=== PATIENT | female | born 1965 | race American Indian/Alaskan Native ===

== ENCOUNTER 2016-11-04 17:04 | Emergency (ER) | payer MEDICAID, OTHER ==
--- NOTE | 2016-11-04 18:21 | EDM.PDOC ---
{null, <Manas Bruner M - Last Filed: 11/04/16 18:28> ED HPI GENERAL MEDICAL PROBLEM - General Chief Complaint: Chest Pain Stated Complaint: CHEST PAIN/WEAKNESS [id number] Time Seen by Provider: 11/04/16 19:25 - Related Data Allergies Allergy/AdvReac Type Severity Reaction Status Date / Time No Known Allergies Allergy Verified 07/05/16 23:47 Home Meds: Home Meds Levothyroxine 125 mcg PO ACBREAKFAST 06/07/15 [History] Sertraline [Zoloft] 50 mg PO DAILY 06/07/15 [History] Fludrocortisone [Florinef] 0.1 mg PO WITHBREAKFAST 09/15/15 [History] Gabapentin [Neurontin] 300 mg PO TID 09/15/15 [History] rOPINIRole [Requip] 1 mg PO DAILY 09/15/15 [History] Hydrocodone/Acetaminophen [Hydrocodon-Acetaminophn 10-325] 1 tab PO ASDIRECTED PRN 11/04/16 [History] Hydrocortisone [Cortef] 2 tab PO DAILY 11/04/16 [History] Past Medical History HEENT History: Reports: Cataract, Impaired Vision Cardiovascular History: Reports: Arrhythmia Respiratory History: Reports: COPD Other Gastrointestinal History: Here because of vomiting. 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, Diabetes, Type II, Hypothyroidism Hematologic History: Reports: Anemia - Past Surgical History GI Surgical History: Reports: Appendectomy, Cholecystectomy, Colonoscopy Social & Family History - Family History Family Medical History: Unobtainable - Tobacco Use Smoking Status *Q: Former Smoker Years of Tobacco use: 1 Packs/Tins Daily: 0.2 Used Tobacco, but Quit: No Second Hand Smoke Exposure: Yes - Caffeine Use Caffeine Use: Reports: Soda, Tea - Alcohol Use Days Per Week of Alcohol Use: 0 - Recreational Drug Use Recreational Drug Use: Yes Drug Use in Last 12 Months: Yes Recreational Drug Type: Reports: Marijuana/Hashish, Methamphetamine Recreational Drug Use Frequency: Weekly - Living Situation & Occupation Living situation: Reports: Single, with Family Occupation: Disabled Course - Vital Signs Last Recorded V/S: Last Vital Signs Temp 36.6 C 11/04/16 17:28 Pulse 68 11/04/16 17:28 Resp 16 11/04/16 17:28 BP 110/79 11/04/16 17:28 Pulse Ox 100 11/04/16 17:28 - Orders/Labs/Meds Orders: Active Orders 24 hr Category Date Time Status EKG Documentation Completion [RC] URGENT Care 11/04/16 17:45 Active Labs: Laboratory Tests 11/04/16 11/04/16 11/04/16 Range/Units 18:10 18:10 18:10 WBC 7.4 (5.0-10.0) 10^3/uL RBC 4.54 (4.2-5.4) 10^6/uL Hgb 13.7 (12.0-16.0) g/dL Hct 39.7 (37.0-47.0) % MCV 87.4 (80-100) fL MCH 30.2 (27.0-34.0) pg MCHC 34.5 (33.0-35.0) g/dL Plt Count 160 (150-450) 10^3/uL Neut % (Auto) 25.7 L (42.2-75.2) % Lymph % (Auto) 62.0 H (20.5-50.1) % [place] % (Auto) 5.4 (2-8) % Eos % (Auto) 6.1 H (1.0-3.0) % Baso % (Auto) 0.8 (0.0-1.0) % D-Dimer, Quantitative < 100 (0-400) ng/mL Sodium 129 L (135-145) mmol/L Potassium 4.4 (3.6-5.0) mmol/L Chloride 101 (101-111) mmol/L Carbon Dioxide 20.0 L (21.0-31.0) mmol/L Anion Gap 12.4 BUN 19 H (7-18) mg/dL Creatinine 0.9 (0.6-1.3) mg/dL Est Cr Clr Drug Dosing 56.43 mL/min Estimated GFR (MDRD) > 60 BUN/Creatinine Ratio 21.11 Glucose 78 (74-105) mg/dL Calcium 9.6 (8.4-10.2) mg/dl Total Bilirubin 0.7 (0.2-1.0) mg/dL AST 108 H (10-42) IU/L ALT 120 H (10-60) IU/L Alkaline Phosphatase 57 (42-121) IU/L Troponin I < 0.02 (0.00-0.02) ng/ml Total Protein 8.1 (6.7-8.2) g/dl Albumin 4.1 (3.2-5.5) g/dl Globulin 4.0 Albumin/Globulin Ratio 1.03 Urine Color (YELLOW) Urine Appearance (CLEAR) Urine pH (5.0-9.0) Ur Specific [place] (1.005-1.030) Urine Protein (NEGATIVE) Urine Glucose (UA) (NEGATIVE) Urine Ketones (NEGATIVE) Urine Occult Blood (NEGATIVE) Urine Nitrite (NEGATIVE) Urine Bilirubin (NEGATIVE) Urine Urobilinogen (0.2-1.0) mg/dL Ur Leukocyte Esterase (NEGATIVE) Urine RBC /HPF Urine WBC (0-5/HPF) /HPF Ur Epithelial Cells /HPF Urine Bacteria (0-FEW/HPF) /HPF Urine Opiates Screen (NEGATIVE) Ur Oxycodone Screen (NEGATIVE) Urine Methadone Screen (NEGATIVE) Ur Barbiturates Screen (NEGATIVE) U Tricyclic Antidepress (NEGATIVE) Ur Phencyclidine Scrn (NEGATIVE) Ur Amphetamine Screen (NEGATIVE) U Methamphetamines Scrn (NEGATIVE) Urine MDMA Screen (NEGATIVE) U Benzodiazepines Scrn (NEGATIVE) Urine Cocaine Screen (NEGATIVE) U Marijuana (THC) Screen (NEGATIVE) 11/04/16 11/04/16 Range/Units 18:31 18:31 WBC (5.0-10.0) 10^3/uL RBC (4.2-5.4) 10^6/uL Hgb (12.0-16.0) g/dL Hct (37.0-47.0) % MCV (80-100) fL MCH (27.0-34.0) pg MCHC (33.0-35.0) g/dL Plt Count (150-450) 10^3/uL Neut % (Auto) (42.2-75.2) % Lymph % (Auto) (20.5-50.1) % [place] % (Auto) (2-8) % Eos % (Auto) (1.0-3.0) % Baso % (Auto) (0.0-1.0) % D-Dimer, Quantitative (0-400) ng/mL Sodium (135-145) mmol/L Potassium (3.6-5.0) mmol/L Chloride (101-111) mmol/L Carbon Dioxide (21.0-31.0) mmol/L Anion Gap BUN (7-18) mg/dL Creatinine (0.6-1.3) mg/dL Est Cr Clr Drug Dosing mL/min Estimated GFR (MDRD) BUN/Creatinine Ratio Glucose (74-105) mg/dL Calcium (8.4-10.2) mg/dl Total Bilirubin (0.2-1.0) mg/dL AST (10-42) IU/L ALT (10-60) IU/L Alkaline Phosphatase (42-121) IU/L Troponin I (0.00-0.02) ng/ml Total Protein (6.7-8.2) g/dl Albumin (3.2-5.5) g/dl Globulin Albumin/Globulin Ratio Urine Color Yellow (YELLOW) Urine Appearance Clear (CLEAR) Urine pH 5.0 (5.0-9.0) Ur Specific [place] 1.010 (1.005-1.030) Urine Protein Negative (NEGATIVE) Urine Glucose (UA) Negative (NEGATIVE) Urine Ketones Negative (NEGATIVE) Urine Occult Blood Negative (NEGATIVE) Urine Nitrite Negative (NEGATIVE) Urine Bilirubin Negative (NEGATIVE) Urine Urobilinogen 0.2 (0.2-1.0) mg/dL Ur Leukocyte Esterase Negative (NEGATIVE) Urine RBC 0-5 /HPF Urine WBC 0-5 (0-5/HPF) /HPF Ur Epithelial Cells Rare /HPF Urine Bacteria Few (0-FEW/HPF) /HPF Urine Opiates Screen Negative (NEGATIVE) Ur Oxycodone Screen Negative (NEGATIVE) Urine Methadone Screen Negative (NEGATIVE) Ur Barbiturates Screen Negative (NEGATIVE) U Tricyclic Antidepress Negative (NEGATIVE) Ur Phencyclidine Scrn Negative (NEGATIVE) Ur Amphetamine Screen Negative (NEGATIVE) U Methamphetamines Scrn Positive H (NEGATIVE) Urine MDMA Screen Negative (NEGATIVE) U Benzodiazepines Scrn Positive H (NEGATIVE) Urine Cocaine Screen Negative (NEGATIVE) U Marijuana (THC) Screen Negative (NEGATIVE) Departure - Departure Disposition: Home, Self-Care 01 Clinical Impression: Manolo's disease Instructions: Nonspecific Chest Pain, [id number] Forms: ED Department Discharge Additional Instructions: 1) try to establish with INTERNAL MEDICINE DOCTOR. rx given: fludrocortisone 0.1mg daily x 30 levothyrox 125microG daily x 30 sertraline 50mg daily x 20 diclofenac gel apply tid tizanidine 4mg bid x 30 vicodin 5/325mg bid prn x 12 <Jake Grewal - Last Filed: 11/04/16 19:35> ED HPI GENERAL MEDICAL PROBLEM - General Source of Information: Reports: Patient, Family History Limitations: Reports: No Limitations - History of Present Illness INITIAL COMMENTS - FREE TEXT/NARRATIVE: states out of all her Rx saw clinic who sent her here. explained to Pt re unable refill pain Rx. otherwise has no c/o and understands her manolo dz situation. ED ROS GENERAL - Review of Systems Review Of Systems: ROS reveals no pertinent complaints other than HPI. ED EXAM, GENERAL - Physical Exam Exam: See Below Exam Limited By: No Limitations General Appearance: Alert, WD/WN, No Apparent Distress Eye Exam: Bilateral Eye: PERRL (pupils ess ER @ 4mm) Ears: Hearing Grossly Normal Throat/Mouth: Normal Voice, No Airway Compromise Head: Atraumatic Neck: Non-Tender, Full Range of Motion Respiratory/Chest: No Respiratory Distress Cardiovascular: Regular Rate, Rhythm GI/Abdominal: Soft, Non-Tender Neurological: Alert, Oriented, Normal Cognition, Normal Gait, No Motor/Sensory Deficits Psychiatric: Normal Affect, Normal Mood Skin Exam: Warm, Dry Lymphatic: No Adenopathy Departure - Departure Time of Disposition: 19:28 Condition: good }
[2016-11-04 18:36] LABS: CHLORIDE,CL 101 mmol/L (101-111); SODIUM,NA 129 mmol/L (135-145)
[2016-11-04] MEDS ORDERED: Acetaminophen/HYDROcodone 325-10 MG Tab PO ONE (19:36)
[2016-11-04 19:51] VITALS: BP 107/80
--- NOTE | 2016-11-06 12:37 | EKG ---
{null, 11/04/2016 - NELLI VAZQUEZ ALICJA - A 12-lead EKG shows normal sinus rhythm with heart rate of 66. No significant ST elevation or ST depression noted on this 12-lead EKG. T-wave inversions noted on lead V2 and V3, nonspecific finding. [facility] /[id number] }
== END 2016-11-04 19:45 | disposition home or self-care (01) ==
LOC: DL.ED 17:04
DX: E27.1 Primary adrenocortical insufficiency (principal); J44.9 Chronic obstructive pulmonary disease, unspecified; F41.9 Anxiety disorder, unspecified; E11.9 Type 2 diabetes mellitus without complications; F17.210 Nicotine dependence, cigarettes, uncomplicated; E03.9 Hypothyroidism, unspecified; Z90.49 Acquired absence of other specified parts of digestive tract; Z79.899 Other long term (current) drug therapy
CPT/HCPCS: 36415; 80053; 80305; 81001; 84484; 85025; 85379; 93005; 99285; A9270

== ENCOUNTER 2017-01-24 19:13 | Emergency (ER) | payer MEDICAID, OTHER ==
[2017-01-24] MEDS ORDERED: methylPREDNISolone Sodium Succinate 125 MG/2 ML SDV IVPUSH ONE (19:57)
[2017-01-24 20:34] LABS: CHLORIDE,CL 103 mmol/L (101-111); SODIUM,NA 136 mmol/L (135-145)
[2017-01-24] MEDS ORDERED: Sodium Chloride 0.9% 1,000 ML IV ONE (20:38)
--- NOTE | 2017-01-24 21:26 | EDM.PDOC ---
ED HPI GENERAL MEDICAL PROBLEM - General Chief Complaint: General Stated Complaint: OUT OF MEDS, [id number] Time Seen by Provider: 01/24/17 20:00 Source of Information: Reports: Patient History Limitations: Reports: No Limitations - History of Present Illness INITIAL COMMENTS - FREE TEXT/NARRATIVE: ran out of meds yesterday, started feeling weak last karoline, NVD today. Unable to get meds until Abdominal Pain Score (Numeric/FACES): 7 - Related Data Allergies Allergy/AdvReac Type Severity Reaction Status Date / Time No Known Allergies Allergy Verified 01/24/17 19:50 Home Meds: Home Meds Levothyroxine 125 mcg PO ACBREAKFAST 06/07/15 [History] Fludrocortisone [Florinef] 0.1 mg PO WITHBREAKFAST 09/15/15 [History] Gabapentin [Neurontin] 300 mg PO TID 09/15/15 [History] rOPINIRole [Requip] 1 mg PO DAILY 09/15/15 [History] Hydrocodone/Acetaminophen [Hydrocodon-Acetaminophn 10-325] 10 tab PO BID PRN [History] Hydrocortisone [Cortef] 1 tab PO BID 11/04/16 [History] Past Medical History HEENT History: Reports: Cataract, Impaired Vision Cardiovascular History: Reports: Arrhythmia Respiratory History: Reports: COPD Gastrointestinal History: Reports: Gastritis Other Gastrointestinal History: Here because of vomiting. 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2 Used Tobacco, but Quit: No Second Hand Smoke Exposure: Yes - Caffeine Use Caffeine Use: Reports: Coffee - Alcohol Use Days Per Week of Alcohol Use: 0 - Recreational Drug Use Recreational Drug Use: Yes Drug Use in Last 12 Months: Yes Recreational Drug Type: Reports: Methamphetamine, Other (see below) Other Recreational Drug Type: Has not used in the last 2 months Recreational Drug Use Frequency: Not Used In Over 1 Year - Living Situation & Occupation Living situation: Reports: Single, with Family Occupation: Disabled ED ROS GENERAL - Review of Systems Review Of Systems: See Below Constitutional: Reports: Weakness HEENT: Reports: No Symptoms Respiratory: Reports: No Symptoms Cardiovascular: Reports: No Symptoms Endocrine: Reports: No Symptoms GI/Abdominal: Reports: No Symptoms Musculoskeletal: Reports: No Symptoms Skin: Reports: Change in Color Neurological: Reports: Weakness ED EXAM, GENERAL - Physical Exam Exam: See Below Exam Limited By: No Limitations General Appearance: Alert, Mild Distress Eye Exam: Bilateral Eye: EOMI, PERRL Ears: Normal External Exam, Normal TMs Nose: Normal Inspection Throat/Mouth: Normal Inspection Head: Atraumatic, Normocephalic Neck: Normal Inspection Respiratory/Chest: No Respiratory Distress, Lungs Clear, Normal Breath Sounds Cardiovascular: Normal Peripheral Pulses, Regular Rate, Rhythm GI/Abdominal: Normal Bowel Sounds, Soft Back Exam: Normal Inspection Neurological: Alert, Oriented, Normal Cognition, No Motor/Sensory Deficits Psychiatric: Normal Affect Skin Exam: Warm, Dry, Intact, Normal Color Course - Vital Signs Last Recorded V/S: Last Vital Signs Temp 98.1 F 01/24/17 21:51 Pulse 78 01/24/17 21:51 Resp 14 01/24/17 21:51 BP 80/54 L 01/24/17 21:51 Pulse Ox 100 01/24/17 21:51 - Orders/Labs/Meds Labs: Laboratory Tests 01/24/17 01/24/17 Range/Units 20:10 20:10 WBC 6.6 (5.0-10.0) 10^3/uL RBC 4.19 L (4.2-5.4) 10^6/uL Hgb 12.8 (12.0-16.0) g/dL Hct 37.0 (37.0-47.0) % MCV 88.3 (80-100) fL MCH 30.5 (27.0-34.0) pg MCHC 34.6 (33.0-35.0) g/dL Plt Count 165 (150-450) 10^3/uL Neut % (Auto) 39.3 L (42.2-75.2) % Lymph % (Auto) 46.8 (20.5-50.1) % [place] % (Auto) 6.7 (2-8) % Eos % (Auto) 6.6 H (1.0-3.0) % Baso % (Auto) 0.6 (0.0-1.0) % Add Manual Diff Yes Neutrophils % (Manual) 40 % Lymphocytes % (Manual) 44 % Monocytes % (Manual) 8 % Eosinophils % (Manual) 8 % Sodium 136 (135-145) mmol/L Potassium 4.7 (3.6-5.0) mmol/L Chloride 103 (101-111) mmol/L Carbon Dioxide 23.0 (21.0-31.0) mmol/L Anion Gap 14.7 BUN 18 (7-18) mg/dL Creatinine 0.7 (0.6-1.3) mg/dL Est Cr Clr Drug Dosing 72.55 mL/min Estimated GFR (MDRD) > 60 BUN/Creatinine Ratio 25.71 Glucose 101 (74-105) mg/dL Calcium 9.2 (8.4-10.2) mg/dl Total Bilirubin 0.7 (0.2-1.0) mg/dL AST 32 (10-42) IU/L ALT 19 (10-60) IU/L Alkaline Phosphatase 53 (42-121) IU/L Total Protein 8.0 (6.7-8.2) g/dl Albumin 3.9 (3.2-5.5) g/dl Globulin 4.1 Albumin/Globulin Ratio 0.95 Meds: Medications Discontinued Medications Generic Name Dose Route Start Last Admin Trade Name Freq PRN Reason Stop Dose Admin Sodium Chloride 1,000 mls @ 999 mls/hr 01/24/17 20:38 01/24/17 20:49 Normal Saline IV 01/24/17 21:38 999 mls/hr .BOLUS ONE Administration Methylprednisolone Sodium Succinate 125 mg 01/24/17 19:57 01/24/17 20:14 Solu-Medrol IVPUSH 01/24/17 19:58 125 mg ONETIME ONE Administration - Re-Assessments/Exams Free Text/Narrative Re-Assessment/Exam: 01/25/17 03:20 verbalizes improvement following IVF infusion Departure - Departure Time of Disposition: 22:00 Disposition: Home, Self-Care 01 Condition: Fair Clinical Impression: Addisons disease, Weak - Discharge Information Instructions: Loranger Disease Forms: ED Department Discharge Additional Instructions: follow up with primary care, flurinef 0.1mg daily #2 cortef 1mg twice daily #4
[2017-01-24 21:52] VITALS: BP 80/54
== END 2017-01-24 22:00 | disposition home or self-care (01) ==
LOC: DL.ED 19:13
DX: E27.1 Primary adrenocortical insufficiency (principal); H54.7 Unspecified visual loss; J44.9 Chronic obstructive pulmonary disease, unspecified; F17.210 Nicotine dependence, cigarettes, uncomplicated; E11.9 Type 2 diabetes mellitus without complications; E03.9 Hypothyroidism, unspecified; Z86.2 Personal history of diseases of the blood and blood-forming organs and certain disorders involving the immune mechanism; Z79.899 Other long term (current) drug therapy; Z90.49 Acquired absence of other specified parts of digestive tract
CPT/HCPCS: 36415; 80053; 85025; 99284; J2930; J7030; 96361; 96374

== ENCOUNTER 2017-02-10 15:27 | Emergency (ER) | payer MEDICAID, OTHER | END 2017-02-10 16:15 | LOC: DL.ED 15:27 | DX: Z53.21 Procedure and treatment not carried out due to patient leaving prior to being seen by health care provider (principal) ==

== ENCOUNTER 2017-02-25 14:05 | Inpatient (IN) | payer MEDICAID, SELFPAY ==
[2017-02-25] MEDS ORDERED: 50% Dextrose in Water 50 ML Syringe IVPUSH ONE (14:08)
[2017-02-25] MEDS ORDERED: Dexamethasone 4 MG/ML SDV IVPUSH ONE (14:08)
[2017-02-25] MEDS ORDERED: Dextrose 5%-0.45% NaCl 1,000 ML IV SCH (14:15)
[2017-02-25] MEDS ORDERED: Hydrocortisone Sodium Succinate 100 MG/2 ML SDV IVPUSH ONE (14:30)
[2017-02-25] MEDS ORDERED: Sodium Chloride 0.9% 10 ML Syringe FLUSH PRN (14:30)
--- NOTE | 2017-02-25 14:41 | EDM.PDOC ---
ED HPI GENERAL MEDICAL PROBLEM - General Chief Complaint: General Stated Complaint: AMBULANCE Time Seen by Provider: 02/25/17 14:15 Source of Information: Reports: Patient, EMS, RN, RN Notes Reviewed History Limitations: Reports: No Limitations - History of Present Illness INITIAL COMMENTS - FREE TEXT/NARRATIVE: Patient presents to the ER by [facility]. She states she has been sick and laying in bed for 3 days at home. She states she has [place]'s disease and has not taken her medications for the past few days. History of present illness is vague. EMS states glucose reading in the ambulance was "low". Only 1/2 of 1 amp of D50 was given as the IV blew. Onset: Unknown/Unsure Location: Reports: Abdomen Quality: Reports: Ache Severity: Mild Improves with: Reports: None Worsens with: Reports: None - Related Data Allergies Allergy/AdvReac Type Severity Reaction Status Date / Time No Known Allergies Allergy Verified 01/24/17 19:50 Home Meds: Home Meds Levothyroxine 125 mcg PO ACBREAKFAST 06/07/15 [History] Fludrocortisone [Florinef] 0.1 mg PO WITHBREAKFAST 09/15/15 [History] Gabapentin [Neurontin] 300 mg PO TID 09/15/15 [History] rOPINIRole [Requip] 1 mg PO DAILY 09/15/15 [History] Hydrocodone/Acetaminophen [Hydrocodon-Acetaminophn 10-325] 10 tab PO BID PRN [History] Hydrocortisone [Cortef] 1 tab PO BID 11/04/16 [History] Cyclobenzaprine [Flexeril] 1 tab PO ASDIRECTED PRN 02/25/17 [History] Ibuprofen [Ibuprofen] 1 tab PO ASDIRECTED PRN 02/25/17 [History] Sertraline [Zoloft] 1 tab PO DAILY 02/25/17 [History] hydrOXYzine HCl [Atarax] 1 tab PO TID PRN 02/25/17 [History] Past Medical History HEENT History: Reports: Cataract, Impaired Vision Cardiovascular History: Reports: Arrhythmia Respiratory History: Reports: COPD Gastrointestinal History: Reports: Gastritis Other Gastrointestinal History: Here because of vomiting. 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, Diabetes, Type II, Hypothyroidism Hematologic History: Reports: Anemia - Past Surgical History GI Surgical History: Reports: Appendectomy, Cholecystectomy, Colonoscopy Social & Family History - Family History Family Medical History: Noncontributory - Tobacco Use Smoking Status *Q: Current Every Day Smoker Years of Tobacco use: 1 Packs/Tins Daily: 0.2 Used Tobacco, but Quit: No Second Hand Smoke Exposure: Yes - Caffeine Use Caffeine Use: Reports: Coffee - Alcohol Use Days Per Week of Alcohol Use: 0 - Recreational Drug Use Recreational Drug Use: Yes Drug Use in Last 12 Months: Yes Recreational Drug Type: Reports: Methamphetamine, Other (see below) Other Recreational Drug Type: Has not used in the last 2 months Recreational Drug Use Frequency: Not Used In Over 1 Year - Living Situation & Occupation Living situation: Reports: Single, with Family Occupation: Disabled ED ROS GENERAL - Review of Systems Review Of Systems: See Below Constitutional: Reports: Weakness, Fatigue ED EXAM, GENERAL - Physical Exam Exam: See Below Exam Limited By: No Limitations General Appearance: Alert, WD/WN, No Apparent Distress Eye Exam: Bilateral Eye: Normal Inspection, PERRL Ears: Normal External Exam Nose: Normal Inspection Throat/Mouth: Other (dry skin around lips) Head: Atraumatic, Normocephalic Neck: Normal Inspection, Supple, Non-Tender Respiratory/Chest: No Respiratory Distress, Lungs Clear, Normal Breath Sounds Cardiovascular: Normal Peripheral Pulses, Regular Rate, Rhythm, No Edema, No Gallop, No JVD, No Murmur, No Rub Peripheral Pulses: 2+: Radial (L), Radial (R) GI/Abdominal: Normal Bowel Sounds, Soft, Tender (Female) Exam: Deferred Rectal (Female) Exam: Deferred Back Exam: Normal Inspection, Full Range of Motion Extremities: Normal Inspection, Normal Range of Motion Neurological: Alert, Oriented Psychiatric: Normal Mood, Flat Affect Skin Exam: Warm, Dry, Intact Lymphatic: No Adenopathy EKG INTERPRETATION Rhythm: NSR [place]: Normal P-Wave: Present QRS: Normal ST-T: Depressed QT: Normal Comparison: No Change Course - Vital Signs Last Recorded V/S: Last Vital Signs Temp 98.9 F 02/25/17 14:05 Pulse 96 02/25/17 14:05 Resp 20 02/25/17 14:05 BP 66/41 L 02/25/17 14:05 Pulse Ox 99 02/25/17 14:05 - Orders/Labs/Meds Orders: Active Orders 24 hr Category Date Time Status Blood Glucose Check, Bedside [] ONETIME Care 02/25/17 14:09 Active EKG 12 Lead [EKG Documentation Completion] [] STAT Care 02/25/17 14:09 Active Peripheral IV Care [RC] . DIRECTED Care 02/25/17 14:08 Active Peripheral IV Care [RC] . DIRECTED Care 02/25/17 14:30 Active CULTURE BLOOD [BC] Stat Lab 02/25/17 14:24 Results CULTURE BLOOD [BC] Stat Lab 02/25/17 14:29 Results DRUG SCREEN URINE BIORAD [URCHEM] Stat Lab 02/25/17 14:11 Uncollected UA W/MICROSCOPIC [URIN] Stat Lab 02/25/17 14:10 Uncollected Dextrose 5%-0.45% NaCl [Dextrose 5%-1/2 NS] 1,000 ml Med 02/25/17 14:15 Active IV ASDIRECTED Sodium Chloride 0.9% [Saline Flush] Med 02/25/17 14:08 Active 10 ml FLUSH ASDIRECTED PRN Sodium Chloride 0.9% [Saline Flush] Med 02/25/17 14:30 Active 10 ml FLUSH ASDIRECTED PRN Blood Culture x2 Reflex Set [OM.PC] Stat Oth 02/25/17 14:10 Ordered Peripheral IV Insertion Adult [OM.PC] Stat Oth 02/25/17 14:08 Ordered Peripheral IV Insertion Adult [OM.PC] Stat Oth 02/25/17 14:30 Ordered Medication Orders Dextrose/Sodium Chloride (Dextrose 5%-1/2 Ns) 1,000 mls @ 200 mls/hr IV ASDIRECTED TERRI Last Admin: 02/25/17 14:24 Dose: 200 mls/hr Sodium Chloride (Saline Flush) 10 ml FLUSH ASDIRECTED PRN PRN Reason: Keep Vein Open Last Admin: 02/25/17 15:12 Dose: 10 ml Sodium Chloride (Saline Flush) 10 ml FLUSH ASDIRECTED PRN PRN Reason: Keep Vein Open Last Admin: 02/25/17 14:40 Dose: 10 ml Labs: Laboratory Tests 02/25/17 02/25/17 02/25/17 Range/Units 14:24 14:24 14:24 WBC 9.3 (5.0-10.0) 10^3/uL RBC 4.39 (4.2-5.4) 10^6/uL Hgb 13.4 (12.0-16.0) g/dL Hct 38.3 (37.0-47.0) % MCV 87.2 (80-100) fL MCH 30.5 (27.0-34.0) pg MCHC 35.0 (33.0-35.0) g/dL Plt Count 162 (150-450) 10^3/uL Neut % (Auto) 49.1 (42.2-75.2) % Lymph % (Auto) 34.7 (20.5-50.1) % [place] % (Auto) 10.8 H (2-8) % Eos % (Auto) 5.0 H (1.0-3.0) % Baso % (Auto) 0.4 (0.0-1.0) % Sodium 132 L (135-145) mmol/L Potassium 3.9 (3.6-5.0) mmol/L Chloride 100 L (101-111) mmol/L Carbon Dioxide 19.0 L (21.0-31.0) mmol/L Anion Gap 16.9 BUN 33 H (7-18) mg/dL Creatinine 0.9 (0.6-1.3) mg/dL Est Cr Clr Drug Dosing TNP Estimated GFR (MDRD) > 60 BUN/Creatinine Ratio 36.66 Glucose 72 L (74-105) mg/dL POC Glucose (70-105) mg/dl Lactic Acid 1.2 (0.5-2.2) mmol/L Calcium 9.2 (8.4-10.2) mg/dl Magnesium (1.8-2.5) mg/dL Total Bilirubin 1.4 H (0.2-1.0) mg/dL AST 38 (10-42) IU/L ALT 24 (10-60) IU/L Alkaline Phosphatase 55 (42-121) IU/L Creatine Kinase 45 (26-174) IU/L Troponin I (0.00-0.02) ng/ml Total Protein 8.1 (6.7-8.2) g/dl Albumin 4.1 (3.2-5.5) g/dl Globulin 4.0 Albumin/Globulin Ratio 1.03 Amylase 70 (28-100) U/L Lipase 43 (22-51) U/L Ethyl Alcohol < 5 mg/dL 02/25/17 02/25/17 02/25/17 Range/Units 14:24 14:28 16:02 WBC (5.0-10.0) 10^3/uL RBC (4.2-5.4) 10^6/uL Hgb (12.0-16.0) g/dL Hct (37.0-47.0) % MCV (80-100) fL MCH (27.0-34.0) pg MCHC (33.0-35.0) g/dL Plt Count (150-450) 10^3/uL Neut % (Auto) (42.2-75.2) % Lymph % (Auto) (20.5-50.1) % [place] % (Auto) (2-8) % Eos % (Auto) (1.0-3.0) % Baso % (Auto) (0.0-1.0) % Sodium (135-145) mmol/L Potassium (3.6-5.0) mmol/L Chloride (101-111) mmol/L Carbon Dioxide (21.0-31.0) mmol/L Anion Gap BUN (7-18) mg/dL Creatinine (0.6-1.3) mg/dL Est Cr Clr Drug Dosing Estimated GFR (MDRD) BUN/Creatinine Ratio Glucose (74-105) mg/dL POC Glucose 72 144 H (70-105) mg/dl Lactic Acid (0.5-2.2) mmol/L Calcium (8.4-10.2) mg/dl Magnesium 1.2 L (1.8-2.5) mg/dL Total Bilirubin (0.2-1.0) mg/dL AST (10-42) IU/L ALT (10-60) IU/L Alkaline Phosphatase (42-121) IU/L Creatine Kinase (26-174) IU/L Troponin I < 0.02 (0.00-0.02) ng/ml Total Protein (6.7-8.2) g/dl Albumin (3.2-5.5) g/dl Globulin Albumin/Globulin Ratio Amylase (28-100) U/L Lipase (22-51) U/L Ethyl Alcohol mg/dL Meds: Medications Generic Name Dose Route Start Last Admin Trade Name Freq PRN Reason Stop Dose Admin Dextrose/Sodium Chloride 1,000 mls @ 200 mls/hr 02/25/17 14:15 02/25/17 14:24 Dextrose 5%-1/2 Ns IV 200 mls/hr ASDIRECTED TERRI Administration Sodium Chloride 10 ml 02/25/17 14:08 02/25/17 15:12 Saline Flush FLUSH 10 ml ASDIRECTED PRN Administration Keep Vein Open Sodium Chloride 10 ml 02/25/17 14:30 02/25/17 14:40 Saline Flush FLUSH 10 ml ASDIRECTED PRN Administration Keep Vein Open Discontinued Medications Generic Name Dose Route Start Last Admin Trade Name Danielq PRN Reason Stop Dose Admin Dexamethasone 4 mg 02/25/17 14:08 02/25/17 14:31 Dexamethasone IVPUSH 02/25/17 14:09 4 mg ONETIME ONE Administration Dextrose/Water 50 ml 02/25/17 14:08 02/25/17 14:30 Dextrose 50% In Water IVPUSH 02/25/17 14:09 50 ml ONETIME ONE Administration Hydrocortisone Sodium Succinate 60 mg 02/25/17 14:30 02/25/17 14:48 Solu-Cortef IVPUSH 02/25/17 14:31 60 mg ONETIME ONE Administration Departure - Departure Time of Disposition: 16:31 Disposition: Refer to Observation Condition: Fair Clinical Impression: Hypoglycemia, Hypomagnesemia - Discharge Information Referrals: PCP,None [Primary Care Provider] - Forms: ED Department Discharge
[2017-02-25 14:57] LABS: CHLORIDE,CL 100 mmol/L (101-111); SODIUM,NA 132 mmol/L (135-145)
--- NOTE | 2017-02-25 15:08 | CR ---
Clinical history: 51-year-old female loss of consciousness (aspiration?). Interpretation: Upright AP portable chest unremarkable. No acute new cardiopulmonary abnormality since 06 July 2016 exam. Normal cardiac silhouette without cephalization of flow, signs of alveolar edema or dependent effusio n. No lung mass, hilar lymphadenopathy or focal lobar pneumonia. No atelectasis/collapse. No pneumothorax. Lisa thorax unremarkable.
[2017-02-25] MEDS: Sodium Chloride 0.9% 10 ML Syringe FLUSH PRN ×2 (15:12→20:54)
[2017-02-25] MEDS ORDERED: Morphine 2 MG/ML Syringe IVPUSH PRN (17:58)
[2017-02-25] MEDS ORDERED: Ondansetron 4 MG/2 ML SDV IVPUSH PRN (17:58)
[2017-02-25] MEDS ORDERED: Acetaminophen/HYDROcodone 325-10 MG Tab PO PRN (18:03)
[2017-02-25] MEDS ORDERED: Cyclobenzaprine 10 MG Tab PO PRN ×2 (18:03→20:48)
[2017-02-25] MEDS ORDERED: hydrOXYzine HCl 25 MG Tab PO PRN (18:03)
[2017-02-25] MEDS ORDERED: Insulin Aspart 100 Units/ML 3 ML Pen SUBCUT PRN (18:05)
[2017-02-25] MEDS ORDERED: 50% Dextrose in Water 50 ML Syringe IVPUSH PRN (18:05)
[2017-02-25] MEDS: Sodium Chloride 0.9% 1,000 ML IV SCH (19:04)
[2017-02-25] MEDS: cefTRIAXone 1 GM in Sodium Chloride 0.9% 50 ML IV SCH (20:13)
[2017-02-25] MEDS: Acetaminophen/HYDROcodone 325-10 MG Tab PO PRN (21:00)
[2017-02-25] MEDS: Gabapentin 300 MG Cap PO SCH (21:00)
[2017-02-25] MEDS: Hydrocortisone Sodium Succinate 100 MG/2 ML SDV IV SCH (22:14)
--- NOTE | 2017-02-25 22:20 | HP ---
CHIEF COMPLAINT: Had a fall at home and was unconscious. HISTORY OF PRESENTING ILLNESS: Mrs. Chuy Roger is a 51-year-old female with a medical history significant for Montgomery disease, on chronic steroid therapy; Kelly thyroiditis, hypothyroidism, type 2 diabetes mellitus, who initially presented to the ER as she was noted to be on the floor, observed by her sister and she was brought to the emergency room. While in the emergency room, she was noted to be hypotensive and needing admission to the hospital for possible adrenal crisis. The patient is awake and alert and is able to follow commands spontaneously. As per the patient, she has been sick for the last 3 to 4 days, where she has been feeling weak and tired. She did not fill her hydrocortisone and has not been taking her hydrocortisone in the last 3 to 4 days. She was also complaining of fevers and chills while at home. Denies any chest pains. No shortness of breath. No cough with sputum in the last few days. Complains of abdominal discomfort which is mild in nature. She was also confused prior to coming to the hospital, but now not much confused. She denied any nausea or vomiting in the last 2 days. She denies any diarrhea in the last few days. The patient denied any history of chest pains on exertion, but has dyspnea on exertion. No history of orthopnea or paroxysmal nocturnal dyspnea. The patient denied any history of hematemesis, hematochezia, or melanotic stools. Normal bowel and bladder habits otherwise. Sometimes she is constipated. REVIEW OF SYSTEMS: A complete review of system including skin, ear, nose, and throat; cardiovascular system, endocrinology, rheumatology, allergy, immunology, hematology, and constitutional were all evaluated. PAST MEDICAL HISTORY: Significant for: 1. Type 2 diabetes mellitus. 2. Manolo disease, noncompliance with medical treatment and plan. 3. Hypothyroidism. 4. Gastroesophageal reflux disease. 5. Chronic alcohol use. 6. Chronic tobacco use. 7. History of substance abuse. 8. History of anxiety and depression. 9. Chronic obstructive pulmonary disease. 10.Degenerative disc disease of the lumbar spine. 11.Methamphetamine use. 12.Marijuana use. PAST SURGICAL HISTORY: Significant for: 1. section. 2. Cholecystectomy. 3. Appendicectomy. 4. Fallopian tube ligation. FAMILY HISTORY: Significant for heart disease, COPD, and asthma in her mother. Hypertension, diabetes, COPD, and heart disease in her father. History of cancer in her sister and cancer in her maternal grandmother and also in her maternal uncles and aunts. ALLERGIES: The patient was noted to have allergies to codeine, aspirin with caffeine, hydrocodone and acetaminophen, naproxen, and penicillin. SOCIAL HISTORY: The patient has a history of tobacco use and alcohol use and substance abuse with marijuana and methamphetamine. PHYSICAL EXAMINATION: Vital Signs: Temperature of 101.3, pulse of 104, blood pressure of 80/62, respiratory rate of 18, saturating at 99% on room air. General Appearance: The patient is alert and oriented to time, place, and person. Follows commands spontaneously. Cardiovascular System: S1, S2 heard with normal intensity. No gallops. Respiratory: Clear to auscultation bilaterally. No wheeze. No crepitations. Abdomen: Soft. Bowel sounds positive. Nontender. No rigidity. Extremities: No edema in bilateral lower extremities. Neurologic: No gross focal neurological deficits. HOME MEDICATIONS: Reviewed. 1. Atarax 25 mg daily. 2. Flexeril 10 mg three times a day as needed. 3. Florinef 0.1 mg daily. 4. Hydrocortisone 10 mg. 5. Levothyroxine 125 mcg daily. 6. Oxycodone with acetaminophen 0.5 to 1 tablet every 6 hours as needed for pain. 7. Requip 1 mg daily. 8. Phenergan 25 mg as needed. LABORATORY DATA: Reviewed. 1. WBC 9.3, hemoglobin 13.4, hematocrit 38.3, platelet count 162. 2. Sodium 132, potassium 3.9, chloride 100, bicarb 19, BUN 33, creatinine 0.9, glucose 72, lactic acid 1.2, magnesium 1.2, total bilirubin 1.4. Troponin less than 0.02. 3. Ethyl alcohol less than 5. ASSESSMENT: 1. Acute Montgomery crisis. 2. Hyponatremia. 3. Fever with unknown source of infection. 4. Hypertension. 5. Type 2 diabetes mellitus. 6. Substance abuse. 7. Chronic tobacco use. PLAN: 1. Montgomery crisis. The patient presents with unconscious state and responded well to the IV fluids. She has not been taking her hydrocortisone for the last 2 to 3 days. We will start her on IV hydrocortisone 100 mg q.8 hourly. We will keep her hydrated with IV fluids. We will restart her oral hydrocortisone and Florinef when she is more stable and closely follow. The patient was explained about the importance of being compliant with medications. 2. Type 2 diabetes mellitus. This could be uncontrolled secondary to using hydrocortisone, but initially she was noted to be hypoglycemic with blood glucose of 72. We will have her on normal saline and closely follow with her blood sugars. 3. Tobacco use. The patient is educated on tobacco cessation, strongly encouraged her to quit smoking. We will prescribe nicotine transdermal patch while in the hospital. 4. Fever. The patient is noted to have a low-grade temperature of 101.3, exact etiology not clear. The patient has a chest x-ray in the ER which was within normal limits. We will obtain urinalysis. Obtain blood cultures and urine culture and empirically start her on IV antibiotic with ceftriaxone. Closely follow. 5. DVT prophylaxis. We will have her on Lovenox for DVT prophylaxis. 6. Code status. The patient wants to be full code. 7. Discussed with ER physician regarding the plan of care. Reviewed the labs and medications. Reviewed the old charts. [facility] /[id number]
[2017-02-26] MEDS: Sodium Chloride 0.9% 1,000 ML IV SCH ×3 (03:44→21:09)
[2017-02-26] MEDS: Levothyroxine 125 MCG Tab PO SCH (05:37)
[2017-02-26] MEDS: Hydrocortisone Sodium Succinate 100 MG/2 ML SDV IV SCH ×3 (05:38→21:11)
[2017-02-26 05:53] LABS: CHLORIDE,CL 106 mmol/L (101-111); SODIUM,NA 135 mmol/L (135-145)
[2017-02-26] MEDS: Sertraline 50 MG Tab PO SCH (10:40)
[2017-02-26] MEDS: Gabapentin 300 MG Cap PO SCH ×3 (10:40→21:11)
[2017-02-26] MEDS: rOPINIRole 2 MG Tab PO SCH (10:40)
[2017-02-26] MEDS: Enoxaparin 40 MG/0.4 ML Syringe SUBCUT SCH (10:41)
[2017-02-26] MEDS: Acetaminophen/HYDROcodone 325-10 MG Tab PO PRN ×2 (10:52→23:06)
[2017-02-26] MEDS: Fludrocortisone 0.1 MG Tab PO SCH (12:55)
--- NOTE | 2017-02-26 13:56 | PN ---
DATE: 02/26/2017 SUBJECTIVE: Mrs. Acacia Vera is a 51-year-old female with medical history significant for Harvey's disease, chronic steroid therapy, Kelly thyroiditis, hypothyroidism, type 2 diabetes mellitus, history of noncompliance with medications, and substance abuse, admitted to the hospital with complaints of increasing weakness, tiredness, and noted to have adrenal crisis. For the last 24 hours, the patient was started on IV hydrocortisone and IV fluids after which her symptoms seems to be improving. She denies any chest pain. No shortness of breath. Complaints of increasing weakness and tiredness, 4 to 5/10 in intensity, aggravated on ambulation, relieved with rest, not associated with any nausea or vomiting. Complains having mild abdominal discomfort. REVIEW OF SYSTEMS: Cardiovascular, respiratory, gastrointestinal, neurology, constitutional were all evaluated. PHYSICAL EXAMINATION: Vital Signs: Temperature of 98, pulse of 86, blood pressure of 87/52, respiratory rate of 20, saturating at 92% on room air. General Appearance: The patient is well oriented to time, place, and person. Follows commands spontaneously. Cardiovascular System: S1 and S2 heard with normal intensity. No gallops. Respiratory: Clear to auscultation bilaterally. No wheeze. No crepitations. Abdomen: Soft. Bowel sounds positive. Nontender. No rigidity. Extremities: No edema in bilateral lower extremities. NEUROLOGY: No gross focal neurological deficits. MEDICATIONS: Reviewed. Continue with: 1. [place] 1 tablet twice a day as needed for pain. 2. Ceftriaxone 1 g daily. 3. Flexeril 10 mg 3 times a day as needed for spasms. 4. Lovenox 40 mg daily subcutaneously. 5. Neurontin 300 mg 3 times a day. 6. Hydrocortisone 50 mg IV q.8 hourly. 7. NovoLog supplemental scale. 8. Levothyroxine 125 mcg daily. 9. Morphine 2 mg IV q.2 hours as needed for pain. 10.Zofran 4 mg IV q.6 hours as needed for nausea and vomiting. 11.Zoloft 50 mg daily. LABORATORY DATA: WBC 4.3, hemoglobin 11, hematocrit 31.5, and platelet count 126. Sodium 135, potassium 4, chloride 106, bicarb 20, BUN 26, creatinine 0.7, glucose 164. Magnesium 1.7, phosphorus 5.2, calcium 8.1. Urine toxicology screened positive for oxycodone, positive for amphetamine. Methamphetamine, and marijuana, ethyl alcohol less than 5. ASSESSMENT: 1. Acute Harvey's crisis. 2. Hyponatremia. 3. Hypertension. 4. Type 2 diabetes mellitus. 5. Substance abuse. PLAN: 1. Manolo's crisis. The patient was started on IV hydrocortisone at 100 mg IV q.8 hourly. We will decrease it to 50 mg IV q.8 hourly. We will start her on Florinef as her blood pressure seems to be on the lower side. Continue with levothyroxine. 2. Hyponatremia, this seems to be much improved. Continue the IV fluids. We will decrease IV fluids at this time and we will recheck a basic metabolic panel in a.m. 3. Type 2 diabetes mellitus. The patient was hypoglycemic at the time of admission. Continue with supplemental scale insulin as needed. Closely monitor fingersticks with each meals. 4. Substance abuse. The patient was educated about the ill effects of substance abuse on her health, and strongly encouraged her to quit smoking and abusing medications which she understands and verbalized the same. 5. Fever, exact etiology not clear. No source of infection identified. We empirically started on IV antibiotics. We will continue the same. 6. Deep vein thrombosis prophylaxis. Continue with the Lovenox for DVT prophylaxis. 7. We will have Physical Therapy and Occupational Therapy evaluate and treat the patient. [facility] /[id number]
[2017-02-26] MEDS: cefTRIAXone 1 GM in Sodium Chloride 0.9% 50 ML IV SCH (17:17)
[2017-02-27] MEDS: Sodium Chloride 0.9% 1,000 ML IV SCH (05:12)
[2017-02-27] MEDS: Levothyroxine 125 MCG Tab PO SCH (05:39)
[2017-02-27] MEDS: Hydrocortisone Sodium Succinate 100 MG/2 ML SDV IV SCH (05:39)
[2017-02-27 06:42] LABS: CHLORIDE,CL 110 mmol/L (101-111); SODIUM,NA 138 mmol/L (135-145)
[2017-02-27] MEDS: Enoxaparin 40 MG/0.4 ML Syringe SUBCUT SCH (08:50)
[2017-02-27] MEDS: Fludrocortisone 0.1 MG Tab PO SCH (08:50)
[2017-02-27] MEDS: Gabapentin 300 MG Cap PO SCH ×4 (08:52→21:06)
[2017-02-27] MEDS: rOPINIRole 2 MG Tab PO SCH (08:52)
[2017-02-27] MEDS: Sertraline 50 MG Tab PO SCH (08:52)
[2017-02-27] MEDS: Hydrocortisone 20 MG Tab PO SCH ×2 (12:48→17:41)
[2017-02-27] MEDS: Acetaminophen/HYDROcodone 325-10 MG Tab PO PRN (12:54)
--- NOTE | 2017-02-27 13:01 | PN ---
DATE: 02/27/2017 SUBJECTIVE: Mrs. Acacia Vera is a 51-year-old female with medical history significant for Castro disease, chronic steroid therapy, Kelly thyroiditis, hypothyroidism, type 2 diabetes mellitus, noncompliance with medical treatment, and history of substance abuse, admitted to the hospital with complaints of increasing weakness, tiredness, and noted to have Manolo's crisis. For the last 24 hours, the patient is maintained on IV fluids. She is responding well to the treatment. She denies any chest pain. No shortness of breath. She had one episode of nausea and vomiting yesterday. She had mild episodes of hallucinations yesterday, which seems to be resolved at this time. She denies any abdominal pain. No diarrhea. REVIEW OF SYSTEMS: Cardiovascular, respiratory, gastrointestinal, neurology, constitutional were all evaluated. PHYSICAL EXAMINATION: Vital Signs: Temperature of 97.9, pulse of 56, blood pressure of 83/44, saturating at 96% on room air, respiratory rate of 20. General Appearance: The patient is well oriented to time, place, and person. Follows commands spontaneously. Cardiovascular System: S1, S2 heard with normal intensity. No gallops. Respiratory: Clear to auscultation bilaterally. No wheeze. No crepitations. Abdomen: Soft. Bowel sounds positive. Nontender. No rigidity. Extremities: No edema in bilateral lower extremities. Neurology: No gross focal neurological deficit. MEDICATIONS: Reviewed. 1. Continue with [place] 10/325 mg twice a day as needed for pain. 2. Ceftriaxone 1 g daily. 3. Flexeril 10 mg three times a day as needed. 4. Lovenox 40 mg daily. 5. Florinef 0.1 mg daily at breakfast. 6. Neurontin 300 mg three times a day. 7. Hydrocortisone 50 mg IV q.8 hourly. 8. Atarax 25 mg three times a day as needed for itching. 9. NovoLog supplemental scale. 10.Levothyroxine 125 mcg daily. 11.Morphine 2 mg IV q.2 hours as needed for pain. 12.Requip 1 mg daily. 13.Zoloft 50 mg daily. LABORATORY DATA: 1. WBC 6.6, hemoglobin 9.3, hematocrit 27.3, platelet count 99. 2. Sodium 138, potassium 4, chloride 110, bicarb 19, BUN 21, creatinine 0.6, glucose 141, calcium 7.4. ASSESSMENT: 1. Acute Castro crisis. 2. Thrombocytopenia. 3. Acute hyponatremia. 4. Hypertension. 5. Type 2 diabetes mellitus. 6. Substance abuse. PLAN: 1. Castro crisis, seems to be improving. We were able to decrease the hydrocortisone to 50 mg IV q.8 hourly. We will switch her to oral hydrocortisone. Continue with oral Florinef at this time. We will closely monitor. Her blood pressure seems to be on the lower side, but she is tolerating the blood pressure well, unsure if this is a normal range. 2. Hyponatremia, this seems to be much improved. We will discontinue the IV fluids today. 3. Type 2 diabetes mellitus, improved. She was noted to be acutely hypoglycemic at the time of admission. Continue supplemental scale insulin. Try to avoid any hypoglycemic episodes. Have her on hypoglycemic protocol. 4. Substance abuse. The patient's urine toxicology screen is positive for methamphetamine, marijuana, and opiates. The patient is explained about ill effects of abusing drugs on health and encouraged to quit smoking and also abusing drugs, which she understands and verbalized the same. 5. Fever, exact etiology not clear. She was empirically started on IV antibody, but no source of infection identified at this time. We will possibly discontinue the IV antibiotic once the courses done. 6. Deep venous thrombosis prophylaxis. The patient is noted to have thrombocytopenia. We will hold off the Lovenox for now. Recheck a CBC in a.m. The patient will be encouraged to ambulate around. 7. We will have Physical Therapy and Occupational Therapy to evaluate and treat the patient. 8. Possible discharge in a.m. if she remains hemodynamically stable. 9. Hallucination. The patient was noted to have mild episodes of hallucination, this could be from withdrawal as she was using methamphetamine and marijuana prior to getting admitted to the hospital. She remains hemodynamically stable at this time. [facility] /[id number]
[2017-02-27] MEDS: Sodium Chloride 0.9% 10 ML Syringe FLUSH PRN (17:43)
[2017-02-27] MEDS: cefTRIAXone 1 GM in Sodium Chloride 0.9% 50 ML IV SCH (17:44)
[2017-02-28] MEDS: Levothyroxine 125 MCG Tab PO SCH (05:45)
[2017-02-28 06:36] LABS: CHLORIDE,CL 108 mmol/L (101-111); SODIUM,NA 140 mmol/L (135-145)
[2017-02-28] MEDS: Fludrocortisone 0.1 MG Tab PO SCH (07:30)
[2017-02-28] MEDS: Hydrocortisone 20 MG Tab PO SCH (07:30)
[2017-02-28] MEDS: rOPINIRole 2 MG Tab PO SCH (08:22)
[2017-02-28] MEDS: Gabapentin 300 MG Cap PO SCH (08:22)
[2017-02-28] MEDS: Enoxaparin 40 MG/0.4 ML Syringe SUBCUT SCH (08:22)
[2017-02-28] MEDS: Sertraline 50 MG Tab PO SCH (08:22)
[2017-02-28] MEDS ORDERED: Potassium Chloride 10 MEQ Tab.ER PO SCH (10:45)
[2017-02-28 10:53] VITALS: BP 97/62
--- NOTE | 2017-03-01 05:20 | DISCH ---
ADMITTING DIAGNOSES: 1. Acute [place] crisis. 2. Uncontrolled diabetes mellitus. 3. Substance abuse. DISCHARGE DIAGNOSES: 1. Acute [place] crisis, resolved. 2. Acute hyponatremia, resolved. 3. Acute hypokalemia. 4. Substance abuse. 5. Chronic tobacco use. HISTORY OF PRESENT ILLNESS: Mrs. Chuy Roger is a 51-year-old female with medical history significant for [place] disease, on chronic steroid therapy and fludrocortisone; Kelly thyroiditis, leading to hypothyroidism; type 2 diabetes mellitus, admitted to the hospital with increasing lethargy and weakness, and was noted to be in [place] crisis with hypotension and uncontrolled diabetes with hypoglycemic episode. The patient was admitted to the hospital. She was also noted to be in acute hyponatremia requiring IV fluids. She was given booster dose of hydrocortisone 100 mg IV q.8 hourly initially and then tapered down to 50 mg. We were able to taper down to oral hydrocortisone at 20 mg twice a day. She responded well to the treatment. She was noted to have mild fever at the time of admission, so we did urinalysis and chest x-ray, which did not show any evidence of infection. She was empirically treated with IV ceftriaxone which was discontinued at the time of discharge. She was able to tolerate oral feeds well. She was able to ambulate well without any difficulty. Her hypoglycemic episodes got resolved. She is discharged home in stable condition. She is explained about the importance of being compliant with hydrocortisone. The patient claims that she had not taken hydrocortisone for few days prior to getting admitted to the hospital. She was explained about the importance of being compliant with medications. She was also explained about ill effects of substance use on her health and strongly encouraged her to stop doing any substance abuse. Her urine toxicology screen was positive for methamphetamine, opiates, and also marijuana at the time of admission. She is discharged home in stable condition. She is advised to follow with her primary care physician in the next 1 week of time. DISCHARGE MEDICATIONS: Include: 1. Flexeril one tablet 3 times a day as needed for back pain. 2. Florinef 0.1 mg oral with breakfast. 3. Neurontin 300 mg three times a day. 4. Hydrocodone acetaminophen 1 tablet twice a day as needed for pain. 5. Hydrocortisone 20 mg twice a day. 6. Ibuprofen 1 tablet as needed for pain. 7. Levothyroxine 125 mcg at breakfast. 8. Potassium chloride 20 mEq twice a day for the next 5 days. 9. Zoloft 1 tablet once daily. 10.Hydroxyzine 1 tablet three times a day as needed for itching. 11.Requip 1 mg tablet daily. PHYSICAL EXAMINATION: On the day of discharge: Vital Signs: Temperature of 98.9, pulse of 81, blood pressure of 97/62, respiratory rate of 20, and saturating at 100% on room air. General Appearance: The patient is well oriented to time, place, and person. Follows commands spontaneously. Cardiovascular System: S1 and S2 heard with normal intensity. No gallops. Respiratory System: Clear to auscultation bilaterally. No wheeze. No crepitations. Abdomen: Soft. Bowel sounds positive. Nontender. No rigidity. Extremities: No edema, bilateral lower extremities. Neurology: No gross focal neurological deficits. CONDITION ON ADMISSION: Poor. CONDITION ON DISCHARGE: Stable. ACTIVITY: As tolerated. DIET: Cardiac healthy diet. FOLLOWUP: Follow up with primary care physician in the next 1 to 2 weeks of time. TIME SPENT: Spent over 35 minutes of time in evaluating and treating this patient and formulating the discharge plan. [facility] /[id number]
--- NOTE | 2017-03-01 13:11 | EKG ---
02/25/2017 - NELLI VAZQUEZ - A 12-lead EKG shows normal sinus rhythm. Nonspecific ST-T wave changes, mostly in leads V2, V3, and V4. No significant ST elevation or ST depression noted on this 12-lead EKG. [facility] /[id number]
== END 2017-02-28 12:45 | disposition home or self-care (01) | DRG 644 ==
LOC: DL.ED 14:05 → DL.MS 16:50 → UNDOADMIN 16:50 → DL.MS 17:58
PROVIDERS: ADMIT Internal Medicine; ATTEND Internal Medicine
DX: E27.2 Addisonian crisis (principal); E83.42 Hypomagnesemia; E27.1 Primary adrenocortical insufficiency; E87.1 Hypo-osmolality and hyponatremia; G89.29 Other chronic pain; M54.9 Dorsalgia, unspecified; E87.6 Hypokalemia; R50.9 Fever, unspecified; I10 Essential (primary) hypertension; E11.649 Type 2 diabetes mellitus with hypoglycemia without coma; F17.210 Nicotine dependence, cigarettes, uncomplicated; Z79.899 Other long term (current) drug therapy; F15.90 Other stimulant use, unspecified, uncomplicated; F12.90 Cannabis use, unspecified, uncomplicated; M51.36 Other intervertebral disc degeneration, lumbar region; J44.9 Chronic obstructive pulmonary disease, unspecified; Z91.19 Patient's noncompliance with other medical treatment and regimen; E06.3 Autoimmune thyroiditis; E03.9 Hypothyroidism, unspecified; K21.9 Gastro-esophageal reflux disease without esophagitis; Z72.89 Other problems related to lifestyle; F32.9 Major depressive disorder, single episode, unspecified; F41.9 Anxiety disorder, unspecified; D64.9 Anemia, unspecified; Z79.52 Long term (current) use of systemic steroids; Z88.5 Allergy status to narcotic agent; Z88.6 Allergy status to analgesic agent; Z88.0 Allergy status to penicillin; Z88.8 Allergy status to other drugs, medicaments and biological substances
CPT/HCPCS: 36415; 71010; 80053; 82150; 82550; 82962 ×2; 83605; 83690; 83735; 84484; 85025; 87040 ×2; 93005; 96365; 96366; 96375; 99285; G0480; J1100; J1720; J7042; J7050 ×2; 80048; 80305; 81001; 84100; 85027; 87086; A9270-GY; J0696; J1650; J1815-GY; J2405; J3475; J7030; J7060

== ENCOUNTER 2017-03-01 14:28 | Inpatient (IN) | payer MEDICAID, OTHER, SELFPAY ==
--- NOTE | 2017-03-01 14:26 | EDM.PDOC ---
ED HPI GENERAL MEDICAL PROBLEM - General Chief Complaint: Respiratory Problem Stated Complaint: IN BY AMBULANCE/SOB Time Seen by Provider: 03/01/17 14:26 Source of Information: Reports: Patient, EMS, Old Records, RN, RN Notes Reviewed History Limitations: Reports: No Limitations - History of Present Illness INITIAL COMMENTS - FREE TEXT/NARRATIVE: Arrives by ambulance from home with report that pt was discharged home yesterday and within an hour or two of being home began to c/o shortness of breath and then became very sleepy and confused. Today pt's sister checked on her and found her too weak to get up. Pt arrives arousable to verbal stimuli, but slightly confused. Pt is unable to provide any history. Onset: Gradual Onset Date: 02/28/17 Duration: Constant, Getting Worse Location: Reports: Chest, Generalized Severity: Moderate Improves with: Reports: None Worsens with: Reports: None Context: Reports: Other (Discharged from hospital 02/28/17.) Left Lower Abdomen Pain Score (Numeric/FACES): 8 - Related Data Allergies Allergy/AdvReac Type Severity Reaction Status Date / Time No Known Allergies Allergy Verified 01/24/17 19:50 Home Meds: Home Meds Levothyroxine 125 mcg PO ACBREAKFAST 06/07/15 [History] Fludrocortisone [Florinef] 0.1 mg PO WITHBREAKFAST 09/15/15 [History] Gabapentin [Neurontin] 300 mg PO TID 09/15/15 [History] rOPINIRole [Requip] 1 mg PO DAILY 09/15/15 [History] Hydrocodone/Acetaminophen [Hydrocodon-Acetaminophn 10-325] 1 tab PO BID PRN [History] Cyclobenzaprine [Flexeril] 1 tab PO TID PRN 02/25/17 [History] Ibuprofen 1 tab PO ASDIRECTED PRN 02/25/17 [History] Sertraline [Zoloft] 1 tab PO DAILY 02/25/17 [History] hydrOXYzine HCl [Atarax] 1 tab PO TID PRN 02/25/17 [History] Hydrocortisone [Cortef] 20 mg PO BIDMEALS #60 tablet 02/28/17 [Rx] Potassium Chloride [Klor-Con 10] 20 meq PO BIDMEALS #10 tab.er 09/11/17 [Rx] Past Medical History HEENT History: Reports: Cataract, Impaired Vision Cardiovascular History: Reports: Arrhythmia Respiratory History: Reports: COPD, SOB Gastrointestinal History: Reports: Gastritis Other Gastrointestinal History: Here because of vomiting. Genitourinary History: Reports: Urinary Incontinence Other Genitourinary History: Became incontinent of urine two weeks ago. TROUBLE LOCATOR TEST DESK History: Reports: , Other (See Below) Other OB/BYN History: c-sect Musculoskeletal History: Reports: Back Pain, Chronic Neurological History: Reports: Other (See Below) Other Neuro History: forgetful at times, not oriented to time Psychiatric History: Reports: Anxiety, Hallucinations Other Psychiatric History: Patient stated she had hallucinations three days ago of her mother that is . Endocrine/Metabolic History: Reports: [place] Disease, Diabetes, Type II, Hypothyroidism Hematologic History: Reports: Anemia Dermatologic History: Reports: Eczema Other Dermatologic History: bilateral arm - Past Surgical History GI Surgical History: Reports: Appendectomy, Cholecystectomy, Colonoscopy Female Surgical History: Reports: Section Social & Family History - Family History Family Medical History: Noncontributory - Tobacco Use Smoking Status *Q: Current Every Day Smoker Years of Tobacco use: 3 Packs/Tins Daily: 0.2 Used Tobacco, but Quit: No Second Hand Smoke Exposure: No - Caffeine Use Caffeine Use: Reports: Coffee, Soda - Alcohol Use Days Per Week of Alcohol Use: 0 - Recreational Drug Use Recreational Drug Use: Yes Drug Use in Last 12 Months: Yes Recreational Drug Type: Reports: Methamphetamine Other Recreational Drug Type: 3 years of meth use, stopped last month. Recreational Drug Use Frequency: Not Used In Over 1 Year - Living Situation & Occupation Living situation: Reports: Single, with Family Occupation: Disabled ED ROS GENERAL - Review of Systems Review Of Systems: Unable To Obtain ED EXAM, GENERAL - Physical Exam Exam: See Below Exam Limited By: Altered Mental Status General Appearance: Lethargic, Thin, Other (chronically ill appearing) Eye Exam: Bilateral Eye: Normal Inspection Ears: Normal External Exam Nose: Normal Inspection, Normal Mucosa, No Blood Throat/Mouth: Normal Oropharynx, No Airway Compromise, Other (dry oral membranes ) Head: Atraumatic, Normocephalic Neck: Normal Inspection, Supple, Non-Tender, Full Range of Motion Respiratory/Chest: No Respiratory Distress, No Accessory Muscle Use, Decreased Breath Sounds, Rhonchi (Rt mid-chest) Cardiovascular: Normal Peripheral Pulses, Regular Rate, Rhythm, No Edema, No JVD GI/Abdominal: Normal Bowel Sounds, Soft, Non-Tender, No Distention (Female) Exam: Deferred Rectal (Female) Exam: Deferred Back Exam: Normal Inspection, Full Range of Motion. No: CVA Tenderness (L), CVA Tenderness (R) Extremities: Normal Inspection, Normal Range of Motion, Non-Tender, Normal Capillary Refill, No Pedal Edema Neurological: No Motor/Sensory Deficits, Confused Skin Exam: Warm, Dry, Intact EKG INTERPRETATION EKG Date: 03/01/17 Time: 14:37 Rhythm: Other (SR) Rate (Beats/Min): 77 [place]: Normal P-Wave: Present QRS: Normal ST-T: Other (nonspec. T-wave abnl.) QT: Normal Comparison: No Change Course - Vital Signs Last Recorded V/S: Last Vital Signs Temp 36.8 C 03/01/17 14:36 Pulse 73 03/01/17 15:36 Resp 18 03/01/17 15:36 BP 91/56 L 03/01/17 15:36 Pulse Ox 95 03/01/17 15:36 - Orders/Labs/Meds Orders: Active Orders 24 hr Category Date Time Status EKG 12 Lead [EKG Documentation Completion] [RC] STAT Care 03/01/17 14:30 Active RT Aerosol Therapy [RC] ASDIRECTED Care 03/01/17 14:52 Active Chest 1V Frontal [CR] Stat Exams 03/01/17 14:26 Ordered B-TYPE NATRIURETIC PEPTIDE,BNP [CHEM] Stat Lab 03/01/17 14:27 Ordered CBC WITH AUTO DIFF [HEME] Stat Lab 03/01/17 14:26 Ordered COMPREHENSIVE METABOLIC PN,CMP [CHEM] Stat Lab 03/01/17 14:26 Ordered CREATINE KINASE,CK [CHEM] Stat Lab 03/01/17 14:27 Ordered CULTURE BLOOD [BC] Stat Lab 03/01/17 14:27 Ordered CULTURE BLOOD [BC] Stat Lab 03/01/17 14:27 Ordered CULTURE BLOOD [BC] Stat Lab 03/01/17 14:36 Received CULTURE BLOOD [BC] Stat Lab 03/01/17 14:45 Received DRUG SCREEN URINE BIORAD [URCHEM] Stat Lab 03/01/17 14:27 Uncollected Blood Culture x2 Reflex Set [OM.PC] Stat Ot 03/01/17 14:27 Ordered Blood Culture x2 Reflex Set [OM.PC] Stat Ot 03/01/17 15:33 Ordered Labs: Laboratory Tests 03/01/17 03/01/17 03/01/17 Range/Units 14:32 14:36 14:36 WBC (5.0-10.0) 10^3/uL RBC (4.2-5.4) 10^6/uL Hgb (12.0-16.0) g/dL Hct (37.0-47.0) % MCV (80-100) fL MCH (27.0-34.0) pg MCHC (33.0-35.0) g/dL Plt Count (150-450) 10^3/uL Neut % (Auto) (42.2-75.2) % Lymph % (Auto) (20.5-50.1) % [place] % (Auto) (2-8) % Eos % (Auto) (1.0-3.0) % Baso % (Auto) (0.0-1.0) % Sodium Potassium Chloride Carbon Dioxide Anion Gap BUN Creatinine Est Cr Clr Drug Dosing Estimated GFR (MDRD) BUN/Creatinine Ratio Glucose POC Glucose 128 H (70-105) mg/dl Lactic Acid 0.7 (0.5-2.2) mmol/L Calcium Total Bilirubin AST ALT Alkaline Phosphatase Creatine Kinase (26-174) IU/L Troponin I < 0.02 (0.00-0.02) ng/ml B-Natriuretic Peptide (0-100) pg/ml Total Protein Albumin Globulin Albumin/Globulin Ratio Urine Color (YELLOW) Urine Appearance (CLEAR) Urine pH (5.0-9.0) Ur Specific [place] (1.005-1.030) Urine Protein (NEGATIVE) Urine Glucose (UA) (NEGATIVE) Urine Ketones (NEGATIVE) Urine Occult Blood (NEGATIVE) Urine Nitrite (NEGATIVE) Urine Bilirubin (NEGATIVE) Urine Urobilinogen (0.2-1.0) mg/dL Ur Leukocyte Esterase (NEGATIVE) Urine RBC /HPF Urine WBC (0-5/HPF) /HPF Ur Epithelial Cells /HPF Urine Bacteria (0-FEW/HPF) /HPF Urine Mucus /LPF Urine Opiates Screen (NEGATIVE) Ur Oxycodone Screen (NEGATIVE) Urine Methadone Screen (NEGATIVE) Ur Barbiturates Screen (NEGATIVE) U Tricyclic Antidepress (NEGATIVE) Ur Phencyclidine Scrn (NEGATIVE) Ur Amphetamine Screen (NEGATIVE) U Methamphetamines Scrn (NEGATIVE) Urine MDMA Screen (NEGATIVE) U Benzodiazepines Scrn (NEGATIVE) Urine Cocaine Screen (NEGATIVE) U Marijuana (THC) Screen (NEGATIVE) Ethyl Alcohol < 5 mg/dL 03/01/17 03/01/17 03/01/17 Range/Units 14:36 14:36 14:36 WBC 9.0 (5.0-10.0) 10^3/uL RBC 3.87 L (4.2-5.4) 10^6/uL Hgb 11.8 L (12.0-16.0) g/dL Hct 33.6 L (37.0-47.0) % MCV 86.8 (80-100) fL MCH 30.5 (27.0-34.0) pg MCHC 35.1 H (33.0-35.0) g/dL Plt Count 92 L (150-450) 10^3/uL Neut % (Auto) 70.7 (42.2-75.2) % Lymph % (Auto) 18.4 L (20.5-50.1) % [place] % (Auto) 8.4 H (2-8) % Eos % (Auto) 2.4 (1.0-3.0) % Baso % (Auto) 0.1 (0.0-1.0) % Sodium Cancelled Potassium Cancelled Chloride Cancelled Carbon Dioxide Cancelled Anion Gap Cancelled BUN Cancelled Creatinine Cancelled Est Cr Clr Drug Dosing Cancelled Estimated GFR (MDRD) Cancelled BUN/Creatinine Ratio Cancelled Glucose Cancelled POC Glucose (70-105) mg/dl Lactic Acid (0.5-2.2) mmol/L Calcium Cancelled Total Bilirubin Cancelled AST Cancelled ALT Cancelled Alkaline Phosphatase Cancelled Creatine Kinase 15 L (26-174) IU/L Troponin I (0.00-0.02) ng/ml B-Natriuretic Peptide 145 H (0-100) pg/ml Total Protein Cancelled Albumin Cancelled Globulin Cancelled Albumin/Globulin Ratio Cancelled Urine Color (YELLOW) Urine Appearance (CLEAR) Urine pH (5.0-9.0) Ur Specific [place] (1.005-1.030) Urine Protein (NEGATIVE) Urine Glucose (UA) (NEGATIVE) Urine Ketones (NEGATIVE) Urine Occult Blood (NEGATIVE) Urine Nitrite (NEGATIVE) Urine Bilirubin (NEGATIVE) Urine Urobilinogen (0.2-1.0) mg/dL Ur Leukocyte Esterase (NEGATIVE) Urine RBC /HPF Urine WBC (0-5/HPF) /HPF Ur Epithelial Cells /HPF Urine Bacteria (0-FEW/HPF) /HPF Urine Mucus /LPF Urine Opiates Screen (NEGATIVE) Ur Oxycodone Screen (NEGATIVE) Urine Methadone Screen (NEGATIVE) Ur Barbiturates Screen (NEGATIVE) U Tricyclic Antidepress (NEGATIVE) Ur Phencyclidine Scrn (NEGATIVE) Ur Amphetamine Screen (NEGATIVE) U Methamphetamines Scrn (NEGATIVE) Urine MDMA Screen (NEGATIVE) U Benzodiazepines Scrn (NEGATIVE) Urine Cocaine Screen (NEGATIVE) U Marijuana (THC) Screen (NEGATIVE) Ethyl Alcohol mg/dL 03/01/17 03/01/17 Range/Units 15:10 15:10 WBC (5.0-10.0) 10^3/uL RBC (4.2-5.4) 10^6/uL Hgb (12.0-16.0) g/dL Hct (37.0-47.0) % MCV (80-100) fL MCH (27.0-34.0) pg MCHC (33.0-35.0) g/dL Plt Count (150-450) 10^3/uL Neut % (Auto) (42.2-75.2) % Lymph % (Auto) (20.5-50.1) % [place] % (Auto) (2-8) % Eos % (Auto) (1.0-3.0) % Baso % (Auto) (0.0-1.0) % Sodium Potassium Chloride Carbon Dioxide Anion Gap BUN Creatinine Est Cr Clr Drug Dosing Estimated GFR (MDRD) BUN/Creatinine Ratio Glucose POC Glucose (70-105) mg/dl Lactic Acid (0.5-2.2) mmol/L Calcium Total Bilirubin AST ALT Alkaline Phosphatase Creatine Kinase (26-174) IU/L Troponin I (0.00-0.02) ng/ml B-Natriuretic Peptide (0-100) pg/ml Total Protein Albumin Globulin Albumin/Globulin Ratio Urine Color Yellow (YELLOW) Urine Appearance Clear (CLEAR) Urine pH 7.0 (5.0-9.0) Ur Specific [place] 1.010 (1.005-1.030) Urine Protein Negative (NEGATIVE) Urine Glucose (UA) Negative (NEGATIVE) Urine Ketones Negative (NEGATIVE) Urine Occult Blood Negative (NEGATIVE) Urine Nitrite Negative (NEGATIVE) Urine Bilirubin Negative (NEGATIVE) Urine Urobilinogen 2.0 H (0.2-1.0) mg/dL Ur Leukocyte Esterase Negative (NEGATIVE) Urine RBC 0-5 /HPF Urine WBC 0-5 (0-5/HPF) /HPF Ur Epithelial Cells Rare /HPF Urine Bacteria Few (0-FEW/HPF) /HPF Urine Mucus Few H /LPF Urine Opiates Screen Positive H (NEGATIVE) Ur Oxycodone Screen Negative (NEGATIVE) Urine Methadone Screen Negative (NEGATIVE) Ur Barbiturates Screen Negative (NEGATIVE) U Tricyclic Antidepress Negative (NEGATIVE) Ur Phencyclidine Scrn Negative (NEGATIVE) Ur Amphetamine Screen Negative (NEGATIVE) U Methamphetamines Scrn Negative (NEGATIVE) Urine MDMA Screen Negative (NEGATIVE) U Benzodiazepines Scrn Negative (NEGATIVE) Urine Cocaine Screen Negative (NEGATIVE) U Marijuana (THC) Screen Positive H (NEGATIVE) Ethyl Alcohol mg/dL See scanned lab results: Planex error/malfunction. Meds: Medications Discontinued Medications Generic Name Dose Route Start Last Admin Trade Name Freq PRN Reason Stop Dose Admin Albuterol/Ipratropium Confirm 03/01/17 14:49 03/01/17 14:53 Duoneb 3.0-0.5 Mg/3 Ml Administered 03/01/17 14:50 3 ml Dose Administration 3 ml .ROUTE .STK-MED ONE Albuterol/Ipratropium 3 ml 03/01/17 14:52 03/01/17 15:06 Duoneb 3.0-0.5 Mg/3 Ml NEB 03/01/17 14:53 Not Given ONETIME ONE Piperacillin Sod/Tazobactam 100 mls @ 200 mls/hr 03/01/17 15:18 03/01/17 15: 30 Sod 3.375 gm/ Sodium Chloride IV 03/01/17 15:47 200 mls/hr ONETIME ONE Administration - Radiology Interpretation Free Text/Narrative:: CXR: RML infiltrate new compared to CXR dated 02/25/17. Departure - Departure Time of Disposition: 15:38 ((admit to Dr. Hoover)) Disposition: Admitted As Inpatient 67 Condition: Serious Clinical Impression: Manolo's disease Pneumonia Qualifiers: Pneumonia type: due to unspecified organism Laterality: right Lung location: middle lobe of lung Qualified Code(s): J18.1 - Lobar pneumonia, unspecified organism - Discharge Information Forms: ED Department Discharge - My Orders Last 24 Hours: My Active Orders 03/01/17 14:26 Chest 1V Frontal [CR] Stat CBC WITH AUTO DIFF [HEME] Stat COMPREHENSIVE METABOLIC PN,CMP [CHEM] Stat 03/01/17 14:27 B-TYPE NATRIURETIC PEPTIDE,BNP [CHEM] Stat CREATINE KINASE,CK [CHEM] Stat CULTURE BLOOD [BC] Stat CULTURE BLOOD [BC] Stat DRUG SCREEN URINE BIORAD [URCHEM] Stat Blood Culture x2 Reflex Set [OM.PC] Stat 03/01/17 14:30 EKG 12 Lead [EKG Documentation Completion] [RC] STAT 03/01/17 14:36 CULTURE BLOOD [BC] Stat 03/01/17 14:45 CULTURE BLOOD [BC] Stat 03/01/17 14:52 RT Aerosol Therapy [RC] ASDIRECTED 03/01/17 15:33 Blood Culture x2 Reflex Set [OM.PC] Stat - Assessment/Plan Last 24 Hours: My Active Orders 03/01/17 14:26 Chest 1V Frontal [CR] Stat CBC WITH AUTO DIFF [HEME] Stat COMPREHENSIVE METABOLIC PN,CMP [CHEM] Stat 03/01/17 14:27 B-TYPE NATRIURETIC PEPTIDE,BNP [CHEM] Stat CREATINE KINASE,CK [CHEM] Stat CULTURE BLOOD [BC] Stat CULTURE BLOOD [BC] Stat DRUG SCREEN URINE BIORAD [URCHEM] Stat Blood Culture x2 Reflex Set [OM.PC] Stat 03/01/17 14:30 EKG 12 Lead [EKG Documentation Completion] [RC] STAT 03/01/17 14:36 CULTURE BLOOD [BC] Stat 03/01/17 14:45 CULTURE BLOOD [BC] Stat 03/01/17 14:52 RT Aerosol Therapy [RC] ASDIRECTED 03/01/17 15:33 Blood Culture x2 Reflex Set [OM.PC] Stat
[2017-03-01] MEDS ORDERED: Albuterol/Ipratropium 3.0-0.5 MG/3 ML Neb Soln ONE (14:49)
[2017-03-01] MEDS ORDERED: Albuterol/Ipratropium 3.0-0.5 MG/3 ML Neb Soln NEB ONE (14:52)
[2017-03-01] MEDS ORDERED: Piperacillin/Tazobactam 3.375 GM in Sodium Chloride 0.9% 100 ML IV ONE (15:18)
--- NOTE | 2017-03-01 15:42 | CR ---
Clinical history: 51-year-old female with cough and shortness of breath. Interpretation: Abnormal. Multilobar infiltrates i.e. patchy new densities involving both lower lobes since 25 February 2017 ex am. These may reflect less than optimal inspiratory effort however cannot exclude possibility of aspi ration or pulmonary embolism/infarct. Clinical? Normal cardiac silhouette and bony thorax. No alveolar edema or dependent effusion. No pneumothorax.
[2017-03-01] MEDS ORDERED: Morphine 2 MG/ML Syringe IVPUSH PRN (17:37)
[2017-03-01] MEDS ORDERED: Magnesium Hydroxide 400 MG/5 ML Susp 30 ML Cup PO PRN (17:37)
[2017-03-01] MEDS ORDERED: Ondansetron 4 MG/2 ML SDV IVPUSH PRN (17:37)
[2017-03-01 17:59] LABS: CHLORIDE,CL 100 mmol/L (101-111); SODIUM,NA 136 mmol/L (135-145)
[2017-03-01] MEDS: Pantoprazole 40 MG Tab.CR PO SCH (18:04)
[2017-03-01] MEDS: Potassium Chloride 10 MEQ Tab.ER PO SCH (18:04)
[2017-03-01] MEDS: Hydrocortisone Sodium Succinate 100 MG/2 ML SDV IV SCH (18:04)
[2017-03-01] MEDS ORDERED: Iopamidol 755 Mg/ML 100 ML Bottle IVPUSH ONE (18:27)
[2017-03-01] MEDS ORDERED: Ciprofloxacin in D5W 200 ML ONE (19:25)
[2017-03-01] MEDS: Ciprofloxacin in D5W 400 MG in Premix Bag 1 BAG IV SCH ×2 (19:55)
--- NOTE | 2017-03-01 21:02 | HP ---
HISTORY OF PRESENT ILLNESS: Mrs. Acacia Vera is a 51-year-old female with medical history significant for [place] disease, chronic steroid therapy, Kelly thyroiditis with hypothyroidism, type 2 diabetes mellitus, recently discharged from the hospital after she was admitted for Manolo's crisis secondary to noncompliance with medical treatment and plan. She also has a history of chronic tobacco use, chronic substance abuse including methamphetamine and marijuana. She just got discharged yesterday in stable condition. She went home and after going home, she felt lethargic and slept all day long and also this morning and as she was getting more lethargic and confused, the patient was brought to the emergency room and further workup showed evidence of possible pneumonia needing admission to the hospital. At this time, the patient is awake and alert and follows commands spontaneously. She denies any abusing drugs after going home. She claims that she felt weak and tired and she slept last night and could not get up this morning. She denies any fevers or chills in the last few days. She complains of mild shortness of breath 2 to 3/10 in intensity, aggravated on exertion, and relieved with rest. Also associated with cough with sputum. She denies any abdominal pain. No nausea. No vomiting. No diarrhea. The patient denied any history of chest pains on exertion. No history of dyspnea on exertion. No history of orthopnea or paroxysmal nocturnal dyspnea. The patient denied history of hematemesis, hematochezia, or melanotic stools. Normal bowel and bladder habits otherwise. REVIEW OF SYSTEMS: A complete review of system including skin, ear, nose, and throat; cardiovascular system, respiratory system, gastrointestinal system, genitourinary system, hematology, oncology, neurology, allergy, immunology, endocrinology and constitutional were all evaluated. PHYSICAL EXAMINATION: Vital Signs: Temperature of 98.8, pulse of 73, blood pressure of 80/50, respiratory rate of 22, saturating at 98% on room air. General Appearance: The patient is well oriented to time, place, and person. Follows commands spontaneously. Cardiovascular System: S1, S2 heard with normal intensity. No gallops. Respiratory System: Crepitations bilaterally more so on the right side. No wheeze. Abdomen: Soft. Bowel sounds positive. Nontender. No rigidity. Extremities: No edema in bilateral lower extremities. Neurologic: No gross focal neurological deficits. PAST MEDICAL HISTORY: Significant for: 1. [place] disease, on chronic steroid therapy and Florinef. 2. Type 2 diabetes mellitus. 3. Hyperlipidemia. 4. Hypothyroidism. 5. Gastroesophageal reflux disease. 6. Chronic tobacco use. 7. Chronic alcohol use. 8. Substance abuse. 9. History of anxiety and depression. 10.Chronic obstructive pulmonary disease. 11.Degenerative disc disease of the lumbar spine. PAST SURGICAL HISTORY: Significant for: 1. section. 2. Cholecystectomy. 3. Appendicectomy. 4. Fallopian tube ligation. FAMILY HISTORY: Significant for heart disease, COPD, and asthma in her mother. Hypertension, diabetes, COPD, and heart disease in her father. Cancer in her sister and cancer in her maternal grandmother. Cancer in maternal uncle and aunt. ALLERGIES: Allergies to codeine, aspirin, caffeine, hydrocodone and acetaminophen, naproxen, and penicillin. SOCIAL HISTORY: The patient has a longstanding history of tobacco use, alcohol use, marijuana use, and methamphetamine use. Her last methamphetamine use was prior to getting admitted on a previous admission. HOME MEDICATIONS: Include: 1. Requip 1 mg oral daily. 2. Hydroxyzine 25 mg three times a day as needed. 3. Zoloft 1 tablet once daily. 4. Potassium chloride 20 mEq twice a day. 5. Levothyroxine 125 mcg at breakfast. 6. Ibuprofen 1 tablet as needed. 7. Hydrocortisone 20 mg twice a day. 8. Hydrocodone and acetaminophen 1 tablet b.i.d. as needed. 9. Neurontin 300 mg three times a day. 10.Florinef 0.1 mg at breakfast. 11.Flexeril 1 tablet three times a day as needed. LABORATORY DATA: 1. WBC 9, hemoglobin 11.8, hematocrit 33.6, platelet count 92. 2. Could not obtain a BMP as there was some technical problem with the labs. 3. BNP of 145. 4. Chest x-ray shows possible infiltrates on the right lower lobe. There was questionable pulmonary embolism on the chest x-ray, possible infarct, so we will obtain a D-dimer and if it is elevated, then the patient might benefit from getting a CT scan of the chest with PE protocol provided the renal function is within normal limits. ASSESSMENT: 1. Possible gram-negative pneumonia versus aspiration pneumonia given her unconscious state while at home. 2. Hypertension. 3. Hyperlipidemia. 4. [place] disease. 5. Type 2 diabetes mellitus. 6. Chronic obstructive pulmonary disease. 7. Noncompliance with medical treatment. 8. Chronic tobacco use. 9. Chronic substance abuse. PLAN: 1. Pneumonia. The patient is noted to have infiltrates on the right lower lobe, but she does not have any fevers or chills. No leukocytosis. Unsure if the patient had any aspiration pneumonitis versus pneumonia or any gram- negative pneumonia given her recent hospitalization. 2. Possible healthcare-associated pneumonia. We will start her on broad- spectrum antibiotic with Zosyn, Cipro, and vancomycin. Obtain sputum cultures, blood cultures, and titrate the antibiotics once we have the culture reports available. 3. [place] disease. The patient's blood pressure seems to be on the lower side given her possible infectious source. We will have her on booster dose of hydrocortisone 100 mg IV q.8 hourly. We will continue with Protonix for GI prophylaxis given the high-dose steroids. Continue Florinef. 4. Hypertension. The patient's blood pressure seems to be on the lower side. Avoid any antihypertensive medication. Continue the Florinef for blood pressure support. 5. Type 2 diabetes mellitus. We will closely follow her. She was noted to have hypoglycemic episodes on her previous admission. We will have her on hypoglycemic protocol. Use supplemental scaling insulin if needed. 6. Substance abuse. The patient uses marijuana and methamphetamine. Her urine toxicology screen is positive for opiates and marijuana on this admission also. Negative for methamphetamine. Ethyl alcohol less than 5. Closely follow. Make sure the patient does not have any withdrawals. 7. DVT prophylaxis indicated. We will have her on heparin 5000 subcu every 8 hourly for DVT prophylaxis. 8. Code status: The patient wants to be full code. 9. Discussed with Dr. Menendez, ER physician regarding the plan of care. Reviewed the labs and medications. Reviewed the old charts. [facility] /[id number]
[2017-03-01] MEDS: Gabapentin 300 MG Cap PO SCH (22:40)
[2017-03-01] MEDS: Heparin Sodium 5,000 Units/ML Vial SUBCUT SCH (22:41)
[2017-03-01] MEDS: Piperacillin/Tazobactam 3.375 GM in Sodium Chloride 0.9% 100 ML IV SCH (22:41)
[2017-03-02] MEDS: Hydrocortisone Sodium Succinate 100 MG/2 ML SDV IV SCH ×3 (02:30→17:45)
[2017-03-02] MEDS: Piperacillin/Tazobactam 3.375 GM in Sodium Chloride 0.9% 100 ML IV SCH ×4 (03:52→22:33)
[2017-03-02] MEDS: Heparin Sodium 5,000 Units/ML Vial SUBCUT SCH ×3 (06:10→21:23)
[2017-03-02] MEDS: Levothyroxine 125 MCG Tab PO SCH (06:10)
[2017-03-02] MEDS: Pantoprazole 40 MG Tab.CR PO SCH (06:10)
[2017-03-02] MEDS: Acetaminophen 325 MG Tab PO PRN (06:16)
[2017-03-02 07:03] LABS: CHLORIDE,CL 103 mmol/L (101-111); SODIUM,NA 140 mmol/L (135-145)
[2017-03-02] MEDS: Albuterol/Ipratropium 3.0-0.5 MG/3 ML Neb Soln NEB PRN (07:21)
[2017-03-02] MEDS: Gabapentin 300 MG Cap PO SCH ×3 (08:33→20:39)
[2017-03-02] MEDS: rOPINIRole 2 MG Tab PO SCH (08:33)
[2017-03-02] MEDS: Sertraline 50 MG Tab PO SCH (08:33)
[2017-03-02] MEDS: Potassium Chloride 10 MEQ Tab.ER PO SCH ×2 (08:33→17:45)
[2017-03-02] MEDS: Fludrocortisone 0.1 MG Tab PO SCH (08:33)
[2017-03-02] MEDS: Ciprofloxacin in D5W 400 MG in Premix Bag 1 BAG IV SCH ×4 (09:15→21:09)
[2017-03-02] MEDS ORDERED: Furosemide 40 MG/4 ML VIAL IVPUSH ONE (11:10)
[2017-03-02] MEDS ORDERED: Furosemide 40 MG/4 ML VIAL IVPUSH SCH (11:13)
--- NOTE | 2017-03-02 12:39 | PN ---
DATE: 03/02/2017 SUBJECTIVE: Mrs. 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 Noted to have aspiration pneumonia and aspiration pneumonitis. For the last 24 hours, the patient continues to have cough but this is dry in nature. The patient is unable to bring any phlegm. She denies any chest pain, but complains of mild shortness of breath, 2 to 3/10 in intensity, aggravated on ambulation, relieved with rest. Not associated with any nausea or vomiting. Denies any diarrhea. Complains of mild abdominal discomfort. The patient remained afebrile overnight. REVIEW OF SYSTEMS: Cardiovascular, respiratory, gastrointestinal, neurology, constitutional were all evaluated. PHYSICAL EXAMINATION: Vital Signs: Temperature of 98.1, pulse of 81, blood pressure of 86/51, respiratory rate of 20, and saturating at 98% on room air. General Appearance: The patient is well oriented to time, place, and person. Follows commands spontaneously. Cardiovascular System: S1, S2 heard with normal intensity. No gallops. Respiratory System: Clear to auscultation bilaterally except for crepitations at the bases, more so on the right side. No wheeze. Abdomen: Soft. Bowel sounds positive. Nontender. No rigidity. Extremities: No edema bilateral lower extremities. Neurological: No gross focal neurological deficit. MEDICATIONS: Reviewed. Continue with: 1. Tylenol 650 every 4 hours as needed for pain and fever. 2. Ehrhardt 1 tablet twice a day. 3. DuoNeb 3 mL nebulizer every 6 hours as needed for shortness of breath. 4. Ciprofloxacin 400 mg IV q.12 hourly. 5. Flexeril as needed 3 times a day 10 mg. 6. Florinef 0.1 mg with breakfast. 7. Neurontin 300 mg 3 times a day. 8. Heparin 5000 units subcutaneous q.8 hourly. 9. Hydrocortisone 100 mg IV q.8 hourly. 10.Levothyroxine 125 mcg daily. 11.Milk of magnesia 30 mL as needed for constipation q.12 hourly. 12.Magnesium oxide 250 mg twice a day. 13.Morphine 2 mg IV 2 hours as needed for pain. 14.Protonix 40 mg daily. 15.Potassium chloride 20 mEq twice a day. 16.Requip 1 mg daily. 17.Zoloft 50 mg daily. 18.Vancomycin, pharmacy to dose. 19.Ambien 5 mg at bedtime as needed for sleep. LABORATORY DATA: Reviewed. WBC 6.8, hemoglobin 11.3, hematocrit 32.7, and platelet count 145. Sodium 140, potassium 3.6, chloride 103, bicarb 26, BUN 13, creatinine 0.7, glucose 183. Calcium 7.5, phosphorus 3.5, and magnesium 1.3. Urinalysis negative for any signs of UTI. Urine toxicology screen positive for opiates and marijuana. Microbiology data, still awaiting for blood cultures and sputum culture. The patient is unable to produce any sputum. ASSESSMENT: 1. Pneumonia, most probably aspiration pneumonia versus healthcare-associated pneumonia. 2. Manolo's disease. 3. Type 2 diabetes mellitus. 4. Hyperlipidemia. 5. Chronic obstructive pulmonary disease. 6. Chronic substance use. 7. Noncompliance with medical treatment plan. PLAN: 1. Pneumonia. The patient is admitted with pneumonia. The patient underwent a CT scan of the chest with PE protocol as they were suggestive of pulmonary infarction on the chest x-ray. So, we did a CT scan of the chest, which did not show any acute pulmonary embolism, but noted to have infiltrate and consolidation, mainly involving the right middle and lower lobe and also the left lower lobe. This is mostly from aspiration as the patient was unconscious on her previous admission prior to getting admitted to the hospital. The patient could have developed aspiration after getting discharged from the hospital also. In any case, she is currently on broad- spectrum antibiotics; Zosyn, vancomycin, ciprofloxacin. Ordered for sputum cultures and blood cultures. We will titrate the antibiotics once we have the culture reports available. The patient is encouraged to use incentive spirometer and flutter valve for better pulmonary toileting. 2. Type 2 diabetes mellitus. Blood sugar seems to be slightly elevated. Check her fingersticks with each meals, have her on supplemental scale insulin as needed for additional coverage of her blood glucose. This is from high-dose steroids. We will decrease hydrocortisone to 50 mg q.12 hourly IV and then switch her to oral cortisone when needed. 3. Cibecue's disease remains stable. Continue with Florinef. Continue with hydrocortisone. Decrease the dose of IV hydrocortisone. 4. Chronic obstructive pulmonary disease, remains stable. The patient is currently on nebulizer treatment as needed. The patient will be encouraged to use incentive spirometer and flutter valve. 5. Deep venous thrombosis prophylaxis. Continue with heparin 5000 units subcu q.8 hourly for DVT prophylaxis. 6. Thrombocytopenia. The patient was noted to have decreased platelet count yesterday, but seems to be improved. This could be resulting from her underlying infectious process. We will recheck a CBC in a.m. [facility] /[id number]
[2017-03-02] MEDS: Albuterol/Ipratropium 3.0-0.5 MG/3 ML Neb Soln NEB SCH ×3 (12:52→22:41)
[2017-03-02] MEDS: Budesonide 0.5 MG/2 ML Neb Susp NEB SCH ×2 (12:53→17:45)
[2017-03-02] MEDS ORDERED: Hydrocortisone Sodium Succinate 100 MG/2 ML SDV IV SCH (14:00)
[2017-03-02] MEDS: Insulin Aspart 100 Units/ML 3 ML Pen SUBCUT SCH ×2 (18:24→21:16)
[2017-03-02] MEDS: Zolpidem 5 MG Tab PO PRN (20:39)
[2017-03-02] MEDS: guaiFENesin/Dextromethorphan 100-10 MG/5 ML Soln 5 ML Cup PO PRN (20:40)
[2017-03-03] MEDS: Hydrocortisone Sodium Succinate 100 MG/2 ML SDV IV SCH ×3 (01:56→17:32)
[2017-03-03] MEDS: Cyclobenzaprine 10 MG Tab PO PRN ×2 (02:01→14:10)
[2017-03-03] MEDS: Piperacillin/Tazobactam 3.375 GM in Sodium Chloride 0.9% 100 ML IV SCH ×4 (03:36→17:35)
[2017-03-03] MEDS: guaiFENesin/Dextromethorphan 100-10 MG/5 ML Soln 5 ML Cup PO PRN (03:37)
[2017-03-03 03:55] LABS: CHLORIDE,CL 103 mmol/L (101-111); SODIUM,NA 142 mmol/L (135-145)
[2017-03-03] MEDS: Levothyroxine 125 MCG Tab PO SCH (05:58)
[2017-03-03] MEDS: Pantoprazole 40 MG Tab.CR PO SCH (05:58)
[2017-03-03] MEDS: Heparin Sodium 5,000 Units/ML Vial SUBCUT SCH ×3 (05:59→21:51)
[2017-03-03] MEDS: Albuterol/Ipratropium 3.0-0.5 MG/3 ML Neb Soln NEB SCH ×3 (07:20→23:08)
[2017-03-03] MEDS ORDERED: Potassium Chloride 10 MEQ Tab.ER PO ONE ×2 (07:32→17:53)
[2017-03-03] MEDS: Insulin Aspart 100 Units/ML 3 ML Pen SUBCUT SCH ×4 (08:19→21:33)
[2017-03-03] MEDS: Ciprofloxacin in D5W 400 MG in Premix Bag 1 BAG IV SCH ×4 (08:39→20:14)
[2017-03-03] MEDS: Sertraline 50 MG Tab PO SCH (08:55)
[2017-03-03] MEDS: Gabapentin 300 MG Cap PO SCH ×3 (08:56→20:20)
[2017-03-03] MEDS: Fludrocortisone 0.1 MG Tab PO SCH (08:56)
[2017-03-03] MEDS: rOPINIRole 2 MG Tab PO SCH (08:56)
[2017-03-03] MEDS: Budesonide 0.5 MG/2 ML Neb Susp NEB SCH ×2 (09:02→18:13)
[2017-03-03] MEDS: Potassium Chloride 10 MEQ Tab.ER PO SCH (09:06)
--- NOTE | 2017-03-03 13:28 | EKG ---
03/01/2017 - NELLI VAZQUEZ - This 12-lead EKG shows a normal sinus rhythm with ventricular rate of 77, normal axis and intervals. No acute ST-segment or T-wave changes. Non-specific T-wave changes seen throughout the anterior leads. [facility] /[id number] MTDD
--- NOTE | 2017-03-03 15:16 | PN ---
DATE: 03/03/2017 SUBJECTIVE: Ms. Vera is a 51-year-old female who was readmitted following discharge on the day prior to this admission. She had been here at the hospital from February 25 to February 28 for an acute Addisonian crisis. She has a history of noncompliance with her Dewar's medication and she presented with hypotension and uncontrolled diabetes. She also is noncompliant with her medications for diabetes and a urine toxicology was positive for oxycodone, methamphetamine, and marijuana. She was discharged to home on the on improved and stable condition. Within 2 hours of arriving home, she apparently became short of breath and was very sleepy and confused. Sister found her too weak to get up and she was brought back to the Emergency Department. On readmission, she was found to have potassium of 3.3, BUN and creatinine are 9 and 0.6 with a GFR of more than 60. Blood sugar was 123. Troponin was negative. BNP was minimally elevated at 145. Urinalysis was negative and urine toxicology was positive for opiates and marijuana. CT scan of the chest was performed with intravenous contrast and showed patchy opacities in the right middle lobe and both lower lobes and she was admitted for possible pneumonia versus aspiration pneumonia given her unconscious state while at home. She did not have any fever or chills, with no leukocytosis, and given the fact that she had been recently in the hospital, she also could have developed hospital- acquired pneumonia as well. Because of that, she was started on broad-spectrum antibiotics with Zosyn, Cipro, and vancomycin. Cultures were obtained and antibiotics will be titrated as culture results returned. For her Dewar's disease, she was started back on her medications and was given a booster dose of IV hydrocortisone. Her blood cultures have remained negative and final sputum culture is pending. No antibiotic changes will be made until that returns. Recent lab work yesterday showed normal white count, hemoglobin and hematocrit of 11.3 and 32.7. Platelets were slightly reduced at 145. Electrolytes within normal limits. BUN and creatinine of 13 and 0.7, with a GFR of more than 60. Blood sugars are being followed and for the most part are well controlled with an occasionally higher sugar, probably based on intake. Review of her clinical data shows that she is taking adequate fluids. She is voiding and moving her bowels. She is tolerating 100% of her meals. OBJECTIVE: Vital Signs: Remained stable and she has remained afebrile since admission. HEENT: Unremarkable. ENT was clear. Chest: Showed improved bilateral air movement with coarse breath sounds at the bases. Extremities: Calves were soft and nontender. Neurologic: She is intact and she has been up and ambulatory in the halls with no problem. Review of her medications shows she continues on her nebulized bronchodilator therapy. She continues on the 3 IV antibiotics. She is back on her Florinef and Solu-Cortef. No changes are made in her care today. [facility] /[id number] NANI
[2017-03-03] MEDS: Acetaminophen 325 MG Tab PO PRN (19:51)
[2017-03-03] MEDS: Zolpidem 5 MG Tab PO PRN (20:20)
[2017-03-04] MEDS: Piperacillin/Tazobactam 3.375 GM in Sodium Chloride 0.9% 100 ML IV SCH ×5 (00:15→23:45)
[2017-03-04] MEDS: Hydrocortisone Sodium Succinate 100 MG/2 ML SDV IV SCH ×3 (02:10→18:09)
[2017-03-04] MEDS: Albuterol/Ipratropium 3.0-0.5 MG/3 ML Neb Soln NEB PRN (05:48)
[2017-03-04] MEDS: Heparin Sodium 5,000 Units/ML Vial SUBCUT SCH ×3 (05:49→21:31)
[2017-03-04] MEDS: Levothyroxine 125 MCG Tab PO SCH (05:50)
[2017-03-04] MEDS: Pantoprazole 40 MG Tab.CR PO SCH (05:50)
[2017-03-04] MEDS: Albuterol/Ipratropium 3.0-0.5 MG/3 ML Neb Soln NEB SCH ×3 (07:07→22:36)
[2017-03-04] MEDS: Budesonide 0.5 MG/2 ML Neb Susp NEB SCH ×2 (07:07→18:09)
[2017-03-04] MEDS: Insulin Aspart 100 Units/ML 3 ML Pen SUBCUT SCH ×4 (08:34→21:29)
[2017-03-04] MEDS: Potassium Chloride 10 MEQ Tab.ER PO SCH ×3 (08:36→18:07)
[2017-03-04] MEDS: Fludrocortisone 0.1 MG Tab PO SCH (08:37)
[2017-03-04] MEDS: Sertraline 50 MG Tab PO SCH (08:37)
[2017-03-04] MEDS: Gabapentin 300 MG Cap PO SCH ×3 (08:37→20:59)
[2017-03-04] MEDS: Acetaminophen/HYDROcodone 325-10 MG Tab PO PRN (08:37)
[2017-03-04] MEDS: rOPINIRole 2 MG Tab PO SCH (08:39)
[2017-03-04] MEDS: Ciprofloxacin in D5W 400 MG in Premix Bag 1 BAG IV SCH ×4 (08:40→21:04)
--- NOTE | 2017-03-04 09:26 | PN ---
DATE: 03/04/2017 SUBJECTIVE: The patient is doing fairly well. She occasionally feels some palpitation, but denies any chest pain or worsening of shortness of breath. She is still little bit weak, but no significant abdominal pain or any other complaints. OBJECTIVE: Vital Signs: Blood pressure is 90/49, pulse of 92, respirations 20. Heart: Regular rate and rhythm. Normal S1 and S2. No gallops. No rubs. Lungs: Remarkable for some mild wheeze and crackles on the left lung base/field. Abdomen: Soft. There is mild direct tenderness. No rebound. Bowel sounds positive Extremities: Negative for any significant pedal edema. No calf tenderness. LABORATORY DATA: Lab workup this morning, glucose is 156. MEDICATIONS: Reviewed. PLAN: We will continue with her present management. We will recheck a CBC, and chem panel in a.m. [facility] /[id number]
[2017-03-04] MEDS: Sodium Chloride 0.9% 10 ML Syringe FLUSH PRN ×8 (10:46→23:44)
[2017-03-04] MEDS: Zolpidem 5 MG Tab PO PRN (21:27)
[2017-03-04] MEDS: Acetaminophen 325 MG Tab PO PRN (21:27)
[2017-03-05] MEDS: Sodium Chloride 0.9% 10 ML Syringe FLUSH PRN ×9 (02:00→23:43)
[2017-03-05] MEDS: Hydrocortisone Sodium Succinate 100 MG/2 ML SDV IV SCH ×3 (02:01→22:48)
[2017-03-05] MEDS: Piperacillin/Tazobactam 3.375 GM in Sodium Chloride 0.9% 100 ML IV SCH ×4 (06:17→23:44)
[2017-03-05] MEDS: Heparin Sodium 5,000 Units/ML Vial SUBCUT SCH ×3 (06:21→21:25)
[2017-03-05] MEDS: Pantoprazole 40 MG Tab.CR PO SCH (06:22)
[2017-03-05] MEDS: Levothyroxine 125 MCG Tab PO SCH (06:22)
[2017-03-05] MEDS: Acetaminophen/HYDROcodone 325-10 MG Tab PO PRN ×2 (06:27→21:32)
[2017-03-05 07:07] LABS: CHLORIDE,CL 108 mmol/L (101-111); SODIUM,NA 145 mmol/L (135-145)
[2017-03-05] MEDS: Budesonide 0.5 MG/2 ML Neb Susp NEB SCH ×2 (07:24→17:38)
[2017-03-05] MEDS: Albuterol/Ipratropium 3.0-0.5 MG/3 ML Neb Soln NEB SCH ×3 (07:24→22:51)
[2017-03-05] MEDS: Ciprofloxacin in D5W 400 MG in Premix Bag 1 BAG IV SCH ×4 (08:14→21:18)
[2017-03-05] MEDS: Sertraline 50 MG Tab PO SCH (08:14)
[2017-03-05] MEDS: rOPINIRole 2 MG Tab PO SCH (08:14)
[2017-03-05] MEDS: Gabapentin 300 MG Cap PO SCH ×3 (08:14→21:24)
[2017-03-05] MEDS: Fludrocortisone 0.1 MG Tab PO SCH (08:14)
[2017-03-05] MEDS: Potassium Chloride 10 MEQ Tab.ER PO SCH ×3 (08:15→18:18)
[2017-03-05] MEDS ORDERED: Hydrocortisone Sodium Succinate 250 MG/2 ML SDV IV SCH (09:30)
[2017-03-05] MEDS: Insulin Aspart 100 Units/ML 3 ML Pen SUBCUT SCH ×4 (09:58→21:36)
[2017-03-05] MEDS ORDERED: LORazepam 0.5 MG Tab PO ONE (13:08)
[2017-03-05] MEDS: Zolpidem 5 MG Tab PO PRN (21:24)
[2017-03-05] MEDS: guaiFENesin/Dextromethorphan 100-10 MG/5 ML Soln 5 ML Cup PO PRN (21:32)
[2017-03-06] MEDS: Sodium Chloride 0.9% 10 ML Syringe FLUSH PRN ×8 (02:53→23:32)
[2017-03-06] MEDS: Piperacillin/Tazobactam 3.375 GM in Sodium Chloride 0.9% 100 ML IV SCH ×4 (05:47→23:33)
[2017-03-06] MEDS: Heparin Sodium 5,000 Units/ML Vial SUBCUT SCH ×3 (05:51→21:47)
[2017-03-06] MEDS: Levothyroxine 125 MCG Tab PO SCH (05:52)
[2017-03-06] MEDS: Pantoprazole 40 MG Tab.CR PO SCH (05:52)
[2017-03-06] MEDS: Acetaminophen 325 MG Tab PO PRN ×2 (05:56→18:34)
[2017-03-06] MEDS: Albuterol/Ipratropium 3.0-0.5 MG/3 ML Neb Soln NEB SCH ×3 (07:18→22:02)
[2017-03-06] MEDS: Budesonide 0.5 MG/2 ML Neb Susp NEB SCH ×3 (07:18→18:28)
[2017-03-06] MEDS: Insulin Aspart 100 Units/ML 3 ML Pen SUBCUT SCH ×4 (08:41→21:45)
[2017-03-06] MEDS: Sertraline 50 MG Tab PO SCH (08:42)
[2017-03-06] MEDS: Gabapentin 300 MG Cap PO SCH ×3 (08:42→20:33)
[2017-03-06] MEDS: Potassium Chloride 10 MEQ Tab.ER PO SCH ×3 (08:42→18:28)
[2017-03-06] MEDS: Fludrocortisone 0.1 MG Tab PO SCH (08:42)
[2017-03-06] MEDS: rOPINIRole 2 MG Tab PO SCH (08:43)
[2017-03-06] MEDS: Ciprofloxacin in D5W 400 MG in Premix Bag 1 BAG IV SCH ×4 (08:43→20:12)
--- NOTE | 2017-03-06 09:57 | PN ---
DATE: 03/06/2017 SUBJECTIVE: The patient this morning is feeling better. Yesterday afternoon, the patient complained of some chest pain, and it was felt that it was secondary to anxiety and musculoskeletal pain as this was reproducible. This morning, the patient denies any chest pain, shortness of breath, fever, chills, abdominal pain, nausea, vomiting, nor any other complaint; and she had a followup chest x- ray, and chest x-ray was unremarkable. OBJECTIVE: Vital Signs: Blood pressure is 82/47, pulse of 88, respirations 20, and temperature of 98.7. Heart: Regular rate and rhythm. Normal S1 and S2. No gallops. No rubs. Lungs: Equal bilaterally with coarse breath sounds but no significant crackles. No wheezing. Abdomen: Soft and nontender. Bowel sounds are positive. Extremities: Negative for any significant pedal edema. No calf tenderness. MEDICATIONS: Reviewed. PLAN: We will discontinue the IV Solu-Cortef, and we will put her back on her hydrocortisone 20 mg p.o. b.i.d. We will continue the rest of her management. We will also continue to monitor her blood pressures. Blood pressure is running on the low side, and she is already currently on fludrocortisone. If she continues to do well, anticipate discharge in the a.m. [facility] /[id number]
[2017-03-06] MEDS: Acetaminophen/HYDROcodone 325-10 MG Tab PO PRN ×2 (12:47→20:34)
[2017-03-06] MEDS: Hydrocortisone 20 MG Tab PO SCH (18:27)
[2017-03-06] MEDS: Zolpidem 5 MG Tab PO PRN (21:52)
[2017-03-07] MEDS: Acetaminophen 325 MG Tab PO PRN ×2 (04:19→18:10)
[2017-03-07] MEDS: Sodium Chloride 0.9% 10 ML Syringe FLUSH PRN ×3 (05:46→23:32)
[2017-03-07] MEDS: Piperacillin/Tazobactam 3.375 GM in Sodium Chloride 0.9% 100 ML IV SCH ×4 (05:46→23:34)
[2017-03-07] MEDS: Levothyroxine 125 MCG Tab PO SCH (05:50)
[2017-03-07] MEDS: Pantoprazole 40 MG Tab.CR PO SCH (05:50)
[2017-03-07] MEDS: Heparin Sodium 5,000 Units/ML Vial SUBCUT SCH ×3 (05:50→21:38)
[2017-03-07] MEDS: Budesonide 0.5 MG/2 ML Neb Susp NEB SCH ×3 (07:10→18:11)
[2017-03-07] MEDS: Albuterol/Ipratropium 3.0-0.5 MG/3 ML Neb Soln NEB SCH ×3 (07:10→22:16)
--- NOTE | 2017-03-07 07:14 | PN ---
DATE: 03/05/2017 SUBJECTIVE: The patient is feeling better this morning and patient denies any nausea, vomiting, chest pain, or shortness of breath. An appetite is slowly improving. LABORATORY DATA: Lab workup this morning; CBC: WBC 7.6, hemoglobin is 9.6, hematocrit is 29.6, platelet is 151 and Chem-6, potassium is 3.3 and glucose is 166. The rest of the panel is unremarkable. OBJECTIVE: Vital Signs: Blood pressure is 102/66, pulse of 84, respirations 20, temperature of 98.5. Heart: Regular rate and rhythm. Normal S1 and S2. No gallops. No rubs. Lungs: Remarkable for coarse breath sounds bilaterally with some rhonchi and mild crackles, but no significant wheezing. Abdomen: Soft and nontender. Bowel sounds are positive. Extremities: Negative for any significant pedal edema. No calf tenderness. MEDICATIONS: Reviewed. PLAN: I am going to decrease her hydrocortisone to 50 mg IV q.12 hours and I am also going to have a followup chest x-ray today. Otherwise, we will continue the rest of her medication including her vancomycin, Zosyn, and Cipro. [facility] /[id number]
[2017-03-07] MEDS: Insulin Aspart 100 Units/ML 3 ML Pen SUBCUT SCH ×4 (07:49→21:09)
[2017-03-07] MEDS: rOPINIRole 2 MG Tab PO SCH (08:22)
[2017-03-07] MEDS: Gabapentin 300 MG Cap PO SCH ×3 (08:23→20:24)
[2017-03-07] MEDS: Fludrocortisone 0.1 MG Tab PO SCH (08:23)
[2017-03-07] MEDS: Sertraline 50 MG Tab PO SCH (08:23)
[2017-03-07] MEDS: Potassium Chloride 10 MEQ Tab.ER PO SCH ×3 (08:23→17:54)
[2017-03-07] MEDS: Hydrocortisone 20 MG Tab PO SCH ×2 (08:23→17:55)
[2017-03-07] MEDS: Ciprofloxacin in D5W 400 MG in Premix Bag 1 BAG IV SCH ×2 (08:51)
[2017-03-07] MEDS: Acetaminophen/HYDROcodone 325-10 MG Tab PO PRN ×2 (09:44→21:48)
--- NOTE | 2017-03-07 11:19 | PCM.PN ---
- General Info Date of Service: 03/07/17 Admission Dx/Problem (Free Text): Healthcare pneumonia versus aspiration pneumonia Subjective Update: Patient stated that she is feeling better. She is still having cough with clear phlegm. She is still getting short of breath with exertion but not undressed. She states she is still generally weak but that's how she usually is according to her. She said her blood pressure usually runs low and she is not feeling dizzy or lightheaded and she denies nausea, vomiting, chest pain, palpitation, abdominal pain, diarrhea, urinary symptoms, any other symptoms or concerns. - Patient Data Vitals - Most Recent: Last Vital Signs Temp 37.0 C 03/07/17 07:55 Pulse 81 03/07/17 07:55 Resp 20 03/07/17 07:55 BP 98/52 L 03/07/17 07:55 Pulse Ox 100 03/07/17 07:55 Weight - Most Recent: 60.328 kg I&O - Last 24 Hours: Intake & Output 03/06/17 03/07/17 03/07/17 22:59 06:59 14:59 Intake Total 856 300 422 Output Total 200 900 Balance 656 -600 422 Lab Results Last 24 Hours: Laboratory Results - last 24 hr 03/06/17 03/06/17 03/07/17 Range/Units 17:01 20:58 07:40 POC Glucose 102 127 H 97 (70-105) mg/dl 03/07/17 Range/Units 11:07 POC Glucose 85 (70-105) mg/dl [place] Results Last 24 Hours: Microbiology 03/02/17 16:30 Gram Stain - Final Sputum - Expectorated Sputum Culture - Final Med Orders - Current: Current Medications Acetaminophen (Tylenol) 650 mg PO Q4H PRN PRN Reason: Pain (Mild 1-3)/fever Last Admin: 03/07/17 04:19 Dose: 650 mg Hydrocodone Bitart/Acetaminophen (Esparto 325-10 Mg) 1 tab PO BID PRN PRN Reason: Pain Last Admin: 03/07/17 09:44 Dose: 1 tab Albuterol/Ipratropium (Duoneb 3.0-0.5 Mg/3 Ml) 3 ml NEB Q6HRRT PRN PRN Reason: Shortness of Breath Last Admin: 03/04/17 05:48 Dose: 3 ml Albuterol/Ipratropium (Duoneb 3.0-0.5 Mg/3 Ml) 3 ml NEB Q8HRRT [facility] Last Admin: 03/07/17 07:10 Dose: 3 ml Budesonide (Pulmicort) 0.5 mg NEB BIDRT [facility] Last Admin: 03/07/17 07:10 Dose: 0.5 mg Cyclobenzaprine HCl (Flexeril) 10 mg PO TID PRN PRN Reason: back pain Last Admin: 03/03/17 14:10 Dose: 10 mg Fludrocortisone Acetate (Florinef) 0.1 mg PO WITHBREAKFAST [facility] Last Admin: 03/07/17 08:23 Dose: 0.1 mg Gabapentin (Neurontin) 300 mg PO TID [facility] Last Admin: 03/07/17 08:23 Dose: 300 mg Guaifenesin/Phenylephrine HCl (Robitussin Dm) 10 ml PO Q4H PRN PRN Reason: Cough Last Admin: 03/05/17 21:32 Dose: 10 ml Heparin Sodium (Porcine) (Heparin Sodium) 5,000 units SUBCUT Q8HR [facility] Last Admin: 03/07/17 05:50 Dose: 5,000 units Hydrocortisone (Cortef) 20 mg PO BIDMEALS [facility] Last Admin: 03/07/17 08:23 Dose: 20 mg Ciprofloxacin/Dextrose 400 mg/ (Premix) 200 mls @ 200 mls/hr IV Q12HR [facility] Last Admin: 03/07/17 08:51 Dose: 200 mls/hr Piperacillin Sod/Tazobactam (Sod 3.375 gm/ Sodium Chloride) 100 mls @ 200 mls/ hr IV Q6H [facility] Last Admin: 03/07/17 05:46 Dose: 200 mls/hr Vancomycin HCl 1 gm/ Sodium (Chloride) 250 mls @ 166.667 mls/hr IV Q18H [facility] Last Admin: 03/06/17 21:27 Dose: 166.667 mls/hr Insulin Aspart (Novolog) 0 unit SUBCUT QIDACANDBED [facility] PRN Reason: Protocol Last Admin: 03/07/17 07:49 Dose: Not Given Levothyroxine Sodium (Levothyroxine) 125 mcg PO ACBREAKFAST [facility] Last Admin: 03/07/17 05:50 Dose: 125 mcg Magnesium Hydroxide (Milk Of Magnesia) 30 ml PO Q12H PRN PRN Reason: Constipation Magnesium Oxide (Magnesium Oxide) 250 mg PO TIDMEALS [facility] Last Admin: 03/07/17 08:50 Dose: 250 mg Morphine Sulfate (Morphine) 2 mg IVPUSH Q2H PRN PRN Reason: Pain (severe 7-10) Last Admin: 03/05/17 14:54 Dose: 2 mg Ondansetron HCl (Zofran) 4 mg IVPUSH Q4H PRN PRN Reason: Nausea/Vomiting Pantoprazole Sodium (Protonix) 40 mg PO ACBREAKFAST [facility] Last Admin: 03/07/17 05:50 Dose: 40 mg Potassium Chloride (Klor-Con 10) 20 meq PO TIDMEALS [facility] Last Admin: 03/07/17 08:23 Dose: 20 meq Ropinirole HCl (Requip) 1 mg PO DAILY [facility] Last Admin: 03/07/17 08:22 Dose: 1 mg Sertraline HCl (Zoloft) 50 mg PO DAILY [facility] Last Admin: 03/07/17 08:23 Dose: 50 mg Sodium Chloride (Saline Flush) 10 ml FLUSH ASDIRECTED PRN PRN Reason: Keep Vein Open Last Admin: 03/07/17 05:46 Dose: 10 ml Vancomycin HCl (Pharmacy To Dose - Vancomycin) 1 dose .XX ASDIRECTED [facility] Zolpidem Tartrate (Ambien) 5 mg PO BEDTIME PRN PRN Reason: Sleep Last Admin: 03/06/17 21:52 Dose: 5 mg Discontinued Medications Albuterol/Ipratropium (Duoneb 3.0-0.5 Mg/3 Ml) Confirm Administered Dose 3 ml .ROUTE .STK-MED ONE Stop: 03/01/17 14:50 Last Admin: 03/01/17 14:53 Dose: 3 ml Albuterol/Ipratropium (Duoneb 3.0-0.5 Mg/3 Ml) 3 ml NEB ONETIME ONE Stop: 03/01/17 14:53 Last Admin: 03/01/17 15:06 Dose: Not Given Furosemide (Lasix) 40 mg IVPUSH NOW ONE Stop: 03/02/17 11:11 Last Admin: 03/02/17 12:18 Dose: 40 mg Furosemide (Lasix) 20 mg IVPUSH BID TERRI Stop: 03/03/17 11:11 Last Admin: 03/02/17 13:31 Dose: Not Given Hydrocortisone Sodium Succinate (Solu-Cortef) 100 mg IV Q8H [facility] Last Admin: 03/02/17 10:20 Dose: 100 mg Hydrocortisone Sodium Succinate (Solu-Cortef) 50 mg IV Q8HR [facility] Hydrocortisone Sodium Succinate (Solu-Cortef) 50 mg IV Q8H [facility] Last Admin: 03/05/17 02:01 Dose: 50 mg Hydrocortisone Sodium Succinate (Solu-Cortef) 50 mg IV Q12H [facility] Last Admin: 03/05/17 10:34 Dose: Not Given Hydrocortisone Sodium Succinate (Solu-Cortef) 50 mg IV Q12H [facility] Last Admin: 03/05/17 22:48 Dose: 50 mg Piperacillin Sod/Tazobactam (Sod 3.375 gm/ Sodium Chloride) 100 mls @ 200 mls/ hr IV ONETIME ONE Stop: 03/01/17 15:47 Last Admin: 03/01/17 15:30 Dose: 200 mls/hr Piperacillin Sod/Tazobactam (Sod 3.375 gm/ Sodium Chloride) 100 mls @ 200 mls/ hr IV Q6H [facility] Last Admin: 03/03/17 11:28 Dose: Not Given Vancomycin HCl 1 gm/ Sodium (Chloride) 250 mls @ 166.667 mls/hr IV Q8H [facility] Last Admin: 03/03/17 04:10 Dose: Not Given Ciprofloxacin/Dextrose (Cipro In D5w 400 Mg/200 Ml) Confirm Administered Dose 200 mls @ as directed .ROUTE .STK-MED ONE Stop: 03/01/17 19:26 Last Admin: 03/01/17 19:55 Dose: 400 mg Vancomycin HCl 1 gm/ Sodium (Chloride) 250 mls @ 166.667 mls/hr IV Q12H [facility] Last Admin: 03/04/17 10:39 Dose: Not Given Iopamidol (Isovue-370 (76%)) 100 ml IVPUSH ONETIME ONE Stop: 03/01/17 18:28 Last Admin: 03/01/17 19:10 Dose: 57 ml Lorazepam (Ativan) 0.5 mg PO ONETIME ONE Stop: 03/05/17 13:09 Last Admin: 03/05/17 13:15 Dose: 0.5 mg Magnesium Oxide (Magnesium Oxide) 250 mg PO BIDM [facility] Last Admin: 03/03/17 08:58 Dose: 250 mg Potassium Chloride (Klor-Con 10) 20 meq PO BIDMEALS [facility] Last Admin: 03/03/17 09:06 Dose: 20 meq Potassium Chloride (Klor-Con 10) 20 meq PO ONETIME ONE Stop: 03/03/17 07:33 Last Admin: 03/03/17 08:54 Dose: 20 meq Potassium Chloride (Klor-Con 10) 40 meq PO ONETIME ONE Stop: 03/03/17 17:54 Last Admin: 03/03/17 18:12 Dose: 40 meq - Exam General: Alert, Oriented, Cooperative, No Acute Distress, Other (Has chronically ill-looking) HEENT: Pupils Equal, Pupils Reactive, EOMI, Mucous Membr. Moist/[place] Neck: Supple, Trachea Midline, No JVD Lungs: Normal Respiratory Effort. No: Wheezing Cardiovascular: Regular Rate, Regular Rhythm GI/Abdominal Exam: Normal Bowel Sounds, Soft, Non-Tender, No Organomegaly, No Distention, No Abnormal Bruit, No Mass, Pelvis Stable (Female) Exam: Deferred - Problem List Review Problem List Initiated/Reviewed/Updated: Yes - Plan Plan:: Assessment and plan Healthcare associated pneumonia versus aspiration pneumonia Patient is improving Blood cultures no growth for 5 days Continue vancomycin and Zosyn. Stop ciprofloxacin Continue RT chest physiotherapy Change DuoNeb from when necessary to schedule every 6 hours Robitussin for cough as needed Manolo's disease Patient was requiring hydrocortisone 100 mg 3 times a day -Now she is back on her home oral [place] 0.1 milligram with breakfast and hydrocortisone 20 mg by mouth twice a day Hypokalemia Patient was started on potassium chloride 20 mEq by mouth 3 times a day -Check potassium level Generalized weakness From hospitalization, pneumonia, Flushing's disease, multiple comorbidities Consult PT and OT for evaluation and treatment Low blood pressure Patient stated that her blood pressure runs usually low. This is possible from Flushing's disease. Patient seems to be tolerating that. Diabetes mellitus type 2 Continue sliding scale insulin Substance abuse Patient uses marijuana and amphetamine. Urine drug screen was positive for opiates and marijuana and was negative for methamphetamine. She was counseled to quit using illicit drugs and seek outpatient counseling and discussed that with her primary care provider Hypothyroidism Continue with levothyroxine History of depression and anxiety Stable. Patient is not suicidal or homicidal Continue with sertraline Continue heparin for DVT prophylaxis Due to her rehospitalization and patient multiple comorbidities, I recommend continue IV antibiotic was vancomycin and Zosyn for total of 10-14 days for her pneumonia. Swing bed would be good option for her
[2017-03-07] MEDS ORDERED: hydrOXYzine HCl 25 MG Tab PO PRN (11:23)
[2017-03-07] MEDS ORDERED: guaiFENesin 100 MG/5 ML Soln 5 ML UD Cup PO PRN (11:32)
[2017-03-07] MEDS ORDERED: Albuterol/Ipratropium 3.0-0.5 MG/3 ML Neb Soln NEB PRN (11:40)
[2017-03-07] MEDS ORDERED: Albuterol/Ipratropium 3.0-0.5 MG/3 ML Neb Soln NEB SCH (13:00)
[2017-03-07] MEDS ORDERED: Magnesium Sulfate/Water 2 GM in Premix Bag 1 BAG IV ONE ×2 (13:43→15:40)
[2017-03-07] MEDS: Zolpidem 5 MG Tab PO PRN (21:49)
[2017-03-08] MEDS: Sodium Chloride 0.9% 10 ML Syringe FLUSH PRN ×5 (00:13→11:49)
[2017-03-08] MEDS: Piperacillin/Tazobactam 3.375 GM in Sodium Chloride 0.9% 100 ML IV SCH ×2 (05:14→11:54)
[2017-03-08] MEDS: Heparin Sodium 5,000 Units/ML Vial SUBCUT SCH ×2 (05:20→13:55)
[2017-03-08] MEDS: Pantoprazole 40 MG Tab.CR PO SCH (05:20)
[2017-03-08] MEDS: Levothyroxine 125 MCG Tab PO SCH (05:21)
[2017-03-08] MEDS: Acetaminophen 325 MG Tab PO PRN (05:27)
[2017-03-08] MEDS: Budesonide 0.5 MG/2 ML Neb Susp NEB SCH (07:59)
[2017-03-08] MEDS: Albuterol/Ipratropium 3.0-0.5 MG/3 ML Neb Soln NEB SCH ×2 (07:59→15:08)
[2017-03-08] MEDS: Insulin Aspart 100 Units/ML 3 ML Pen SUBCUT SCH ×2 (08:22→12:05)
[2017-03-08] MEDS: Hydrocortisone 20 MG Tab PO SCH (08:25)
[2017-03-08] MEDS: Fludrocortisone 0.1 MG Tab PO SCH (08:26)
[2017-03-08] MEDS: Potassium Chloride 10 MEQ Tab.ER PO SCH ×2 (08:26→11:55)
[2017-03-08 08:28] VITALS: BP 100/64
[2017-03-08] MEDS: Gabapentin 300 MG Cap PO SCH ×2 (08:28→13:55)
[2017-03-08] MEDS: rOPINIRole 2 MG Tab PO SCH (08:29)
[2017-03-08] MEDS: Sertraline 50 MG Tab PO SCH (08:30)
[2017-03-08 09:06] LABS: CHLORIDE,CL 107 mmol/L (101-111); SODIUM,NA 142 mmol/L (135-145)
[2017-03-08] MEDS: Acetaminophen/HYDROcodone 325-10 MG Tab PO PRN (12:00)
--- NOTE | 2017-03-08 15:32 | PCM.DCSUM1 ---
Discharge Summary - Hospital Course Free Text/Narrative:: 51-year-old female was the best medical history of Manolo disease, chronic steroid therapy, Kelly thyroiditis, hypothyroidism, type 2 diabetes mellitus who was recently discharged from hospital for Manolo crisis who presented to the emergency room for this allergy, confusion, cough and was found to have possible pneumonia (healthcare estimated pneumonia versus aspiration pneumonia). On admission chest x-ray reported possible infiltrate on the right lower lobe. CT of the chest was done and was negative for pulmonary embolism but noted to have infiltrate and consolidation mainly in the right middle and lower lobe but also on left side. Patient was unconscious on the previous admission which raised the suspicion of aspiration pneumonia. She was started on Zosyn, ciprofloxacin, and vancomycin. However sputum culture and blood culture were negative. She was started on bronchodilator. She received high doses of hydrocortisone 100 mg 3 times a day which decreased gradually and later she was on her home oral steroids. Her blood sugar was slightly elevated so she was started on sliding scale insulin. On admission WBC 9. Hemoglobin is 0.8. Platelets 92. Potassium 3.6. Sodium 140. Magnesium 1.3. Patient potassium became low later and her oral potassium was increased from 20 mEq twice a day to 3 times a day. She received magnesium sulfate 4 gram yesterday. Patient clinically is feeling much better. She is still complaining of feeling tired. Today she declined cough, shortness breath, fever, chills, nausea, vomiting, chest pain, abdominal pain, diarrhea, nausea, unilateral weakness/numbness/ tingling, urinary symptoms, any other symptoms or concerns. I recommend patient being admitted to swing bed to continue IV antibiotic for total of 10-14 days. Patient declined today to stay longer at the hospital. Explained to her the risk of worsening pneumonia which could be life-threatening condition and can cause this. Patient verbalized understanding and wants to take the risk and go home on oral antibiotics. She declined to be on outpatient IV antibiotic. Patient seems to take decision based on her best interest. Patient was discharged home on 7 days of Levaquin orally. She will continue her home medications. She was advised to check her blood sugar daily and report to primary care provider. She was advised to follow up with director of trauma on her Seminole disease and follow up with primary care provider after discharge. Patient verbalized understanding and agreed - Discharge Data Discharge Date: 03/08/17 Discharge Disposition: Home, Self-Care 01 Condition: Good - Discharge Diagnosis/Problem(s) (1) [place]'s disease SNOMED Code(s): 231534669 ICD Code: E27.1 - PRIMARY ADRENOCORTICAL INSUFFICIENCY Status: Chronic Current Visit: Yes (2) Pneumonia SNOMED Code(s): 131012281 ICD Code: J18.9 - PNEUMONIA, UNSPECIFIED ORGANISM Status: Acute Current Visit: Yes Qualifiers: Pneumonia type: due to unspecified organism Laterality: right Lung location: middle lobe of lung Qualified Code(s): J18.1 - Lobar pneumonia, unspecified organism - Patient Summary/Data Consults: Consultations 03/07/17 11:20 OT Evaluation and Treatment [CONS] Routine PT Evaluation and Treatment [CONS] Routine - Patient Instructions Diet: Heart Healthy Diet Activity: As Tolerated Showering/Bathing: May Shower Notify Provider of: Fever, Swelling and Redness, Drainage, Nausea and/or Vomiting - Discharge Plan Prescriptions/Med Rec: Levofloxacin [Levaquin] 500 mg PO Q24H 7 Days #7 tablet Magnesium Oxide 250 mg PO TIDMEALS 30 Days tablet Home Medications: Home Meds Levothyroxine 125 mcg PO ACBREAKFAST 06/07/15 [History] Fludrocortisone [Florinef] 0.1 mg PO WITHBREAKFAST 09/15/15 [History] Gabapentin [Neurontin] 300 mg PO TID 09/15/15 [History] rOPINIRole [Requip] 1 mg PO DAILY 09/15/15 [History] Hydrocodone/Acetaminophen [Hydrocodon-Acetaminophn 10-325] 1 tab PO BID PRN [History] Cyclobenzaprine [Flexeril] 1 tab PO TID PRN 02/25/17 [History] Sertraline [Zoloft] 1 tab PO DAILY 02/25/17 [History] hydrOXYzine HCl [Atarax] 25 mg PO TID PRN 02/25/17 [History] Hydrocortisone [Cortef] 20 mg PO BIDMEALS #60 tablet 02/28/17 [Rx] Potassium Chloride [Klor-Con 10] 20 meq PO BIDMEALS #10 tab.er 02/28/17 [Rx] Levofloxacin [Levaquin] 500 mg PO Q24H 7 Days #7 tablet 03/08/17 [Rx] Magnesium Oxide 250 mg PO TIDMEALS 30 Days tablet 03/08/17 [Rx] Patient Handouts: Manolo Disease, Community-Acquired Pneumonia, Adult, Easy-to -Read Referrals: PCP,None [Primary Care Provider] - - Discharge Summary/Plan Comment DC Time >30 min.: Yes (34 minutes were spent in discharging the patient) - Patient Data Vitals - Most Recent: Last Vital Signs Temp 37.1 C 03/08/17 08:27 Pulse 77 03/08/17 15:09 Resp 20 03/08/17 08:27 BP 100/64 03/08/17 08:27 Pulse Ox 100 03/08/17 15:09 Weight - Most Recent: 60.328 kg I&O - Last 24 hours: Intake & Output 03/08/17 03/08/17 03/08/17 06:59 14:59 22:59 Intake Total 1347 1046 Output Total 350 1000 Balance 997 46 Lab Results - Last 24 hrs: Laboratory Results - last 24 hr 03/07/17 03/07/17 03/08/17 Range/Units 16:53 20:55 07:58 WBC (5.0-10.0) 10^3/uL RBC (4.2-5.4) 10^6/uL Hgb (12.0-16.0) g/dL Hct (37.0-47.0) % MCV (80-100) fL MCH (27.0-34.0) pg MCHC (33.0-35.0) g/dL Plt Count (150-450) 10^3/uL Neut % (Auto) (42.2-75.2) % Lymph % (Auto) (20.5-50.1) % [place] % (Auto) (2-8) % Eos % (Auto) (1.0-3.0) % Baso % (Auto) (0.0-1.0) % Add Manual Diff Sodium (135-145) mmol/L Potassium (3.6-5.0) mmol/L Chloride (101-111) mmol/L Carbon Dioxide (21.0-31.0) mmol/L Anion Gap BUN (7-18) mg/dL Creatinine (0.6-1.3) mg/dL Est Cr Clr Drug Dosing mL/min Estimated GFR (MDRD) Glucose (74-105) mg/dL POC Glucose 135 H 156 H 70 (70-105) mg/dl Calcium (8.4-10.2) mg/dl Magnesium (1.8-2.5) mg/dL Albumin (3.2-5.5) g/dl Vancomycin Trough (10-15) ug/ml 03/08/17 03/08/17 03/08/17 Range/Units 08:36 08:36 08:36 WBC 11.5 H (5.0-10.0) 10^3/uL RBC 3.29 L (4.2-5.4) 10^6/uL Hgb 10.1 L (12.0-16.0) g/dL Hct 31.1 L (37.0-47.0) % MCV 94.5 (80-100) fL MCH 30.7 (27.0-34.0) pg MCHC 32.5 L (33.0-35.0) g/dL Plt Count 160 (150-450) 10^3/uL Neut % (Auto) 46.7 (42.2-75.2) % Lymph % (Auto) 43.6 (20.5-50.1) % [place] % (Auto) 7.5 (2-8) % Eos % (Auto) 2.2 (1.0-3.0) % Baso % (Auto) 0.0 (0.0-1.0) % Add Manual Diff Sodium 142 (135-145) mmol/L Potassium 3.7 (3.6-5.0) mmol/L Chloride 107 (101-111) mmol/L Carbon Dioxide 25.0 (21.0-31.0) mmol/L Anion Gap 13.7 BUN 10 (7-18) mg/dL Creatinine 0.6 (0.6-1.3) mg/dL Est Cr Clr Drug Dosing 84.65 mL/min Estimated GFR (MDRD) > 60 Glucose 87 (74-105) mg/dL POC Glucose (70-105) mg/dl Calcium 7.5 L (8.4-10.2) mg/dl Magnesium 1.8 (1.8-2.5) mg/dL Albumin (3.2-5.5) g/dl Vancomycin Trough 11.1 (10-15) ug/ml 03/08/17 03/08/17 Range/Units 08:36 11:11 WBC (5.0-10.0) 10^3/uL RBC (4.2-5.4) 10^6/uL Hgb (12.0-16.0) g/dL Hct (37.0-47.0) % MCV (80-100) fL MCH (27.0-34.0) pg MCHC (33.0-35.0) g/dL Plt Count (150-450) 10^3/uL Neut % (Auto) (42.2-75.2) % Lymph % (Auto) (20.5-50.1) % [place] % (Auto) (2-8) % Eos % (Auto) (1.0-3.0) % Baso % (Auto) (0.0-1.0) % Add Manual Diff Sodium (135-145) mmol/L Potassium (3.6-5.0) mmol/L Chloride (101-111) mmol/L Carbon Dioxide (21.0-31.0) mmol/L Anion Gap BUN (7-18) mg/dL Creatinine (0.6-1.3) mg/dL Est Cr Clr Drug Dosing mL/min Estimated GFR (MDRD) Glucose (74-105) mg/dL POC Glucose 97 (70-105) mg/dl Calcium (8.4-10.2) mg/dl Magnesium (1.8-2.5) mg/dL Albumin 3.0 L (3.2-5.5) g/dl Vancomycin Trough (10-15) ug/ml [facility] Results - Last 24 hrs: Microbiology 03/02/17 16:30 Gram Stain - Final Sputum - Expectorated Sputum Culture - Final Med Orders - Current: Current Medications Acetaminophen (Tylenol) 650 mg PO Q4H PRN PRN Reason: Pain (Mild 1-3)/fever Last Admin: 03/08/17 05:27 Dose: 650 mg Hydrocodone Bitart/Acetaminophen ([place] 325-10 Mg) 1 tab PO BID PRN PRN Reason: Pain Last Admin: 03/08/17 12:00 Dose: 1 tab Albuterol/Ipratropium (Duoneb 3.0-0.5 Mg/3 Ml) 3 ml NEB Q8HRRT TERRI Last Admin: 03/08/17 15:08 Dose: 3 ml Albuterol/Ipratropium (Duoneb 3.0-0.5 Mg/3 Ml) 3 ml NEB Q6HRRT PRN PRN Reason: Shortness breaths, cough Budesonide (Pulmicort) 0.5 mg NEB BIDRT [facility] Last Admin: 03/08/17 07:59 Dose: 0.5 mg Cyclobenzaprine HCl (Flexeril) 10 mg PO TID PRN PRN Reason: back pain Last Admin: 03/03/17 14:10 Dose: 10 mg Fludrocortisone Acetate (Florinef) 0.1 mg PO WITHBREAKFAST [facility] Last Admin: 03/08/17 08:26 Dose: 0.1 mg Gabapentin (Neurontin) 300 mg PO TID [facility] Last Admin: 03/08/17 13:55 Dose: 300 mg Guaifenesin (Robitussin) 100 mg PO Q6H PRN PRN Reason: Cough Guaifenesin/Phenylephrine HCl (Robitussin Dm) 10 ml PO Q4H PRN PRN Reason: Cough Last Admin: 03/05/17 21:32 Dose: 10 ml Heparin Sodium (Porcine) (Heparin Sodium) 5,000 units SUBCUT Q8HR [facility] Last Admin: 03/08/17 13:55 Dose: 5,000 units Hydrocortisone (Cortef) 20 mg PO BIDMEALS [facility] Last Admin: 03/08/17 08:25 Dose: 20 mg Hydroxyzine HCl (Atarax) 25 mg PO TID PRN PRN Reason: Itching Piperacillin Sod/Tazobactam (Sod 3.375 gm/ Sodium Chloride) 100 mls @ 200 mls/ hr IV Q6H [facility] Last Infusion: 03/08/17 12:30 Dose: Infused Vancomycin HCl 1 gm/ Sodium (Chloride) 250 mls @ 166.667 mls/hr IV Q18H [facility] Last Admin: 03/08/17 10:00 Dose: 166.667 mls/hr Insulin Aspart (Novolog) 0 unit SUBCUT QIDACANDBED [facility] PRN Reason: Protocol Last Admin: 03/08/17 12:05 Dose: Not Given Levothyroxine Sodium (Levothyroxine) 125 mcg PO ACBREAKFAST [facility] Last Admin: 03/08/17 05:21 Dose: 125 mcg Magnesium Hydroxide (Milk Of Magnesia) 30 ml PO Q12H PRN PRN Reason: Constipation Magnesium Oxide (Magnesium Oxide) 250 mg PO TIDMEALS [facility] Last Admin: 03/08/17 11:56 Dose: 250 mg Morphine Sulfate (Morphine) 2 mg IVPUSH Q2H PRN PRN Reason: Pain (severe 7-10) Last Admin: 03/05/17 14:54 Dose: 2 mg Ondansetron HCl (Zofran) 4 mg IVPUSH Q4H PRN PRN Reason: Nausea/Vomiting Pantoprazole Sodium (Protonix) 40 mg PO ACBREAKFAST [facility] Last Admin: 03/08/17 05:20 Dose: 40 mg Potassium Chloride (Klor-Con 10) 20 meq PO TIDMEALS [facility] Last Admin: 03/08/17 11:55 Dose: 20 meq Ropinirole HCl (Requip) 1 mg PO DAILY [facility] Last Admin: 03/08/17 08:29 Dose: 1 mg Sertraline HCl (Zoloft) 50 mg PO DAILY [facility] Last Admin: 03/08/17 08:30 Dose: 50 mg Sodium Chloride (Saline Flush) 10 ml FLUSH ASDIRECTED PRN PRN Reason: Keep Vein Open Last Admin: 03/08/17 11:49 Dose: 10 ml Vancomycin HCl (Pharmacy To Dose - Vancomycin) 1 dose .XX ASDIRECTED [facility] Zolpidem Tartrate (Ambien) 5 mg PO BEDTIME PRN PRN Reason: Sleep Last Admin: 03/07/17 21:49 Dose: 5 mg Discontinued Medications Albuterol/Ipratropium (Duoneb 3.0-0.5 Mg/3 Ml) Confirm Administered Dose 3 ml .ROUTE .STK-MED ONE Stop: 03/01/17 14:50 Last Admin: 03/01/17 14:53 Dose: 3 ml Albuterol/Ipratropium (Duoneb 3.0-0.5 Mg/3 Ml) 3 ml NEB ONETIME ONE Stop: 03/01/17 14:53 Last Admin: 03/01/17 15:06 Dose: Not Given Albuterol/Ipratropium (Duoneb 3.0-0.5 Mg/3 Ml) 3 ml NEB Q6HRRT PRN PRN Reason: Shortness of Breath Last Admin: 03/04/17 05:48 Dose: 3 ml Albuterol/Ipratropium (Duoneb 3.0-0.5 Mg/3 Ml) 3 ml NEB Q6HRRT [facility] Furosemide (Lasix) 40 mg IVPUSH NOW ONE Stop: 03/02/17 11:11 Last Admin: 03/02/17 12:18 Dose: 40 mg Furosemide (Lasix) 20 mg IVPUSH BID TERRI Stop: 03/03/17 11:11 Last Admin: 03/02/17 13:31 Dose: Not Given Hydrocortisone Sodium Succinate (Solu-Cortef) 100 mg IV Q8H [facility] Last Admin: 03/02/17 10:20 Dose: 100 mg Hydrocortisone Sodium Succinate (Solu-Cortef) 50 mg IV Q8HR [facility] Hydrocortisone Sodium Succinate (Solu-Cortef) 50 mg IV Q8H [facility] Last Admin: 03/05/17 02:01 Dose: 50 mg Hydrocortisone Sodium Succinate (Solu-Cortef) 50 mg IV Q12H [facility] Last Admin: 03/05/17 10:34 Dose: Not Given Hydrocortisone Sodium Succinate (Solu-Cortef) 50 mg IV Q12H [facility] Last Admin: 03/05/17 22:48 Dose: 50 mg Piperacillin Sod/Tazobactam (Sod 3.375 gm/ Sodium Chloride) 100 mls @ 200 mls/ hr IV ONETIME ONE Stop: 03/01/17 15:47 Last Admin: 03/01/17 15:30 Dose: 200 mls/hr Ciprofloxacin/Dextrose 400 mg/ (Premix) 200 mls @ 200 mls/hr IV Q12HR [facility] Last Admin: 03/07/17 08:51 Dose: 200 mls/hr Piperacillin Sod/Tazobactam (Sod 3.375 gm/ Sodium Chloride) 100 mls @ 200 mls/ hr IV Q6H [facility] Last Admin: 03/03/17 11:28 Dose: Not Given Vancomycin HCl 1 gm/ Sodium (Chloride) 250 mls @ 166.667 mls/hr IV Q8H [facility] Last Admin: 03/03/17 04:10 Dose: Not Given Ciprofloxacin/Dextrose (Cipro In D5w 400 Mg/200 Ml) Confirm Administered Dose 200 mls @ as directed .ROUTE .STK-MED ONE Stop: 03/01/17 19:26 Last Admin: 09/12/17 19:55 Dose: 400 mg Vancomycin HCl 1 gm/ Sodium (Chloride) 250 mls @ 166.667 mls/hr IV Q12H [facility] Last Admin: 03/04/17 10:39 Dose: Not Given Magnesium Sulfate 2 gm/ Premix 50 mls @ 25 mls/hr IV ONETIME ONE Stop: 03/07/17 15:42 Last Admin: 03/07/17 14:09 Dose: 25 mls/hr Magnesium Sulfate 2 gm/ Premix 50 mls @ 25 mls/hr IV ONETIME ONE Stop: 03/07/17 17:39 Last Admin: 03/07/17 16:42 Dose: 25 mls/hr Iopamidol (Isovue-370 (76%)) 100 ml IVPUSH ONETIME ONE Stop: 03/01/17 18:28 Last Admin: 03/01/17 19:10 Dose: 57 ml Lorazepam (Ativan) 0.5 mg PO ONETIME ONE Stop: 03/05/17 13:09 Last Admin: 03/05/17 13:15 Dose: 0.5 mg Magnesium Oxide (Magnesium Oxide) 250 mg PO BIDM [facility] Last Admin: 03/03/17 08:58 Dose: 250 mg Potassium Chloride (Klor-Con 10) 20 meq PO BIDMEALS [facility] Last Admin: 03/03/17 09:06 Dose: 20 meq Potassium Chloride (Klor-Con 10) 20 meq PO ONETIME ONE Stop: 03/03/17 07:33 Last Admin: 03/03/17 08:54 Dose: 20 meq Potassium Chloride (Klor-Con 10) 40 meq PO ONETIME ONE Stop: 03/03/17 17:54 Last Admin: 03/03/17 18:12 Dose: 40 meq - Exam General: Reports: Alert, Oriented, Cooperative, No Acute Distress. Denies: Mild Distress, Moderate Distress, Severe Distress, Sedated, Lethargic, Obtunded HEENT: Reports: Pupils Equal, Pupils Reactive, Mucous Membr. Moist/[place] Neck: Reports: Supple, Trachea Midline, No JVD Lungs: Reports: Clear to Auscultation, Normal Respiratory Effort Cardiovascular: Reports: Regular Rate, Regular Rhythm GI/Abdominal Exam: Normal Bowel Sounds, Soft, Non-Tender, No Organomegaly, No Distention, No Abnormal Bruit, No Mass, Pelvis Stable (Female) Exam: Deferred Rectal (Female) Exam: Deferred Back Exam: Reports: Normal Inspection, Full Range of Motion. Denies: CVA Tenderness (L), CVA Tenderness (R) Extremities: Normal Inspection, Normal Range of Motion, Non-Tender, No Pedal Edema, Normal Capillary Refill Skin: Reports: Warm, Dry, Intact Neurological: Reports: No New Focal Deficit Psy/Mental Status: Reports: Alert, Normal Affect, Normal Mood. Denies: Agitated , Suicidal Ideation, Homicidal Ideation, Hallucinations, Withdrawal Symptoms *Q Meaningful Use (DIS) - VTE *Q VTE Criteria *Q: - Stroke *Q Stroke Criteria *Q: - AMI *Q AMI Criteria *Q:
== END 2017-03-08 16:15 | disposition home or self-care (01) | DRG 178 ==
LOC: DL.ED 14:28 → DL.MS 16:27 → UNDOADMIN 16:27 → DL.MS 17:37
PROVIDERS: ADMIT Internal Medicine; ATTEND Internal Medicine
DX: J69.0 Pneumonitis due to inhalation of food and vomit (principal); E27.1 Primary adrenocortical insufficiency; E11.9 Type 2 diabetes mellitus without complications; J18.9 Pneumonia, unspecified organism; Y95 Nosocomial condition; E11.65 Type 2 diabetes mellitus with hyperglycemia; I95.9 Hypotension, unspecified; M54.9 Dorsalgia, unspecified; F41.9 Anxiety disorder, unspecified; E87.6 Hypokalemia; R53.1 Weakness; D69.6 Thrombocytopenia, unspecified; K21.9 Gastro-esophageal reflux disease without esophagitis; Z91.14 Patient's other noncompliance with medication regimen; I10 Essential (primary) hypertension; E06.3 Autoimmune thyroiditis; E03.9 Hypothyroidism, unspecified; E78.5 Hyperlipidemia, unspecified; D64.9 Anemia, unspecified; H54.7 Unspecified visual loss; J44.9 Chronic obstructive pulmonary disease, unspecified; R32 Unspecified urinary incontinence; L30.9 Dermatitis, unspecified; G89.29 Other chronic pain; M51.36 Other intervertebral disc degeneration, lumbar region; F41.8 Other specified anxiety disorders; F10.10 Alcohol abuse, uncomplicated; F15.10 Other stimulant abuse, uncomplicated; F12.10 Cannabis abuse, uncomplicated; F17.200 Nicotine dependence, unspecified, uncomplicated; Z88.6 Allergy status to analgesic agent; Z88.0 Allergy status to penicillin; Z88.8 Allergy status to other drugs, medicaments and biological substances; Z79.52 Long term (current) use of systemic steroids; Z79.899 Other long term (current) drug therapy
CPT/HCPCS: 36415; 71010; 80053; 80305; 81001; 82550; 82962 ×2; 83605; 83880; 84484; 85025; 85379; 87040 ×2; 93005; 94640; 96365; 99285; G0480; J2543; J7050; 36410; 71020; 71260; 80048; 80202; 82040; 83735; 84100; 84132; 85027; 87070; 87205; 94010; 94667; A9270-GY; J0744; J1644; J1720; J1815-GY; J1940; J2270; J3370; J3475; Q9967

== ENCOUNTER 2017-07-20 11:48 | Inpatient (IN) | payer MEDICAID, SELFPAY ==
[2017-07-20] MEDS ORDERED: Sodium Chloride 0.9% 1,000 ML IV SCH (12:30)
[2017-07-20] MEDS ORDERED: Sodium Chloride 0.9% 500 ML IV SCH (12:30)
[2017-07-20 12:48] LABS: ANION GAP 18.9; CHLORIDE,CL 105 mmol/L (98-109); SODIUM,NA 141 mmol/L (138-146)
[2017-07-20] MEDS ORDERED: Ibuprofen Susp 100 MG/5 ML 5 ML UD Cup PO ONE (13:26)
[2017-07-20] MEDS ORDERED: Ibuprofen 800 MG Tab PO ONE (13:29)
[2017-07-20] MEDS ORDERED: Acetaminophen 325 MG Tab PO PRN (13:58)
[2017-07-20] MEDS ORDERED: Ondansetron 4 MG/2 ML SDV IVPUSH PRN (13:58)
[2017-07-20] MEDS ORDERED: Ondansetron 4 MG Tab.DIS PO PRN (13:58)
[2017-07-20] MEDS ORDERED: Albuterol/Ipratropium 3.0-0.5 MG/3 ML Neb Soln NEB PRN (13:58)
[2017-07-20] MEDS ORDERED: hydrOXYzine HCl 25 MG Tab PO PRN (14:04)
[2017-07-20] MEDS ORDERED: Potassium Chloride 10 MEQ in Premix Bag 1 BAG IV ONE (14:07)
[2017-07-20] MEDS ORDERED: Sodium Chloride 0.9% with KCl 1,000 ML IV SCH (14:15)
--- NOTE | 2017-07-20 14:57 | EDM.PDOC ---
ED HPI GENERAL MEDICAL PROBLEM - General Chief Complaint: General Stated Complaint: IN BY AMBULANCE Time Seen by Provider: 07/20/17 12:00 Source of Information: Reports: Patient, EMS, EMS Notes Reviewed, Family, RN, RN Notes Reviewed History Limitations: Reports: No Limitations - History of Present Illness INITIAL COMMENTS - FREE TEXT/NARRATIVE: Pt presents to the ER with c/o cough, sore throat, fever, and body aches for the past couple of days. She states she has been taking her medications, and has not used drugs or alcohol since February. Patient admits to chest pains with cough, sob, N/V/D. Onset: Gradual Middle Chest Pain Score (Numeric/FACES): 8 - Related Data Allergies Allergy/AdvReac Type Severity Reaction Status Date / Time No Known Allergies Allergy Verified 03/01/17 16:39 Home Meds: Home Meds Levothyroxine 125 mcg PO ACBREAKFAST 06/07/15 [History] Fludrocortisone [Florinef] 0.1 mg PO WITHBREAKFAST 09/15/15 [History] Gabapentin [Neurontin] 300 mg PO TID 09/15/15 [History] rOPINIRole [Requip] 1 mg PO DAILY 09/15/15 [History] Cyclobenzaprine [Flexeril] 1 tab PO TID PRN 02/25/17 [History] Sertraline [Zoloft] 1 tab PO DAILY 02/25/17 [History] hydrOXYzine HCl [Atarax] 25 mg PO TID PRN 02/25/17 [History] Hydrocortisone [Cortef] 20 mg PO BIDMEALS #60 tablet 02/28/17 [Rx] Magnesium Oxide 250 mg PO TIDMEALS 30 Days tablet 03/08/17 [Rx] Past Medical History HEENT History: Reports: Cataract, Impaired Vision Cardiovascular History: Reports: Arrhythmia Respiratory History: Reports: COPD, SOB Gastrointestinal History: Reports: Gastritis Other Gastrointestinal History: Here because of vomiting. Genitourinary History: Reports: Urinary Incontinence Other Genitourinary History: Became incontinent of urine two weeks ago. 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: Reports: , Other (See Below) Other OB/BYN History: c-sect Musculoskeletal History: Reports: Back Pain, Chronic Neurological History: Reports: Other (See Below) Other Neuro History: forgetful at times Psychiatric History: Reports: Anxiety, Hallucinations Other Psychiatric History: family states has had at home Endocrine/Metabolic History: Reports: [place]'s Disease, Diabetes, Type II, Hypothyroidism Hematologic History: Reports: Anemia Dermatologic History: Reports: Eczema Other Dermatologic History: bilateral arms - Infectious Disease History Infectious Disease History: Reports: Other (See Below) Other Infectious Disease History: pt unsure of ID history - Past Surgical History GI Surgical History: Reports: Appendectomy, Cholecystectomy, Colonoscopy Female Surgical History: Reports: Section Social & Family History - Family History Family Medical History: Noncontributory - Tobacco Use Smoking Status *Q: Current Every Day Smoker Years of Tobacco use: 3 Packs/Tins Daily: 0.2 Used Tobacco, but Quit: No Second Hand Smoke Exposure: No - Caffeine Use Caffeine Use: Reports: Coffee, Soda - Alcohol Use Days Per Week of Alcohol Use: 0 - Recreational Drug Use Recreational Drug Use: Yes Drug Use in Last 12 Months: Yes Recreational Drug Type: Reports: Marijuana/Hashish, Methamphetamine Other Recreational Drug Type: 3 years of meth use "stopped last month". marijuana use Recreational Drug Use Frequency: Not Used In Over 4 Months - Living Situation & Occupation Living situation: Reports: Single, with Family Occupation: Disabled ED ROS GENERAL - Review of Systems Review Of Systems: ROS reveals no pertinent complaints other than HPI. ED EXAM, GENERAL - Physical Exam Exam: See Below Exam Limited By: No Limitations General Appearance: Alert, WD/WN, Mild Distress Eye Exam: Bilateral Eye: EOMI, Normal Inspection, PERRL Ears: Normal External Exam, Hearing Grossly Normal Nose: Normal Inspection Throat/Mouth: Normal Inspection, Normal Voice, No Airway Compromise Head: Atraumatic, Normocephalic Neck: Normal Inspection, Supple, Non-Tender, Full Range of Motion Respiratory/Chest: No Respiratory Distress, Lungs Clear, No Accessory Muscle Use , Chest Non-Tender, Decreased Breath Sounds Cardiovascular: Normal Peripheral Pulses, Regular Rate, Rhythm, No Edema, No Gallop, No JVD, No Murmur, No Rub Peripheral Pulses: 2+: Radial (L), Radial (R) GI/Abdominal: Normal Bowel Sounds, Soft, Non-Tender (Female) Exam: Deferred Rectal (Female) Exam: Deferred Back Exam: Normal Inspection, Full Range of Motion Extremities: Normal Inspection, Normal Range of Motion, Non-Tender, No Pedal Edema, Normal Capillary Refill Neurological: Alert, Oriented, CN II-XII Intact, Normal Cognition, No Motor/ Sensory Deficits Psychiatric: Depressed Mood, Flat Affect Skin Exam: Warm, Dry, Intact, Normal Color, No Rash Lymphatic: No Adenopathy EKG INTERPRETATION EKG Date: 07/20/17 Rhythm: NSR Comparison: No Change Course - Vital Signs Last Recorded V/S: Last Vital Signs Temp 99.6 F 07/20/17 14:50 Pulse 78 07/20/17 14:50 Resp 20 07/20/17 14:50 BP 83/54 L 07/20/17 14:50 Pulse Ox 98 07/20/17 14:50 - Orders/Labs/Meds Orders: Active Orders 24 hr Category Date Time Status EKG Documentation Completion [RC] STAT Care 07/20/17 12:01 Active DRUG SCREEN URINE BIORAD [URCHEM] Stat Lab 07/20/17 12:01 Uncollected UA W/MICROSCOPIC [URIN] Stat Lab 07/20/17 12:01 Uncollected Sodium Chloride 0.9% [Normal Saline] 1,000 ml Med 07/20/17 12:30 Active IV ASDIRECTED Medication Orders Acetaminophen (Tylenol) 650 mg PO Q4H PRN PRN Reason: Pain (Mild 1-3)/fever Albuterol/Ipratropium (Duoneb 3.0-0.5 Mg/3 Ml) 3 ml NEB Q4H PRN PRN Reason: shortness of breath/wheezing Cyclobenzaprine HCl (Flexeril) 10 mg PO TID PRN PRN Reason: back pain Enoxaparin Sodium (Lovenox) 40 mg SUBCUT DAILY [facility] Fludrocortisone Acetate (Florinef) 0.2 mg PO WITHBREAKFAST [facility] Gabapentin (Neurontin) 300 mg PO TID [facility] Hydrocortisone Sodium Succinate (Solu-Cortef) 100 mg IVPUSH Q8HR [facility] Hydroxyzine HCl (Atarax) 25 mg PO TID PRN PRN Reason: Itching Sodium Chloride (Normal Saline) 1,000 mls @ 100 mls/hr IV ASDIRECTED TERRI Last Admin: 07/20/17 13:23 Dose: 100 mls/hr Levofloxacin/Dextrose 750 mg/ (Premix) 150 mls @ 100 mls/hr IV Q24H [facility] Potassium Chloride 10 meq/ (Premix) 100 mls @ 100 mls/hr IV ONETIME ONE Stop: 07/20/17 15:06 Potassium Chloride/Sodium Chloride (Normal Saline With 40 Meq Kcl) 1,000 mls @ 100 mls/hr IV ASDIRECTED [facility] Levothyroxine Sodium (Levothyroxine) 125 mcg PO ACBREAKFAST [facility] Magnesium Oxide (Magnesium Oxide) 250 mg PO TIDMEALS [facility] Non-Formulary Medication (Ropinirole [Requip]) 1 mg PO DAILY [facility] Ondansetron HCl (Zofran Odt) 4 mg PO Q4H PRN PRN Reason: nausea, able to take PO Ondansetron HCl (Zofran) 4 mg IVPUSH Q4H PRN PRN Reason: Nausea/Vomiting Oseltamivir Phosphate (Tamiflu) 75 mg PO BID [facility] Oxycodone/Acetaminophen (Percocet 325-5 Mg) 1 tab PO Q4H PRN PRN Reason: Pain (moderate 4-6) Potassium Chloride (Klor-Con 10) 20 meq PO TIDMEALS [facility] Sertraline HCl (Zoloft) mg PO DAILY [facility] Zolpidem Tartrate (Ambien) 5 mg PO BEDTIME PRN PRN Reason: Sleep Labs: Laboratory Tests 07/20/17 07/20/17 Range/Units 11:55 11:55 WBC 11.3 H (5.0-10.0) 10^3/uL RBC 3.95 L (4.2-5.4) 10^6/uL Hgb 11.7 L D (12.0-16.0) g/dL Hct 34.4 L (37.0-47.0) % MCV 87.1 D (80-100) fL MCH 29.6 (27.0-34.0) pg MCHC 34.0 (33.0-35.0) g/dL Plt Count 153 (150-450) 10^3/uL Neut % (Auto) 80.8 H (42.2-75.2) % Lymph % (Auto) 11.8 L (20.5-50.1) % [place] % (Auto) 7.1 (2-8) % Eos % (Auto) 0.1 L (1.0-3.0) % Baso % (Auto) 0.2 (0.0-1.0) % Sodium 141 (138-146) mmol/L Potassium 2.9 L (3.5-4.9) mmol/L Chloride 105 (98-109) mmol/L Carbon Dioxide 20 L (24-29) mmol/L Anion Gap 18.9 BUN 11 (8-26) mg/dL Creatinine 0.6 (0.6-1.3) mg/dL Est Cr Clr Drug Dosing 83.70 mL/min Estimated GFR (MDRD) > 60 Glucose 127 H (70-105) mg/dL Calcium 1.10 Troponin I < 0.02 (0.00-0.02) ng/ml Ethyl Alcohol 5 mg/dL Influenza A: Positive Influenza B: negative Meds: Medications Generic Name Dose Route Start Last Admin Trade Name Freq PRN Reason Stop Dose Admin Acetaminophen 650 mg 07/20/17 13:58 Tylenol PO Q4H PRN Pain (Mild 1-3)/fever Albuterol/Ipratropium 3 ml 07/20/17 13:58 Duoneb 3.0-0.5 Mg/3 Ml NEB Q4H PRN shortness of breath/wheezing Cyclobenzaprine HCl 10 mg 07/20/17 14:04 Flexeril PO TID PRN back pain Enoxaparin Sodium 40 mg 07/21/17 09:00 Lovenox SUBCUT DAILY [facility] Fludrocortisone Acetate 0.2 mg 07/20/17 14:15 Florinef PO WITHBREAKFAST [facility] Gabapentin 300 mg 07/20/17 21:00 Neurontin PO TID [facility] Hydrocortisone Sodium Succinate 100 mg 07/20/17 15:00 Solu-Cortef IVPUSH Q8HR [facility] Hydroxyzine HCl 25 mg 07/20/17 14:04 Atarax PO TID PRN Itching Sodium Chloride 1,000 mls @ 100 mls/hr 07/20/17 12:30 07/20/17 13:23 Normal Saline IV 100 mls/hr ASDIRECTED [facility] Administration Levofloxacin/Dextrose 750 mg/ 150 mls @ 100 mls/hr 07/20/17 14:15 Premix IV Q24H [facility] Potassium Chloride 10 meq/ 100 mls @ 100 mls/hr 07/20/17 14:07 Premix IV 07/20/17 15:06 ONETIME ONE Potassium Chloride/Sodium Chloride 1,000 mls @ 100 mls/hr 07/20/17 14:15 Normal Saline With 40 Meq Kcl IV ASDIRECTED [facility] Levothyroxine Sodium 125 mcg 07/21/17 06:00 Levothyroxine PO ACBREAKFAST [facility] Magnesium Oxide 250 mg 07/20/17 18:00 Magnesium Oxide PO TIDMEALS [facility] Non-Formulary Medication 1 mg 07/21/17 09:00 Ropinirole [Requip] PO DAILY [facility] Ondansetron HCl 4 mg 07/20/17 13:58 Zofran Odt PO Q4H PRN nausea, able to take PO Ondansetron HCl 4 mg 07/20/17 13:58 Zofran IVPUSH Q4H PRN Nausea/Vomiting Oseltamivir Phosphate 75 mg 07/20/17 14:15 Tamiflu PO BID [facility] Oxycodone/Acetaminophen 1 tab 07/20/17 13:58 Percocet 325-5 Mg PO Q4H PRN Pain (moderate 4-6) Potassium Chloride 20 meq 07/20/17 18:00 Klor-Con 10 PO TIDMEALS [facility] Sertraline HCl mg 07/21/17 09:00 Zoloft PO DAILY [facility] Zolpidem Tartrate 5 mg 07/20/17 13:58 Ambien PO BEDTIME PRN Sleep Discontinued Medications Generic Name Dose Route Start Last Admin Trade Name Freq PRN Reason Stop Dose Admin Ibuprofen 800 mg 07/20/17 13:29 07/20/17 13:36 Motrin PO 07/20/17 13:30 800 mg ONETIME ONE Administration Departure - Departure Time of Disposition: 18:48 Disposition: Admitted As Inpatient 67 Condition: Fair Clinical Impression: Manolo's disease, Hypokalemia, Influenza A - Discharge Information - My Orders Last 24 Hours: My Active Orders 07/20/17 12:01 EKG Documentation Completion [RC] STAT DRUG SCREEN URINE BIORAD [URCHEM] Stat UA W/MICROSCOPIC [URIN] Stat 07/20/17 12:30 Sodium Chloride 0.9% [Normal Saline] 1,000 ml IV ASDIRECTED - Assessment/Plan Last 24 Hours: My Active Orders 07/20/17 12:01 EKG Documentation Completion [RC] STAT DRUG SCREEN URINE BIORAD [URCHEM] Stat UA W/MICROSCOPIC [URIN] Stat 07/20/17 12:30 Sodium Chloride 0.9% [Normal Saline] 1,000 ml IV ASDIRECTED
[2017-07-20] MEDS: Oseltamivir 75 MG Cap PO SCH ×2 (16:15→20:30)
[2017-07-20] MEDS: Levofloxacin/Dextrose 5%-Water 750 MG in Premix Bag 1 BAG IV SCH (16:15)
[2017-07-20] MEDS: Hydrocortisone Sodium Succinate 100 MG/2 ML SDV IVPUSH SCH ×2 (16:15→21:26)
[2017-07-20] MEDS: Fludrocortisone 0.1 MG Tab PO SCH (16:15)
[2017-07-20] MEDS: NS + KCl 20mEq/L 1,000 ML IV SCH (16:24)
[2017-07-20] MEDS: Potassium Chloride 10 MEQ Tab.ER PO SCH (17:59)
--- NOTE | 2017-07-20 20:23 | HP ---
CHIEF COMPLAINT: Chills, weakness. HISTORY OF PRESENT ILLNESS: Mrs. Acacia Vera is a 52-year-old female with medical history significant for [place] disease; chronic steroid therapy; Kelly's thyroiditis with hypothyroidism, requiring thyroid replacement therapy, type 2 diabetes mellitus, presented to the ER today with complaints of increasing weakness, tiredness, and was noted to have influenza A and severe hypokalemia and possible sepsis with temperature of 100.4, requiring admission to the hospital. At this time, the patient claims that she has been sick for the last 3 to 4 days, which has been progressively getting worse. She complains of having cough with sputum, which is greenish-yellow in color and has upper respiratory tract symptoms. She denies any chest pains at this time, but complains of having cough and chest pain whenever she has a deep cough. She denies any abdominal pain. She felt nauseated and had one episode of vomiting as per the patient. She also had some loose stools prior to coming to the emergency room. She also has sick contacts at home where her sisters have been sick with the same complaints. The patient denied any history of chest pains on exertion. No history of dyspnea on exertion. No history of orthopnea or paroxysmal nocturnal dyspnea. The patient denied any history of hematemesis, hematochezia, or melenic stools. Normal bowel and bladder habits otherwise. REVIEW OF SYSTEMS: A complete review of system including skin, ear, nose, and throat, cardiovascular system, respiratory system, gastrointestinal system, genitourinary system, allergy, Immunology, Hematology, Oncology, Neurology were all evaluated and were negative except for the above-said notes. PAST MEDICAL HISTORY: Significant for hypertension, hyperlipidemia, Manolo disease, hypothyroidism, gastric reflux disease, chronic tobacco use, chronic alcohol use, substance abuse, history of anxiety and depression, chronic obstructive pulmonary disease, degenerative disk disease of lumbar spine. PAST SURGICAL HISTORY: Significant for , cholecystectomy, appendicectomy, fallopian tube ligation. FAMILY HISTORY: Significant for heart disease, COPD, asthma in her mother. Hypertension, diabetes, COPD, and heart disease in her father. Cancer in her sister, maternal grandmother, maternal uncle and aunt. ALLERGIES: The patient is noted to have allergies to codeine, aspirin, caffeine, hydrocodone, acetaminophen, naproxen, and penicillin. SOCIAL HISTORY: The patient has longstanding history of tobacco use and alcohol use. The patient also has exposure to marijuana and methamphetamine use. HOME MEDICATIONS: 1. Requip 1 mg oral daily. 2. Hydroxyzine 20 mg twice a day. 3. Levothyroxine 125 mcg daily. 4. Florinef 0.1 mg with breakfast. 5. Zoloft one tablet daily. 6. Magnesium oxide 250 mg three times a day. 7. Neurontin 300 mg three times a day. 8. Flexeril 1 tablet three times a day as needed. PHYSICAL EXAMINATION: Vital signs: Temperature of 100.4, pulse of 87, respiratory rate of 18, blood pressure of 99/60, respiratory rate of 18, saturating at 99% on room air. General Appearance: The patient is weak and tired. She is well oriented to time, place, and person. Follows commands spontaneously. Cardiovascular System: S1, S2 heard with normal intensity. No gallops. Respiratory System: Clear to auscultation bilaterally. No wheeze. No crepitations. Abdomen: Soft. Bowel sounds positive. Nontender. No rigidity. Extremities: No edema in bilateral lower extremities. Neurology: No gross focal neurological deficits. LABORATORY DATA: 1. WBC 11.3, hemoglobin 11.7, hematocrit 34.4, platelet count 153. 2. Sodium 141, potassium 2.9, chloride 105, bicarb 20, BUN 11, creatinine 0.6, glucose 127. Troponin less than 0.02. ASSESSMENT: 1. Influenza A positive. 2. Possible sepsis. 3. Possible pneumonia. 4. [place] disease crisis. 5. Hypertension. 6. Hyperlipidemia. 7. Hypothyroidism. PLAN: 1. Influenza A. The patient was tested positive for influenza A. we will start her on Tamiflu. The patient will be admitted to the hospital, given her history of [place] disease. The patient is at risk for [place]'s crisis. 2. Possible [place]'s crisis. The patient is noted to have low blood pressure. Her blood pressure as low as 78/50. We will need IV fluids with hydrocortisone booster dose 100 mg q.8 hourly. We will increase the Florinef to 0.2 mg daily for better control of the blood pressure. Try to avoid any hypotensive episodes. 3. Hypothyroidism. The patient is currently on levothyroxine, continue the same dose. 4. Possible pneumonia. Chest x-ray does not show any evidence of infiltrates, but given her fever and complains of having cough with sputum, which is greenish-yellow in color as to become possible early pneumonia. We will start her on IV Levaquin, and we will obtain sputum cultures, blood cultures, and follow the culture reports. 5. Possible sepsis. Given her fever and leukocytosis as to become possible sepsis, we will follow serial lactic acid levels. Keep her hydrated with IV fluids. Obtain blood cultures, sputum cultures. Continue with IV antibiotics for now. 6. DVT prophylaxis. We will have her on Lovenox for DVT prophylaxis. 7. Code status. The patient wants to be full code. 8. Discussed with ER physician regarding the plan of care. Reviewed the labs and medications. Reviewed the old charts. [facility] /[id number]
[2017-07-20] MEDS: Gabapentin 300 MG Cap PO SCH (20:30)
[2017-07-20] MEDS: Cyclobenzaprine 10 MG Tab PO PRN (21:18)
[2017-07-20] MEDS: Zolpidem 5 MG Tab PO PRN (21:21)
[2017-07-20] MEDS ORDERED: Nicotine 7 MG/24 Hr Patch TRDERM SCH (21:30)
[2017-07-20] MEDS: Insulin Aspart 100 Units/ML 3 ML Pen SUBCUT SCH (23:07)
[2017-07-21] MEDS: NS + KCl 20mEq/L 1,000 ML IV SCH (02:43)
[2017-07-21] MEDS: Levothyroxine 125 MCG Tab PO SCH (06:20)
[2017-07-21] MEDS: Hydrocortisone Sodium Succinate 100 MG/2 ML SDV IVPUSH SCH ×3 (06:22→21:29)
[2017-07-21 06:54] LABS: ANION GAP 11.4; CHLORIDE,CL 108 mmol/L (101-111); SODIUM,NA 138 mmol/L (135-145)
[2017-07-21] MEDS: Acetaminophen/oxyCODONE 325-5 MG Tab PO PRN ×2 (07:43→17:22)
[2017-07-21] MEDS: Potassium Chloride 10 MEQ Tab.ER PO SCH ×3 (07:44→17:17)
[2017-07-21] MEDS: Fludrocortisone 0.1 MG Tab PO SCH (07:44)
[2017-07-21] MEDS: Insulin Aspart 100 Units/ML 3 ML Pen SUBCUT SCH ×4 (08:25→21:21)
[2017-07-21] MEDS: Nicotine 7 MG/24 Hr Patch TRDERM SCH (09:27)
[2017-07-21] MEDS: Sertraline 50 MG Tab PO SCH (09:28)
[2017-07-21] MEDS: Gabapentin 300 MG Cap PO SCH ×3 (09:29→21:26)
[2017-07-21] MEDS: Oseltamivir 75 MG Cap PO SCH ×2 (09:29→21:25)
[2017-07-21] MEDS: Enoxaparin 40 MG/0.4 ML Syringe SUBCUT SCH (09:29)
--- NOTE | 2017-07-21 12:16 | PN ---
DATE: 07/21/2017 SUBJECTIVE: Mrs. Acacia Vera is a 52-year-old female with medical history significant for [place] disease, on chronic steroid therapy; Kelly thyroiditis, resulting in hypothyroidism; and type 2 diabetes mellitus, admitted to the hospital with complaints of increasing weakness and tiredness. Noted to have influenza A along with acute hypokalemia, possible sepsis, and pneumonia. For the last 24 hours, the patient was continued on IV fluids and IV antibiotics. She responded well to the treatment. She denies any chest pain. No shortness of breath. No abdominal pain. No nausea. No vomiting. No diarrhea. Her weakness has improved after getting admitted to the hospital. REVIEW OF SYSTEMS: Cardiovascular, respiratory, gastrointestinal, neurology, constitutional were all evaluated. PHYSICAL EXAMINATION: Vital Signs: Temperature of 99.6, pulse of 72, blood pressure of 92/55, respiratory rate of 20, and saturating at 100% on room air. General Appearance: The patient is well oriented to time, place, and person. Follows commands spontaneously. Cardiovascular System: S1 and S2 are heard with normal intensity. No gallops. Respiratory System: Minimal crepitations at the bases. No wheeze. Abdomen: Soft. Bowel sounds positive. Nontender. No rigidity. Extremities: No edema in bilateral lower extremities. Neurology: No gross focal neurological deficits. MEDICATIONS: Medications reviewed. Continue with: 1. Tylenol 650 every 4 hours as needed for pain. 2. DuoNeb 3 mL nebulizer every 4 hours as needed for shortness of breath. 3. Flexeril 10 mg three times a day as needed for back pain. 4. Lovenox 40 mg subcutaneous daily. 5. Florinef 0.2 mg daily. 6. Neurontin 300 mg three times a day. 7. Hydrocortisone 100 mg IV q.8 hourly. 8. Hydroxyzine 25 mg three times a day as needed for itching. 9. Levaquin 750 mg daily. 10.Levothyroxine 125 mcg daily. 11.Magnesium oxide 400 mg three times a day. 12.Tamiflu 75 mg twice a day. 13.Nicotine transdermal patch. 14.Potassium chloride 20 mEq three times a day. 15.Zoloft 50 mg daily. 16.Requip 1 mg at bedtime. 17.Ambien 5 mg at bedtime as needed for sleep. LABORATORY DATA: Labs reviewed. 1. WBC 9.7, hemoglobin 11.2, hematocrit 33.7, and platelet count 133. 2. Sodium 138, potassium 3.4, chloride 108. BUN 12, creatinine 0.5. MICROBIOLOGY: Positive for influenza A. Sputum culture pending. ASSESSMENT: 1. Influenza A positive. 2. Possible pneumonia. 3. Generalized weakness. 4. Possible [place] crisis, resolving. 5. Possible sepsis, resolving. 6. Hypotension. 7. Diabetes mellitus. PLAN: 1. Influenza A. The patient is started on Tamiflu. Her symptoms seem to be improving. Continue the same. We will discontinue the IV fluids. 2. Possible pneumonia. The patient was complaining of cough with sputum which is greenish-yellow in color. Empirically started on IV Levaquin. We are awaiting for sputum cultures. 3. [place] disease. The patient was noted to have possible crisis at the time of admission, secondary to ongoing infectious process. We did start her on hydrocortisone 100 mg q.8 hourly and increase the Florinef to 0.2 mg. We will gradually titrate down the Florinef to 0.1 mg and gradually taper down the steroids. Closely follow. 4. Type 2 diabetes mellitus. Her blood sugars are in the normal ranges. We will have her on supplemental scale insulin as needed. 5. Hypotension. The patient continues to have low blood pressure, and the patient remains asymptomatic. Unsure if the patient has baseline low blood pressures. Avoid any hypotensive episodes. 6. Reviewed the labs and medications. [facility] /[id number]
[2017-07-21] MEDS: Sodium Chloride 0.9% 10 ML Syringe FLUSH PRN ×2 (14:39→21:28)
[2017-07-21] MEDS: Levofloxacin/Dextrose 5%-Water 750 MG in Premix Bag 1 BAG IV SCH (14:43)
--- NOTE | 2017-07-21 18:38 | EKG ---
07/20/2017 - NELLI VAZQUEZ - FINDINGS: A 12-lead EKG shows normal sinus rhythm with heart rate of 88. No significant ST elevation or ST depression noted on this 12-lead except for a nonspecific ST-T wave changes noted on lead V2 and V3. [facility] /[id number]
[2017-07-21] MEDS: rOPINIRole 2 MG Tab PO SCH (21:25)
[2017-07-21] MEDS: Zolpidem 5 MG Tab PO PRN (21:41)
[2017-07-22] MEDS: Acetaminophen/oxyCODONE 325-5 MG Tab PO PRN (05:23)
[2017-07-22] MEDS: Levothyroxine 125 MCG Tab PO SCH (05:23)
[2017-07-22] MEDS: Sodium Chloride 0.9% 10 ML Syringe FLUSH PRN (05:24)
[2017-07-22] MEDS: Hydrocortisone Sodium Succinate 100 MG/2 ML SDV IVPUSH SCH ×2 (05:25→21:21)
[2017-07-22 06:57] LABS: ANION GAP 12.8; CHLORIDE,CL 105 mmol/L (101-111); SODIUM,NA 138 mmol/L (135-145)
[2017-07-22] MEDS: Insulin Aspart 100 Units/ML 3 ML Pen SUBCUT SCH ×4 (08:25→21:20)
[2017-07-22] MEDS: Fludrocortisone 0.1 MG Tab PO SCH (09:02)
[2017-07-22] MEDS: Potassium Chloride 10 MEQ Tab.ER PO SCH ×3 (09:02→17:30)
[2017-07-22] MEDS: Sertraline 50 MG Tab PO SCH (09:03)
[2017-07-22] MEDS: Enoxaparin 40 MG/0.4 ML Syringe SUBCUT SCH (09:03)
[2017-07-22] MEDS: Nicotine 7 MG/24 Hr Patch TRDERM SCH (09:03)
[2017-07-22] MEDS: Oseltamivir 75 MG Cap PO SCH ×2 (09:03→22:19)
[2017-07-22] MEDS: Gabapentin 300 MG Cap PO SCH ×3 (09:03→21:19)
[2017-07-22] MEDS ORDERED: Ibuprofen 400 MG Tab PO PRN (10:32)
[2017-07-22] MEDS ORDERED: Menthol/Methyl Salicylate 85 GM Tube TOP PRN (10:33)
[2017-07-22] MEDS ORDERED: Fludrocortisone 0.1 MG Tab PO SCH (12:27)
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
[2017-07-22] MEDS: Levofloxacin/Dextrose 5%-Water 750 MG in Premix Bag 1 BAG IV SCH (14:34)
[2017-07-22] MEDS: Cyclobenzaprine 10 MG Tab PO PRN ×2 (14:45→21:23)
[2017-07-22] MEDS: rOPINIRole 2 MG Tab PO SCH (21:20)
[2017-07-22] MEDS: Zolpidem 5 MG Tab PO PRN (21:23)
[2017-07-23] MEDS: Levothyroxine 125 MCG Tab PO SCH (05:37)
[2017-07-23] MEDS: Insulin Aspart 100 Units/ML 3 ML Pen SUBCUT SCH ×2 (08:21→12:43)
[2017-07-23] MEDS: Nicotine 7 MG/24 Hr Patch TRDERM SCH (10:43)
[2017-07-23] MEDS: Gabapentin 300 MG Cap PO SCH ×2 (10:44→16:17)
[2017-07-23] MEDS: Enoxaparin 40 MG/0.4 ML Syringe SUBCUT SCH (10:45)
[2017-07-23] MEDS: Oseltamivir 75 MG Cap PO SCH (10:45)
[2017-07-23] MEDS: Sertraline 50 MG Tab PO SCH (10:45)
[2017-07-23] MEDS: Potassium Chloride 10 MEQ Tab.ER PO SCH ×2 (10:45→11:55)
[2017-07-23] MEDS: Hydrocortisone Sodium Succinate 100 MG/2 ML SDV IVPUSH SCH (10:46)
--- NOTE | 2017-07-23 11:13 | PCM.DCSUM1 ---
Discharge Summary - Hospital Course Free Text/Narrative:: presented with fever, chills, cough Influenza with sepsis present on admission improved, treat with tamifly Possible pneumonia The patient had greenish/yellow sputum sputum showed hemophilus and strep Treated with levofloxacin will finish PO augmentin History of Wynnburg's disease continue florinef, hydrocortisone Hypotension Improved with higher doses of steroids Hypomagnesemia was replaced Back pain Use Effexor, Neurontin, ibuprofen as needed Try to avoid narcotics Will set up with primary care physician for follow-up appointment - Discharge Data Discharge Date: 07/23/17 Discharge Disposition: Home, Self-Care 01 Condition: Good - Discharge Diagnosis/Problem(s) (1) Back pain SNOMED Code(s): 926409375 ICD Code: M54.9 - DORSALGIA, UNSPECIFIED Status: Acute Current Visit: Yes (2) Influenza A SNOMED Code(s): 363772815 ICD Code: J10.1 - FLU DUE TO OTH IDENT INFLUENZA VIRUS W OTH RESP MANIFEST Status: Acute Current Visit: Yes (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 Code: E27.1 - PRIMARY ADRENOCORTICAL INSUFFICIENCY Status: Chronic Current Visit: Yes - Patient Instructions Diet: Heart Healthy Diet, Diabetic Diet Activity: As Tolerated - Discharge Plan Prescriptions/Med Rec: Amoxicillin/Clavulanate K [Augmentin 500-125 MG] 1 tab PO Q8H #21 tab Fludrocortisone [Florinef] 0.1 mg PO WITHBREAKFAST #30 tablet Gabapentin [Neurontin] 300 mg PO TID #90 capsule Hydrocortisone [Cortef] 20 mg PO BID #60 tablet Levothyroxine 125 mcg PO ACBREAKFAST #30 tablet Nicotine [NTS] 1 each TD DAILY #10 patch.td24 Oseltamivir Phosphate [IJD: Tamiflu] 75 mg PO BID #6 capsule Home Medications: Home Meds Fludrocortisone [Florinef] 0.1 mg PO WITHBREAKFAST 09/15/15 [History] Gabapentin [Neurontin] 300 mg PO TID 09/15/15 [History] rOPINIRole [Requip] 1 mg PO BEDTIME 09/15/15 [History] Cyclobenzaprine [Flexeril] 10 mg PO TID PRN 02/25/17 [History] Sertraline [Zoloft] 50 mg PO BEDTIME 02/25/17 [History] hydrOXYzine HCl [Atarax] 25 mg PO TID PRN 02/25/17 [History] Hydrocortisone [Cortef] 20 mg PO BIDMEALS #60 tablet 02/28/17 [Rx] Magnesium Oxide 250 mg PO TIDMEALS 30 Days tablet 03/08/17 [Rx] Amoxicillin/Clavulanate K [Augmentin 500-125 MG] 1 tab PO Q8H #21 tab 07/23/17 [ Rx] Fludrocortisone [Florinef] 0.1 mg PO WITHBREAKFAST #30 tablet 07/23/17 [Rx] Gabapentin [Neurontin] 300 mg PO TID #90 capsule 07/23/17 [Rx] Hydrocortisone [Cortef] 20 mg PO BID #60 tablet 07/23/17 [Rx] Levothyroxine 125 mcg PO ACBREAKFAST #30 tablet 07/23/17 [Rx] Nicotine [NTS] 1 each TD DAILY #10 patch.td24 07/23/17 [Rx] Oseltamivir Phosphate [IJD: Tamiflu] 75 mg PO BID #6 capsule 07/23/17 [Rx] Patient Handouts: Influenza, Adult Referrals: PCP,Unobtain [Primary Care Provider] - (in 2-3 days ) - Discharge Summary/Plan Comment DC Time >30 min.: No - General Info Date of Service: 07/23/17 Admission Dx/Problem (Free Text: Cough, fever Subjective Update: Feeling much better, no shortness of breath, cough is better. walking around on the corridor with mask on. Functional Status: Reports: Pain Controlled, Tolerating Diet - Review of Systems General: Denies: Fever, Weakness Pulmonary: Denies: Shortness of Breath Cardiovascular: Denies: Chest Pain Gastrointestinal: Denies: Abdominal Pain Neurological: Denies: Confusion - Patient Data Vitals - Most Recent: Last Vital Signs Temp 36.7 C 07/23/17 08:39 Pulse 73 07/23/17 08:39 Resp 20 07/23/17 08:39 BP 89/46 L 07/23/17 08:39 Pulse Ox 98 07/23/17 08:39 Weight - Most Recent: 66.315 kg I&O - Last 24 hours: Intake & Output 07/22/17 07/23/17 07/23/17 22:59 06:59 14:59 Intake Total 275 510 Balance 275 510 Lab Results - Last 24 hrs: Laboratory Results - last 24 hr 07/22/17 07/22/17 07/22/17 Range/Units 11:35 17:08 21:15 POC Glucose 117 H 81 119 H (70-105) mg/dl 07/23/17 Range/Units 08:12 POC Glucose 112 H (70-105) mg/dl [facility] Results - Last 24 hrs: Microbiology 07/20/17 15:00 Gram Stain - Final Sputum - Expectorated Sputum Culture - Final Streptococcus Pneumoniae Haemophilus Sp, Not Influenza Med Orders - Current: Current Medications Acetaminophen (Tylenol) 650 mg PO Q4H PRN PRN Reason: Pain (Mild 1-3)/fever Last Admin: 07/21/17 22:53 Dose: 650 mg Albuterol/Ipratropium (Duoneb 3.0-0.5 Mg/3 Ml) 3 ml NEB Q4H PRN PRN Reason: shortness of breath/wheezing Cyclobenzaprine HCl (Flexeril) 10 mg PO TID PRN PRN Reason: back pain Last Admin: 07/22/17 21:23 Dose: 10 mg Enoxaparin Sodium (Lovenox) 40 mg SUBCUT DAILY [facility] Last Admin: 07/23/17 10:45 Dose: 40 mg Fludrocortisone Acetate (Florinef) 0.1 mg PO WITHBREAKFAST [facility] Last Admin: 07/23/17 10:45 Dose: 0.1 mg Gabapentin (Neurontin) 300 mg PO TID [facility] Last Admin: 07/23/17 10:44 Dose: 300 mg Hydrocortisone Sodium Succinate (Solu-Cortef) 100 mg IVPUSH BID [facility] Last Admin: 07/23/17 10:46 Dose: 100 mg Hydroxyzine HCl (Atarax) 25 mg PO TID PRN PRN Reason: Itching Levofloxacin/Dextrose 750 mg/ (Premix) 150 mls @ 100 mls/hr IV Q24H [facility] Last Infusion: 07/22/17 16:52 Dose: Infused Ibuprofen (Motrin) 400 mg PO Q8H PRN PRN Reason: Pain Last Admin: 07/22/17 12:20 Dose: 400 mg Insulin Aspart (Novolog) 0 unit SUBCUT 0800,1200,1700,2100 [facility] PRN Reason: Protocol Last Admin: 07/23/17 08:21 Dose: Not Given Levothyroxine Sodium (Levothyroxine) 125 mcg PO ACBREAKFAST [facility] Last Admin: 07/23/17 05:37 Dose: 125 mcg Magnesium Oxide (Magnesium Oxide) 500 mg PO TIDMEALS [facility] Last Admin: 07/23/17 10:44 Dose: 500 mg Magnesium Oxide (Magnesium Oxide) 250 mg PO BIDM [facility] Stop: 07/23/17 18:01 Last Admin: 07/23/17 10:44 Dose: 250 mg Methyl Salicylate (Icy Hot Cream) 0 gm TOP Q4H PRN PRN Reason: Pain Last Admin: 07/22/17 12:17 Dose: 1 applic Nicotine (Habitrol) 7 mg TRDERM DAILY [facility] Last Admin: 07/23/17 10:43 Dose: 7 mg Ondansetron HCl (Zofran Odt) 4 mg PO Q4H PRN PRN Reason: nausea, able to take PO Ondansetron HCl (Zofran) 4 mg IVPUSH Q4H PRN PRN Reason: Nausea/Vomiting Oseltamivir Phosphate (Tamiflu) 75 mg PO BID [facility] Last Admin: 07/23/17 10:45 Dose: 75 mg Potassium Chloride (Klor-Con 10) 20 meq PO TIDMEALS [facility] Last Admin: 07/23/17 10:45 Dose: 20 meq Ropinirole HCl (Requip) 1 mg PO BEDTIME [facility] Last Admin: 07/22/17 21:20 Dose: 1 mg Sertraline HCl (Zoloft) 50 mg PO DAILY [facility] Last Admin: 07/23/17 10:45 Dose: 50 mg Sodium Chloride (Saline Flush) 10 ml FLUSH ASDIRECTED PRN PRN Reason: Keep Vein Open Last Admin: 07/22/17 05:24 Dose: 10 ml Zolpidem Tartrate (Ambien) 5 mg PO BEDTIME PRN PRN Reason: Sleep Last Admin: 07/22/17 21:23 Dose: 5 mg Discontinued Medications Fludrocortisone Acetate (Florinef) 0.2 mg PO WITHBREAKFAST [facility] Last Admin: 07/22/17 09:02 Dose: 0.2 mg Hydrocortisone Sodium Succinate (Solu-Cortef) 100 mg IVPUSH Q8HR [facility] Last Admin: 07/22/17 05:25 Dose: 100 mg Sodium Chloride (Normal Saline) 1,000 mls @ 100 mls/hr IV ASDIRECTED [facility] Last Admin: 07/20/17 13:23 Dose: 100 mls/hr Potassium Chloride 10 meq/ (Premix) 100 mls @ 100 mls/hr IV ONETIME ONE Stop: 07/20/17 15:06 Last Admin: 07/20/17 17:58 Dose: 50 mls/hr Potassium Chloride/Sodium Chloride (Normal Saline With 40 Meq Kcl) 1,000 mls @ 100 mls/hr IV ASDIRECTED [facility] Potassium Chloride/Sodium Chloride (Normal Saline With 20 Meq Kcl) 1,000 mls @ 75 mls/hr IV ASDIRECTED [facility] Last Infusion: 07/21/17 10:34 Dose: 100 mls/hr Ibuprofen (Motrin) 800 mg PO ONETIME ONE Stop: 07/20/17 13:30 Last Admin: 07/20/17 13:36 Dose: 800 mg Magnesium Oxide (Magnesium Oxide) 250 mg PO TIDMEALS [facility] Last Admin: 07/21/17 07:44 Dose: 250 mg Nicotine (Habitrol) 7 mg TRDERM DAILY [facility] Last Admin: 07/20/17 23:12 Dose: Not Given Oxycodone/Acetaminophen (Percocet 325-5 Mg) 1 tab PO Q4H PRN PRN Reason: Pain (moderate 4-6) Last Admin: 07/22/17 05:23 Dose: 1 tab - Exam General: Reports: Alert, Oriented Neck: Reports: Supple Lungs: Reports: Clear to Auscultation, Normal Respiratory Effort Cardiovascular: Reports: Regular Rate, Regular Rhythm GI/Abdominal Exam: Normal Bowel Sounds, Soft, Non-Tender Extremities: No Pedal Edema Skin: Reports: Warm, Dry Neurological: Reports: No New Focal Deficit Psy/Mental Status: Reports: Alert, Normal Affect *Q Meaningful Use (DIS) - VTE *Q VTE Criteria *Q: - Stroke *Q Stroke Criteria *Q: - AMI *Q AMI Criteria *Q:
[2017-07-23] MEDS ORDERED: FLU VAC QS 17-18(4YR UP)CEL/PF 60 MCG/0.5 ML Syringe IM ONE (11:31)
[2017-07-23 11:47] VITALS: BP 101/51
[2017-07-23] MEDS: Levofloxacin/Dextrose 5%-Water 750 MG in Premix Bag 1 BAG IV SCH (16:17)
== END 2017-07-23 12:30 | disposition home or self-care (01) | DRG 871 ==
LOC: DL.ED 11:48 → UNDOADMIN 13:38 → DL.MS 13:38
PROVIDERS: ADMIT Internal Medicine; ATTEND Internal Medicine
PROC: 3E0234Z Introduction of Serum, Toxoid and Vaccine into Muscle, Percutaneous Approach (ICD-10-PCS; principal; 2017-07-20)
DX: A41.9 Sepsis, unspecified organism (principal); J18.9 Pneumonia, unspecified organism; E27.1 Primary adrenocortical insufficiency; J10.1 Influenza due to other identified influenza virus with other respiratory manifestations; I95.9 Hypotension, unspecified; E83.42 Hypomagnesemia; M54.9 Dorsalgia, unspecified; Z79.52 Long term (current) use of systemic steroids; E06.3 Autoimmune thyroiditis; E03.9 Hypothyroidism, unspecified; E11.9 Type 2 diabetes mellitus without complications; E87.6 Hypokalemia; I10 Essential (primary) hypertension; E78.5 Hyperlipidemia, unspecified; K21.9 Gastro-esophageal reflux disease without esophagitis; Z23 Encounter for immunization
CPT/HCPCS: 36415; 71045; 80048; 84484; 85025; 87804 ×2; 93005; 96360; 96361; 99285; A9270; G0480; J7030; 80305; 81001; 82962; 83605; 83735; 84100; 84132; 84443; 85027; 87070; 87077; 87186; 87205; 90674; 94010; J1650; J1720; J1815-GY; J1956; J3480; J7050

== ENCOUNTER 2017-10-22 14:19 | Inpatient (IN) | payer MEDICAID, OTHER ==
[2017-10-22] MEDS ORDERED: Dexamethasone 4 MG/ML SDV IM ONE (14:38)
[2017-10-22] MEDS ORDERED: Acetaminophen 650 MG Supp RECTAL STA (14:38)
[2017-10-22] MEDS ORDERED: Sodium Chloride 0.9% 10 ML Syringe FLUSH PRN ×2 (14:40→14:42)
[2017-10-22] MEDS ORDERED: Sodium Chloride 0.9% 1,000 ML IV ONE ×3 (14:41→17:19)
[2017-10-22] MEDS ORDERED: Levofloxacin/Dextrose 5%-Water 750 MG in Premix Bag 1 BAG IV ONE (15:16)
[2017-10-22 15:36] LABS: CHLORIDE,CL 100 mmol/L (101-111); SODIUM,NA 131 mmol/L (135-145)
--- NOTE | 2017-10-22 17:06 | EDM.PDOC ---
Scribed by Ann Patiño 10/22/17 1778 for Chacho Menendez MD ED HPI GENERAL MEDICAL PROBLEM - General Chief Complaint: General Stated Complaint: AMBULANCE Time Seen by Provider: 10/22/17 14:37 Source of Information: Reports: Patient, EMS, EMS Notes Reviewed, RN, RN Notes Reviewed History Limitations: Reports: No Limitations - History of Present Illness INITIAL COMMENTS - FREE TEXT/NARRATIVE: Patient arrives by [facility] minimally responsive with fever and tachycardia, paramedics report family members called 911, after finding patient with decreased level of consciousness. Patient is unable to provide any history. Known last unknown time of well being. Onset: Unknown/Unsure Location: Reports: Generalized Severity: Severe - Related Data Allergies Allergy/AdvReac Type Severity Reaction Status Date / Time Penicillins Allergy Hives Verified 08/08/17 12:05 Home Meds: Home Meds Cyclobenzaprine [Flexeril] 10 mg PO DAILY 02/25/17 [History] Sertraline [Zoloft] 50 mg PO BEDTIME 02/25/17 [History] hydrOXYzine HCl [Atarax] 25 mg PO TID PRN 02/25/17 [History] Fludrocortisone [Florinef] 0.1 mg PO WITHBREAKFAST #30 tablet 07/23/17 [Rx] Gabapentin [Neurontin] 300 mg PO TID #90 capsule 07/23/17 [Rx] Hydrocortisone [Cortef] 20 mg PO BID #60 tablet 07/23/17 [Rx] Levothyroxine 125 mcg PO ACBREAKFAST #30 tablet 07/23/17 [Rx] Nicotine [NTS] 1 each TD DAILY #10 patch.td24 07/23/17 [Rx] Oseltamivir Phosphate [IJD: Tamiflu] 75 mg PO BID #6 capsule 07/23/17 [Rx] Magnesium Oxide 400 mg PO BID 08/08/17 [History] Past Medical History HEENT History: Reports: Cataract, Impaired Vision Cardiovascular History: Reports: Arrhythmia Respiratory History: Reports: COPD, SOB Gastrointestinal History: Reports: Gastritis Other Gastrointestinal History: Here because of vomiting. Genitourinary History: Reports: Urinary Incontinence Other Genitourinary History: Became incontinent of urine two weeks ago. 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, Diabetes, Type II, Hypothyroidism Hematologic History: Reports: Anemia Dermatologic History: Reports: Eczema Other Dermatologic History: bilateral arms - Infectious Disease History Infectious Disease History: Reports: Other (See Below) Other Infectious Disease History: pt unsure of ID history - Past Surgical History GI Surgical History: Reports: Appendectomy, Cholecystectomy, Colonoscopy Female Surgical History: Reports: Section Social & Family History - Family History Family Medical History: Noncontributory - Tobacco Use Smoking Status *Q: Current Every Day Smoker Years of Tobacco use: 3 Packs/Tins Daily: 0.2 Used Tobacco, but Quit: No Second Hand Smoke Exposure: No - Caffeine Use Caffeine Use: Reports: Coffee, Soda - Alcohol Use Days Per Week of Alcohol Use: 0 - Recreational Drug Use Recreational Drug Use: Yes Drug Use in Last 12 Months: Yes Recreational Drug Type: Reports: Marijuana/Hashish, Methamphetamine Other Recreational Drug Type: 3 years of meth use "stopped last month". marijuana use Recreational Drug Use Frequency: Not Used In Over 4 Months - Living Situation & Occupation Living situation: Reports: Single, with Family Occupation: Disabled ED ROS GENERAL - Review of Systems Review Of Systems: Unable To Obtain ED EXAM, GENERAL - Physical Exam Exam: See Below Exam Limited By: Altered Mental Status General Appearance: Other (chronically ill, and acutely toxic appearing, with decreased level of alterness, responsive to verbal stimuli) Eye Exam: Bilateral Eye: EOMI, Normal Inspection, PERRL Ears: Normal External Exam, Hearing Grossly Normal Nose: Normal Inspection, Normal Mucosa, No Blood Throat/Mouth: Normal Lips, Normal Voice, No Airway Compromise, Other (dry oral membranes). No: Normal Teeth Head: Atraumatic, Normocephalic Neck: Normal Inspection, Non-Tender, Full Range of Motion. No: Lymphadenopathy (L), Lymphadenopathy (R) Respiratory/Chest: No Respiratory Distress, Lungs Clear, No Accessory Muscle Use , Chest Non-Tender, Decreased Breath Sounds, Other (tachypnic). No: Rales, Rhonchi, Wheezing, Retractions Cardiovascular: Regular Rate, Rhythm, No Edema, No JVD, Tachycardia Peripheral Pulses: 0: Dorsalis Pedis (L), Dorsalis Pedis (R), 1+: Radial (L), Radial (R), Posterior Tibial (L), Posterior Tibial (R) GI/Abdominal: Normal Bowel Sounds, Soft, Non-Tender, No Distention. No: Guarding, Rigid, Rebound (Female) Exam: Deferred Rectal (Female) Exam: Deferred Extremities: Normal Range of Motion, No Pedal Edema, Normal Capillary Refill Neurological: Confused, Slow to Respond, Other (oriented to person only) Skin Exam: Dry, Intact, No Rash, Increased Warmth (generalized (temp. 41.0C)) EKG INTERPRETATION EKG Date: 10/22/17 Time: 14:36 Rhythm: Other (sinus tachycardia) Rate (Beats/Min): 117 [place]: LAD-Left [place] Deviation P-Wave: Present QRS: Normal ST-T: Other (Inverted T wave in V1. ST segment depression in V2 through V6.) QT: Normal Comparison: Change From Previous EKG (from 07-20-17.) Course - Vital Signs Last Recorded V/S: Last Vital Signs Temp 105.1 C H 10/22/17 15:00 Pulse 117 H 10/22/17 14:31 Resp 21 H 10/22/17 14:31 BP 111/68 10/22/17 14:31 Pulse Ox 98 10/22/17 14:31 - Orders/Labs/Meds Orders: Active Orders 24 hr Category Date Time Status Blood Glucose Check, Bedside [RC] ONETIME Care 10/22/17 14:40 Active EKG 12 Lead [EKG Documentation Completion] [RC] STAT Care 10/22/17 14:39 Active Elliott Catheter Insertion [Insert Urinary Catheter] [OM. Care 10/22/17 14:45 Ordered PC] Q24H Peripheral IV Care [RC] . DIRECTED Care 10/22/17 14:40 Active Peripheral IV Care [RC] . DIRECTED Care 10/22/17 14:42 Active Urinary Catheter Assessment [RC] ASDIRECTED Care 10/22/17 14:42 Active Chest 1V Frontal [CR] Stat Exams 10/22/17 14:41 Taken CULTURE BLOOD [BC] Stat Lab 10/22/17 15:04 Results CULTURE BLOOD [BC] Stat Lab 10/22/17 15:11 Received CULTURE STREP A CONFIRMATION [RM] Stat Lab 10/22/17 16:00 Results DRUG SCREEN URINE BIORAD [URCHEM] Stat Lab 10/22/17 15:25 Ordered STREP SCRN A RAPID W CULT CONF [] Stat Lab 10/22/17 16:00 Results Sodium Chloride 0.9% [Saline Flush] Med 10/22/17 14:40 Active 10 ml FLUSH ASDIRECTED PRN Sodium Chloride 0.9% [Saline Flush] Med 10/22/17 14:42 Active 10 ml FLUSH ASDIRECTED PRN Blood Culture x2 Reflex Set [OM.PC] Stat Oth 10/22/17 14:39 Ordered Peripheral IV Insertion Adult [OM.PC] Stat Ot 10/22/17 14:39 Ordered Peripheral IV Insertion Adult [OM.PC] Stat Ot 10/22/17 14:42 Ordered Medication Orders Sodium Chloride (Saline Flush) 10 ml FLUSH ASDIRECTED PRN PRN Reason: Keep Vein Open Last Admin: 10/22/17 15:55 Dose: 10 ml Sodium Chloride (Saline Flush) 10 ml FLUSH ASDIRECTED PRN PRN Reason: Keep Vein Open Last Admin: 10/22/17 15:56 Dose: 10 ml Labs: Laboratory Tests 10/22/17 10/22/17 10/22/17 Range/Units 15:04 15:04 15:04 WBC 8.3 (5.0-10.0) 10^3/uL RBC 5.63 H (4.2-5.4) 10^6/uL Hgb 16.9 H D (12.0-16.0) g/dL Hct 48.6 H (37.0-47.0) % MCV 86.3 D (80-100) fL MCH 30.0 (27.0-34.0) pg MCHC 34.8 (33.0-35.0) g/dL Plt Count 147 L (150-450) 10^3/uL Neut % (Auto) 58.1 (42.2-75.2) % Lymph % (Auto) 36.3 (20.5-50.1) % Moca % (Auto) 4.5 (2-8) % Eos % (Auto) 0.7 L (1.0-3.0) % Baso % (Auto) 0.4 (0.0-1.0) % PT 11.2 (9.0-12.0) SEC INR 1.1 (0.9-1.2) APTT 29.2 (22.0-34.0) SEC Sodium 131 L (135-145) mmol/L Potassium 3.1 L (3.6-5.0) mmol/L Chloride 100 L (101-111) mmol/L Carbon Dioxide 22.0 (21.0-31.0) mmol/L Anion Gap 12.1 BUN 17 (7-18) mg/dL Creatinine 1.0 (0.6-1.3) mg/dL Est Cr Clr Drug Dosing 64.72 mL/min Estimated GFR (MDRD) 58 BUN/Creatinine Ratio 17.00 Glucose 95 (74-105) mg/dL Lactic Acid (0.5-2.2) mmol/L Calcium 9.1 (8.4-10.2) mg/dl Total Bilirubin 1.2 H (0.2-1.0) mg/dL AST 46 H (10-42) IU/L ALT 45 (10-60) IU/L Alkaline Phosphatase 78 (42-121) IU/L Troponin I < 0.02 (0.00-0.02) ng/ml C-Reactive Protein (0.0-1.3) mg/dL Total Protein 9.1 H (6.7-8.2) g/dl Albumin 4.2 (3.2-5.5) g/dl Globulin 4.9 Albumin/Globulin Ratio 0.86 Urine Color (YELLOW) Urine Appearance (CLEAR) Urine pH (5.0-9.0) Ur Specific Kimberly (1.005-1.030) Urine Protein (NEGATIVE) Urine Glucose (UA) (NEGATIVE) Urine Ketones (NEGATIVE) Urine Occult Blood (NEGATIVE) Urine Nitrite (NEGATIVE) Urine Bilirubin (NEGATIVE) Urine Urobilinogen (0.2-1.0) mg/dL Ur Leukocyte Esterase (NEGATIVE) Urine RBC /HPF Urine WBC (0-5/HPF) /HPF Ur Epithelial Cells /HPF Urine Bacteria (0-FEW/HPF) /HPF Urine Mucus /LPF Urine Opiates Screen (NEGATIVE) Ur Oxycodone Screen (NEGATIVE) Urine Methadone Screen (NEGATIVE) Ur Barbiturates Screen (NEGATIVE) U Tricyclic Antidepress (NEGATIVE) Ur Phencyclidine Scrn (NEGATIVE) Ur Amphetamine Screen (NEGATIVE) U Methamphetamines Scrn (NEGATIVE) Urine MDMA Screen (NEGATIVE) U Benzodiazepines Scrn (NEGATIVE) Urine Cocaine Screen (NEGATIVE) U Marijuana (THC) Screen (NEGATIVE) Ethyl Alcohol < 5 mg/dL 10/22/17 10/22/17 10/22/17 Range/Units 15:04 15:04 15:25 WBC (5.0-10.0) 10^3/uL RBC (4.2-5.4) 10^6/uL Hgb (12.0-16.0) g/dL Hct (37.0-47.0) % MCV (80-100) fL MCH (27.0-34.0) pg MCHC (33.0-35.0) g/dL Plt Count (150-450) 10^3/uL Neut % (Auto) (42.2-75.2) % Lymph % (Auto) (20.5-50.1) % Moca % (Auto) (2-8) % Eos % (Auto) (1.0-3.0) % Baso % (Auto) (0.0-1.0) % PT (9.0-12.0) SEC INR (0.9-1.2) APTT (22.0-34.0) SEC Sodium (135-145) mmol/L Potassium (3.6-5.0) mmol/L Chloride (101-111) mmol/L Carbon Dioxide (21.0-31.0) mmol/L Anion Gap BUN (7-18) mg/dL Creatinine (0.6-1.3) mg/dL Est Cr Clr Drug Dosing mL/min Estimated GFR (MDRD) BUN/Creatinine Ratio Glucose (74-105) mg/dL Lactic Acid 1.4 (0.5-2.2) mmol/L Calcium (8.4-10.2) mg/dl Total Bilirubin (0.2-1.0) mg/dL AST (10-42) IU/L ALT (10-60) IU/L Alkaline Phosphatase (42-121) IU/L Troponin I (0.00-0.02) ng/ml C-Reactive Protein 3.3 H (0.0-1.3) mg/dL Total Protein (6.7-8.2) g/dl Albumin (3.2-5.5) g/dl Globulin Albumin/Globulin Ratio Urine Color Yellow (YELLOW) Urine Appearance Clear (CLEAR) Urine pH 6.0 (5.0-9.0) Ur Specific Kimberly 1.020 (1.005-1.030) Urine Protein Trace H (NEGATIVE) Urine Glucose (UA) Negative (NEGATIVE) Urine Ketones Negative (NEGATIVE) Urine Occult Blood Moderate H (NEGATIVE) Urine Nitrite Negative (NEGATIVE) Urine Bilirubin Negative (NEGATIVE) Urine Urobilinogen 1.0 (0.2-1.0) mg/dL Ur Leukocyte Esterase Negative (NEGATIVE) Urine RBC 5-10 H /HPF Urine WBC 0-5 (0-5/HPF) /HPF Ur Epithelial Cells Rare /HPF Urine Bacteria Few (0-FEW/HPF) /HPF Urine Mucus Few H /LPF Urine Opiates Screen (NEGATIVE) Ur Oxycodone Screen (NEGATIVE) Urine Methadone Screen (NEGATIVE) Ur Barbiturates Screen (NEGATIVE) U Tricyclic Antidepress (NEGATIVE) Ur Phencyclidine Scrn (NEGATIVE) Ur Amphetamine Screen (NEGATIVE) U Methamphetamines Scrn (NEGATIVE) Urine MDMA Screen (NEGATIVE) U Benzodiazepines Scrn (NEGATIVE) Urine Cocaine Screen (NEGATIVE) U Marijuana (THC) Screen (NEGATIVE) Ethyl Alcohol mg/dL 10/22/17 Range/Units 15:25 WBC (5.0-10.0) 10^3/uL RBC (4.2-5.4) 10^6/uL Hgb (12.0-16.0) g/dL Hct (37.0-47.0) % MCV (80-100) fL MCH (27.0-34.0) pg MCHC (33.0-35.0) g/dL Plt Count (150-450) 10^3/uL Neut % (Auto) (42.2-75.2) % Lymph % (Auto) (20.5-50.1) % Moca % (Auto) (2-8) % Eos % (Auto) (1.0-3.0) % Baso % (Auto) (0.0-1.0) % PT (9.0-12.0) SEC INR (0.9-1.2) APTT (22.0-34.0) SEC Sodium (135-145) mmol/L Potassium (3.6-5.0) mmol/L Chloride (101-111) mmol/L Carbon Dioxide (21.0-31.0) mmol/L Anion Gap BUN (7-18) mg/dL Creatinine (0.6-1.3) mg/dL Est Cr Clr Drug Dosing mL/min Estimated GFR (MDRD) BUN/Creatinine Ratio Glucose (74-105) mg/dL Lactic Acid (0.5-2.2) mmol/L Calcium (8.4-10.2) mg/dl Total Bilirubin (0.2-1.0) mg/dL AST (10-42) IU/L ALT (10-60) IU/L Alkaline Phosphatase (42-121) IU/L Troponin I (0.00-0.02) ng/ml C-Reactive Protein (0.0-1.3) mg/dL Total Protein (6.7-8.2) g/dl Albumin (3.2-5.5) g/dl Globulin Albumin/Globulin Ratio Urine Color (YELLOW) Urine Appearance (CLEAR) Urine pH (5.0-9.0) Ur Specific [place] (1.005-1.030) Urine Protein (NEGATIVE) Urine Glucose (UA) (NEGATIVE) Urine Ketones (NEGATIVE) Urine Occult Blood (NEGATIVE) Urine Nitrite (NEGATIVE) Urine Bilirubin (NEGATIVE) Urine Urobilinogen (0.2-1.0) mg/dL Ur Leukocyte Esterase (NEGATIVE) Urine RBC /HPF Urine WBC (0-5/HPF) /HPF Ur Epithelial Cells /HPF Urine Bacteria (0-FEW/HPF) /HPF Urine Mucus /LPF Urine Opiates Screen Negative (NEGATIVE) Ur Oxycodone Screen Positive H (NEGATIVE) Urine Methadone Screen Negative (NEGATIVE) Ur Barbiturates Screen Negative (NEGATIVE) U Tricyclic Antidepress Negative (NEGATIVE) Ur Phencyclidine Scrn Negative (NEGATIVE) Ur Amphetamine Screen Positive H (NEGATIVE) U Methamphetamines Scrn Positive H (NEGATIVE) Urine MDMA Screen Negative (NEGATIVE) U Benzodiazepines Scrn Negative (NEGATIVE) Urine Cocaine Screen Negative (NEGATIVE) U Marijuana (THC) Screen Negative (NEGATIVE) Ethyl Alcohol mg/dL Meds: Medications Generic Name Dose Route Start Last Admin Trade Name Freq PRN Reason Stop Dose Admin Sodium Chloride 10 ml 10/22/17 14:40 10/22/17 15:55 Saline Flush FLUSH 10 ml ASDIRECTED PRN Administration Keep Vein Open Sodium Chloride 10 ml 10/22/17 14:42 10/22/17 15:56 Saline Flush FLUSH 10 ml ASDIRECTED PRN Administration Keep Vein Open Discontinued Medications Generic Name Dose Route Start Last Admin Trade Name Danielq PRN Reason Stop Dose Admin Acetaminophen 650 mg 10/22/17 14:38 10/22/17 15:00 Tylenol RECTAL 10/22/17 14:39 650 mg NOW STA Administration Dexamethasone 4 mg 10/22/17 14:38 10/22/17 15:03 Dexamethasone IM 10/22/17 14:39 4 mg ONETIME ONE Administration Sodium Chloride 1,000 mls @ 999 mls/hr 10/22/17 14:41 10/22/17 15:05 Normal Saline IV 10/22/17 15:41 999 mls/hr .BOLUS ONE Administration Levofloxacin/Dextrose 750 mg/ 150 mls @ 100 mls/hr 10/22/17 15:16 10/22/17 16 :06 Premix IV 10/22/17 16:45 100 mls/hr ONETIME ONE Administration Sodium Chloride 1,000 mls @ 999 mls/hr 10/22/17 15:16 10/22/17 15:55 Normal Saline IV 10/22/17 16:16 999 mls/hr .BOLUS ONE Administration - Radiology Interpretation Free Text/Narrative:: Chest x-ray: Normal chest x-ray. See rad report. Departure - Departure Time of Disposition: 17:01 ((Admit to Dr. Sparks)) Disposition: Admitted As Inpatient 67 Condition: Serious Clinical Impression: Adrenal crisis, Manolo disease, Dehydration syndrome, Methamphetamine abuse, Fever of unknown origin Hypotension Qualifiers: Hypotension type: unspecified hypotension type Qualified Code(s): I95.9 - Hypotension, unspecified - Discharge Information Forms: ED Department Discharge - My Orders Last 24 Hours: My Active Orders 10/22/17 14:39 EKG 12 Lead [EKG Documentation Completion] [RC] STAT Blood Culture x2 Reflex Set [OM.PC] Stat Peripheral IV Insertion Adult [OM.PC] Stat 10/22/17 14:40 Blood Glucose Check, Bedside [RC] ONETIME Peripheral IV Care [RC] . DIRECTED Sodium Chloride 0.9% [Saline Flush] 10 ml FLUSH ASDIRECTED PRN 10/22/17 14:41 Chest 1V Frontal [CR] Stat 10/22/17 14:42 Peripheral IV Care [RC] . DIRECTED Urinary Catheter Assessment [RC] ASDIRECTED Sodium Chloride 0.9% [Saline Flush] 10 ml FLUSH ASDIRECTED PRN Peripheral IV Insertion Adult [OM.PC] Stat 10/22/17 14:45 Elliott Catheter Insertion [Insert Urinary Catheter] [OM.PC] Q24H 10/22/17 15:04 CULTURE BLOOD [BC] Stat 10/22/17 15:11 CULTURE BLOOD [BC] Stat 10/22/17 15:25 DRUG SCREEN URINE BIORAD [URCHEM] Stat 10/22/17 16:00 CULTURE STREP A CONFIRMATION [RM] Stat STREP SCRN A RAPID W CULT CONF [RM] Stat - Assessment/Plan Last 24 Hours: My Active Orders 10/22/17 14:39 EKG 12 Lead [EKG Documentation Completion] [RC] STAT Blood Culture x2 Reflex Set [OM.PC] Stat Peripheral IV Insertion Adult [OM.PC] Stat 10/22/17 14:40 Blood Glucose Check, Bedside [RC] ONETIME Peripheral IV Care [RC] . DIRECTED Sodium Chloride 0.9% [Saline Flush] 10 ml FLUSH ASDIRECTED PRN 10/22/17 14:41 Chest 1V Frontal [CR] Stat 10/22/17 14:42 Peripheral IV Care [RC] . DIRECTED Urinary Catheter Assessment [RC] ASDIRECTED Sodium Chloride 0.9% [Saline Flush] 10 ml FLUSH ASDIRECTED PRN Peripheral IV Insertion Adult [OM.PC] Stat 10/22/17 14:45 Elliott Catheter Insertion [Insert Urinary Catheter] [OM.PC] Q24H 10/22/17 15:04 CULTURE BLOOD [BC] Stat 10/22/17 15:11 CULTURE BLOOD [BC] Stat 10/22/17 15:25 DRUG SCREEN URINE BIORAD [URCHEM] Stat 10/22/17 16:00 CULTURE STREP A CONFIRMATION [RM] Stat STREP SCRN A RAPID W CULT CONF [RM] Stat I have read and agree with the documentation that has been completed regarding this visit. By signing this record, I attest that the documentation was completed in my physical presence and is an accurate record of the encounter.
[2017-10-22] MEDS ORDERED: Hydrocortisone Sodium Succinate 100 MG/2 ML SDV IVPUSH ONE (17:20)
[2017-10-22] MEDS ORDERED: Norepinephrine 4 MG in Dextrose 5% in Water 246 ML IV SCH ×2 (17:30)
[2017-10-22] MEDS ORDERED: Dextrose 5%-0.9% NaCl with KCl 1,000 ML IV SCH (18:15)
[2017-10-22] MEDS ORDERED: Ondansetron 4 MG/2 ML SDV IVPUSH PRN (18:23)
--- NOTE | 2017-10-22 18:30 | PCM.HP ---
H&P History of Present Illness - General Date of Service: 10/22/17 Admit Problem/Dx: Admission Diagnosis/Problem Admission Diagnosis/Problem Acute encephalopathy Source of Information: EMS, Family, Provider - History of Present Illness Initial Comments - Free Text/Narative: The patient is a 52-year-old lady with a history of chronic pain, amphetamine use, narcotic use. She has a history of adrenal insufficiency, medical noncompliance. The patient was brought in with decreased mental status. She is unable to give history. Apparently family last last saw her about 2 days ago. She has been living alone. In the emergency room she was noted to have hypotension, 2-1/2 L IV fluid bolus has been given. Blood pressure has improved. She is still minimally responsive. Cannot give history. Tested positive for amphetamine, oxycodone. Limited IV access is available, IV site was established in bilateral feet. - Related Data Allergies/Adverse Reactions: Allergies Allergy/AdvReac Type Severity Reaction Status Date / Time Penicillins Allergy Hives Verified 08/08/17 12:05 Home Medications: Home Meds Cyclobenzaprine [Flexeril] 10 mg PO DAILY 02/25/17 [History] Sertraline [Zoloft] 50 mg PO BEDTIME 02/25/17 [History] hydrOXYzine HCl [Atarax] 25 mg PO TID PRN 02/25/17 [History] Fludrocortisone [Florinef] 0.1 mg PO WITHBREAKFAST #30 tablet 07/23/17 [Rx] Gabapentin [Neurontin] 300 mg PO TID #90 capsule 07/23/17 [Rx] Hydrocortisone [Cortef] 20 mg PO BID #60 tablet 07/23/17 [Rx] Levothyroxine 125 mcg PO ACBREAKFAST #30 tablet 07/23/17 [Rx] Nicotine [NTS] 1 each TD DAILY #10 patch.td24 07/23/17 [Rx] Oseltamivir Phosphate [IJD: Tamiflu] 75 mg PO BID #6 capsule 07/23/17 [Rx] Magnesium Oxide 400 mg PO BID 08/08/17 [History] Past Medical History HEENT History: Reports: Cataract, Impaired Vision Cardiovascular History: Reports: Arrhythmia Respiratory History: Reports: COPD, SOB Gastrointestinal History: Reports: Gastritis Other Gastrointestinal History: Here because of vomiting. Genitourinary History: Reports: Urinary Incontinence Other Genitourinary History: Became incontinent of urine two weeks ago. 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, Diabetes, Type II, Hypothyroidism Hematologic History: Reports: Anemia Dermatologic History: Reports: Eczema Other Dermatologic History: bilateral arms - Infectious Disease History Infectious Disease History: Reports: Other (See Below) Other Infectious Disease History: pt unsure of ID history - Past Surgical History GI Surgical History: Reports: Appendectomy, Cholecystectomy, Colonoscopy Female Surgical History: Reports: Section Social & Family History - Family History Family Medical History: Noncontributory - Tobacco Use Smoking Status *Q: Current Every Day Smoker Years of Tobacco use: 3 Packs/Tins Daily: 0.2 Used Tobacco, but Quit: No Second Hand Smoke Exposure: No - Caffeine Use Caffeine Use: Reports: Coffee, Soda - Alcohol Use Days Per Week of Alcohol Use: 0 - Recreational Drug Use Recreational Drug Use: Yes Drug Use in Last 12 Months: Yes Recreational Drug Type: Reports: Marijuana/Hashish, Methamphetamine Other Recreational Drug Type: 3 years of meth use "stopped last month". marijuana use Recreational Drug Use Frequency: Not Used In Over 4 Months - Living Situation & Occupation Living situation: Reports: Single, with Family Occupation: Disabled H&P Review of Systems - Review of Systems: Review Of Systems: See Below General: Reports: Fever (Elevated temperature noted when she arrived), Weakness Pulmonary: Denies: Shortness of Breath Cardiovascular: Denies: Chest Pain Psychiatric: Reports: Other (Lethargic) Exam - Exam Exam: See Below - Vital Signs Vital Signs: Last Vital Signs Temp 38.8 C H 10/22/17 17:07 Pulse 117 H 10/22/17 14:31 Resp 21 H 10/22/17 14:31 BP 111/68 10/22/17 14:31 Pulse Ox 98 10/22/17 14:31 Weight: 90.718 kg - Exam General: Alert, Lethargic HEENT: Other (Dry mouth) Neck: Supple Lungs: Clear to Auscultation, Normal Respiratory Effort Cardiovascular: Regular Rate, Regular Rhythm GI/Abdominal Exam: Normal Bowel Sounds, Soft, Non-Tender Extremities: No Pedal Edema Skin: Warm, Dry Neuro Extensive - Mental Status: Slow Response to Commands Neuro Extensive - Motor, Sensory, Reflexes: Other (Slow response to commands but appear to move all extremities and understand the request to move them.) - Patient Data Lab Results Last 24 hrs: Laboratory Results - last 24 hr 10/22/17 10/22/17 10/22/17 Range/Units 15:04 15:04 15:04 WBC 8.3 (5.0-10.0) 10^3/uL RBC 5.63 H (4.2-5.4) 10^6/uL Hgb 16.9 H D (12.0-16.0) g/dL Hct 48.6 H (37.0-47.0) % MCV 86.3 D (80-100) fL MCH 30.0 (27.0-34.0) pg MCHC 34.8 (33.0-35.0) g/dL Plt Count 147 L (150-450) 10^3/uL Neut % (Auto) 58.1 (42.2-75.2) % Lymph % (Auto) 36.3 (20.5-50.1) % [place] % (Auto) 4.5 (2-8) % Eos % (Auto) 0.7 L (1.0-3.0) % Baso % (Auto) 0.4 (0.0-1.0) % PT 11.2 (9.0-12.0) SEC INR 1.1 (0.9-1.2) APTT 29.2 (22.0-34.0) SEC Sodium 131 L (135-145) mmol/L Potassium 3.1 L (3.6-5.0) mmol/L Chloride 100 L (101-111) mmol/L Carbon Dioxide 22.0 (21.0-31.0) mmol/L Anion Gap 12.1 BUN 17 (7-18) mg/dL Creatinine 1.0 (0.6-1.3) mg/dL Est Cr Clr Drug Dosing 64.72 mL/min Estimated GFR (MDRD) 58 BUN/Creatinine Ratio 17.00 Glucose 95 (74-105) mg/dL Lactic Acid (0.5-2.2) mmol/L Calcium 9.1 (8.4-10.2) mg/dl Total Bilirubin 1.2 H (0.2-1.0) mg/dL AST 46 H (10-42) IU/L ALT 45 (10-60) IU/L Alkaline Phosphatase 78 (42-121) IU/L Troponin I < 0.02 (0.00-0.02) ng/ml C-Reactive Protein (0.0-1.3) mg/dL Total Protein 9.1 H (6.7-8.2) g/dl Albumin 4.2 (3.2-5.5) g/dl Globulin 4.9 Albumin/Globulin Ratio 0.86 Urine Color (YELLOW) Urine Appearance (CLEAR) Urine pH (5.0-9.0) Ur Specific [place] (1.005-1.030) Urine Protein (NEGATIVE) Urine Glucose (UA) (NEGATIVE) Urine Ketones (NEGATIVE) Urine Occult Blood (NEGATIVE) Urine Nitrite (NEGATIVE) Urine Bilirubin (NEGATIVE) Urine Urobilinogen (0.2-1.0) mg/dL Ur Leukocyte Esterase (NEGATIVE) Urine RBC /HPF Urine WBC (0-5/HPF) /HPF Ur Epithelial Cells /HPF Urine Bacteria (0-FEW/HPF) /HPF Urine Mucus /LPF Urine Opiates Screen (NEGATIVE) Ur Oxycodone Screen (NEGATIVE) Urine Methadone Screen (NEGATIVE) Ur Barbiturates Screen (NEGATIVE) U Tricyclic Antidepress (NEGATIVE) Ur Phencyclidine Scrn (NEGATIVE) Ur Amphetamine Screen (NEGATIVE) U Methamphetamines Scrn (NEGATIVE) Urine MDMA Screen (NEGATIVE) U Benzodiazepines Scrn (NEGATIVE) Urine Cocaine Screen (NEGATIVE) U Marijuana (THC) Screen (NEGATIVE) Ethyl Alcohol < 5 mg/dL 10/22/17 10/22/17 10/22/17 Range/Units 15:04 15:04 15:25 WBC (5.0-10.0) 10^3/uL RBC (4.2-5.4) 10^6/uL Hgb (12.0-16.0) g/dL Hct (37.0-47.0) % MCV (80-100) fL MCH (27.0-34.0) pg MCHC (33.0-35.0) g/dL Plt Count (150-450) 10^3/uL Neut % (Auto) (42.2-75.2) % Lymph % (Auto) (20.5-50.1) % [place] % (Auto) (2-8) % Eos % (Auto) (1.0-3.0) % Baso % (Auto) (0.0-1.0) % PT (9.0-12.0) SEC INR (0.9-1.2) APTT (22.0-34.0) SEC Sodium (135-145) mmol/L Potassium (3.6-5.0) mmol/L Chloride (101-111) mmol/L Carbon Dioxide (21.0-31.0) mmol/L Anion Gap BUN (7-18) mg/dL Creatinine (0.6-1.3) mg/dL Est Cr Clr Drug Dosing mL/min Estimated GFR (MDRD) BUN/Creatinine Ratio Glucose (74-105) mg/dL Lactic Acid 1.4 (0.5-2.2) mmol/L Calcium (8.4-10.2) mg/dl Total Bilirubin (0.2-1.0) mg/dL AST (10-42) IU/L ALT (10-60) IU/L Alkaline Phosphatase (42-121) IU/L Troponin I (0.00-0.02) ng/ml C-Reactive Protein 3.3 H (0.0-1.3) mg/dL Total Protein (6.7-8.2) g/dl Albumin (3.2-5.5) g/dl Globulin Albumin/Globulin Ratio Urine Color Yellow (YELLOW) Urine Appearance Clear (CLEAR) Urine pH 6.0 (5.0-9.0) Ur Specific [place] 1.020 (1.005-1.030) Urine Protein Trace H (NEGATIVE) Urine Glucose (UA) Negative (NEGATIVE) Urine Ketones Negative (NEGATIVE) Urine Occult Blood Moderate H (NEGATIVE) Urine Nitrite Negative (NEGATIVE) Urine Bilirubin Negative (NEGATIVE) Urine Urobilinogen 1.0 (0.2-1.0) mg/dL Ur Leukocyte Esterase Negative (NEGATIVE) Urine RBC 5-10 H /HPF Urine WBC 0-5 (0-5/HPF) /HPF Ur Epithelial Cells Rare /HPF Urine Bacteria Few (0-FEW/HPF) /HPF Urine Mucus Few H /LPF Urine Opiates Screen (NEGATIVE) Ur Oxycodone Screen (NEGATIVE) Urine Methadone Screen (NEGATIVE) Ur Barbiturates Screen (NEGATIVE) U Tricyclic Antidepress (NEGATIVE) Ur Phencyclidine Scrn (NEGATIVE) Ur Amphetamine Screen (NEGATIVE) U Methamphetamines Scrn (NEGATIVE) Urine MDMA Screen (NEGATIVE) U Benzodiazepines Scrn (NEGATIVE) Urine Cocaine Screen (NEGATIVE) U Marijuana (THC) Screen (NEGATIVE) Ethyl Alcohol mg/dL 10/22/17 Range/Units 15:25 WBC (5.0-10.0) 10^3/uL RBC (4.2-5.4) 10^6/uL Hgb (12.0-16.0) g/dL Hct (37.0-47.0) % MCV (80-100) fL MCH (27.0-34.0) pg MCHC (33.0-35.0) g/dL Plt Count (150-450) 10^3/uL Neut % (Auto) (42.2-75.2) % Lymph % (Auto) (20.5-50.1) % [place] % (Auto) (2-8) % Eos % (Auto) (1.0-3.0) % Baso % (Auto) (0.0-1.0) % PT (9.0-12.0) SEC INR (0.9-1.2) APTT (22.0-34.0) SEC Sodium (135-145) mmol/L Potassium (3.6-5.0) mmol/L Chloride (101-111) mmol/L Carbon Dioxide (21.0-31.0) mmol/L Anion Gap BUN (7-18) mg/dL Creatinine (0.6-1.3) mg/dL Est Cr Clr Drug Dosing mL/min Estimated GFR (MDRD) BUN/Creatinine Ratio Glucose (74-105) mg/dL Lactic Acid (0.5-2.2) mmol/L Calcium (8.4-10.2) mg/dl Total Bilirubin (0.2-1.0) mg/dL AST (10-42) IU/L ALT (10-60) IU/L Alkaline Phosphatase (42-121) IU/L Troponin I (0.00-0.02) ng/ml C-Reactive Protein (0.0-1.3) mg/dL Total Protein (6.7-8.2) g/dl Albumin (3.2-5.5) g/dl Globulin Albumin/Globulin Ratio Urine Color (YELLOW) Urine Appearance (CLEAR) Urine pH (5.0-9.0) Ur Specific [place] (1.005-1.030) Urine Protein (NEGATIVE) Urine Glucose (UA) (NEGATIVE) Urine Ketones (NEGATIVE) Urine Occult Blood (NEGATIVE) Urine Nitrite (NEGATIVE) Urine Bilirubin (NEGATIVE) Urine Urobilinogen (0.2-1.0) mg/dL Ur Leukocyte Esterase (NEGATIVE) Urine RBC /HPF Urine WBC (0-5/HPF) /HPF Ur Epithelial Cells /HPF Urine Bacteria (0-FEW/HPF) /HPF Urine Mucus /LPF Urine Opiates Screen Negative (NEGATIVE) Ur Oxycodone Screen Positive H (NEGATIVE) Urine Methadone Screen Negative (NEGATIVE) Ur Barbiturates Screen Negative (NEGATIVE) U Tricyclic Antidepress Negative (NEGATIVE) Ur Phencyclidine Scrn Negative (NEGATIVE) Ur Amphetamine Screen Positive H (NEGATIVE) U Methamphetamines Scrn Positive H (NEGATIVE) Urine MDMA Screen Negative (NEGATIVE) U Benzodiazepines Scrn Negative (NEGATIVE) Urine Cocaine Screen Negative (NEGATIVE) U Marijuana (THC) Screen Negative (NEGATIVE) Ethyl Alcohol mg/dL Result Diagrams: 10/22/17 15:04 10/22/17 15:04 [place] Results Last 24 hrs: Microbiology 10/22/17 16:10 Influenza Type A Antigen Screen - Final Nasal, Unspecified NEGATIVE INFLUENZA A VIRUS AG Influenza Type B Antigen Screen - Final NEGATIVE INFLUENZA B VIRUS AG 10/22/17 16:00 Group A Streptococcus Rapid Screen - Final Throat NEGATIVE STREP A SCREEN 10/22/17 15:04 Anaerobic Blood Culture - Final Blood - Venous Problem List Initiated/Reviewed/Updated: Yes Orders Last 24hrs: Active Orders 24 hr Category Date Time Status Patient Status [ADT] Routine ADT 10/22/17 18:23 Ordered Blood Glucose Check, Bedside [] ONETIME Care 10/22/17 14:40 Active EKG 12 Lead [EKG Documentation Completion] [RC] STAT Care 10/22/17 14:39 Active Elliott Catheter Insertion [Insert Urinary Catheter] [OM. Care 10/22/17 14:45 Ordered PC] Q24H Oxygen Therapy [RC] PRN Care 10/22/17 18:23 Ordered Peripheral IV Care [RC] . DIRECTED Care 10/22/17 14:40 Active Peripheral IV Care [RC] . DIRECTED Care 10/22/17 14:42 Active Up With Assistance [RC] ASDIRECTED Care 10/22/17 18:23 Ordered Urinary Catheter Assessment [RC] ASDIRECTED Care 10/22/17 14:42 Active VTE/DVT Education [RC] PER UNIT ROUTINE Care 10/22/17 18:23 Ordered Vital Signs [RC] Q1H Care 10/22/17 18:23 Ordered Clear Liquid Diet [DIET] Diet 10/22/17 Breakfast Ordered CULTURE BLOOD [BC] Stat Lab 10/22/17 15:04 Results CULTURE BLOOD [] Stat Lab 10/22/17 15:11 Received CULTURE STREP A CONFIRMATION [] Stat Lab 10/22/17 16:00 Results DRUG SCREEN URINE BIORAD [URCHEM] Stat Lab 10/22/17 15:25 Ordered STREP SCRN A RAPID W CULT CONF [] Stat Lab 10/22/17 16:00 Results Acetaminophen [Tylenol] Med 10/22/17 18:23 Ordered 650 mg PO Q4H PRN Dextrose 5%-0.9% NaCl with KCl [D5 NS with 20 mEq KCl] Med 10/22/17 18:15 Ordered 1,000 ml IV ASDIRECTED Heparin Sodium Med 10/22/17 22:00 Ordered 5,000 units SUBCUT Q8HR Hydrocortisone Sod Succinate [Solu-CORTEF] Med 10/22/17 23:00 Ordered 100 mg IVPUSH Q6H Levofloxacin/Dextrose 5%-Water [Levaquin in D5W 750 MG/ Med 10/23/17 15:00 Ordered 150 ML] 750 mg Premix Bag 1 bag IV Q24H Levothyroxine Med 10/23/17 06:00 Ordered 125 mcg PO ACBREAKFAST Ondansetron [Zofran] Med 10/22/17 18:23 Ordered 4 mg IVPUSH Q6H PRN Potassium Chloride [KCl 10 MEQ in Water 100 ML] 10 meq Med 10/22/17 18:15 Ordered Premix Bag 1 bag IV Q2H Sodium Chloride 0.9% [Saline Flush] Med 10/22/17 14:40 Active 10 ml FLUSH ASDIRECTED PRN Sodium Chloride 0.9% [Saline Flush] Med 10/22/17 14:42 Active 10 ml FLUSH ASDIRECTED PRN Blood Culture x2 Reflex Set [OM.PC] Stat Oth 10/22/17 14:39 Ordered Peripheral IV Insertion Adult [OM.PC] Stat Oth 10/22/17 14:39 Ordered Peripheral IV Insertion Adult [OM.PC] Stat Oth 10/22/17 14:42 Ordered Resuscitation Status Routine Resus Stat 10/22/17 18:23 Ordered Medication Orders Acetaminophen (Tylenol) 650 mg PO Q4H PRN PRN Reason: Pain (Mild 1-3)/fever Heparin Sodium (Porcine) (Heparin Sodium) 5,000 units SUBCUT Q8HR TERRI Hydrocortisone Sodium Succinate (Solu-Cortef) 100 mg IVPUSH Q6H TERRI Potassium Chloride/Dextrose/Sod Cl (D5 Ns With 20 Meq Kcl) 1,000 mls @ 100 mls/ hr IV ASDIRECTED TERRI Potassium Chloride 10 meq/ (Premix) 100 mls @ 50 mls/hr IV Q2H TERRI Stop: 10/23/17 04:14 Levofloxacin/Dextrose 750 mg/ (Premix) 150 mls @ 100 mls/hr IV Q24H TERRI Levothyroxine Sodium (Levothyroxine) 125 mcg PO ACBREAKFAST TERRI Ondansetron HCl (Zofran) 4 mg IVPUSH Q6H PRN PRN Reason: Nausea/Vomiting Sodium Chloride (Saline Flush) 10 ml FLUSH ASDIRECTED PRN PRN Reason: Keep Vein Open Last Admin: 10/22/17 15:55 Dose: 10 ml Sodium Chloride (Saline Flush) 10 ml FLUSH ASDIRECTED PRN PRN Reason: Keep Vein Open Last Admin: 10/22/17 15:56 Dose: 10 ml Assessment/Plan Comment:: The patient is a 52-year-old lady with a history of adrenal insufficiency, chronic pain, narcotic use, amphetamine abuse. Patient was brought in with lethargic after she was found by family. Limited information is available exactly what happened. She was noted to have hypotension and elevated temperature and tachycardia in the ER. SIRS With hypotension, tachycardia, elevated temperature Normal white count, no apparent source of infection, normal lactic acid Blood cultures have been obtained Empirically treat with levofloxacin although it is unclear if she truly has an infection Acute encephalopathy Might relate to drug use, dehydration, adrenal insufficiency We'll continue supportive measures Hypotension Likely relates to dehydration, adrenal insufficiency Check vital signs every hour Will give IV hydrocortisone, IV fluids Hypokalemia We'll replace and recheck Hypothyroidism Treat with Synthroid Amphetamine abuse Supportive care DVT prophylaxis will be subcutaneous heparin
[2017-10-22] MEDS: Potassium Chloride 10 MEQ in Premix Bag 1 BAG IV SCH ×2 (19:55→22:08)
[2017-10-22] MEDS: Hydrocortisone Sodium Succinate 100 MG/2 ML SDV IVPUSH SCH (22:08)
[2017-10-22] MEDS: Heparin Sodium 5,000 Units/ML Vial SUBCUT SCH (22:08)
[2017-10-22] MEDS: Acetaminophen 325 MG Tab PO PRN (22:23)
[2017-10-23] MEDS: Potassium Chloride 10 MEQ in Premix Bag 1 BAG IV SCH ×3 (00:17→04:27)
[2017-10-23] MEDS: Heparin Sodium 5,000 Units/ML Vial SUBCUT SCH ×2 (05:38→14:51)
[2017-10-23] MEDS: Hydrocortisone Sodium Succinate 100 MG/2 ML SDV IVPUSH SCH ×2 (05:40→10:45)
[2017-10-23] MEDS ORDERED: Levothyroxine 125 MCG Tab PO SCH (06:00)
[2017-10-23] MEDS: Acetaminophen 325 MG Tab PO PRN (09:04)
[2017-10-23 10:49] LABS: CHLORIDE,CL 111 mmol/L (101-111); SODIUM,NA 136 mmol/L (135-145)
[2017-10-23] MEDS ORDERED: Potassium Chloride 10 MEQ Tab.ER PO ONE (10:57)
[2017-10-23] MEDS ORDERED: NS + KCl 20mEq/L 1,000 ML IV SCH (11:00)
--- NOTE | 2017-10-23 11:03 | PCM.PN ---
- General Info Date of Service: 10/23/17 Admission Dx/Problem (Free Text): Admission Diagnosis/Problem Admission Diagnosis/Problem Acute encephalopathy Subjective Update: 52-year-old lady with a history of amphetamine use, medical noncompliance, adrenal insufficiency. The patient was brought in lethargic. Noted to have hypotension, fever on admission. Overnight did well. No further fever. The status significantly improved. Had a Elliott catheter and has been making good urine. Blood pressure improved. - Review of Systems General: Denies: Fever Pulmonary: Denies: Shortness of Breath Cardiovascular: Denies: Chest Pain Gastrointestinal: Denies: Abdominal Pain Musculoskeletal: Reports: Back Pain Psychiatric: Denies: Confusion - Patient Data Vitals - Most Recent: Last Vital Signs Temp 36.3 C 10/23/17 08:56 Pulse 76 10/23/17 08:56 Resp 17 10/23/17 08:56 BP 97/65 10/23/17 08:56 Pulse Ox 100 10/23/17 08:56 Weight - Most Recent: 72.393 kg I&O - Last 24 Hours: Intake & Output 10/22/17 10/23/17 10/23/17 22:59 06:59 14:59 Intake Total 2149 1000 75 Output Total 600 900 Balance 1549 100 75 Lab Results Last 24 Hours: Laboratory Results - last 24 hr 10/22/17 10/22/17 10/22/17 Range/Units 15:04 15:04 15:04 WBC 8.3 (5.0-10.0) 10^3/uL RBC 5.63 H (4.2-5.4) 10^6/uL Hgb 16.9 H D (12.0-16.0) g/dL Hct 48.6 H (37.0-47.0) % MCV 86.3 D (80-100) fL MCH 30.0 (27.0-34.0) pg MCHC 34.8 (33.0-35.0) g/dL Plt Count 147 L (150-450) 10^3/uL Neut % (Auto) 58.1 (42.2-75.2) % Lymph % (Auto) 36.3 (20.5-50.1) % [place] % (Auto) 4.5 (2-8) % Eos % (Auto) 0.7 L (1.0-3.0) % Baso % (Auto) 0.4 (0.0-1.0) % PT 11.2 (9.0-12.0) SEC INR 1.1 (0.9-1.2) APTT 29.2 (22.0-34.0) SEC Sodium 131 L (135-145) mmol/L Potassium 3.1 L (3.6-5.0) mmol/L Chloride 100 L (101-111) mmol/L Carbon Dioxide 22.0 (21.0-31.0) mmol/L Anion Gap 12.1 BUN 17 (7-18) mg/dL Creatinine 1.0 (0.6-1.3) mg/dL Est Cr Clr Drug Dosing 64.72 mL/min Estimated GFR (MDRD) 58 BUN/Creatinine Ratio 17.00 Glucose 95 (74-105) mg/dL POC Glucose (70-105) mg/dl Lactic Acid (0.5-2.2) mmol/L Calcium 9.1 (8.4-10.2) mg/dl Total Bilirubin 1.2 H (0.2-1.0) mg/dL AST 46 H (10-42) IU/L ALT 45 (10-60) IU/L Alkaline Phosphatase 78 (42-121) IU/L Troponin I < 0.02 (0.00-0.02) ng/ml C-Reactive Protein (0.0-1.3) mg/dL Total Protein 9.1 H (6.7-8.2) g/dl Albumin 4.2 (3.2-5.5) g/dl Globulin 4.9 Albumin/Globulin Ratio 0.86 Urine Color (YELLOW) Urine Appearance (CLEAR) Urine pH (5.0-9.0) Ur Specific [place] (1.005-1.030) Urine Protein (NEGATIVE) Urine Glucose (UA) (NEGATIVE) Urine Ketones (NEGATIVE) Urine Occult Blood (NEGATIVE) Urine Nitrite (NEGATIVE) Urine Bilirubin (NEGATIVE) Urine Urobilinogen (0.2-1.0) mg/dL Ur Leukocyte Esterase (NEGATIVE) Urine RBC /HPF Urine WBC (0-5/HPF) /HPF Ur Epithelial Cells /HPF Urine Bacteria (0-FEW/HPF) /HPF Urine Mucus /LPF Urine Opiates Screen (NEGATIVE) Ur Oxycodone Screen (NEGATIVE) Urine Methadone Screen (NEGATIVE) Ur Barbiturates Screen (NEGATIVE) U Tricyclic Antidepress (NEGATIVE) Ur Phencyclidine Scrn (NEGATIVE) Ur Amphetamine Screen (NEGATIVE) U Methamphetamines Scrn (NEGATIVE) Urine MDMA Screen (NEGATIVE) U Benzodiazepines Scrn (NEGATIVE) Urine Cocaine Screen (NEGATIVE) U Marijuana (THC) Screen (NEGATIVE) Ethyl Alcohol < 5 mg/dL 10/22/17 10/22/17 10/22/17 Range/Units 15:04 15:04 15:25 WBC (5.0-10.0) 10^3/uL RBC (4.2-5.4) 10^6/uL Hgb (12.0-16.0) g/dL Hct (37.0-47.0) % MCV (80-100) fL MCH (27.0-34.0) pg MCHC (33.0-35.0) g/dL Plt Count (150-450) 10^3/uL Neut % (Auto) (42.2-75.2) % Lymph % (Auto) (20.5-50.1) % [place] % (Auto) (2-8) % Eos % (Auto) (1.0-3.0) % Baso % (Auto) (0.0-1.0) % PT (9.0-12.0) SEC INR (0.9-1.2) APTT (22.0-34.0) SEC Sodium (135-145) mmol/L Potassium (3.6-5.0) mmol/L Chloride (101-111) mmol/L Carbon Dioxide (21.0-31.0) mmol/L Anion Gap BUN (7-18) mg/dL Creatinine (0.6-1.3) mg/dL Est Cr Clr Drug Dosing mL/min Estimated GFR (MDRD) BUN/Creatinine Ratio Glucose (74-105) mg/dL POC Glucose (70-105) mg/dl Lactic Acid 1.4 (0.5-2.2) mmol/L Calcium (8.4-10.2) mg/dl Total Bilirubin (0.2-1.0) mg/dL AST (10-42) IU/L ALT (10-60) IU/L Alkaline Phosphatase (42-121) IU/L Troponin I (0.00-0.02) ng/ml C-Reactive Protein 3.3 H (0.0-1.3) mg/dL Total Protein (6.7-8.2) g/dl Albumin (3.2-5.5) g/dl Globulin Albumin/Globulin Ratio Urine Color Yellow (YELLOW) Urine Appearance Clear (CLEAR) Urine pH 6.0 (5.0-9.0) Ur Specific [place] 1.020 (1.005-1.030) Urine Protein Trace H (NEGATIVE) Urine Glucose (UA) Negative (NEGATIVE) Urine Ketones Negative (NEGATIVE) Urine Occult Blood Moderate H (NEGATIVE) Urine Nitrite Negative (NEGATIVE) Urine Bilirubin Negative (NEGATIVE) Urine Urobilinogen 1.0 (0.2-1.0) mg/dL Ur Leukocyte Esterase Negative (NEGATIVE) Urine RBC 5-10 H /HPF Urine WBC 0-5 (0-5/HPF) /HPF Ur Epithelial Cells Rare /HPF Urine Bacteria Few (0-FEW/HPF) /HPF Urine Mucus Few H /LPF Urine Opiates Screen (NEGATIVE) Ur Oxycodone Screen (NEGATIVE) Urine Methadone Screen (NEGATIVE) Ur Barbiturates Screen (NEGATIVE) U Tricyclic Antidepress (NEGATIVE) Ur Phencyclidine Scrn (NEGATIVE) Ur Amphetamine Screen (NEGATIVE) U Methamphetamines Scrn (NEGATIVE) Urine MDMA Screen (NEGATIVE) U Benzodiazepines Scrn (NEGATIVE) Urine Cocaine Screen (NEGATIVE) U Marijuana (THC) Screen (NEGATIVE) Ethyl Alcohol mg/dL 10/22/17 10/22/17 10/23/17 Range/Units 15:25 17:50 10:22 WBC 6.4 (5.0-10.0) 10^3/uL RBC 4.52 (4.2-5.4) 10^6/uL Hgb 13.3 D (12.0-16.0) g/dL Hct 38.6 (37.0-47.0) % MCV 85.4 (80-100) fL MCH 29.4 (27.0-34.0) pg MCHC 34.5 (33.0-35.0) g/dL Plt Count 125 L (150-450) 10^3/uL Neut % (Auto) 85.8 H (42.2-75.2) % Lymph % (Auto) 12.2 L (20.5-50.1) % [place] % (Auto) 2.0 (2-8) % Eos % (Auto) 0.0 L (1.0-3.0) % Baso % (Auto) 0.0 (0.0-1.0) % PT (9.0-12.0) SEC INR (0.9-1.2) APTT (22.0-34.0) SEC Sodium (135-145) mmol/L Potassium (3.6-5.0) mmol/L Chloride (101-111) mmol/L Carbon Dioxide (21.0-31.0) mmol/L Anion Gap BUN (7-18) mg/dL Creatinine (0.6-1.3) mg/dL Est Cr Clr Drug Dosing mL/min Estimated GFR (MDRD) BUN/Creatinine Ratio Glucose (74-105) mg/dL POC Glucose 114 H (70-105) mg/dl Lactic Acid (0.5-2.2) mmol/L Calcium (8.4-10.2) mg/dl Total Bilirubin (0.2-1.0) mg/dL AST (10-42) IU/L ALT (10-60) IU/L Alkaline Phosphatase (42-121) IU/L Troponin I (0.00-0.02) ng/ml C-Reactive Protein (0.0-1.3) mg/dL Total Protein (6.7-8.2) g/dl Albumin (3.2-5.5) g/dl Globulin Albumin/Globulin Ratio Urine Color (YELLOW) Urine Appearance (CLEAR) Urine pH (5.0-9.0) Ur Specific [place] (1.005-1.030) Urine Protein (NEGATIVE) Urine Glucose (UA) (NEGATIVE) Urine Ketones (NEGATIVE) Urine Occult Blood (NEGATIVE) Urine Nitrite (NEGATIVE) Urine Bilirubin (NEGATIVE) Urine Urobilinogen (0.2-1.0) mg/dL Ur Leukocyte Esterase (NEGATIVE) Urine RBC /HPF Urine WBC (0-5/HPF) /HPF Ur Epithelial Cells /HPF Urine Bacteria (0-FEW/HPF) /HPF Urine Mucus /LPF Urine Opiates Screen Negative (NEGATIVE) Ur Oxycodone Screen Positive H (NEGATIVE) Urine Methadone Screen Negative (NEGATIVE) Ur Barbiturates Screen Negative (NEGATIVE) U Tricyclic Antidepress Negative (NEGATIVE) Ur Phencyclidine Scrn Negative (NEGATIVE) Ur Amphetamine Screen Positive H (NEGATIVE) U Methamphetamines Scrn Positive H (NEGATIVE) Urine MDMA Screen Negative (NEGATIVE) U Benzodiazepines Scrn Negative (NEGATIVE) Urine Cocaine Screen Negative (NEGATIVE) U Marijuana (THC) Screen Negative (NEGATIVE) Ethyl Alcohol mg/dL 10/23/17 Range/Units 10:22 WBC (5.0-10.0) 10^3/uL RBC (4.2-5.4) 10^6/uL Hgb (12.0-16.0) g/dL Hct (37.0-47.0) % MCV (80-100) fL MCH (27.0-34.0) pg MCHC (33.0-35.0) g/dL Plt Count (150-450) 10^3/uL Neut % (Auto) (42.2-75.2) % Lymph % (Auto) (20.5-50.1) % [place] % (Auto) (2-8) % Eos % (Auto) (1.0-3.0) % Baso % (Auto) (0.0-1.0) % PT (9.0-12.0) SEC INR (0.9-1.2) APTT (22.0-34.0) SEC Sodium 136 (135-145) mmol/L Potassium 3.4 L (3.6-5.0) mmol/L Chloride 111 (101-111) mmol/L Carbon Dioxide 18.0 L (21.0-31.0) mmol/L Anion Gap 10.4 BUN 14 (7-18) mg/dL Creatinine 0.6 (0.6-1.3) mg/dL Est Cr Clr Drug Dosing 107.87 mL/min Estimated GFR (MDRD) > 60 BUN/Creatinine Ratio Glucose 193 H (74-105) mg/dL POC Glucose (70-105) mg/dl Lactic Acid (0.5-2.2) mmol/L Calcium 7.9 L (8.4-10.2) mg/dl Total Bilirubin (0.2-1.0) mg/dL AST (10-42) IU/L ALT (10-60) IU/L Alkaline Phosphatase (42-121) IU/L Troponin I (0.00-0.02) ng/ml C-Reactive Protein (0.0-1.3) mg/dL Total Protein (6.7-8.2) g/dl Albumin (3.2-5.5) g/dl Globulin Albumin/Globulin Ratio Urine Color (YELLOW) Urine Appearance (CLEAR) Urine pH (5.0-9.0) Ur Specific [place] (1.005-1.030) Urine Protein (NEGATIVE) Urine Glucose (UA) (NEGATIVE) Urine Ketones (NEGATIVE) Urine Occult Blood (NEGATIVE) Urine Nitrite (NEGATIVE) Urine Bilirubin (NEGATIVE) Urine Urobilinogen (0.2-1.0) mg/dL Ur Leukocyte Esterase (NEGATIVE) Urine RBC /HPF Urine WBC (0-5/HPF) /HPF Ur Epithelial Cells /HPF Urine Bacteria (0-FEW/HPF) /HPF Urine Mucus /LPF Urine Opiates Screen (NEGATIVE) Ur Oxycodone Screen (NEGATIVE) Urine Methadone Screen (NEGATIVE) Ur Barbiturates Screen (NEGATIVE) U Tricyclic Antidepress (NEGATIVE) Ur Phencyclidine Scrn (NEGATIVE) Ur Amphetamine Screen (NEGATIVE) U Methamphetamines Scrn (NEGATIVE) Urine MDMA Screen (NEGATIVE) U Benzodiazepines Scrn (NEGATIVE) Urine Cocaine Screen (NEGATIVE) U Marijuana (THC) Screen (NEGATIVE) Ethyl Alcohol mg/dL [place] Results Last 24 Hours: Microbiology 10/22/17 16:10 Influenza Type A Antigen Screen - Final Nasal, Unspecified NEGATIVE INFLUENZA A VIRUS AG Influenza Type B Antigen Screen - Final NEGATIVE INFLUENZA B VIRUS AG 10/22/17 16:00 Group A Streptococcus Rapid Screen - Final Throat NEGATIVE STREP A SCREEN 10/22/17 15:04 Anaerobic Blood Culture - Final Blood - Venous Med Orders - Current: Current Medications Acetaminophen (Tylenol) 650 mg PO Q4H PRN PRN Reason: Pain (Mild 1-3)/fever Last Admin: 10/23/17 09:04 Dose: 650 mg Heparin Sodium (Porcine) (Heparin Sodium) 5,000 units SUBCUT Q8HR TERRI Last Admin: 10/23/17 05:38 Dose: 5,000 units Hydrocortisone Sodium Succinate (Solu-Cortef) 100 mg IVPUSH Q6H [facility] Last Admin: 10/23/17 10:45 Dose: 100 mg Levofloxacin/Dextrose 750 mg/ (Premix) 150 mls @ 100 mls/hr IV Q24H TERRI Potassium Chloride/Sodium Chloride (Normal Saline With 20 Meq Kcl) 1,000 mls @ 100 mls/hr IV ASDIRECTED TERRI Levothyroxine Sodium (Levothyroxine) 125 mcg PO ACBREAKFAST TERRI Last Admin: 10/23/17 05:38 Dose: 125 mcg Ondansetron HCl (Zofran) 4 mg IVPUSH Q6H PRN PRN Reason: Nausea/Vomiting Potassium Chloride (Klor-Con 10) 40 meq PO ONETIME ONE Stop: 10/23/17 10:58 Sodium Chloride (Saline Flush) 10 ml FLUSH ASDIRECTED PRN PRN Reason: Keep Vein Open Last Admin: 10/22/17 15:55 Dose: 10 ml Sodium Chloride (Saline Flush) 10 ml FLUSH ASDIRECTED PRN PRN Reason: Keep Vein Open Last Admin: 10/22/17 15:56 Dose: 10 ml Discontinued Medications Acetaminophen (Tylenol) 650 mg RECTAL NOW STA Stop: 10/22/17 14:39 Last Admin: 10/22/17 15:00 Dose: 650 mg Dexamethasone (Dexamethasone) 4 mg IM ONETIME ONE Stop: 10/22/17 14:39 Last Admin: 10/22/17 15:03 Dose: 4 mg Hydrocortisone Sodium Succinate (Solu-Cortef) 100 mg IVPUSH ONETIME ONE Stop: 10/22/17 17:21 Last Admin: 10/22/17 17:29 Dose: 100 mg Sodium Chloride (Normal Saline) 1,000 mls @ 999 mls/hr IV .BOLUS ONE Stop: 10/22/17 15:41 Last Admin: 10/22/17 15:05 Dose: 999 mls/hr Levofloxacin/Dextrose 750 mg/ (Premix) 150 mls @ 100 mls/hr IV ONETIME ONE Stop: 10/22/17 16:45 Last Admin: 10/22/17 16:06 Dose: 100 mls/hr Sodium Chloride (Normal Saline) 1,000 mls @ 999 mls/hr IV .BOLUS ONE Stop: 10/22/17 16:16 Last Admin: 10/22/17 15:55 Dose: 999 mls/hr Norepinephrine Bitartrate 4 mg (/ Dextrose/Water) 250 mls @ 30 mls/hr IV TITRATE TERRI; Protocol Sodium Chloride (Normal Saline) 1,000 mls @ 999 mls/hr IV .BOLUS ONE Stop: 10/22/17 18:19 Last Admin: 10/22/17 17:30 Dose: 999 mls/hr Potassium Chloride/Dextrose/Sod Cl (D5 Ns With 20 Meq Kcl) 1,000 mls @ 100 mls/ hr IV ASDIRECTED [facility] Last Infusion: 10/23/17 06:24 Dose: 100 mls/hr Potassium Chloride 10 meq/ (Premix) 100 mls @ 50 mls/hr IV Q2H TERRI Stop: 10/23/17 04:14 Last Admin: 10/23/17 04:27 Dose: 50 mls/hr - Exam General: Alert, Oriented Neck: Supple Lungs: Clear to Auscultation, Normal Respiratory Effort Cardiovascular: Regular Rate, Regular Rhythm GI/Abdominal Exam: Normal Bowel Sounds, Soft, Non-Tender Extremities: No Pedal Edema Neurological: No New Focal Deficit Psy/Mental Status: Alert, Normal Affect, Normal Mood - Problem List Review Problem List Initiated/Reviewed/Updated: Yes - My Orders Last 24 Hours: My Active Orders 10/22/17 18:23 Patient Status [ADT] Routine Oxygen Therapy [RC] PRN Up With Assistance [RC] ASDIRECTED VTE/DVT Education [RC] PER UNIT ROUTINE Vital Signs [RC] 07,11,15,19,23,03 Acetaminophen [Tylenol] 650 mg PO Q4H PRN Ondansetron [Zofran] 4 mg IVPUSH Q6H PRN Resuscitation Status Routine 10/22/17 22:00 Heparin Sodium 5,000 units SUBCUT Q8HR 10/22/17 23:00 Hydrocortisone Sod Succinate [Solu-CORTEF] 100 mg IVPUSH Q6H 10/23/17 06:00 Levothyroxine 125 mcg PO ACBREAKFAST 10/23/17 10:57 Potassium Chloride [Klor-Con 10] 40 meq PO ONETIME ONE 10/23/17 11:00 Sodium Chloride 0.9% with KCl 20 mEq @ 100 mL/Hr (1000 mL) NS + KCl 20mEq/L [ Normal Saline with 20 mEq KCl] 1,000 ml IV ASDIRECTED 10/23/17 15:00 Levofloxacin/Dextrose 5%-Water [Levaquin in D5W 750 MG/150 ML] 750 mg Premix Bag 1 bag IV Q24H 10/24/17 05:15 BASIC METABOLIC PANEL,BMP [CHEM] AM CBC WITH AUTO DIFF [HEME] AM - Plan Plan:: The patient is a 52-year-old lady with a history of adrenal insufficiency, chronic pain, narcotic use, amphetamine abuse. Patient was brought in with lethargic after she was found by family. Limited information is available exactly what happened. She was noted to have hypotension and elevated temperature and tachycardia in the ER. SIRS With hypotension, tachycardia, elevated temperature Normal white count, no apparent source of infection, normal lactic acid Blood cultures have been obtained No further fever Empirically treat with levofloxacin although it is unclear if she truly has an infection Acute encephalopathy Might relate to drug use, dehydration, adrenal insufficiency Significantly improved We'll continue supportive measures Hypotension Likely relates to dehydration, adrenal insufficiency Improved Will give IV hydrocortisone, IV fluids Hypokalemia We'll continue to replace and recheck Hypothyroidism Treat with Synthroid Amphetamine abuse Supportive care DVT prophylaxis will be subcutaneous heparin
[2017-10-23 14:51] VITALS: BP 105/67
--- NOTE | 2017-10-23 14:52 | PCM.DCSUM1 ---
Discharge Summary - Hospital Course Free Text/Narrative:: The patient is a 52-year-old lady with a history of thumb on phentermine use, poor medical compliance, adrenal insufficiency. Presented with lethargic, acute encephalopathy. Treated with IV steroids, IV fluids. The patient improved but it was felt that further inpatient treatment is necessary. Plan was to taper the steroids monitor blood pressure, monitor and replace electrolytes. Patient decided that she wants to leave AGAINST MEDICAL ADVICE. She has all medications except Florinef and levothyroxine. I will give her prescriptions for days. I have asked her to follow-up with her primary care physician as soon as possible - Discharge Data Discharge Date: 10/23/17 Discharge Disposition: Against Medical Advice 07 Condition: Fair - Patient Instructions Diet: Usual Diet as Tolerated Activity: As Tolerated - Discharge Plan Prescriptions/Med Rec: Fludrocortisone [Florinef] 0.1 mg PO WITHBREAKFAST #30 tablet Hydrocortisone [Cortef] 20 mg PO BID #60 tablet Levothyroxine 125 mcg PO ACBREAKFAST #30 tablet Home Medications: Home Meds Sertraline [Zoloft] 50 mg PO BEDTIME 02/25/17 [History] Nicotine [NTS] 1 each TD DAILY #10 patch.td24 07/23/17 [Rx] Magnesium Oxide 400 mg PO BID 08/08/17 [History] Fludrocortisone [Florinef] 0.1 mg PO WITHBREAKFAST #30 tablet 10/23/17 [Rx] Hydrocortisone [Cortef] 20 mg PO BID #60 tablet 10/23/17 [Rx] Levothyroxine 125 mcg PO ACBREAKFAST #30 tablet 10/23/17 [Rx] Forms: ED Department Discharge Referrals: PCP,None [Primary Care Provider] - (in 2-3 days) - General Info Date of Service: 10/23/17 - Review of Systems General: Denies: Fever Pulmonary: Denies: Shortness of Breath Cardiovascular: Denies: Chest Pain Neurological: Denies: Confusion - Patient Data Vitals - Most Recent: Last Vital Signs Temp 36.4 C 10/23/17 11:00 Pulse 80 10/23/17 11:00 Resp 20 10/23/17 11:00 BP 96/57 L 10/23/17 11:00 Pulse Ox 97 10/23/17 11:00 Weight - Most Recent: 72.393 kg I&O - Last 24 hours: Intake & Output 10/22/17 10/23/17 10/23/17 22:59 06:59 14:59 Intake Total 2149 1000 75 Output Total 600 900 Balance 1549 100 75 Lab Results - Last 24 hrs: Laboratory Results - last 24 hr 10/22/17 10/22/17 10/22/17 Range/Units 15:04 15:04 15:04 WBC 8.3 (5.0-10.0) 10^3/uL RBC 5.63 H (4.2-5.4) 10^6/uL Hgb 16.9 H D (12.0-16.0) g/dL Hct 48.6 H (37.0-47.0) % MCV 86.3 D (80-100) fL MCH 30.0 (27.0-34.0) pg MCHC 34.8 (33.0-35.0) g/dL Plt Count 147 L (150-450) 10^3/uL Neut % (Auto) 58.1 (42.2-75.2) % Lymph % (Auto) 36.3 (20.5-50.1) % [place] % (Auto) 4.5 (2-8) % Eos % (Auto) 0.7 L (1.0-3.0) % Baso % (Auto) 0.4 (0.0-1.0) % PT 11.2 (9.0-12.0) SEC INR 1.1 (0.9-1.2) APTT 29.2 (22.0-34.0) SEC Sodium 131 L (135-145) mmol/L Potassium 3.1 L (3.6-5.0) mmol/L Chloride 100 L (101-111) mmol/L Carbon Dioxide 22.0 (21.0-31.0) mmol/L Anion Gap 12.1 BUN 17 (7-18) mg/dL Creatinine 1.0 (0.6-1.3) mg/dL Est Cr Clr Drug Dosing 64.72 mL/min Estimated GFR (MDRD) 58 BUN/Creatinine Ratio 17.00 Glucose 95 (74-105) mg/dL POC Glucose (70-105) mg/dl Lactic Acid (0.5-2.2) mmol/L Calcium 9.1 (8.4-10.2) mg/dl Total Bilirubin 1.2 H (0.2-1.0) mg/dL AST 46 H (10-42) IU/L ALT 45 (10-60) IU/L Alkaline Phosphatase 78 (42-121) IU/L Troponin I < 0.02 (0.00-0.02) ng/ml C-Reactive Protein (0.0-1.3) mg/dL Total Protein 9.1 H (6.7-8.2) g/dl Albumin 4.2 (3.2-5.5) g/dl Globulin 4.9 Albumin/Globulin Ratio 0.86 Urine Color (YELLOW) Urine Appearance (CLEAR) Urine pH (5.0-9.0) Ur Specific [place] (1.005-1.030) Urine Protein (NEGATIVE) Urine Glucose (UA) (NEGATIVE) Urine Ketones (NEGATIVE) Urine Occult Blood (NEGATIVE) Urine Nitrite (NEGATIVE) Urine Bilirubin (NEGATIVE) Urine Urobilinogen (0.2-1.0) mg/dL Ur Leukocyte Esterase (NEGATIVE) Urine RBC /HPF Urine WBC (0-5/HPF) /HPF Ur Epithelial Cells /HPF Urine Bacteria (0-FEW/HPF) /HPF Urine Mucus /LPF Urine Opiates Screen (NEGATIVE) Ur Oxycodone Screen (NEGATIVE) Urine Methadone Screen (NEGATIVE) Ur Barbiturates Screen (NEGATIVE) U Tricyclic Antidepress (NEGATIVE) Ur Phencyclidine Scrn (NEGATIVE) Ur Amphetamine Screen (NEGATIVE) U Methamphetamines Scrn (NEGATIVE) Urine MDMA Screen (NEGATIVE) U Benzodiazepines Scrn (NEGATIVE) Urine Cocaine Screen (NEGATIVE) U Marijuana (THC) Screen (NEGATIVE) Ethyl Alcohol < 5 mg/dL 10/22/17 10/22/17 10/22/17 Range/Units 15:04 15:04 15:25 WBC (5.0-10.0) 10^3/uL RBC (4.2-5.4) 10^6/uL Hgb (12.0-16.0) g/dL Hct (37.0-47.0) % MCV (80-100) fL MCH (27.0-34.0) pg MCHC (33.0-35.0) g/dL Plt Count (150-450) 10^3/uL Neut % (Auto) (42.2-75.2) % Lymph % (Auto) (20.5-50.1) % [place] % (Auto) (2-8) % Eos % (Auto) (1.0-3.0) % Baso % (Auto) (0.0-1.0) % PT (9.0-12.0) SEC INR (0.9-1.2) APTT (22.0-34.0) SEC Sodium (135-145) mmol/L Potassium (3.6-5.0) mmol/L Chloride (101-111) mmol/L Carbon Dioxide (21.0-31.0) mmol/L Anion Gap BUN (7-18) mg/dL Creatinine (0.6-1.3) mg/dL Est Cr Clr Drug Dosing mL/min Estimated GFR (MDRD) BUN/Creatinine Ratio Glucose (74-105) mg/dL POC Glucose (70-105) mg/dl Lactic Acid 1.4 (0.5-2.2) mmol/L Calcium (8.4-10.2) mg/dl Total Bilirubin (0.2-1.0) mg/dL AST (10-42) IU/L ALT (10-60) IU/L Alkaline Phosphatase (42-121) IU/L Troponin I (0.00-0.02) ng/ml C-Reactive Protein 3.3 H (0.0-1.3) mg/dL Total Protein (6.7-8.2) g/dl Albumin (3.2-5.5) g/dl Globulin Albumin/Globulin Ratio Urine Color Yellow (YELLOW) Urine Appearance Clear (CLEAR) Urine pH 6.0 (5.0-9.0) Ur Specific [place] 1.020 (1.005-1.030) Urine Protein Trace H (NEGATIVE) Urine Glucose (UA) Negative (NEGATIVE) Urine Ketones Negative (NEGATIVE) Urine Occult Blood Moderate H (NEGATIVE) Urine Nitrite Negative (NEGATIVE) Urine Bilirubin Negative (NEGATIVE) Urine Urobilinogen 1.0 (0.2-1.0) mg/dL Ur Leukocyte Esterase Negative (NEGATIVE) Urine RBC 5-10 H /HPF Urine WBC 0-5 (0-5/HPF) /HPF Ur Epithelial Cells Rare /HPF Urine Bacteria Few (0-FEW/HPF) /HPF Urine Mucus Few H /LPF Urine Opiates Screen (NEGATIVE) Ur Oxycodone Screen (NEGATIVE) Urine Methadone Screen (NEGATIVE) Ur Barbiturates Screen (NEGATIVE) U Tricyclic Antidepress (NEGATIVE) Ur Phencyclidine Scrn (NEGATIVE) Ur Amphetamine Screen (NEGATIVE) U Methamphetamines Scrn (NEGATIVE) Urine MDMA Screen (NEGATIVE) U Benzodiazepines Scrn (NEGATIVE) Urine Cocaine Screen (NEGATIVE) U Marijuana (THC) Screen (NEGATIVE) Ethyl Alcohol mg/dL 10/22/17 10/22/17 10/23/17 Range/Units 15:25 17:50 10:22 WBC 6.4 (5.0-10.0) 10^3/uL RBC 4.52 (4.2-5.4) 10^6/uL Hgb 13.3 D (12.0-16.0) g/dL Hct 38.6 (37.0-47.0) % MCV 85.4 (80-100) fL MCH 29.4 (27.0-34.0) pg MCHC 34.5 (33.0-35.0) g/dL Plt Count 125 L (150-450) 10^3/uL Neut % (Auto) 85.8 H (42.2-75.2) % Lymph % (Auto) 12.2 L (20.5-50.1) % [place] % (Auto) 2.0 (2-8) % Eos % (Auto) 0.0 L (1.0-3.0) % Baso % (Auto) 0.0 (0.0-1.0) % PT (9.0-12.0) SEC INR (0.9-1.2) APTT (22.0-34.0) SEC Sodium (135-145) mmol/L Potassium (3.6-5.0) mmol/L Chloride (101-111) mmol/L Carbon Dioxide (21.0-31.0) mmol/L Anion Gap BUN (7-18) mg/dL Creatinine (0.6-1.3) mg/dL Est Cr Clr Drug Dosing mL/min Estimated GFR (MDRD) BUN/Creatinine Ratio Glucose (74-105) mg/dL POC Glucose 114 H (70-105) mg/dl Lactic Acid (0.5-2.2) mmol/L Calcium (8.4-10.2) mg/dl Total Bilirubin (0.2-1.0) mg/dL AST (10-42) IU/L ALT (10-60) IU/L Alkaline Phosphatase (42-121) IU/L Troponin I (0.00-0.02) ng/ml C-Reactive Protein (0.0-1.3) mg/dL Total Protein (6.7-8.2) g/dl Albumin (3.2-5.5) g/dl Globulin Albumin/Globulin Ratio Urine Color (YELLOW) Urine Appearance (CLEAR) Urine pH (5.0-9.0) Ur Specific [place] (1.005-1.030) Urine Protein (NEGATIVE) Urine Glucose (UA) (NEGATIVE) Urine Ketones (NEGATIVE) Urine Occult Blood (NEGATIVE) Urine Nitrite (NEGATIVE) Urine Bilirubin (NEGATIVE) Urine Urobilinogen (0.2-1.0) mg/dL Ur Leukocyte Esterase (NEGATIVE) Urine RBC /HPF Urine WBC (0-5/HPF) /HPF Ur Epithelial Cells /HPF Urine Bacteria (0-FEW/HPF) /HPF Urine Mucus /LPF Urine Opiates Screen Negative (NEGATIVE) Ur Oxycodone Screen Positive H (NEGATIVE) Urine Methadone Screen Negative (NEGATIVE) Ur Barbiturates Screen Negative (NEGATIVE) U Tricyclic Antidepress Negative (NEGATIVE) Ur Phencyclidine Scrn Negative (NEGATIVE) Ur Amphetamine Screen Positive H (NEGATIVE) U Methamphetamines Scrn Positive H (NEGATIVE) Urine MDMA Screen Negative (NEGATIVE) U Benzodiazepines Scrn Negative (NEGATIVE) Urine Cocaine Screen Negative (NEGATIVE) U Marijuana (THC) Screen Negative (NEGATIVE) Ethyl Alcohol mg/dL 10/23/17 Range/Units 10:22 WBC (5.0-10.0) 10^3/uL RBC (4.2-5.4) 10^6/uL Hgb (12.0-16.0) g/dL Hct (37.0-47.0) % MCV (80-100) fL MCH (27.0-34.0) pg MCHC (33.0-35.0) g/dL Plt Count (150-450) 10^3/uL Neut % (Auto) (42.2-75.2) % Lymph % (Auto) (20.5-50.1) % [place] % (Auto) (2-8) % Eos % (Auto) (1.0-3.0) % Baso % (Auto) (0.0-1.0) % PT (9.0-12.0) SEC INR (0.9-1.2) APTT (22.0-34.0) SEC Sodium 136 (135-145) mmol/L Potassium 3.4 L (3.6-5.0) mmol/L Chloride 111 (101-111) mmol/L Carbon Dioxide 18.0 L (21.0-31.0) mmol/L Anion Gap 10.4 BUN 14 (7-18) mg/dL Creatinine 0.6 (0.6-1.3) mg/dL Est Cr Clr Drug Dosing 107.87 mL/min Estimated GFR (MDRD) > 60 BUN/Creatinine Ratio Glucose 193 H (74-105) mg/dL POC Glucose (70-105) mg/dl Lactic Acid (0.5-2.2) mmol/L Calcium 7.9 L (8.4-10.2) mg/dl Total Bilirubin (0.2-1.0) mg/dL AST (10-42) IU/L ALT (10-60) IU/L Alkaline Phosphatase (42-121) IU/L Troponin I (0.00-0.02) ng/ml C-Reactive Protein (0.0-1.3) mg/dL Total Protein (6.7-8.2) g/dl Albumin (3.2-5.5) g/dl Globulin Albumin/Globulin Ratio Urine Color (YELLOW) Urine Appearance (CLEAR) Urine pH (5.0-9.0) Ur Specific [place] (1.005-1.030) Urine Protein (NEGATIVE) Urine Glucose (UA) (NEGATIVE) Urine Ketones (NEGATIVE) Urine Occult Blood (NEGATIVE) Urine Nitrite (NEGATIVE) Urine Bilirubin (NEGATIVE) Urine Urobilinogen (0.2-1.0) mg/dL Ur Leukocyte Esterase (NEGATIVE) Urine RBC /HPF Urine WBC (0-5/HPF) /HPF Ur Epithelial Cells /HPF Urine Bacteria (0-FEW/HPF) /HPF Urine Mucus /LPF Urine Opiates Screen (NEGATIVE) Ur Oxycodone Screen (NEGATIVE) Urine Methadone Screen (NEGATIVE) Ur Barbiturates Screen (NEGATIVE) U Tricyclic Antidepress (NEGATIVE) Ur Phencyclidine Scrn (NEGATIVE) Ur Amphetamine Screen (NEGATIVE) U Methamphetamines Scrn (NEGATIVE) Urine MDMA Screen (NEGATIVE) U Benzodiazepines Scrn (NEGATIVE) Urine Cocaine Screen (NEGATIVE) U Marijuana (THC) Screen (NEGATIVE) Ethyl Alcohol mg/dL BOLIVAR Results - Last 24 hrs: Microbiology 10/22/17 16:10 Influenza Type A Antigen Screen - Final Nasal, Unspecified NEGATIVE INFLUENZA A VIRUS AG Influenza Type B Antigen Screen - Final NEGATIVE INFLUENZA B VIRUS AG 10/22/17 16:00 Group A Streptococcus Rapid Screen - Final Throat NEGATIVE STREP A SCREEN 10/22/17 15:04 Anaerobic Blood Culture - Final Blood - Venous Med Orders - Current: Current Medications Acetaminophen (Tylenol) 650 mg PO Q4H PRN PRN Reason: Pain (Mild 1-3)/fever Last Admin: 10/23/17 09:04 Dose: 650 mg Heparin Sodium (Porcine) (Heparin Sodium) 5,000 units SUBCUT Q8HR TERRI Last Admin: 10/23/17 05:38 Dose: 5,000 units Hydrocortisone Sodium Succinate (Solu-Cortef) 100 mg IVPUSH Q6H TERRI Last Admin: 10/23/17 10:45 Dose: 100 mg Levofloxacin/Dextrose 750 mg/ (Premix) 150 mls @ 100 mls/hr IV Q24H TERRI Potassium Chloride/Sodium Chloride (Normal Saline With 20 Meq Kcl) 1,000 mls @ 100 mls/hr IV ASDIRECTED TERRI Last Admin: 10/23/17 11:32 Dose: 100 mls/hr Levothyroxine Sodium (Levothyroxine) 125 mcg PO ACBREAKFAST TERRI Last Admin: 10/23/17 05:38 Dose: 125 mcg Ondansetron HCl (Zofran) 4 mg IVPUSH Q6H PRN PRN Reason: Nausea/Vomiting Sodium Chloride (Saline Flush) 10 ml FLUSH ASDIRECTED PRN PRN Reason: Keep Vein Open Last Admin: 10/22/17 15:55 Dose: 10 ml Sodium Chloride (Saline Flush) 10 ml FLUSH ASDIRECTED PRN PRN Reason: Keep Vein Open Last Admin: 10/22/17 15:56 Dose: 10 ml Discontinued Medications Acetaminophen (Tylenol) 650 mg RECTAL NOW STA Stop: 10/22/17 14:39 Last Admin: 10/22/17 15:00 Dose: 650 mg Dexamethasone (Dexamethasone) 4 mg IM ONETIME ONE Stop: 10/22/17 14:39 Last Admin: 10/22/17 15:03 Dose: 4 mg Hydrocortisone Sodium Succinate (Solu-Cortef) 100 mg IVPUSH ONETIME ONE Stop: 10/22/17 17:21 Last Admin: 10/22/17 17:29 Dose: 100 mg Sodium Chloride (Normal Saline) 1,000 mls @ 999 mls/hr IV .BOLUS ONE Stop: 10/22/17 15:41 Last Admin: 10/22/17 15:05 Dose: 999 mls/hr Levofloxacin/Dextrose 750 mg/ (Premix) 150 mls @ 100 mls/hr IV ONETIME ONE Stop: 10/22/17 16:45 Last Admin: 10/22/17 16:06 Dose: 100 mls/hr Sodium Chloride (Normal Saline) 1,000 mls @ 999 mls/hr IV .BOLUS ONE Stop: 10/22/17 16:16 Last Admin: 10/22/17 15:55 Dose: 999 mls/hr Norepinephrine Bitartrate 4 mg (/ Dextrose/Water) 250 mls @ 30 mls/hr IV TITRATE TERRI; Protocol Sodium Chloride (Normal Saline) 1,000 mls @ 999 mls/hr IV .BOLUS ONE Stop: 10/22/17 18:19 Last Admin: 10/22/17 17:30 Dose: 999 mls/hr Potassium Chloride/Dextrose/Sod Cl (D5 Ns With 20 Meq Kcl) 1,000 mls @ 100 mls/ hr IV ASDIRECTED TERRI Last Infusion: 10/23/17 06:24 Dose: 100 mls/hr Potassium Chloride 10 meq/ (Premix) 100 mls @ 50 mls/hr IV Q2H TERRI Stop: 10/23/17 04:14 Last Admin: 10/23/17 04:27 Dose: 50 mls/hr Potassium Chloride (Klor-Con 10) 40 meq PO ONETIME ONE Stop: 10/23/17 10:58 Last Admin: 10/23/17 11:32 Dose: 40 meq - Exam General: Reports: Alert, Oriented, No Acute Distress Neurological: Reports: Normal Speech Psy/Mental Status: Reports: Alert, Normal Affect, Normal Mood. Denies: Agitated , Suicidal Ideation, Homicidal Ideation
[2017-10-23] MEDS ORDERED: Levofloxacin/Dextrose 5%-Water 750 MG in Premix Bag 1 BAG IV SCH (15:00)
--- NOTE | 2017-10-25 14:13 | EKG ---
10/22/2017- NELLI VAZQUEZ - FINDINGS: EKG per my reading, shows sinus tachycardia at the rate of 110, 120. [facility] /[id number]
== END 2017-10-23 16:07 | disposition left against medical advice (07) | DRG 917 ==
LOC: DL.ED 14:19 → UNDOADMIN 17:53 → DL.MS 17:53
PROVIDERS: ADMIT Internal Medicine; ATTEND Internal Medicine
DX: R41.82 Altered mental status, unspecified (principal); T43.621A Poisoning by amphetamines, accidental (unintentional), initial encounter; G92 Toxic encephalopathy; R65.10 Systemic inflammatory response syndrome (SIRS) of non-infectious origin without acute organ dysfunction; E27.1 Primary adrenocortical insufficiency; R11.10 Vomiting, unspecified; E27.2 Addisonian crisis; E86.0 Dehydration; H54.7 Unspecified visual loss; I49.9 Cardiac arrhythmia, unspecified; J44.9 Chronic obstructive pulmonary disease, unspecified; K29.70 Gastritis, unspecified, without bleeding; R32 Unspecified urinary incontinence; G89.29 Other chronic pain; M54.9 Dorsalgia, unspecified; F41.9 Anxiety disorder, unspecified; E11.9 Type 2 diabetes mellitus without complications; E03.9 Hypothyroidism, unspecified; D64.9 Anemia, unspecified; L30.9 Dermatitis, unspecified; F17.200 Nicotine dependence, unspecified, uncomplicated; Z88.0 Allergy status to penicillin; Z90.49 Acquired absence of other specified parts of digestive tract; I95.9 Hypotension, unspecified; R50.9 Fever, unspecified; R00.0 Tachycardia, unspecified; F15.10 Other stimulant abuse, uncomplicated; Z98.891 History of uterine scar from previous surgery; Z79.899 Other long term (current) drug therapy; E87.6 Hypokalemia; Z91.19 Patient's noncompliance with other medical treatment and regimen; Z28.21 Immunization not carried out because of patient refusal
CPT/HCPCS: 36415; 71045; 80048; 80053; 80305; 81001; 82962; 83605; 84484; 85025; 85610; 85730; 86140; 87040; 87081; 87430; 87804; 93005; 93010; 96361; 96365; 96372; 96375; 99285; A9270-GY; G0480; J1100; J1644; J1720; J1956; J3480; J7030; J7050

== ENCOUNTER 2017-11-05 15:17 | Emergency (ER) | payer MEDICAID, OTHER ==
[2017-11-05 16:05] LABS: CHLORIDE,CL 104 mmol/L (101-111); SODIUM,NA 135 mmol/L (135-145)
[2017-11-05] MEDS ORDERED: Ketorolac 30 MG/ML SDV IVPUSH ONE (17:02)
[2017-11-05] MEDS ORDERED: Acetaminophen 325 MG Tab PO ONE ×2 (17:02→20:48)
[2017-11-05] MEDS ORDERED: Ketorolac 30 MG/ML SDV IM ONE (17:42)
[2017-11-05] MEDS ORDERED: Iopamidol 612 MG/ML 75 ML Bottle IVPUSH ONE (18:48)
[2017-11-05] MEDS ORDERED: Morphine 2 MG/ML Syringe IVPUSH ONE (20:41)
[2017-11-05] MEDS ORDERED: Ondansetron 4 MG/2 ML SDV IV ONE (20:41)
[2017-11-05 21:03] VITALS: BP 93/59
--- NOTE | 2017-11-13 01:39 | EDM.PDOC ---
Scribed by Ann Patiño 11/05/17 8940 for Salome Simon PA-C <Jake Grewal - Last Filed: 11/05/17 20:46> ED HPI GENERAL MEDICAL PROBLEM - General Chief Complaint: Fever Stated Complaint: by ambulance Time Seen by Provider: 11/05/17 15:35 - Related Data Allergies Allergy/AdvReac Type Severity Reaction Status Date / Time Penicillins Allergy Hives Verified 11/05/17 15:29 Home Meds: Home Meds Sertraline [Zoloft] 50 mg PO BEDTIME 02/25/17 [History] Nicotine [NTS] 1 each TD DAILY #10 patch.td24 07/23/17 [Rx] Magnesium Oxide 400 mg PO BID 08/08/17 [History] Fludrocortisone [Florinef] 0.1 mg PO WITHBREAKFAST #30 tablet 10/23/17 [Rx] Hydrocortisone [Cortef] 20 mg PO BID #60 tablet 10/23/17 [Rx] Levothyroxine 125 mcg PO ACBREAKFAST #30 tablet 10/23/17 [Rx] ED ROS GENERAL - Review of Systems Review Of Systems: See Below ED EXAM, SEPSIS - Physical Exam Exam: See Below Course - Vital Signs Last Recorded V/S: Last Vital Signs Temp 100.1 F 11/05/17 21:02 Pulse 85 11/05/17 21:02 Resp 21 H 11/05/17 21:02 BP 93/59 L 11/05/17 21:02 Pulse Ox 99 11/05/17 21:02 - Orders/Labs/Meds Labs: Laboratory Tests 11/05/17 11/05/17 11/05/17 Range/Units 15:32 15:32 15:32 WBC 7.9 (5.0-10.0) 10^3/uL RBC 4.51 (4.2-5.4) 10^6/uL Hgb 13.3 (12.0-16.0) g/dL Hct 40.1 (37.0-47.0) % MCV 88.9 D (80-100) fL MCH 29.5 (27.0-34.0) pg MCHC 33.2 (33.0-35.0) g/dL Plt Count 180 (150-450) 10^3/uL Neut % (Auto) 51.0 (42.2-75.2) % Lymph % (Auto) 35.5 (20.5-50.1) % [place] % (Auto) 11.6 H (2-8) % Eos % (Auto) 1.6 (1.0-3.0) % Baso % (Auto) 0.3 (0.0-1.0) % Sodium 135 (135-145) mmol/L Potassium 3.5 L (3.6-5.0) mmol/L Chloride 104 (101-111) mmol/L Carbon Dioxide 27.0 (21.0-31.0) mmol/L Anion Gap 7.5 BUN 13 (7-18) mg/dL Creatinine 0.6 (0.6-1.3) mg/dL Est Cr Clr Drug Dosing 83.70 mL/min Estimated GFR (MDRD) > 60 BUN/Creatinine Ratio 21.66 Glucose 79 (74-105) mg/dL POC Glucose (70-105) mg/dl Lactic Acid 0.9 (0.5-2.2) mmol/L Calcium 8.8 (8.4-10.2) mg/dl Total Bilirubin 0.8 (0.2-1.0) mg/dL AST 59 H (10-42) IU/L ALT 91 H (10-60) IU/L Alkaline Phosphatase 66 (42-121) IU/L Total Protein 7.7 (6.7-8.2) g/dl Albumin 3.5 (3.2-5.5) g/dl Globulin 4.2 Albumin/Globulin Ratio 0.83 TSH, Ultra Sensitive (0.45-5.33) uIu/mL Urine Color (YELLOW) Urine Appearance (CLEAR) Urine pH (5.0-9.0) Ur Specific [place] (1.005-1.030) Urine Protein (NEGATIVE) Urine Glucose (UA) (NEGATIVE) Urine Ketones (NEGATIVE) Urine Occult Blood (NEGATIVE) Urine Nitrite (NEGATIVE) Urine Bilirubin (NEGATIVE) Urine Urobilinogen (0.2-1.0) mg/dL Ur Leukocyte Esterase (NEGATIVE) Urine RBC /HPF Urine WBC (0-5/HPF) /HPF Ur Epithelial Cells /HPF Urine Bacteria (0-FEW/HPF) /HPF Urine Mucus /LPF Urine Opiates Screen (NEGATIVE) Ur Oxycodone Screen (NEGATIVE) Urine Methadone Screen (NEGATIVE) Ur Barbiturates Screen (NEGATIVE) U Tricyclic Antidepress (NEGATIVE) Ur Phencyclidine Scrn (NEGATIVE) Ur Amphetamine Screen (NEGATIVE) U Methamphetamines Scrn (NEGATIVE) Urine MDMA Screen (NEGATIVE) U Benzodiazepines Scrn (NEGATIVE) Urine Cocaine Screen (NEGATIVE) U Marijuana (THC) Screen (NEGATIVE) 11/05/17 11/05/17 11/05/17 Range/Units 15:32 15:38 19:00 WBC (5.0-10.0) 10^3/uL RBC (4.2-5.4) 10^6/uL Hgb (12.0-16.0) g/dL Hct (37.0-47.0) % MCV (80-100) fL MCH (27.0-34.0) pg MCHC (33.0-35.0) g/dL Plt Count (150-450) 10^3/uL Neut % (Auto) (42.2-75.2) % Lymph % (Auto) (20.5-50.1) % [place] % (Auto) (2-8) % Eos % (Auto) (1.0-3.0) % Baso % (Auto) (0.0-1.0) % Sodium (135-145) mmol/L Potassium (3.6-5.0) mmol/L Chloride (101-111) mmol/L Carbon Dioxide (21.0-31.0) mmol/L Anion Gap BUN (7-18) mg/dL Creatinine (0.6-1.3) mg/dL Est Cr Clr Drug Dosing mL/min Estimated GFR (MDRD) BUN/Creatinine Ratio Glucose (74-105) mg/dL POC Glucose 74 (70-105) mg/dl Lactic Acid (0.5-2.2) mmol/L Calcium (8.4-10.2) mg/dl Total Bilirubin (0.2-1.0) mg/dL AST (10-42) IU/L ALT (10-60) IU/L Alkaline Phosphatase (42-121) IU/L Total Protein (6.7-8.2) g/dl Albumin (3.2-5.5) g/dl Globulin Albumin/Globulin Ratio TSH, Ultra Sensitive 8.43 H (0.45-5.33) uIu/mL Urine Color Yellow (YELLOW) Urine Appearance Slightly cloudy (CLEAR) Urine pH 5.5 (5.0-9.0) Ur Specific [place] 1.020 (1.005-1.030) Urine Protein Negative (NEGATIVE) Urine Glucose (UA) Negative (NEGATIVE) Urine Ketones Negative (NEGATIVE) Urine Occult Blood Small H (NEGATIVE) Urine Nitrite Negative (NEGATIVE) Urine Bilirubin Negative (NEGATIVE) Urine Urobilinogen 0.2 (0.2-1.0) mg/dL Ur Leukocyte Esterase Negative (NEGATIVE) Urine RBC 0-5 /HPF Urine WBC 0-5 (0-5/HPF) /HPF Ur Epithelial Cells Occasional /HPF Urine Bacteria Few (0-FEW/HPF) /HPF Urine Mucus Moderate H /LPF Urine Opiates Screen (NEGATIVE) Ur Oxycodone Screen (NEGATIVE) Urine Methadone Screen (NEGATIVE) Ur Barbiturates Screen (NEGATIVE) U Tricyclic Antidepress (NEGATIVE) Ur Phencyclidine Scrn (NEGATIVE) Ur Amphetamine Screen (NEGATIVE) U Methamphetamines Scrn (NEGATIVE) Urine MDMA Screen (NEGATIVE) U Benzodiazepines Scrn (NEGATIVE) Urine Cocaine Screen (NEGATIVE) U Marijuana (THC) Screen (NEGATIVE) 11/05/17 Range/Units 19:00 WBC (5.0-10.0) 10^3/uL RBC (4.2-5.4) 10^6/uL Hgb (12.0-16.0) g/dL Hct (37.0-47.0) % MCV (80-100) fL MCH (27.0-34.0) pg MCHC (33.0-35.0) g/dL Plt Count (150-450) 10^3/uL Neut % (Auto) (42.2-75.2) % Lymph % (Auto) (20.5-50.1) % [place] % (Auto) (2-8) % Eos % (Auto) (1.0-3.0) % Baso % (Auto) (0.0-1.0) % Sodium (135-145) mmol/L Potassium (3.6-5.0) mmol/L Chloride (101-111) mmol/L Carbon Dioxide (21.0-31.0) mmol/L Anion Gap BUN (7-18) mg/dL Creatinine (0.6-1.3) mg/dL Est Cr Clr Drug Dosing mL/min Estimated GFR (MDRD) BUN/Creatinine Ratio Glucose (74-105) mg/dL POC Glucose (70-105) mg/dl Lactic Acid (0.5-2.2) mmol/L Calcium (8.4-10.2) mg/dl Total Bilirubin (0.2-1.0) mg/dL AST (10-42) IU/L ALT (10-60) IU/L Alkaline Phosphatase (42-121) IU/L Total Protein (6.7-8.2) g/dl Albumin (3.2-5.5) g/dl Globulin Albumin/Globulin Ratio TSH, Ultra Sensitive (0.45-5.33) uIu/mL Urine Color (YELLOW) Urine Appearance (CLEAR) Urine pH (5.0-9.0) Ur Specific [place] (1.005-1.030) Urine Protein (NEGATIVE) Urine Glucose (UA) (NEGATIVE) Urine Ketones (NEGATIVE) Urine Occult Blood (NEGATIVE) Urine Nitrite (NEGATIVE) Urine Bilirubin (NEGATIVE) Urine Urobilinogen (0.2-1.0) mg/dL Ur Leukocyte Esterase (NEGATIVE) Urine RBC /HPF Urine WBC (0-5/HPF) /HPF Ur Epithelial Cells /HPF Urine Bacteria (0-FEW/HPF) /HPF Urine Mucus /LPF Urine Opiates Screen Negative (NEGATIVE) Ur Oxycodone Screen Negative (NEGATIVE) Urine Methadone Screen Negative (NEGATIVE) Ur Barbiturates Screen Negative (NEGATIVE) U Tricyclic Antidepress Negative (NEGATIVE) Ur Phencyclidine Scrn Negative (NEGATIVE) Ur Amphetamine Screen Negative (NEGATIVE) U Methamphetamines Scrn Negative (NEGATIVE) Urine MDMA Screen Negative (NEGATIVE) U Benzodiazepines Scrn Negative (NEGATIVE) Urine Cocaine Screen Negative (NEGATIVE) U Marijuana (THC) Screen Negative (NEGATIVE) Meds: Medications Discontinued Medications Generic Name Dose Route Start Last Admin Trade Name Freq PRN Reason Stop Dose Admin Acetaminophen 650 mg 11/05/17 17:02 Tylenol PO 11/05/17 17:03 NOW ONE Acetaminophen 325 mg 11/05/17 20:48 11/05/17 20:57 Tylenol PO 11/05/17 20:49 325 mg NOW ONE Administration Iopamidol 75 ml 11/05/17 18:48 11/05/17 19:11 Isovue-300 (61%) IVPUSH 11/05/17 18:49 75 ml ONETIME ONE Administration Ketorolac Tromethamine 30 mg 11/05/17 17:02 Toradol IVPUSH 11/05/17 17:03 ONETIME ONE Ketorolac Tromethamine 30 mg 11/05/17 17:42 11/05/17 17:43 Toradol IM 11/05/17 17:43 30 mg ONETIME ONE Administration Morphine Sulfate 2 mg 11/05/17 20:41 11/05/17 20:58 Morphine IVPUSH 11/05/17 20:42 2 mg ONETIME ONE Administration Ondansetron HCl 4 mg 11/05/17 20:41 11/05/17 20:58 Zofran IV 11/05/17 20:42 4 mg ONETIME ONE Administration - Re-Assessments/Exams Free Text/Narrative Re-Assessment/Exam: 11/05/17 20:[address] Treviño @ who kindly accepted pt. 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 She was at clinic this week for the same and told to follow up if not improving.Fever at home per EMS. She took Tylenol earlier and didn't help. Onset: Gradual Duration: Getting Worse Location: Reports: Neck Quality: Reports: Ache Severity: Severe Improves with: Reports: None Worsens with: Reports: None Associated Symptoms: Reports: No Other Symptoms Right Neck Pain Score (Numeric/FACES): 10 Past Medical History HEENT History: Reports: Cataract, Impaired Vision Cardiovascular History: Reports: Arrhythmia Respiratory History: Reports: COPD, SOB Gastrointestinal History: Reports: Gastritis Other Gastrointestinal History: Here because of vomiting. Genitourinary History: Reports: Urinary Incontinence Other Genitourinary History: Became incontinent of urine two weeks ago. CHILD PSYCHIATRIST History: Reports: , Other (See Below) Other OB/BYN History: c-sect Musculoskeletal History: Reports: Back Pain, Chronic Neurological History: Reports: Other (See Below) Other Neuro History: forgetful at times Psychiatric History: Reports: Anxiety, Hallucinations Other Psychiatric History: family states has had at home Endocrine/Metabolic History: Reports: [place]'s Disease, Diabetes, Type II, Hypothyroidism Hematologic History: Reports: Anemia Dermatologic History: Reports: Eczema Other Dermatologic History: bilateral arms - Infectious Disease History Infectious Disease History: Reports: Other (See Below) Other Infectious Disease History: pt unsure of ID history - Past Surgical History GI Surgical History: Reports: Appendectomy, Cholecystectomy, Colonoscopy Female Surgical History: Reports: Section Social & Family History - Family History Family Medical History: Noncontributory - Caffeine Use Caffeine Use: Reports: Coffee, Soda - Living Situation & Occupation Living situation: Reports: Single, with Family Occupation: Disabled ED ROS GENERAL - Review of Systems Review Of Systems: ROS reveals no pertinent complaints other than HPI. ED EXAM, SEPSIS - Physical Exam Exam: See Below Exam Limited By: No Limitations General Appearance: Other (crying and dark tone to skin.) Ears: Normal External Exam Nose: Normal Inspection Throat/Mouth: Normal Inspection Neck: Other (swelling tender lateral right.) Respiratory/Chest: Lungs Clear Cardiovascular: Regular Rate, Rhythm GI/Abdominal Exam: Other (bowel sounds x4. Soft. ) Extremities: Normal Range of Motion Neurological: Alert Psychiatric: Anxious, Tearful, Other (crying. Easily distracted.) Skin: Other (opendime sized right cheek clean without drainage.) Course - Vital Signs Last Recorded V/S: Last Vital Signs Temp 100.1 F 11/05/17 21:02 Pulse 85 11/05/17 21:02 Resp 21 H 11/05/17 21:02 BP 93/59 L 11/05/17 21:02 Pulse Ox 99 11/05/17 21:02 - Orders/Labs/Meds Labs: Laboratory Tests 11/05/17 11/05/17 11/05/17 Range/Units 15:32 15:32 15:32 WBC 7.9 (5.0-10.0) 10^3/uL RBC 4.51 (4.2-5.4) 10^6/uL Hgb 13.3 (12.0-16.0) g/dL Hct 40.1 (37.0-47.0) % MCV 88.9 D (80-100) fL MCH 29.5 (27.0-34.0) pg MCHC 33.2 (33.0-35.0) g/dL Plt Count 180 (150-450) 10^3/uL Neut % (Auto) 51.0 (42.2-75.2) % Lymph % (Auto) 35.5 (20.5-50.1) % [place] % (Auto) 11.6 H (2-8) % Eos % (Auto) 1.6 (1.0-3.0) % Baso % (Auto) 0.3 (0.0-1.0) % Sodium 135 (135-145) mmol/L Potassium 3.5 L (3.6-5.0) mmol/L Chloride 104 (101-111) mmol/L Carbon Dioxide 27.0 (21.0-31.0) mmol/L Anion Gap 7.5 BUN 13 (7-18) mg/dL Creatinine 0.6 (0.6-1.3) mg/dL Est Cr Clr Drug Dosing 83.70 mL/min Estimated GFR (MDRD) > 60 BUN/Creatinine Ratio 21.66 Glucose 79 (74-105) mg/dL POC Glucose (70-105) mg/dl Lactic Acid 0.9 (0.5-2.2) mmol/L Calcium 8.8 (8.4-10.2) mg/dl Total Bilirubin 0.8 (0.2-1.0) mg/dL AST 59 H (10-42) IU/L ALT 91 H (10-60) IU/L Alkaline Phosphatase 66 (42-121) IU/L Total Protein 7.7 (6.7-8.2) g/dl Albumin 3.5 (3.2-5.5) g/dl Globulin 4.2 Albumin/Globulin Ratio 0.83 TSH, Ultra Sensitive (0.45-5.33) uIu/mL Urine Color (YELLOW) Urine Appearance (CLEAR) Urine pH (5.0-9.0) Ur Specific [place] (1.005-1.030) Urine Protein (NEGATIVE) Urine Glucose (UA) (NEGATIVE) Urine Ketones (NEGATIVE) Urine Occult Blood (NEGATIVE) Urine Nitrite (NEGATIVE) Urine Bilirubin (NEGATIVE) Urine Urobilinogen (0.2-1.0) mg/dL Ur Leukocyte Esterase (NEGATIVE) Urine RBC /HPF Urine WBC (0-5/HPF) /HPF Ur Epithelial Cells /HPF Urine Bacteria (0-FEW/HPF) /HPF Urine Mucus /LPF Urine Opiates Screen (NEGATIVE) Ur Oxycodone Screen (NEGATIVE) Urine Methadone Screen (NEGATIVE) Ur Barbiturates Screen (NEGATIVE) U Tricyclic Antidepress (NEGATIVE) Ur Phencyclidine Scrn (NEGATIVE) Ur Amphetamine Screen (NEGATIVE) U Methamphetamines Scrn (NEGATIVE) Urine MDMA Screen (NEGATIVE) U Benzodiazepines Scrn (NEGATIVE) Urine Cocaine Screen (NEGATIVE) U Marijuana (THC) Screen (NEGATIVE) 11/05/17 11/05/17 11/05/17 Range/Units 15:32 15:38 19:00 WBC (5.0-10.0) 10^3/uL RBC (4.2-5.4) 10^6/uL Hgb (12.0-16.0) g/dL Hct (37.0-47.0) % MCV (80-100) fL MCH (27.0-34.0) pg MCHC (33.0-35.0) g/dL Plt Count (150-450) 10^3/uL Neut % (Auto) (42.2-75.2) % Lymph % (Auto) (20.5-50.1) % [place] % (Auto) (2-8) % Eos % (Auto) (1.0-3.0) % Baso % (Auto) (0.0-1.0) % Sodium (135-145) mmol/L Potassium (3.6-5.0) mmol/L Chloride (101-111) mmol/L Carbon Dioxide (21.0-31.0) mmol/L Anion Gap BUN (7-18) mg/dL Creatinine (0.6-1.3) mg/dL Est Cr Clr Drug Dosing mL/min Estimated GFR (MDRD) BUN/Creatinine Ratio Glucose (74-105) mg/dL POC Glucose 74 (70-105) mg/dl Lactic Acid (0.5-2.2) mmol/L Calcium (8.4-10.2) mg/dl Total Bilirubin (0.2-1.0) mg/dL AST (10-42) IU/L ALT (10-60) IU/L Alkaline Phosphatase (42-121) IU/L Total Protein (6.7-8.2) g/dl Albumin (3.2-5.5) g/dl Globulin Albumin/Globulin Ratio TSH, Ultra Sensitive 8.43 H (0.45-5.33) uIu/mL Urine Color Yellow (YELLOW) Urine Appearance Slightly cloudy (CLEAR) Urine pH 5.5 (5.0-9.0) Ur Specific [place] 1.020 (1.005-1.030) Urine Protein Negative (NEGATIVE) Urine Glucose (UA) Negative (NEGATIVE) Urine Ketones Negative (NEGATIVE) Urine Occult Blood Small H (NEGATIVE) Urine Nitrite Negative (NEGATIVE) Urine Bilirubin Negative (NEGATIVE) Urine Urobilinogen 0.2 (0.2-1.0) mg/dL Ur Leukocyte Esterase Negative (NEGATIVE) Urine RBC 0-5 /HPF Urine WBC 0-5 (0-5/HPF) /HPF Ur Epithelial Cells Occasional /HPF Urine Bacteria Few (0-FEW/HPF) /HPF Urine Mucus Moderate H /LPF Urine Opiates Screen (NEGATIVE) Ur Oxycodone Screen (NEGATIVE) Urine Methadone Screen (NEGATIVE) Ur Barbiturates Screen (NEGATIVE) U Tricyclic Antidepress (NEGATIVE) Ur Phencyclidine Scrn (NEGATIVE) Ur Amphetamine Screen (NEGATIVE) U Methamphetamines Scrn (NEGATIVE) Urine MDMA Screen (NEGATIVE) U Benzodiazepines Scrn (NEGATIVE) Urine Cocaine Screen (NEGATIVE) U Marijuana (THC) Screen (NEGATIVE) 11/05/17 Range/Units 19:00 WBC (5.0-10.0) 10^3/uL RBC (4.2-5.4) 10^6/uL Hgb (12.0-16.0) g/dL Hct (37.0-47.0) % MCV (80-100) fL MCH (27.0-34.0) pg MCHC (33.0-35.0) g/dL Plt Count (150-450) 10^3/uL Neut % (Auto) (42.2-75.2) % Lymph % (Auto) (20.5-50.1) % [place] % (Auto) (2-8) % Eos % (Auto) (1.0-3.0) % Baso % (Auto) (0.0-1.0) % Sodium (135-145) mmol/L Potassium (3.6-5.0) mmol/L Chloride (101-111) mmol/L Carbon Dioxide (21.0-31.0) mmol/L Anion Gap BUN (7-18) mg/dL Creatinine (0.6-1.3) mg/dL Est Cr Clr Drug Dosing mL/min Estimated GFR (MDRD) BUN/Creatinine Ratio Glucose (74-105) mg/dL POC Glucose (70-105) mg/dl Lactic Acid (0.5-2.2) mmol/L Calcium (8.4-10.2) mg/dl Total Bilirubin (0.2-1.0) mg/dL AST (10-42) IU/L ALT (10-60) IU/L Alkaline Phosphatase (42-121) IU/L Total Protein (6.7-8.2) g/dl Albumin (3.2-5.5) g/dl Globulin Albumin/Globulin Ratio TSH, Ultra Sensitive (0.45-5.33) uIu/mL Urine Color (YELLOW) Urine Appearance (CLEAR) Urine pH (5.0-9.0) Ur Specific [place] (1.005-1.030) Urine Protein (NEGATIVE) Urine Glucose (UA) (NEGATIVE) Urine Ketones (NEGATIVE) Urine Occult Blood (NEGATIVE) Urine Nitrite (NEGATIVE) Urine Bilirubin (NEGATIVE) Urine Urobilinogen (0.2-1.0) mg/dL Ur Leukocyte Esterase (NEGATIVE) Urine RBC /HPF Urine WBC (0-5/HPF) /HPF Ur Epithelial Cells /HPF Urine Bacteria (0-FEW/HPF) /HPF Urine Mucus /LPF Urine Opiates Screen Negative (NEGATIVE) Ur Oxycodone Screen Negative (NEGATIVE) Urine Methadone Screen Negative (NEGATIVE) Ur Barbiturates Screen Negative (NEGATIVE) U Tricyclic Antidepress Negative (NEGATIVE) Ur Phencyclidine Scrn Negative (NEGATIVE) Ur Amphetamine Screen Negative (NEGATIVE) U Methamphetamines Scrn Negative (NEGATIVE) Urine MDMA Screen Negative (NEGATIVE) U Benzodiazepines Scrn Negative (NEGATIVE) Urine Cocaine Screen Negative (NEGATIVE) U Marijuana (THC) Screen Negative (NEGATIVE) Meds: Medications Discontinued Medications Generic Name Dose Route Start Last Admin Trade Name Freq PRN Reason Stop Dose Admin Acetaminophen 650 mg 11/05/17 17:02 Tylenol PO 05/19/18 17:03 NOW ONE Acetaminophen 325 mg 05/19/18 20:48 11/05/17 20:57 Tylenol PO 11/05/17 20:49 325 mg NOW ONE Administration Iopamidol 75 ml 11/05/17 18:48 11/05/17 19:11 Isovue-300 (61%) IVPUSH 11/05/17 18:49 75 ml ONETIME ONE Administration Ketorolac Tromethamine 30 mg 11/05/17 17:02 Toradol IVPUSH 11/05/17 17:03 ONETIME ONE Ketorolac Tromethamine 30 mg 11/05/17 17:42 11/05/17 17:43 Toradol IM 11/05/17 17:43 30 mg ONETIME ONE Administration Morphine Sulfate 2 mg 11/05/17 20:41 11/05/17 20:58 Morphine IVPUSH 11/05/17 20:42 2 mg ONETIME ONE Administration Ondansetron HCl 4 mg 11/05/17 20:41 11/05/17 20:58 Zofran IV 11/05/17 20:42 4 mg ONETIME ONE Administration Departure - Departure Time of Disposition: 18:23 I have read and agree with the documentation that has been completed regarding this visit. By signing this record, I attest that the documentation was completed in my physical presence and is an accurate record of the encounter.
== END 2017-11-05 21:17 ==
LOC: DL.ED 15:17
DX: E27.1 Primary adrenocortical insufficiency (principal); R59.0 Localized enlarged lymph nodes; J44.9 Chronic obstructive pulmonary disease, unspecified; Z88.0 Allergy status to penicillin; Z79.899 Other long term (current) drug therapy
CPT/HCPCS: 36415; 70491; 80053; 80305; 81001; 82962; 83605; 84443; 85025; 87040; 87081; 87430; 96372; 96374; 96375; 99285; A9270; J1885; J2270; J2405; Q9967

== ENCOUNTER 2018-10-22 13:32 | Emergency (ER) | payer MEDICAID, OTHER ==
[2018-10-22] MEDS ORDERED: Sodium Chloride 0.9% 10 ML Syringe FLUSH PRN (14:14)
[2018-10-22] MEDS ORDERED: 50% Dextrose in Water 50 ML Syringe IVPUSH ONE (14:16)
[2018-10-22] MEDS ORDERED: Dexamethasone 4 MG/ML SDV IM ONE (14:18)
[2018-10-22] MEDS ORDERED: Dextrose 5%-0.9% NaCl 1,000 ML IV SCH (14:30)
[2018-10-22] MEDS ORDERED: Sodium Chloride 0.9% 1,000 ML IV ONE (15:02)
[2018-10-22] MEDS ORDERED: HYDROmorphone 1 MG/ML Syringe IVPUSH ONE (15:02)
[2018-10-22 15:03] LABS: ANION GAP 17.1; CHLORIDE,CL 97 mmol/L (101-111); SODIUM,NA 128 mmol/L (135-145)
[2018-10-22] MEDS ORDERED: Ondansetron 4 MG/2 ML SDV IV ONE (15:03)
--- NOTE | 2018-10-22 16:17 | EDM.PDOC ---
Scribed by Ann Patiño 10/22/18 [id number] for Talat Menendez MD ED HPI GENERAL MEDICAL PROBLEM - General Chief Complaint: Diabetic Complaint Stated Complaint: [facility] Time Seen by Provider: 10/22/18 13:45 Source of Information: Reports: EMS, EMS Notes Reviewed, RN, RN Notes Reviewed History Limitations: Reports: Altered Mental Status - History of Present Illness INITIAL COMMENTS - FREE TEXT/NARRATIVE: Patient presents to the ER by [facility] with report that they were called out to a female with no pulse. Paramedics report finding pt with weak but palpable pulse, cool to touch, with swallow respirations and unresponsive. EMS was unable to obtain IV access. Pt known to me to have Addisons Disease, DM Type 2, chronic Methamphetamine abuse, and non-compliance with medications/medical care. Blood glucose on arrival in 20s. Pt unresponsive and unable to provide any history. No family present. Onset: Unknown/Unsure Severity: Severe - Related Data Allergies Allergy/AdvReac Type Severity Reaction Status Date / Time Penicillins Allergy Hives Verified 11/05/17 15:29 Home Meds: Home Meds Sertraline [Zoloft] 50 mg PO BEDTIME 02/25/17 [History] Nicotine [NTS] 1 each TD DAILY #10 patch.td24 07/23/17 [Rx] Magnesium Oxide 400 mg PO BID 08/08/17 [History] Fludrocortisone [Florinef] 0.1 mg PO WITHBREAKFAST #30 tablet 10/23/17 [Rx] Hydrocortisone [Cortef] 20 mg PO BID #60 tablet 10/23/17 [Rx] Levothyroxine 125 mcg PO ACBREAKFAST #30 tablet 10/23/17 [Rx] Past Medical History HEENT History: Reports: Cataract, Impaired Vision Cardiovascular History: Reports: Arrhythmia Respiratory History: Reports: COPD, SOB Gastrointestinal History: Reports: Gastritis Other Gastrointestinal History: Here because of vomiting. Genitourinary History: Reports: Urinary Incontinence Other Genitourinary History: Became incontinent of urine two weeks ago. 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, Diabetes, Type II, Hypothyroidism Hematologic History: Reports: Anemia Immunologic History: Reports: None Oncologic (Cancer) History: Reports: None Dermatologic History: Reports: Eczema Other Dermatologic History: bilateral arms - Infectious Disease History Infectious Disease History: Reports: Other (See Below) Other Infectious Disease History: pt unsure of ID history - Past Surgical History GI Surgical History: Reports: Appendectomy, Cholecystectomy, Colonoscopy Female Surgical History: Reports: Section Social & Family History - Family History Family Medical History: Noncontributory - Caffeine Use Caffeine Use: Reports: Coffee, Soda - Alcohol Use Alcohol Use Frequency: Patient Refused to Answer - Recreational Drug Use Recreational Drug Use: Yes Recreational Drug Type: Reports: Methamphetamine - Living Situation & Occupation Living situation: Reports: Single, with Family Occupation: Disabled ED ROS GENERAL - Review of Systems Review Of Systems: Unable To Obtain ED EXAM GENERAL NO PERIP PULSE - Physical Exam Exam: See Below Exam Limited By: Other (Unresponsive) General Appearance: Obtunded, Other (Chronically ill appearing, unresponsive) Nose: Normal Inspection Throat/Mouth: No Airway Compromise, Other (Dry cracked lips, very dry oral membranes, missing teeth) Head: Atraumatic, Normocephalic Neck: Normal Inspection, Supple, Non-Tender, Full Range of Motion Respiratory/Chest: No Respiratory Distress, No Accessory Muscle Use, Decreased Breath Sounds (diminished breath sounds in B/L lower lung witt), Crackles ( Course breath sounds), Prolonged Expiration Cardiovascular: Regular Rate, Rhythm, No Edema GI/Abdominal: Soft, No Distention, No Abnormal Bruit, No Mass, Pelvis Stable, Abnormal Bowel Sounds (Hypoactive bowel sounds. Old abdominal surgical scars.). No: Guarding, Rigid, Rebound (Female) Exam: Deferred Rectal (Female) Exam: Deferred Extremities: Normal Inspection, Normal Range of Motion, Non-Tender, No Pedal Edema, Slow Capillary Refill Neurological: Unresponsive (on arrival, blood glucose 20s), Other (Reassesment after Dextrose 50% IV x2 ampuls and Decadron 8mg IM pt became alert, combative, then eventually responsive and appropriately conversant after approx. 20 mins.) Skin Exam: Dry, Intact, Normal Color (Chronically bronze), Cool, Other (partial allopecia) EKG INTERPRETATION EKG Date: 10/22/18 Time: 14:58 Rhythm: Other (sinus rhythm) Rate (Beats/Min): 82 Ethel: Normal P-Wave: Present (with first degree AV block) QRS: Other (early prolonged R/S transision. Borderline low voltate in frontal leads.) ST-T: Other (borderline T abnormalities, anterior-lateral leads. Consider left atrial enlargement.) QT: Prolonged Comparison: No Change Course - Orders/Labs/Meds Orders: Active Orders 24 hr Category Date Time Status Blood Glucose Check, Bedside [RC] ONETIME Care 10/22/18 14:15 Active EKG 12 Lead [EKG Documentation Completion] [RC] STAT Care 10/22/18 14:14 Active Peripheral IV Care [RC] . DIRECTED Care 10/22/18 14:15 Active Chest 1V Frontal [CR] Stat Exams 10/22/18 14:14 Taken Dextrose 5%-0.9% NaCl [Dextrose 5%-Normal Saline] 1,000 Med 10/22/18 14:30 Active ml IV ASDIRECTED Sodium Chloride 0.9% [Normal Saline] 1,000 ml Med 10/22/18 15:02 Active IV .BOLUS Sodium Chloride 0.9% [Saline Flush] Med 10/22/18 14:14 Active 10 ml FLUSH ASDIRECTED PRN Peripheral IV Insertion Adult [OM.PC] Stat Oth 10/22/18 14:14 Ordered Medication Orders Dextrose/Sodium Chloride (Dextrose 5%-Normal Saline) 1,000 mls @ 999 mls/hr IV ASDIRECTED TERRI Last Admin: 10/22/18 14:15 Dose: 999 mls/hr Sodium Chloride (Normal Saline) 1,000 mls @ 999 mls/hr IV .BOLUS ONE Stop: 10/22/18 16:02 Last Admin: 10/22/18 15:13 Dose: 999 mls/hr Sodium Chloride (Saline Flush) 10 ml FLUSH ASDIRECTED PRN PRN Reason: Keep Vein Open Last Admin: 10/22/18 14:15 Dose: 10 ml Labs: Laboratory Tests 10/22/18 10/22/18 10/22/18 Range/Units 14:13 14:25 14:25 WBC (5.0-10.0) 10^3/uL RBC (4.2-5.4) 10^6/uL Hgb (12.0-16.0) g/dL Hct (37.0-47.0) % MCV (80-100) fL MCH (27.0-34.0) pg MCHC (33.0-35.0) g/dL Plt Count (150-450) 10^3/uL Neut % (Auto) (42.2-75.2) % Lymph % (Auto) (20.5-50.1) % Hubbard % (Auto) (2-8) % Eos % (Auto) (1.0-3.0) % Baso % (Auto) (0.0-1.0) % PT (9.0-12.0) SEC INR (0.9-1.2) APTT (22.0-34.0) SEC Sodium (135-145) mmol/L Potassium (3.6-5.0) mmol/L Chloride (101-111) mmol/L Carbon Dioxide (21.0-31.0) mmol/L Anion Gap BUN (7-18) mg/dL Creatinine (0.6-1.3) mg/dL Est Cr Clr Drug Dosing Estimated GFR (MDRD) BUN/Creatinine Ratio Glucose (74-105) mg/dL POC Glucose 391 H (70-105) mg/dl Lactic Acid (0.5-2.2) mmol/L Calcium (8.4-10.2) mg/dl Total Bilirubin (0.2-1.0) mg/dL AST (10-42) IU/L ALT (10-60) IU/L Alkaline Phosphatase (42-121) IU/L Troponin I (0.00-0.02) ng/ml Total Protein (6.7-8.2) g/dl Albumin (3.2-5.5) g/dl Globulin Albumin/Globulin Ratio TSH, Ultra Sensitive (0.45-5.33) uIu/mL Urine Color Yellow (YELLOW) Urine Appearance Clear (CLEAR) Urine pH 5.5 (5.0-9.0) Ur Specific [place] 1.025 (1.005-1.030) Urine Protein Negative (NEGATIVE) Urine Glucose (UA) 100 H (NEGATIVE) Urine Ketones 40 H (NEGATIVE) Urine Occult Blood Negative (NEGATIVE) Urine Nitrite Negative (NEGATIVE) Urine Bilirubin Small H (NEGATIVE) Urine Urobilinogen 2.0 H (0.2-1.0) mg/dL Ur Leukocyte Esterase Negative (NEGATIVE) Urine Opiates Screen Negative (NEGATIVE) Ur Oxycodone Screen Negative (NEGATIVE) Urine Methadone Screen Negative (NEGATIVE) Ur Barbiturates Screen Negative (NEGATIVE) U Tricyclic Antidepress Negative (NEGATIVE) Ur Phencyclidine Scrn Negative (NEGATIVE) Ur Amphetamine Screen Positive H (NEGATIVE) U Methamphetamines Scrn Positive H (NEGATIVE) Urine MDMA Screen Negative (NEGATIVE) U Benzodiazepines Scrn Negative (NEGATIVE) Urine Cocaine Screen Negative (NEGATIVE) U Marijuana (THC) Screen Negative (NEGATIVE) Ethyl Alcohol mg/dL 10/22/18 10/22/18 10/22/18 Range/Units 14:35 14:35 14:35 WBC 4.4 L (5.0-10.0) 10^3/uL RBC 4.44 (4.2-5.4) 10^6/uL Hgb 13.1 (12.0-16.0) g/dL Hct 37.8 (37.0-47.0) % MCV 85.1 D (80-100) fL MCH 29.5 (27.0-34.0) pg MCHC 34.7 (33.0-35.0) g/dL Plt Count 128 L (150-450) 10^3/uL Neut % (Auto) 28.0 L (42.2-75.2) % Lymph % (Auto) 53.8 H (20.5-50.1) % Hubbard % (Auto) 8.3 H (2-8) % Eos % (Auto) 9.2 H (1.0-3.0) % Baso % (Auto) 0.7 (0.0-1.0) % PT 11.4 (9.0-12.0) SEC INR 1.1 (0.9-1.2) APTT 27.8 (22.0-34.0) SEC Sodium 128 L (135-145) mmol/L Potassium 3.1 L (3.6-5.0) mmol/L Chloride 97 L (101-111) mmol/L Carbon Dioxide 17.0 L D (21.0-31.0) mmol/L Anion Gap 17.1 BUN 25 H (7-18) mg/dL Creatinine 0.7 (0.6-1.3) mg/dL Est Cr Clr Drug Dosing TNP Estimated GFR (MDRD) > 60 BUN/Creatinine Ratio 35.71 Glucose 442 H* (74-105) mg/dL POC Glucose (70-105) mg/dl Lactic Acid (0.5-2.2) mmol/L Calcium 8.2 L (8.4-10.2) mg/dl Total Bilirubin 2.0 H (0.2-1.0) mg/dL AST 58 H (10-42) IU/L ALT 44 (10-60) IU/L Alkaline Phosphatase 43 (42-121) IU/L Troponin I < 0.02 (0.00-0.02) ng/ml Total Protein 7.0 (6.7-8.2) g/dl Albumin 3.5 (3.2-5.5) g/dl Globulin 3.5 Albumin/Globulin Ratio 1.00 TSH, Ultra Sensitive (0.45-5.33) uIu/mL Urine Color (YELLOW) Urine Appearance (CLEAR) Urine pH (5.0-9.0) Ur Specific [place] (1.005-1.030) Urine Protein (NEGATIVE) Urine Glucose (UA) (NEGATIVE) Urine Ketones (NEGATIVE) Urine Occult Blood (NEGATIVE) Urine Nitrite (NEGATIVE) Urine Bilirubin (NEGATIVE) Urine Urobilinogen (0.2-1.0) mg/dL Ur Leukocyte Esterase (NEGATIVE) Urine Opiates Screen (NEGATIVE) Ur Oxycodone Screen (NEGATIVE) Urine Methadone Screen (NEGATIVE) Ur Barbiturates Screen (NEGATIVE) U Tricyclic Antidepress (NEGATIVE) Ur Phencyclidine Scrn (NEGATIVE) Ur Amphetamine Screen (NEGATIVE) U Methamphetamines Scrn (NEGATIVE) Urine MDMA Screen (NEGATIVE) U Benzodiazepines Scrn (NEGATIVE) Urine Cocaine Screen (NEGATIVE) U Marijuana (THC) Screen (NEGATIVE) Ethyl Alcohol < 5 mg/dL 10/22/18 10/22/18 Range/Units 14:35 14:35 WBC (5.0-10.0) 10^3/uL RBC (4.2-5.4) 10^6/uL Hgb (12.0-16.0) g/dL Hct (37.0-47.0) % MCV (80-100) fL MCH (27.0-34.0) pg MCHC (33.0-35.0) g/dL Plt Count (150-450) 10^3/uL Neut % (Auto) (42.2-75.2) % Lymph % (Auto) (20.5-50.1) % Hubbard % (Auto) (2-8) % Eos % (Auto) (1.0-3.0) % Baso % (Auto) (0.0-1.0) % PT (9.0-12.0) SEC INR (0.9-1.2) APTT (22.0-34.0) SEC Sodium (135-145) mmol/L Potassium (3.6-5.0) mmol/L Chloride (101-111) mmol/L Carbon Dioxide (21.0-31.0) mmol/L Anion Gap BUN (7-18) mg/dL Creatinine (0.6-1.3) mg/dL Est Cr Clr Drug Dosing Estimated GFR (MDRD) BUN/Creatinine Ratio Glucose (74-105) mg/dL POC Glucose (70-105) mg/dl Lactic Acid 2.0 (0.5-2.2) mmol/L Calcium (8.4-10.2) mg/dl Total Bilirubin (0.2-1.0) mg/dL AST (10-42) IU/L ALT (10-60) IU/L Alkaline Phosphatase (42-121) IU/L Troponin I (0.00-0.02) ng/ml Total Protein (6.7-8.2) g/dl Albumin (3.2-5.5) g/dl Globulin Albumin/Globulin Ratio TSH, Ultra Sensitive 2.52 (0.45-5.33) uIu/mL Urine Color (YELLOW) Urine Appearance (CLEAR) Urine pH (5.0-9.0) Ur Specific [place] (1.005-1.030) Urine Protein (NEGATIVE) Urine Glucose (UA) (NEGATIVE) Urine Ketones (NEGATIVE) Urine Occult Blood (NEGATIVE) Urine Nitrite (NEGATIVE) Urine Bilirubin (NEGATIVE) Urine Urobilinogen (0.2-1.0) mg/dL Ur Leukocyte Esterase (NEGATIVE) Urine Opiates Screen (NEGATIVE) Ur Oxycodone Screen (NEGATIVE) Urine Methadone Screen (NEGATIVE) Ur Barbiturates Screen (NEGATIVE) U Tricyclic Antidepress (NEGATIVE) Ur Phencyclidine Scrn (NEGATIVE) Ur Amphetamine Screen (NEGATIVE) U Methamphetamines Scrn (NEGATIVE) Urine MDMA Screen (NEGATIVE) U Benzodiazepines Scrn (NEGATIVE) Urine Cocaine Screen (NEGATIVE) U Marijuana (THC) Screen (NEGATIVE) Ethyl Alcohol mg/dL Meds: Medications Generic Name Dose Route Start Last Admin Trade Name Freq PRN Reason Stop Dose Admin Dextrose/Sodium Chloride 1,000 mls @ 999 mls/hr 10/22/18 14:30 10/22/18 14:15 Dextrose 5%-Normal Saline IV 999 mls/hr ASDIRECTED TERRI Administration Sodium Chloride 1,000 mls @ 999 mls/hr 10/22/18 15:02 10/22/18 15:13 Normal Saline IV 10/22/18 16:02 999 mls/hr .BOLUS ONE Administration Sodium Chloride 10 ml 10/22/18 14:14 10/22/18 14:15 Saline Flush FLUSH 10 ml ASDIRECTED PRN Administration Keep Vein Open Discontinued Medications Generic Name Dose Route Start Last Admin Trade Name Freq PRN Reason Stop Dose Admin Dexamethasone 8 mg 10/22/18 14:18 10/22/18 13:50 Dexamethasone IM 10/22/18 14:19 8 mg ONETIME ONE Administration Dextrose/Water 50 ml 10/22/18 14:16 10/22/18 14:15 Dextrose 50% In Water IVPUSH 10/22/18 14:17 50 ml ONETIME ONE Administration Dextrose/Water 50 ml 10/22/18 14:16 10/22/18 14:15 Dextrose 50% In Water IVPUSH 10/22/18 14:17 50 ml ONETIME ONE Administration Hydromorphone HCl 0.5 mg 10/22/18 15:02 10/22/18 15:17 Dilaudid IVPUSH 10/22/18 15:03 0.5 mg ONETIME ONE Administration Ondansetron HCl 4 mg 10/22/18 15:03 10/22/18 15:16 Zofran IV 10/22/18 15:04 4 mg ONETIME ONE Administration - Radiology Interpretation Free Text/Narrative:: [facility] Final Radiology Report Call: [phone] assistance Online chat: [email or web address] Name: NELLI VAZQUEZ Age: 53Years F Date: 10/22/2018 SSN: -- : [id number] Study: XR CHEST 1 VIEW FRONTAL Requesting Physician: TALAT MENENDEZ Images: 1 Addl Studies: Provided Clinical History: Contrast: Contrast Medium: Contrast Amount: Contrast Method: CONFIDENTIALITY STATEMENT This report is intended only for use by the referring physician, and only in accordance with law. If you received this in error, call [phone]. Page 1 of 1 EXAM: XR Chest, 1 View EXAM DATE/TIME: 10/22/2018 2:19 PM CLINICAL HISTORY: 53 years old, female; Signs and symptoms; Other: Hypoglycemicic coma--possible aspiration TECHNIQUE: Imaging protocol: XR of the chest, 1 view. COMPARISON: CR Chest 1V Frontal 10/22/2017 3:12 PM FINDINGS: Lungs: Unremarkable. No consolidation. Pleural space: Unremarkable. No pleural effusion. No pneumothorax. Heart/Mediastinum: Unremarkable. No cardiomegaly. Bones/joints: Unremarkable. IMPRESSION: No acute findings. Thank you for allowing us to participate in the care of your patient. Dictated and Authenticated by: Onel Bowie MD 10/22/2018 3:21 PM Central Time ([place] & [place]) - Re-Assessments/Exams Free Text/Narrative Re-Assessment/Exam: 10/22/18 Pt responded well to IV Dextrose and IM Decadron. Pt insists on being transferred to [facility] in for admission. Departure - Departure Time of Disposition: 15:40 Disposition: DC/Tfer to [facility] 02 Condition: Critical Clinical Impression: Adrenal crisis, Hypoglycemia due to type 2 diabetes mellitus, Dehydration syndrome, Hyponatremia, Noncompliance with medication regimen, Methamphetamine abuse - Discharge Information *PRESCRIPTION DRUG MONITORING PROGRAM REVIEWED*: No *COPY OF PRESCRIPTION DRUG MONITORING REPORT IN PATIENT NELSY: No Forms: ED Department Discharge, Interfacility Transfer EMTALA - My Orders Last 24 Hours: My Active Orders 10/22/18 14:14 EKG 12 Lead [EKG Documentation Completion] [RC] STAT Chest 1V Frontal [CR] Stat Sodium Chloride 0.9% [Saline Flush] 10 ml FLUSH ASDIRECTED PRN Peripheral IV Insertion Adult [OM.PC] Stat 10/22/18 14:15 Blood Glucose Check, Bedside [RC] ONETIME Peripheral IV Care [RC] . DIRECTED 10/22/18 14:30 Dextrose 5%-0.9% NaCl [Dextrose 5%-Normal Saline] 1,000 ml IV ASDIRECTED 10/22/18 15:02 Sodium Chloride 0.9% [Normal Saline] 1,000 ml IV .BOLUS - Assessment/Plan Last 24 Hours: My Active Orders 10/22/18 14:14 EKG 12 Lead [EKG Documentation Completion] [RC] STAT Chest 1V Frontal [CR] Stat Sodium Chloride 0.9% [Saline Flush] 10 ml FLUSH ASDIRECTED PRN Peripheral IV Insertion Adult [OM.PC] Stat 10/22/18 14:15 Blood Glucose Check, Bedside [RC] ONETIME Peripheral IV Care [RC] . DIRECTED 10/22/18 14:30 Dextrose 5%-0.9% NaCl [Dextrose 5%-Normal Saline] 1,000 ml IV ASDIRECTED 10/22/18 15:02 Sodium Chloride 0.9% [Normal Saline] 1,000 ml IV .BOLUS I have read and agree with the documentation that has been completed regarding this visit. By signing this record, I attest that the documentation was completed in my physical presence and is an accurate record of the encounter.
[2018-10-22 16:30] VITALS: BP 110/63
[2018-10-22] MEDS ORDERED: Sodium Chloride 0.9% 1,000 ML IV SCH (16:30)
== END 2018-10-22 16:40 ==
LOC: DL.ED 13:32
DX: E27.2 Addisonian crisis (principal); E11.649 Type 2 diabetes mellitus with hypoglycemia without coma; E87.1 Hypo-osmolality and hyponatremia; E86.0 Dehydration; F15.10 Other stimulant abuse, uncomplicated; Z91.14 Patient's other noncompliance with medication regimen; J44.9 Chronic obstructive pulmonary disease, unspecified; F41.9 Anxiety disorder, unspecified; E03.9 Hypothyroidism, unspecified; Z79.899 Other long term (current) drug therapy; Z88.0 Allergy status to penicillin
CPT/HCPCS: 36415; 71045; 80053; 80305; 81003; 82962; 83605; 84443; 84484; 85025; 85610; 85730; 93005; 96360; 96361; 99285; G0480; J1100; J1170; J2405; J7030; J7042; J7060

== ENCOUNTER 2019-11-09 17:15 | Inpatient (IN) | payer MEDICAID, OTHER ==
--- NOTE | 2019-11-09 17:41 | EDM.PDOC ---
<Jackie Reardon - Last Filed: 11/09/19 18:47> ED HPI GENERAL MEDICAL PROBLEM - General Chief Complaint: Possible Sepsis Stated Complaint: [facility] Time Seen by Provider: 11/09/19 17:41 Source of Information: Reports: Patient, EMS, EMS Notes Reviewed, RN, RN Notes Reviewed - History of Present Illness INITIAL COMMENTS - FREE TEXT/NARRATIVE: Patient presents to ER with complaint of pain, redness, swelling to the left lower leg and ankle that began 3 days ago. Patient states she has had fever and chills for the last 3 days as well. Patient states she noticed a bug bite to the lower leg 3 days ago. Denies nausea, vomiting, diarrhea, chest pains, shortness of breath. 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 - Related Data Allergies Allergy/AdvReac Type Severity Reaction Status Date / Time Penicillins Allergy Hives Verified 11/09/19 17:17 Home Meds: Home Meds Sertraline [Zoloft] 50 mg PO BEDTIME 02/25/17 [History] Magnesium Oxide 400 mg PO BID 08/08/17 [History] Fludrocortisone [Florinef] 0.1 mg PO WITHBREAKFAST #30 tablet 10/23/17 [Rx] Hydrocortisone [Cortef] 20 mg PO BID #60 tablet 10/23/17 [Rx] Levothyroxine 125 mcg PO ACBREAKFAST #30 tablet 10/23/17 [Rx] Past Medical History HEENT History: Reports: Cataract, Impaired Vision Cardiovascular History: Reports: Arrhythmia Respiratory History: Reports: COPD, SOB Gastrointestinal History: Reports: Gastritis Other Gastrointestinal History: Here because of vomiting. Genitourinary History: Reports: Urinary Incontinence Other Genitourinary History: Became incontinent of urine two weeks ago. 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, Diabetes, Type II, Hypothyroidism Hematologic History: Reports: Anemia Immunologic History: Reports: None Oncologic (Cancer) History: Reports: None Dermatologic History: Reports: Eczema Other Dermatologic History: bilateral arms - Infectious Disease History Infectious Disease History: Reports: Other (See Below) Other Infectious Disease History: pt unsure of ID history - Past Surgical History Head Surgeries/Procedures: Reports: None GI Surgical History: Reports: Appendectomy, Cholecystectomy, Colonoscopy Female Surgical History: Reports: Section Social & Family History - Family History Family Medical History: Noncontributory - Tobacco Use Years of Tobacco use: 8 Packs/Tins Daily: 0.5 - Caffeine Use Caffeine Use: Reports: Coffee - Recreational Drug Use Recreational Drug Use: Yes Drug Use in Last 12 Months: Yes Recreational Drug Type: Reports: Methamphetamine Recreational Drug Use Frequency: Not Used In Over 5 Months - Living Situation & Occupation Living situation: Reports: Single, with Family Occupation: Disabled ED ROS GENERAL - Review of Systems Review Of Systems: Comprehensive ROS is negative, except as noted in HPI. ED EXAM, SKIN/RASH Exam: See Below Exam Limited By: No Limitations General Appearance: Alert, WD/WN, Mild Distress Eye Exam: Bilateral Eye: EOMI, Normal Inspection Ears: Normal External Exam, Hearing Grossly Normal Nose: Normal Inspection Throat/Mouth: Normal Inspection, Normal Voice, No Airway Compromise Head: Atraumatic, Normocephalic Neck: Normal Inspection, Supple, Non-Tender, Full Range of Motion Respiratory/Chest: No Respiratory Distress, Lungs Clear, Normal Breath Sounds, No Accessory Muscle Use, Chest Non-Tender Cardiovascular: Normal Peripheral Pulses, Regular Rate, Rhythm, No Edema, No Gallop, No JVD, No Murmur, No Rub Peripheral Pulses: 1+: Dorsalis Pedis (L), 2+: Dorsalis Pedis (R) GI/Abdominal: Normal Bowel Sounds, Soft, Non-Tender (Female) Exam: Deferred Rectal (Female) Exam: Deferred Back Exam: Normal Inspection, Full Range of Motion, NT Extremities: Pedal Edema (left), Joint Swelling (left ankle), Other (Cellulitis left lower leg) Neurological: Alert, Oriented Psychiatric: Normal Mood, Flat Affect Skin: Warm, Dry, Erythema (Left lower extremity), Increased Warmth (Lower extremity) Location, Skin: Lower Extremity, Left Characteristics: Erythematous Associated features: Warmth, Tenderness, Swelling, Induration, Inflammation Lymphatic: No Adenopathy Course - Vital Signs Last Recorded V/S: Last Vital Signs Temp 36.8 C 11/09/19 18:10 Pulse 102 H 11/09/19 17:18 Resp 16 11/09/19 17:18 BP 72/46 L 11/09/19 17:18 Pulse Ox 98 11/09/19 17:18 - Orders/Labs/Meds Orders: Active Orders 24 hr Category Date Time Status Peripheral IV Care [RC] . DIRECTED Care 11/09/19 17:41 Active CULTURE BLOOD [BC] Stat Lab 11/09/19 17:56 Received CULTURE BLOOD [BC] Stat Lab 11/09/19 18:09 Results DRUG SCREEN URINE BIORAD [URCHEM] Stat Lab 11/09/19 17:49 Ordered UA RFX BOLIVAR AND CULT IF INDIC [URIN] Stat Lab 11/09/19 17:49 Ordered Sodium Chloride 0.9% [Saline Flush] Med 11/09/19 17:40 Active 10 ml FLUSH ASDIRECTED PRN Blood Culture x2 Reflex Set [OM.PC] Stat Oth 11/09/19 17:40 Ordered Peripheral IV Insertion Adult [OM.PC] Stat Oth 11/09/19 17:40 Ordered Medication Orders Sodium Chloride (Saline Flush) 10 ml FLUSH ASDIRECTED PRN PRN Reason: Keep Vein Open Last Admin: 11/09/19 18:09 Dose: 10 ml Labs: Laboratory Tests 11/09/19 11/09/19 11/09/19 Range/Units 18:09 18:09 18:09 WBC 13.1 H (5.0-10.0) 10^3/uL RBC 4.04 L (4.2-5.4) 10^6/uL Hgb 12.7 (12.0-16.0) g/dL Hct 37.5 (37.0-47.0) % MCV 92.8 D (80-100) fL MCH 31.4 (27.0-34.0) pg MCHC 33.9 (33.0-35.0) g/dL Plt Count 137 L D (150-450) 10^3/uL Neut % (Auto) 76.3 H (42.2-75.2) % Lymph % (Auto) 13.5 L (20.5-50.1) % [place] % (Auto) 7.5 (2-8) % Eos % (Auto) 2.5 (1.0-3.0) % Baso % (Auto) 0.2 (0.0-1.0) % Add Manual Diff Yes Neutrophils % (Manual) 76 H (42-75) % Lymphocytes % (Manual) 16 L (20-50) % Monocytes % (Manual) 7 (2-8) % Eosinophils % (Manual) 1 (1-3) % Sodium 137 (136-145) mmol/L Potassium 3.5 (3.5-5.1) mmol/L Chloride 101 (98-107) mmol/L Carbon Dioxide 26 (21-32) mmol/L Anion Gap 13.5 H (7-13) mEq/L BUN 20 H (7-18) mg/dL Creatinine 1.13 H (0.55-1.02) mg/dL Est Cr Clr Drug Dosing 43.45 mL/min Estimated GFR (MDRD) 50 BUN/Creatinine Ratio 17.7 (No establ ref range) Glucose 68 L (74-99) mg/dL Lactic Acid 1.7 (0.4-2.0) mmol/L Calcium 7.9 L (8.5-10.1) mg/dL Total Bilirubin 0.9 (0.2-1.0) mg/dL AST 65 H (15-37) U/L ALT 65 H (14-59) U/L Alkaline Phosphatase 71 (46-116) U/L C-Reactive Protein < 0.2 (0.0-0.9) mg/dL Total Protein 6.7 (6.4-8.2) g/dL Albumin 3.1 L (3.4-5.0) g/dL Globulin 3.6 Albumin/Globulin Ratio 0.86 Meds: Medications Generic Name Dose Route Start Last Admin Trade Name Freq PRN Reason Stop Dose Admin Sodium Chloride 10 ml 11/09/19 17:40 11/09/19 18:09 Saline Flush FLUSH 10 ml ASDIRECTED PRN Administration Keep Vein Open Discontinued Medications Generic Name Dose Route Start Last Admin Trade Name Freq PRN Reason Stop Dose Admin Sodium Chloride 1,000 mls @ 999 mls/hr 11/09/19 17:49 11/09/19 18:07 Normal Saline IV 11/09/19 18:49 999 mls/hr .BOLUS ONE Administration Vancomycin HCl 1 gm/ Sodium 250 mls @ 167 mls/hr 11/09/19 17:50 11/09/19 18: 07 Chloride IV 11/09/19 19:19 167 mls/hr ONETIME ONE Administration Ketorolac Tromethamine 30 mg 11/09/19 18:45 11/09/19 18:56 Toradol IVPUSH 11/09/19 18:46 30 mg ONETIME ONE Administration - Re-Assessments/Exams Free Text/Narrative Re-Assessment/Exam: 11/09/19 18:51 Patient case handed over to Dr. Grewal at change of shift Departure - Departure Disposition: Admitted As Inpatient 67 Clinical Impression: Dehydration syndrome Cellulitis Qualifiers: Site of cellulitis: extremity Site of cellulitis of extremity: lower extremity Laterality: left Qualified Code(s): L03.116 - Cellulitis of left lower limb - Discharge Information Forms: ED Department Discharge Sepsis Event Note - Evaluation Sepsis Screening Result: No Definite Risk - Focused Exam Vital Signs: Vital Signs Temp Pulse Resp BP Pulse Ox 11/09/19 18:10 36.8 C 11/09/19 17:18 37.1 C 102 H 16 72/46 L 98 Date Exam was Performed: 11/09/19 Time Exam was Performed: 18:47 <Jake Grewal - Last Filed: 11/09/19 19:44> Course - Re-Assessments/Exams Free Text/Narrative Re-Assessment/Exam: 11/09/19 19:[address] Limon who kindly admitted pt. Departure - Departure Time of Disposition: 19:43 Condition: Good Sepsis Event Note - Focused Exam Date Exam was Performed: 11/09/19 Time Exam was Performed: 19:42
[2019-11-09] MEDS ORDERED: Sodium Chloride 0.9% 1,000 ML IV ONE (17:49)
[2019-11-09] MEDS: Sodium Chloride 0.9% 10 ML Syringe FLUSH PRN (18:09)
[2019-11-09] MEDS ORDERED: Ketorolac 30 MG/ML SDV IVPUSH ONE (18:45)
[2019-11-09 19:20] LABS: ANION GAP 13.5 mEq/L (7-13); CHLORIDE,CL 101 mmol/L (98-107)
[2019-11-09 19:22] LABS: SODIUM,NA 137 mmol/L (136-145)
--- NOTE | 2019-11-09 20:32 | PCM.HP ---
H&P History of Present Illness - General Date of Service: 11/09/19 Admit Problem/Dx: Admission Diagnosis/Problem Admission Diagnosis/Problem Cellulitis Source of Information: Patient, Old Records - History of Present Illness Initial Comments - Free Text/Narative: Shannon jerry 54 y.o.female with past medical history of vitamin D deficiency, chronic marijuana abuse, chronic recurrent hypoglycemia, hypothyroidism, chronic headaches, gastroesophageal reflux disease, remote history of alcohol abuse, chronic steroid use, type 2 diabetes mellitus, depression, degenerative disc disease, chronic obstructive pulmonary disease, anxiety and Granite's disease who presents to ER with complaint of pain, redness, swelling to the left lower leg and ankle that began 3 days ago. Patient states she has had fever and chills for the last 3 days as well. Patient states she noticed a bug bite to the lower leg 3 days ago. Denies nausea, vomiting, diarrhea, chest pains, shortness of breath. she is admitted for Cellulitis. She has received IV fluids and Vancomycin in ER. Pt had blood culture done before the vancomycin dose. Onset of Symptoms: Reports: Gradual Duration of Symptoms: Reports: Day(s): Location: Reports: Lower Extremity, Left - Related Data Allergies/Adverse Reactions: Allergies Allergy/AdvReac Type Severity Reaction Status Date / Time Penicillins Allergy Hives Verified 11/09/19 17:17 Home Medications: Home Meds Sertraline [Zoloft] 50 mg PO BEDTIME 02/25/17 [History] Magnesium Oxide 400 mg PO BID 08/08/17 [History] Fludrocortisone [Florinef] 0.1 mg PO WITHBREAKFAST #30 tablet 10/23/17 [Rx] Hydrocortisone [Cortef] 20 mg PO BID #60 tablet 10/23/17 [Rx] Levothyroxine 125 mcg PO ACBREAKFAST #30 tablet 10/23/17 [Rx] Gabapentin [Neurontin] 300 mg PO TID 11/09/19 [History] Past Medical History HEENT History: Reports: Cataract, Impaired Vision Cardiovascular History: Reports: Arrhythmia Respiratory History: Reports: COPD, SOB Gastrointestinal History: Reports: Gastritis Other Gastrointestinal History: Here because of vomiting. Genitourinary History: Reports: Urinary Incontinence Other Genitourinary History: Became incontinent of urine two weeks ago. 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, Diabetes, Type II, Hypothyroidism Hematologic History: Reports: Anemia Immunologic History: Reports: None Oncologic (Cancer) History: Reports: None Dermatologic History: Reports: Eczema Other Dermatologic History: bilateral arms - Infectious Disease History Infectious Disease History: Reports: Other (See Below) Other Infectious Disease History: pt unsure of ID history - Past Surgical History Head Surgeries/Procedures: Reports: None GI Surgical History: Reports: Appendectomy, Cholecystectomy, Colonoscopy Female Surgical History: Reports: Section Social & Family History - Family History Family Medical History: Noncontributory - Tobacco Use Years of Tobacco use: 8 Packs/Tins Daily: 0.5 - Caffeine Use Caffeine Use: Reports: Coffee, Soda - Recreational Drug Use Recreational Drug Use: Yes Drug Use in Last 12 Months: Yes Recreational Drug Type: Reports: Methamphetamine Recreational Drug Use Frequency: Not Used In Over 5 Months - Living Situation & Occupation Living situation: Reports: Single, with Family Occupation: Disabled H&P Review of Systems - Review of Systems: Review Of Systems: See Below General: Reports: Fever (low grade Fever), Weakness. Denies: Chills HEENT: Denies: Dysphasia, Headaches, Sinus Congestion, Sore Throat Pulmonary: Denies: Shortness of Breath, Wheezing, Cough, Sputum Cardiovascular: Reports: Lightheadedness. Denies: Chest Pain, Dyspnea on Exertion Gastrointestinal: Denies: Abdominal Pain, Difficulty Swallowing, Nausea, Vomiting Genitourinary: Denies: Dysuria, Burning, Urgency, Flank Pain Musculoskeletal: Reports: Leg Pain. Denies: Neck Pain, Shoulder Pain, Arm Pain Skin: Reports: Rash, Erythema. Denies: Cyanosis, Jaundice Psychiatric: Denies: Confusion, Anxiety, Hallucinations Neurological: Denies: Confusion, Tingling Hematologic/Lymphatic: Reports: No Symptoms Immunologic: Reports: No Symptoms Exam - Exam Exam: See Below - Vital Signs Vital Signs: Last Vital Signs Temp 37.3 C 11/09/19 20:07 Pulse 59 L 11/09/19 20:07 Resp 16 11/09/19 20:07 BP 79/51 L 11/09/19 20:07 Pulse Ox 95 11/09/19 20:07 Weight: 71.668 kg - Exam Quality Assessment: DVT Prophylaxis. No: Supplemental Oxygen, Urinary Catheter General: Alert, Oriented, Cooperative HEENT: Conjunctiva Clear, EOMI, Mucosa Moist & Cogswell, Pupils Equal, Pupils Reactive Neck: Supple. No: JVD, Thyromegaly Lungs: Clear to Auscultation, Normal Respiratory Effort. No: Crackles, Wheezing Cardiovascular: Regular Rate, Regular Rhythm, Normal S1, Normal S2 GI/Abdominal Exam: Normal Bowel Sounds. No: Rigid, Rebound, Tender (Female) Exam: Deferred Rectal (Female) Exam: Deferred Back Exam: Normal Inspection, Full Range of Motion Extremities: No Pedal Edema, Leg Pain (Left LE), Redness (to left LE) Skin: Warm, Dry, Intact Neurological: Cranial Nerves Intact, Reflexes Equal Bilateral Neuro Extensive - Mental Status: Alert, Oriented x3, Normal Mood/Affect, Normal Cognition Neuro Extensive - Motor, Sensory, Reflexes: CN II-XII Intact, Normal Gait, Normal Reflexes Psychiatric: Alert, Normal Affect, Normal Mood - Patient Data Lab Results Last 24 hrs: Laboratory Results - last 24 hr 11/09/19 11/09/19 11/09/19 Range/Units 18:09 18:09 18:09 WBC 13.1 H (5.0-10.0) 10^3/uL RBC 4.04 L (4.2-5.4) 10^6/uL Hgb 12.7 (12.0-16.0) g/dL Hct 37.5 (37.0-47.0) % MCV 92.8 D (80-100) fL MCH 31.4 (27.0-34.0) pg MCHC 33.9 (33.0-35.0) g/dL Plt Count 137 L D (150-450) 10^3/uL Neut % (Auto) 76.3 H (42.2-75.2) % Lymph % (Auto) 13.5 L (20.5-50.1) % [place] % (Auto) 7.5 (2-8) % Eos % (Auto) 2.5 (1.0-3.0) % Baso % (Auto) 0.2 (0.0-1.0) % Add Manual Diff Yes Neutrophils % (Manual) 76 H (42-75) % Lymphocytes % (Manual) 16 L (20-50) % Monocytes % (Manual) 7 (2-8) % Eosinophils % (Manual) 1 (1-3) % Sodium 137 (136-145) mmol/L Potassium 3.5 (3.5-5.1) mmol/L Chloride 101 (98-107) mmol/L Carbon Dioxide 26 (21-32) mmol/L Anion Gap 13.5 H (7-13) mEq/L BUN 20 H (7-18) mg/dL Creatinine 1.13 H (0.55-1.02) mg/dL Est Cr Clr Drug Dosing 43.45 mL/min Estimated GFR (MDRD) 50 BUN/Creatinine Ratio 17.7 (No establ ref range) Glucose 68 L (74-99) mg/dL Lactic Acid 1.7 (0.4-2.0) mmol/L Calcium 7.9 L (8.5-10.1) mg/dL Total Bilirubin 0.9 (0.2-1.0) mg/dL AST 65 H (15-37) U/L ALT 65 H (14-59) U/L Alkaline Phosphatase 71 (46-116) U/L C-Reactive Protein < 0.2 (0.0-0.9) mg/dL Total Protein 6.7 (6.4-8.2) g/dL Albumin 3.1 L (3.4-5.0) g/dL Globulin 3.6 Albumin/Globulin Ratio 0.86 Result Diagrams: 11/10/19 06:42 11/10/19 06:42 [place] Results Last 24 hrs: Microbiology 11/09/19 18:09 Anaerobic Blood Culture - Final Blood - Venous - Lab Draw - Problem List (1) Granite's disease SNOMED Code(s): 350287795 ICD Code: E27.1 - PRIMARY ADRENOCORTICAL INSUFFICIENCY Status: Acute Current Visit: No (2) Cellulitis SNOMED Code(s): 081919804 ICD Code: L03.90 - CELLULITIS, UNSPECIFIED Status: Acute Current Visit: No Qualifiers: Site of cellulitis: extremity Site of cellulitis of extremity: lower extremity Laterality: left Qualified Code(s): L03.116 - Cellulitis of left lower limb Problem List Initiated/Reviewed/Updated: Yes Orders Last 24hrs: Active Orders 24 hr Category Date Time Status Admission Diagnosis [ADT] Stat ADT 11/09/19 19:44 Ordered Admission Status [Patient Status] [ADT] Routine ADT 11/09/19 19:44 Active Peripheral IV Care [RC] . DIRECTED Care 11/09/19 17:41 Active CULTURE BLOOD [BC] Stat Lab 11/09/19 17:56 Received CULTURE BLOOD [BC] Stat Lab 11/09/19 18:09 Results DRUG SCREEN URINE BIORAD [URCHEM] Stat Lab 11/09/19 17:49 Ordered UA RFX [place] AND CULT IF INDIC [URIN] Stat Lab 11/09/19 17:49 Ordered Sodium Chloride 0.9% [Saline Flush] Med 11/09/19 17:40 Active 10 ml FLUSH ASDIRECTED PRN Blood Culture x2 Reflex Set [OM.PC] Stat Oth 11/09/19 17:40 Ordered Peripheral IV Insertion Adult [OM.PC] Stat Oth 11/09/19 17:40 Ordered Medication Orders Sodium Chloride (Saline Flush) 10 ml FLUSH ASDIRECTED PRN PRN Reason: Keep Vein Open Last Admin: 11/09/19 18:09 Dose: 10 ml Assessment/Plan Comment:: Shannon a 54 y.o.female with past medical history of vitamin D deficiency, chronic marijuana abuse, chronic recurrent hypoglycemia, hypothyroidism, chronic headaches, gastroesophageal reflux disease, remote history of alcohol abuse, chronic steroid use, type 2 diabetes mellitus, depression, degenerative disc disease, chronic obstructive pulmonary disease, anxiety and Manolo's disease who presents to ER with complaint of pain, redness, swelling to the left lower leg and ankle that began 3 days ago. Patient states she has had fever and chills for the last 3 days as well. Patient states she noticed a bug bite to the lower leg 3 days ago. Denies nausea, vomiting, diarrhea, chest pains, shortness of breath. she is admitted for Cellulitis. She has received IV fluids and Vancomycin in ER. Pt had blood culture done before the vancomycin dose. Impression and Plan 1. Cellulitis of Left LE: with history of diabetes, it is the likely cause, no tick bite or skin break is noted -Will continue Vancomycin and pharmacy to dose -Will also start Doxycycline at 100 mg IV BID [ she has penicillin allergy and can not start on Zosyn] -Follow B/C -Will give tylenol for fever -Will continue IV fluids NS at 75 ml/hr 2. Diabetes: She is not on any medication but she is Insulin dependent -Will continue BS check and cover with sliding scale 3. Additions Disease: Will continue Florinef 100 mcg daily and also start Hydrocortisone 100 mg IV 3 times a day 4. Hypothyroidism: Will continue Levothyroxine 125 mcg daily 5. DVT prophylaxis: Heparin 5000 units TID Code status: She is Full Code
[2019-11-09] MEDS ORDERED: Docusate Sodium 100 MG Cap PO PRN (20:52)
[2019-11-09] MEDS ORDERED: Piperacillin/Tazobactam 3.375 GM in Sodium Chloride 0.9% 100 ML IV SCH (21:00)
[2019-11-09] MEDS: Hydrocortisone Sodium Succinate 250 MG/2 ML SDV IV SCH (21:30)
[2019-11-09] MEDS: Gabapentin 300 MG Cap PO SCH (21:31)
[2019-11-09] MEDS: Sertraline 50 MG Tab PO SCH (21:31)
[2019-11-09] MEDS: Sodium Chloride 0.9% 1,000 ML IV SCH (21:50)
[2019-11-09] MEDS: Doxycycline 100 MG in Sodium Chloride 0.9% 100 ML IV SCH (22:00)
[2019-11-09] MEDS: Acetaminophen 325 MG Tab PO PRN (22:00)
[2019-11-10] MEDS ORDERED: Hydrocortisone Sodium Succinate 250 MG/2 ML SDV ONE (02:27)
[2019-11-10] MEDS: Hydrocortisone Sodium Succinate 250 MG/2 ML SDV IV SCH (05:06)
[2019-11-10] MEDS: Levothyroxine 125 MCG Tab PO SCH (05:17)
[2019-11-10] MEDS ORDERED: Doxycycline 100 MG in Sodium Chloride 0.9% 100 ML IV SCH (09:00)
[2019-11-10] MEDS: Doxycycline 100 MG in Sodium Chloride 0.9% 100 ML IV SCH ×2 (09:16→20:31)
[2019-11-10] MEDS: Fludrocortisone 0.1 MG Tab PO SCH (09:20)
[2019-11-10] MEDS: Enoxaparin 40 MG/0.4 ML Syringe SUBCUT SCH (09:20)
[2019-11-10] MEDS: Insulin Lispro 100 Units/ML 3 ML Vial SUBCUT SCH ×4 (09:23→20:54)
[2019-11-10] MEDS: Gabapentin 300 MG Cap PO SCH ×3 (09:23→20:42)
[2019-11-10] MEDS ORDERED: Hydrocortisone Sodium Succinate 100 MG/2 ML SDV IV ONE (10:00)
[2019-11-10] MEDS: Midodrine 2.5 MG Tab PO SCH ×2 (10:40→20:37)
[2019-11-10] MEDS: Hydrocortisone Sodium Succinate 100 MG/2 ML SDV ONE (10:40)
--- NOTE | 2019-11-10 11:00 | PCM.PN ---
- General Info Date of Service: 11/10/19 Admission Dx/Problem (Free Text): Admission Diagnosis/Problem Admission Diagnosis/Problem Cellulitis Subjective Update: Pt was seen in room she is feeling better, No nausea or vomiting, No fever or chill, appetite is good, left LE pain and erythema is improving Functional Status: Reports: Pain Controlled, Tolerating Diet, Ambulating, Urinating - Review of Systems General: Reports: Weakness, Appetite (acceptable). Denies: Fever, Chills HEENT: Denies: Headaches, Sinus Congestion, Sore Throat, Visual Changes Pulmonary: Denies: Shortness of Breath, Cough, Wheezing Cardiovascular: Denies: Chest Pain, Edema, Lightheadedness Gastrointestinal: Denies: Abdominal Pain, Diarrhea, Nausea, Vomiting Genitourinary: Denies: Dysuria, Frequency, Urgency, Flank Pain Musculoskeletal: Reports: Leg Pain (left LE). Denies: Neck Pain, Shoulder Pain Skin: Reports: Rash (erythema). Denies: Jaundice, Bruising Neurological: Denies: Confusion, Numbness, Tingling, Tremors Psychiatric: Denies: Confusion, Anxiety, Agitation - Patient Data Vitals - Most Recent: Last Vital Signs Temp 36.7 C 11/10/19 08:00 Pulse 88 11/10/19 08:00 Resp 18 11/10/19 08:00 BP 88/56 L 11/10/19 08:00 Pulse Ox 95 11/10/19 08:00 Weight - Most Recent: 71.668 kg I&O - Last 24 Hours: Intake & Output 11/09/19 11/10/19 11/10/19 22:59 06:59 14:59 Intake Total 1740 250 Output Total 600 Balance 1140 250 Lab Results Last 24 Hours: Laboratory Results - last 24 hr 11/09/19 11/09/19 11/09/19 Range/Units 18:09 18:09 18:09 WBC 13.1 H (5.0-10.0) 10^3/uL RBC 4.04 L (4.2-5.4) 10^6/uL Hgb 12.7 (12.0-16.0) g/dL Hct 37.5 (37.0-47.0) % MCV 92.8 D (80-100) fL MCH 31.4 (27.0-34.0) pg MCHC 33.9 (33.0-35.0) g/dL Plt Count 137 L D (150-450) 10^3/uL Neut % (Auto) 76.3 H (42.2-75.2) % Lymph % (Auto) 13.5 L (20.5-50.1) % [place] % (Auto) 7.5 (2-8) % Eos % (Auto) 2.5 (1.0-3.0) % Baso % (Auto) 0.2 (0.0-1.0) % Add Manual Diff Yes Neutrophils % (Manual) 76 H (42-75) % Lymphocytes % (Manual) 16 L (20-50) % Monocytes % (Manual) 7 (2-8) % Eosinophils % (Manual) 1 (1-3) % Sodium 137 (136-145) mmol/L Potassium 3.5 (3.5-5.1) mmol/L Chloride 101 (98-107) mmol/L Carbon Dioxide 26 (21-32) mmol/L Anion Gap 13.5 H (7-13) mEq/L BUN 20 H (7-18) mg/dL Creatinine 1.13 H (0.55-1.02) mg/dL Est Cr Clr Drug Dosing 43.45 mL/min Estimated GFR (MDRD) 50 BUN/Creatinine Ratio 17.7 (No establ ref range) Glucose 68 L (74-99) mg/dL POC Glucose (70-105) mg/dl Lactic Acid 1.7 (0.4-2.0) mmol/L Calcium 7.9 L (8.5-10.1) mg/dL Total Bilirubin 0.9 (0.2-1.0) mg/dL AST 65 H (15-37) U/L ALT 65 H (14-59) U/L Alkaline Phosphatase 71 (46-116) U/L C-Reactive Protein < 0.2 (0.0-0.9) mg/dL Total Protein 6.7 (6.4-8.2) g/dL Albumin 3.1 L (3.4-5.0) g/dL Globulin 3.6 Albumin/Globulin Ratio 0.86 Urine Color (YELLOW) Urine Appearance (CLEAR) Urine pH (5.0-9.0) Ur Specific [place] (1.005-1.030) Urine Protein (NEGATIVE) Urine Glucose (UA) (NEGATIVE) Urine Ketones (NEGATIVE) Urine Occult Blood (NEGATIVE) Urine Nitrite (NEGATIVE) Urine Bilirubin (NEGATIVE) Urine Urobilinogen (0.2-1.0) mg/dL Ur Leukocyte Esterase (NEGATIVE) Urine RBC /HPF Urine WBC (0-5/HPF) /HPF Ur Epithelial Cells (NOT SEEN) /HPF Amorphous Sediment (NOT SEEN) /HPF Urine Bacteria (0-FEW/HPF) /HPF Urine Mucus (NOT SEEN) /LPF Urine Opiates Screen (NEGATIVE) Ur Oxycodone Screen (NEGATIVE) Urine Methadone Screen (NEGATIVE) Ur Barbiturates Screen (NEGATIVE) U Tricyclic Antidepress (NEGATIVE) Ur Phencyclidine Scrn (NEGATIVE) Ur Amphetamine Screen (NEGATIVE) U Methamphetamines Scrn (NEGATIVE) Urine MDMA Screen (NEGATIVE) U Benzodiazepines Scrn (NEGATIVE) Urine Cocaine Screen (NEGATIVE) U Marijuana (THC) Screen (NEGATIVE) 11/09/19 11/09/19 11/09/19 Range/Units 21:01 22:10 22:10 WBC (5.0-10.0) 10^3/uL RBC (4.2-5.4) 10^6/uL Hgb (12.0-16.0) g/dL Hct (37.0-47.0) % MCV (80-100) fL MCH (27.0-34.0) pg MCHC (33.0-35.0) g/dL Plt Count (150-450) 10^3/uL Neut % (Auto) (42.2-75.2) % Lymph % (Auto) (20.5-50.1) % [place] % (Auto) (2-8) % Eos % (Auto) (1.0-3.0) % Baso % (Auto) (0.0-1.0) % Add Manual Diff Neutrophils % (Manual) (42-75) % Lymphocytes % (Manual) (20-50) % Monocytes % (Manual) (2-8) % Eosinophils % (Manual) (1-3) % Sodium (136-145) mmol/L Potassium (3.5-5.1) mmol/L Chloride (98-107) mmol/L Carbon Dioxide (21-32) mmol/L Anion Gap (7-13) mEq/L BUN (7-18) mg/dL Creatinine (0.55-1.02) mg/dL Est Cr Clr Drug Dosing mL/min Estimated GFR (MDRD) BUN/Creatinine Ratio (No establ ref range) Glucose (74-99) mg/dL POC Glucose 61 L (70-105) mg/dl Lactic Acid (0.4-2.0) mmol/L Calcium (8.5-10.1) mg/dL Total Bilirubin (0.2-1.0) mg/dL AST (15-37) U/L ALT (14-59) U/L Alkaline Phosphatase (46-116) U/L C-Reactive Protein (0.0-0.9) mg/dL Total Protein (6.4-8.2) g/dL Albumin (3.4-5.0) g/dL Globulin Albumin/Globulin Ratio Urine Color Dark yellow (YELLOW) Urine Appearance Slightly cloudy (CLEAR) Urine pH 5.5 (5.0-9.0) Ur Specific [place] 1.020 (1.005-1.030) Urine Protein Negative (NEGATIVE) Urine Glucose (UA) Negative (NEGATIVE) Urine Ketones Trace H (NEGATIVE) Urine Occult Blood Negative (NEGATIVE) Urine Nitrite Negative (NEGATIVE) Urine Bilirubin Small H (NEGATIVE) Urine Urobilinogen 4.0 H (0.2-1.0) mg/dL Ur Leukocyte Esterase Small H (NEGATIVE) Urine RBC 0-5 /HPF Urine WBC 5-10 H (0-5/HPF) /HPF Ur Epithelial Cells Rare (NOT SEEN) /HPF Amorphous Sediment Few (NOT SEEN) /HPF Urine Bacteria Occasional (0-FEW/HPF) /HPF Urine Mucus Occasional (NOT SEEN) /LPF Urine Opiates Screen Negative (NEGATIVE) Ur Oxycodone Screen Negative (NEGATIVE) Urine Methadone Screen Negative (NEGATIVE) Ur Barbiturates Screen Negative (NEGATIVE) U Tricyclic Antidepress Negative (NEGATIVE) Ur Phencyclidine Scrn Negative (NEGATIVE) Ur Amphetamine Screen Positive H (NEGATIVE) U Methamphetamines Scrn Positive H (NEGATIVE) Urine MDMA Screen Negative (NEGATIVE) U Benzodiazepines Scrn Negative (NEGATIVE) Urine Cocaine Screen Negative (NEGATIVE) U Marijuana (THC) Screen Negative (NEGATIVE) 11/09/19 11/10/19 11/10/19 Range/Units 22:38 01:06 06:42 WBC 16.1 H (5.0-10.0) 10^3/uL RBC 3.96 L (4.2-5.4) 10^6/uL Hgb 12.3 (12.0-16.0) g/dL Hct 36.8 L (37.0-47.0) % MCV 92.9 (80-100) fL MCH 31.1 (27.0-34.0) pg MCHC 33.4 (33.0-35.0) g/dL Plt Count 158 (150-450) 10^3/uL Neut % (Auto) 93.1 H (42.2-75.2) % Lymph % (Auto) 4.0 L (20.5-50.1) % [place] % (Auto) 2.7 (2-8) % Eos % (Auto) 0.1 L (1.0-3.0) % Baso % (Auto) 0.1 (0.0-1.0) % Add Manual Diff Neutrophils % (Manual) (42-75) % Lymphocytes % (Manual) (20-50) % Monocytes % (Manual) (2-8) % Eosinophils % (Manual) (1-3) % Sodium (136-145) mmol/L Potassium (3.5-5.1) mmol/L Chloride (98-107) mmol/L Carbon Dioxide (21-32) mmol/L Anion Gap (7-13) mEq/L BUN (7-18) mg/dL Creatinine (0.55-1.02) mg/dL Est Cr Clr Drug Dosing mL/min Estimated GFR (MDRD) BUN/Creatinine Ratio (No establ ref range) Glucose (74-99) mg/dL POC Glucose 79 116 H (70-105) mg/dl Lactic Acid (0.4-2.0) mmol/L Calcium (8.5-10.1) mg/dL Total Bilirubin (0.2-1.0) mg/dL AST (15-37) U/L ALT (14-59) U/L Alkaline Phosphatase (46-116) U/L C-Reactive Protein (0.0-0.9) mg/dL Total Protein (6.4-8.2) g/dL Albumin (3.4-5.0) g/dL Globulin Albumin/Globulin Ratio Urine Color (YELLOW) Urine Appearance (CLEAR) Urine pH (5.0-9.0) Ur Specific [place] (1.005-1.030) Urine Protein (NEGATIVE) Urine Glucose (UA) (NEGATIVE) Urine Ketones (NEGATIVE) Urine Occult Blood (NEGATIVE) Urine Nitrite (NEGATIVE) Urine Bilirubin (NEGATIVE) Urine Urobilinogen (0.2-1.0) mg/dL Ur Leukocyte Esterase (NEGATIVE) Urine RBC /HPF Urine WBC (0-5/HPF) /HPF Ur Epithelial Cells (NOT SEEN) /HPF Amorphous Sediment (NOT SEEN) /HPF Urine Bacteria (0-FEW/HPF) /HPF Urine Mucus (NOT SEEN) /LPF Urine Opiates Screen (NEGATIVE) Ur Oxycodone Screen (NEGATIVE) Urine Methadone Screen (NEGATIVE) Ur Barbiturates Screen (NEGATIVE) U Tricyclic Antidepress (NEGATIVE) Ur Phencyclidine Scrn (NEGATIVE) Ur Amphetamine Screen (NEGATIVE) U Methamphetamines Scrn (NEGATIVE) Urine MDMA Screen (NEGATIVE) U Benzodiazepines Scrn (NEGATIVE) Urine Cocaine Screen (NEGATIVE) U Marijuana (THC) Screen (NEGATIVE) 11/10/19 11/10/19 Range/Units 06:42 07:53 WBC (5.0-10.0) 10^3/uL RBC (4.2-5.4) 10^6/uL Hgb (12.0-16.0) g/dL Hct (37.0-47.0) % MCV (80-100) fL MCH (27.0-34.0) pg MCHC (33.0-35.0) g/dL Plt Count (150-450) 10^3/uL Neut % (Auto) (42.2-75.2) % Lymph % (Auto) (20.5-50.1) % [place] % (Auto) (2-8) % Eos % (Auto) (1.0-3.0) % Baso % (Auto) (0.0-1.0) % Add Manual Diff Neutrophils % (Manual) (42-75) % Lymphocytes % (Manual) (20-50) % Monocytes % (Manual) (2-8) % Eosinophils % (Manual) (1-3) % Sodium 137 (136-145) mmol/L Potassium 4.0 (3.5-5.1) mmol/L Chloride 102 (98-107) mmol/L Carbon Dioxide 24 (21-32) mmol/L Anion Gap 15.0 H (7-13) mEq/L BUN 27 H (7-18) mg/dL Creatinine 1.66 H (0.55-1.02) mg/dL Est Cr Clr Drug Dosing 29.57 mL/min Estimated GFR (MDRD) 32 BUN/Creatinine Ratio (No establ ref range) Glucose 128 H (74-99) mg/dL POC Glucose 128 H (70-105) mg/dl Lactic Acid (0.4-2.0) mmol/L Calcium 7.3 L (8.5-10.1) mg/dL Total Bilirubin (0.2-1.0) mg/dL AST (15-37) U/L ALT (14-59) U/L Alkaline Phosphatase (46-116) U/L C-Reactive Protein (0.0-0.9) mg/dL Total Protein (6.4-8.2) g/dL Albumin (3.4-5.0) g/dL Globulin Albumin/Globulin Ratio Urine Color (YELLOW) Urine Appearance (CLEAR) Urine pH (5.0-9.0) Ur Specific [place] (1.005-1.030) Urine Protein (NEGATIVE) Urine Glucose (UA) (NEGATIVE) Urine Ketones (NEGATIVE) Urine Occult Blood (NEGATIVE) Urine Nitrite (NEGATIVE) Urine Bilirubin (NEGATIVE) Urine Urobilinogen (0.2-1.0) mg/dL Ur Leukocyte Esterase (NEGATIVE) Urine RBC /HPF Urine WBC (0-5/HPF) /HPF Ur Epithelial Cells (NOT SEEN) /HPF Amorphous Sediment (NOT SEEN) /HPF Urine Bacteria (0-FEW/HPF) /HPF Urine Mucus (NOT SEEN) /LPF Urine Opiates Screen (NEGATIVE) Ur Oxycodone Screen (NEGATIVE) Urine Methadone Screen (NEGATIVE) Ur Barbiturates Screen (NEGATIVE) U Tricyclic Antidepress (NEGATIVE) Ur Phencyclidine Scrn (NEGATIVE) Ur Amphetamine Screen (NEGATIVE) U Methamphetamines Scrn (NEGATIVE) Urine MDMA Screen (NEGATIVE) U Benzodiazepines Scrn (NEGATIVE) Urine Cocaine Screen (NEGATIVE) U Marijuana (THC) Screen (NEGATIVE) [place] Results Last 24 Hours: Microbiology 11/09/19 18:09 Anaerobic Blood Culture - Final Blood - Venous - Lab Draw Med Orders - Current: Current Medications Acetaminophen (Tylenol) 650 mg PO Q4H PRN PRN Reason: Pain (mild 1-3 )/fever Last Admin: 11/09/19 22:00 Dose: 650 mg Docusate Sodium (Colace) 100 mg PO DAILY PRN PRN Reason: Constipation Enoxaparin Sodium (Lovenox) 40 mg SUBCUT DAILY [facility] Last Admin: 11/10/19 09:20 Dose: 40 mg Fludrocortisone Acetate (Florinef) 0.1 mg PO WITHBREAKFAST [facility] Last Admin: 11/10/19 09:20 Dose: 0.1 mg Gabapentin (Neurontin) 300 mg PO TID [facility] Last Admin: 11/10/19 09:23 Dose: 300 mg Hydrocortisone Sodium Succinate (Solu-Cortef) 100 mg IV Q8H [facility] Vancomycin HCl 750 mg/ Sodium (Chloride) 250 mls @ 166.667 mls/hr IV Q12H [facility] Last Infusion: 11/10/19 06:45 Dose: Infused Sodium Chloride (Normal Saline) 1,000 mls @ 75 mls/hr IV ASDIRECTED [facility] Last Admin: 11/09/19 21:50 Dose: 75 mls/hr Doxycycline Hyclate 100 mg/ (Sodium Chloride) 100 mls @ 100 mls/hr IV Q12HR [facility] Last Admin: 11/10/19 09:16 Dose: 100 mls/hr Insulin Human Lispro (Humalog) 0 unit SUBCUT WITHMEALSANDBED [facility]; Protocol Last Admin: 11/10/19 09:23 Dose: Not Given Levothyroxine Sodium (Levothyroxine) 125 mcg PO ACBREAKFAST [facility] Last Admin: 11/10/19 05:17 Dose: 125 mcg Magnesium Oxide (Magnesium Oxide) 400 mg PO BID [facility] Last Admin: 11/10/19 09:19 Dose: 400 mg Midodrine (Midodrine) 5 mg PO BID [facility] Last Admin: 11/10/19 10:40 Dose: 5 mg Sertraline HCl (Zoloft) 50 mg PO BEDTIME [facility] Last Admin: 11/09/19 21:31 Dose: 50 mg Sodium Chloride (Saline Flush) 10 ml FLUSH ASDIRECTED PRN PRN Reason: Keep Vein Open Last Admin: 11/09/19 18:09 Dose: 10 ml Vancomycin HCl (Pharmacy To Dose - Vancomycin) 1 dose .XX ASDIRECTED [facility] Discontinued Medications Hydrocortisone Sodium Succinate (Solu-Cortef) 100 mg IV Q8H [facility] Last Admin: 11/10/19 05:06 Dose: 100 mg Hydrocortisone Sodium Succinate (Solu-Cortef) Confirm Administered Dose 250 mg .ROUTE .STK-MED ONE Stop: 11/10/19 02:28 Hydrocortisone Sodium Succinate (Solu-Cortef) Confirm Administered Dose 100 mg .ROUTE .STK-MED ONE Stop: 11/10/19 09:10 Last Admin: 11/10/19 10:40 Dose: 100 mg Sodium Chloride (Normal Saline) 1,000 mls @ 999 mls/hr IV .BOLUS ONE Stop: 11/09/19 18:49 Last Admin: 11/09/19 18:07 Dose: 999 mls/hr Vancomycin HCl 1 gm/ Sodium (Chloride) 250 mls @ 167 mls/hr IV ONETIME ONE Stop: 11/09/19 19:19 Last Admin: 11/09/19 18:07 Dose: 167 mls/hr Piperacillin Sod/Tazobactam (Sod 3.375 gm/ Sodium Chloride) 100 mls @ 200 mls/ hr IV Q6H [facility] Last Admin: 11/09/19 21:14 Dose: Not Given Ketorolac Tromethamine (Toradol) 30 mg IVPUSH ONETIME ONE Stop: 11/09/19 18:46 Last Admin: 11/09/19 18:56 Dose: 30 mg Midodrine (Midodrine) 5 mg PO BID [facility] - Exam Quality Assessment: DVT Prophylaxis. No: Supplemental Oxygen, Urine Catheter General: Alert, Oriented, Cooperative, No Acute Distress HEENT: Pupils Equal, Pupils Reactive, Mucous Membr. Moist/[place] Neck: Supple. No: Lymphadenopathy, JVD, Thyromegaly Lungs: Clear to Auscultation, Normal Respiratory Effort. No: Crackles, Wheezing Cardiovascular: Regular Rate, Regular Rhythm, No Murmurs GI/Abdominal Exam: Normal Bowel Sounds, Soft, Non-Tender. No: Guarding, Rigid, Rebound, Tender (Female) Exam: Deferred Back Exam: Normal Inspection, Full Range of Motion Extremities: Normal Inspection, No Pedal Edema Skin: Warm, Dry, Intact Neurological: No New Focal Deficit Psy/Mental Status: Alert, Normal Affect, Normal Mood Sepsis Event Note - Evaluation Sepsis Screening Result: No Definite Risk - Focused Exam Vital Signs: Vital Signs Temp Pulse Resp BP Pulse Ox 11/10/19 08:00 36.7 C 88 18 88/56 L 95 11/10/19 03:59 36.3 C 73 16 82/52 L 94 L 11/10/19 01:04 16 73/40 L 96 11/10/19 00:25 36.6 C 73 16 68/46 L 95 Date Exam was Performed: 11/10/19 Time Exam was Performed: 11:00 - Problem List & Annotations (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 - PRIMARY ADRENOCORTICAL INSUFFICIENCY Status: Acute Current Visit: No (2) Cellulitis SNOMED Code(s): 999730479 Code(s): L03.90 - CELLULITIS, UNSPECIFIED Status: Acute Current Visit: No Qualifiers: Site of cellulitis: extremity Site of cellulitis of extremity: lower extremity Laterality: left Qualified Code(s): L03.116 - Cellulitis of left lower limb - Problem List Review Problem List Initiated/Reviewed/Updated: Yes - My Orders Last 24 Hours: My Active Orders 11/09/19 20:52 Patient Status [ADT] Routine Up With Assistance [RC] ASDIRECTED Vital Signs [RC] 00,04,08,12,16,20 Acetaminophen [Tylenol] 650 mg PO Q4H PRN Docusate Sodium [Colace] 100 mg PO DAILY PRN DVT/VTE Prophylaxis Reflex [OM.PC] Routine Resuscitation Status Routine 11/09/19 20:53 Pulse Oximetry [RC] PRN 11/09/19 20:54 Antiembolic Devices [RC] .Routine Oxygen Therapy [RC] PRN VTE/DVT Education [RC] 11/09/19 20:55 Antiembolic Hose [OM.PC] Per Unit Routine 11/09/19 21:00 Gabapentin [Neurontin] 300 mg PO TID Magnesium Oxide 400 mg PO BID Sertraline [Zoloft] 50 mg PO BEDTIME 11/09/19 21:13 Blood Glucose Check, Bedside [RC] QIDACANDBED 11/09/19 21:15 Pharmacy to Dose - Vancomycin 1 dose .XX ASDIRECTED Sodium Chloride 0.9% [Normal Saline] 1,000 ml IV ASDIRECTED 11/09/19 21:42 Doxycycline [Vibramycin] 100 mg Sodium Chloride 0.9% [Normal Saline] 100 ml IV Q12HR 11/10/19 06:00 Levothyroxine 125 mcg PO ACBREAKFAST Vancomycin 750 mg Sodium Chloride 0.9% [Normal Saline] 250 ml IV Q12H 11/10/19 08:00 Fludrocortisone [Florinef] 0.1 mg PO WITHBREAKFAST Insulin Lispro [HumaLOG] See Protocol SUBCUT WITHMEALSANDBED 11/10/19 09:00 Enoxaparin [Lovenox] 40 mg SUBCUT DAILY 11/10/19 10:19 Midodrine 5 mg PO BID 11/10/19 17:30 Hydrocortisone Sod Succinate [Solu-CORTEF] 100 mg IV Q8H 11/10/19 Breakfast Consistent Carbohydrate Diet [DIET] - Plan Plan:: Shannon jerry 54 y.o.female with past medical history of vitamin D deficiency, chronic marijuana abuse, chronic recurrent hypoglycemia, hypothyroidism, chronic headaches, gastroesophageal reflux disease, remote history of alcohol abuse, chronic steroid use, type 2 diabetes mellitus, depression, degenerative disc disease, chronic obstructive pulmonary disease, anxiety 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 Patient states she has had fever and chills for the last 3 days as well. Patient states she noticed a bug bite to the lower leg 3 days ago. Denies nausea, vomiting, diarrhea, chest pains, shortness of breath. she is admitted for Cellulitis. She has received IV fluids and Vancomycin in ER. Pt had blood culture done before the vancomycin dose. Impression and Plan 1. Cellulitis of Left LE: with history of diabetes, it is the likely cause, no tick bite or skin break is noted -Will continue Vancomycin and pharmacy is dosing -Will also continue Doxycycline at 100 mg IV BID [ she has penicillin allergy and can not start on Zosyn] -Follow B/C ( not available yet) -Will give Tylenol for fever as needed -Will continue IV fluids NS at 75 ml/hr 2. Diabetes: She is not on any medication but she is Insulin dependent -Will continue BS check and cover with sliding scale 3. Additions Disease: Will continue Florinef 100 mcg daily and also start Hydrocortisone 100 mg IV 3 times a day -Will also start Midodrine at 5 mg BID 4. Hypothyroidism: Will continue Levothyroxine 125 mcg daily 5. DVT prophylaxis: Heparin 5000 units TID Code status: She is Full Code
[2019-11-10] MEDS: Sodium Chloride 0.9% 1,000 ML IV SCH (15:42)
[2019-11-10] MEDS: Hydrocortisone Sodium Succinate 100 MG/2 ML SDV IV SCH (16:46)
[2019-11-10] MEDS: Acetaminophen 325 MG Tab PO PRN (20:42)
[2019-11-10] MEDS: Sertraline 50 MG Tab PO SCH (20:42)
[2019-11-10] MEDS ORDERED: Midodrine 2.5 MG Tab PO SCH (21:00)
[2019-11-11] MEDS: Hydrocortisone Sodium Succinate 100 MG/2 ML SDV IV SCH ×3 (01:21→17:22)
[2019-11-11] MEDS: Acetaminophen 325 MG Tab PO PRN ×3 (02:33→21:07)
[2019-11-11] MEDS: Levothyroxine 125 MCG Tab PO SCH (05:53)
[2019-11-11] MEDS: Fludrocortisone 0.1 MG Tab PO SCH (08:50)
[2019-11-11] MEDS: Midodrine 2.5 MG Tab PO SCH ×2 (08:50→20:44)
[2019-11-11] MEDS: Gabapentin 300 MG Cap PO SCH ×3 (08:50→20:45)
[2019-11-11] MEDS: Enoxaparin 40 MG/0.4 ML Syringe SUBCUT SCH (08:52)
[2019-11-11] MEDS: Doxycycline 100 MG in Sodium Chloride 0.9% 100 ML IV SCH ×2 (08:55→20:42)
[2019-11-11] MEDS: Insulin Lispro 100 Units/ML 3 ML Vial SUBCUT SCH ×4 (09:00→21:08)
[2019-11-11] MEDS: Sodium Chloride 0.9% 1,000 ML IV SCH (10:22)
--- NOTE | 2019-11-11 11:02 | PCM.PN ---
- General Info Date of Service: 11/11/19 Admission Dx/Problem (Free Text): Admission Diagnosis/Problem Admission Diagnosis/Problem Cellulitis Subjective Update: Pt was seen in room she is feeling better, No nausea or vomiting, No fever or chill, appetite is good, left LE pain and erythema is improving and her BP is improving but still on the lower side Functional Status: Reports: Pain Controlled, Tolerating Diet, Ambulating, Urinating - Review of Systems General: Reports: Weakness, Appetite (acceptable). Denies: Fever, Chills HEENT: Denies: Headaches, Sinus Congestion, Sore Throat, Visual Changes Pulmonary: Denies: Shortness of Breath, Cough, Sputum, Wheezing Cardiovascular: Denies: Chest Pain, Edema, Lightheadedness Gastrointestinal: Denies: Abdominal Pain, Diarrhea, Nausea, Vomiting Genitourinary: Denies: Dysuria, Frequency, Urgency, Flank Pain Musculoskeletal: Reports: Leg Pain (left LE pain). Denies: Neck Pain Skin: Reports: Rash. Denies: Cyanosis, Jaundice, Dryness, Bruising Neurological: Denies: Confusion, Numbness, Tremors Psychiatric: Denies: Confusion, Anxiety, Agitation - Patient Data Vitals - Most Recent: Last Vital Signs Temp 36.7 C 11/11/19 07:42 Pulse 93 11/11/19 07:42 Resp 20 11/11/19 07:42 BP 86/51 L 11/11/19 07:42 Pulse Ox 99 11/11/19 07:42 Weight - Most Recent: 71.668 kg I&O - Last 24 Hours: Intake & Output 11/10/19 11/11/19 11/11/19 22:59 06:59 14:59 Intake Total 0708 003 2727 Balance 6426 112 4612 Lab Results Last 24 Hours: Laboratory Results - last 24 hr 11/10/19 11/10/19 11/10/19 Range/Units 11:38 16:40 20:47 WBC (5.0-10.0) 10^3/uL RBC (4.2-5.4) 10^6/uL Hgb (12.0-16.0) g/dL Hct (37.0-47.0) % MCV (80-100) fL MCH (27.0-34.0) pg MCHC (33.0-35.0) g/dL Plt Count (150-450) 10^3/uL POC Glucose 177 H 169 H 234 H (70-105) mg/dl 11/11/19 11/11/19 Range/Units 05:54 07:54 WBC 20.6 H (5.0-10.0) 10^3/uL RBC 3.35 L (4.2-5.4) 10^6/uL Hgb 10.4 L D (12.0-16.0) g/dL Hct 30.7 L (37.0-47.0) % MCV 91.6 (80-100) fL MCH 31.0 (27.0-34.0) pg MCHC 33.9 (33.0-35.0) g/dL Plt Count 163 (150-450) 10^3/uL POC Glucose 155 H (70-105) mg/dl [place] Results Last 24 Hours: Microbiology 11/09/19 22:10 Urine Culture - Preliminary Urine, Voided 11/09/19 17:56 Aerobic Blood Culture - Preliminary Blood - Venous NO GROWTH AFTER 1 DAY Anaerobic Blood Culture - Preliminary NO GROWTH AFTER 1 DAY 11/09/19 18:09 Aerobic Blood Culture - Preliminary Blood - Venous - Lab Draw NO GROWTH AFTER 1 DAY Anaerobic Blood Culture - Final Med Orders - Current: Current Medications Acetaminophen (Tylenol) 650 mg PO Q4H PRN PRN Reason: Pain (mild 1-3 )/fever Last Admin: 11/11/19 09:31 Dose: 650 mg Docusate Sodium (Colace) 100 mg PO DAILY PRN PRN Reason: Constipation Enoxaparin Sodium (Lovenox) 40 mg SUBCUT DAILY [facility] Last Admin: 11/11/19 08:52 Dose: 40 mg Fludrocortisone Acetate (Florinef) 0.1 mg PO WITHBREAKFAST [facility] Last Admin: 11/11/19 08:50 Dose: 0.1 mg Gabapentin (Neurontin) 300 mg PO TID [facility] Last Admin: 11/11/19 08:50 Dose: 300 mg Hydrocortisone Sodium Succinate (Solu-Cortef) 100 mg IV Q8H [facility] Last Admin: 11/11/19 08:53 Dose: 100 mg Vancomycin HCl 750 mg/ Sodium (Chloride) 250 mls @ 166.667 mls/hr IV Q12H [facility] Last Admin: 11/11/19 05:44 Dose: 167 mls/hr Sodium Chloride (Normal Saline) 1,000 mls @ 75 mls/hr IV ASDIRECTED [facility] Last Admin: 11/11/19 10:22 Dose: 75 mls/hr Doxycycline Hyclate 100 mg/ (Sodium Chloride) 100 mls @ 100 mls/hr IV Q12HR [facility] Last Admin: 11/11/19 08:55 Dose: 100 mls/hr Insulin Human Lispro (Humalog) 0 unit SUBCUT WITHMEALSANDBED [facility]; Protocol Last Admin: 11/11/19 09:00 Dose: 2 units Levothyroxine Sodium (Levothyroxine) 125 mcg PO ACBREAKFAST [facility] Last Admin: 11/11/19 05:53 Dose: 125 mcg Magnesium Oxide (Magnesium Oxide) 400 mg PO BID [facility] Last Admin: 11/11/19 08:50 Dose: 400 mg Midodrine (Midodrine) 5 mg PO BID [facility] Last Admin: 11/11/19 08:50 Dose: 5 mg Sertraline HCl (Zoloft) 50 mg PO BEDTIME [facility] Last Admin: 11/10/19 20:42 Dose: 50 mg Sodium Chloride (Saline Flush) 10 ml FLUSH ASDIRECTED PRN PRN Reason: Keep Vein Open Last Admin: 11/09/19 18:09 Dose: 10 ml Vancomycin HCl (Pharmacy To Dose - Vancomycin) 1 dose .XX ASDIRECTED [facility] Discontinued Medications Hydrocortisone Sodium Succinate (Solu-Cortef) 100 mg IV Q8H [facility] Last Admin: 11/10/19 05:06 Dose: 100 mg Hydrocortisone Sodium Succinate (Solu-Cortef) Confirm Administered Dose 250 mg .ROUTE .STK-MED ONE Stop: 11/10/19 02:28 Hydrocortisone Sodium Succinate (Solu-Cortef) Confirm Administered Dose 100 mg .ROUTE .STK-MED ONE Stop: 11/10/19 09:10 Last Admin: 11/10/19 10:40 Dose: 100 mg Sodium Chloride (Normal Saline) 1,000 mls @ 999 mls/hr IV .BOLUS ONE Stop: 11/09/19 18:49 Last Admin: 11/09/19 18:07 Dose: 999 mls/hr Vancomycin HCl 1 gm/ Sodium (Chloride) 250 mls @ 167 mls/hr IV ONETIME ONE Stop: 11/09/19 19:19 Last Admin: 11/09/19 18:07 Dose: 167 mls/hr Piperacillin Sod/Tazobactam (Sod 3.375 gm/ Sodium Chloride) 100 mls @ 200 mls/ hr IV Q6H [facility] Last Admin: 11/09/19 21:14 Dose: Not Given Ketorolac Tromethamine (Toradol) 30 mg IVPUSH ONETIME ONE Stop: 11/09/19 18:46 Last Admin: 11/09/19 18:56 Dose: 30 mg Midodrine (Midodrine) 5 mg PO BID [facility] - Exam Quality Assessment: DVT Prophylaxis. No: Supplemental Oxygen, Urine Catheter General: Alert, Oriented, Cooperative, No Acute Distress HEENT: Pupils Equal, Pupils Reactive, EOMI, Mucous Membr. Moist/[place] Neck: Supple, No JVD, No Thyromegaly Lungs: Clear to Auscultation, Normal Respiratory Effort. No: Crackles, Wheezing Cardiovascular: Regular Rate, Regular Rhythm, No Murmurs (Female) Exam: Deferred Back Exam: Normal Inspection, Full Range of Motion Extremities: Normal Inspection, Pedal Edema (to left LE) Skin: Warm, Dry, Intact Neurological: No New Focal Deficit Psy/Mental Status: Alert, Normal Affect, Normal Mood Sepsis Event Note - Evaluation Sepsis Screening Result: No Definite Risk - Focused Exam Vital Signs: Vital Signs Temp Pulse Resp BP Pulse Ox 11/11/19 07:42 36.7 C 93 20 86/51 L 99 11/11/19 03:00 36.7 C 87 16 84/56 L 100 11/10/19 23:30 36.9 C 88 16 82/46 L 97 Date Exam was Performed: 11/11/19 Time Exam was Performed: 10:56 - Problem List & Annotations (1) [place]'s disease SNOMED Code(s): 283284463 Code(s): E27.1 - PRIMARY ADRENOCORTICAL INSUFFICIENCY Status: Acute Current Visit: No (2) Cellulitis SNOMED Code(s): 326984727 Code(s): L03.90 - CELLULITIS, UNSPECIFIED Status: Acute Current Visit: No Qualifiers: Site of cellulitis: extremity Site of cellulitis of extremity: lower extremity Laterality: left Qualified Code(s): L03.116 - Cellulitis of left lower limb - Problem List Review Problem List Initiated/Reviewed/Updated: Yes - My Orders Last 24 Hours: My Active Orders 11/10/19 10:19 Midodrine 5 mg PO BID 11/10/19 17:30 Hydrocortisone Sod Succinate [Solu-CORTEF] 100 mg IV Q8H - Plan Plan:: Shannon jerry 54 y.o.female with past medical history of vitamin D deficiency, chronic marijuana abuse, chronic recurrent hypoglycemia, hypothyroidism, chronic headaches, gastroesophageal reflux disease, remote history of alcohol abuse, chronic steroid use, type 2 diabetes mellitus, depression, degenerative disc disease, chronic obstructive pulmonary disease, anxiety and Manolo's disease who presents to ER with complaint of pain, redness, swelling to the left lower leg and ankle that began 3 days ago. Patient states she has had fever and chills for the last 3 days as well. Patient states she noticed a bug bite to the lower leg 3 days ago. Denies nausea, vomiting, diarrhea, chest pains, shortness of breath. she is admitted for Cellulitis. She has received IV fluids and Vancomycin in ER. Pt had blood culture done before the vancomycin dose. Impression and Plan 1. Cellulitis of Left LE: with history of diabetes, it is the likely cause, no tick bite or skin break is noted -Will continue Vancomycin and pharmacy is dosing -Will also continue Doxycycline at 100 mg IV BID [ she has penicillin allergy and can not start on Zosyn] -Follow B/C (showing no growth yet) -Will give Tylenol for fever as needed -Will continue IV fluids NS at 50 ml/hr 2. Diabetes: She is not on any medication but she is Insulin dependent -Will continue BS check and cover with sliding scale 3. Additions Disease: Will continue Florinef 100 mcg daily and also continue Hydrocortisone 100 mg IV 3 times a day -Will also continue Midodrine at 5 mg BID 4. Hypothyroidism: Will continue Levothyroxine 125 mcg daily 5. DVT prophylaxis: Heparin 5000 units TID 6. Leukocytosis: This is likely from hydrocortisone, she is afebrile and bP stable will continue abx Code status: She is Full Code
[2019-11-11] MEDS: Sertraline 50 MG Tab PO SCH (20:44)
[2019-11-12] MEDS: Sodium Chloride 0.9% 1,000 ML IV SCH (01:05)
[2019-11-12] MEDS: Hydrocortisone Sodium Succinate 100 MG/2 ML SDV IV SCH ×2 (01:07→08:42)
[2019-11-12] MEDS: Acetaminophen 325 MG Tab PO PRN ×2 (01:50→06:09)
[2019-11-12] MEDS: Levothyroxine 125 MCG Tab PO SCH (05:48)
[2019-11-12 08:01] LABS: CHLORIDE,CL 108 mmol/L (98-107); SODIUM,NA 143 mmol/L (136-145)
[2019-11-12 08:07] VITALS: BP 119/77; PULSE 82
[2019-11-12] MEDS: Insulin Lispro 100 Units/ML 3 ML Vial SUBCUT SCH (08:13)
[2019-11-12] MEDS: Enoxaparin 40 MG/0.4 ML Syringe SUBCUT SCH (08:45)
[2019-11-12] MEDS: Gabapentin 300 MG Cap PO SCH (08:45)
[2019-11-12] MEDS: Fludrocortisone 0.1 MG Tab PO SCH (08:45)
[2019-11-12] MEDS: Doxycycline 100 MG in Sodium Chloride 0.9% 100 ML IV SCH (08:46)
[2019-11-12] MEDS: Sodium Chloride 0.9% 10 ML Syringe FLUSH PRN (08:50)
[2019-11-12] MEDS ORDERED: Midodrine 2.5 MG Tab PO SCH (09:00)
--- NOTE | 2019-11-12 10:37 | PCM.DCSUM1 ---
Discharge Summary - Hospital Course Free Text/Narrative:: Shannon jerry 54 y.o.female with past medical history of vitamin D deficiency, chronic marijuana abuse, chronic recurrent hypoglycemia, hypothyroidism, chronic headaches, gastroesophageal reflux disease, remote history of alcohol abuse, chronic steroid use, type 2 diabetes mellitus, depression, degenerative disc disease, chronic obstructive pulmonary disease, anxiety and Manolo's disease who was admitted for cellulitis of the left lower leg and adrenal crisis. She was started on IV antibiotics and also started on IV hydrocortisone. Florinef and midodrine. Patient continues to be on hydrocortisone due to low BPs. Plan was to taper off hydrocortisone today. However patient insists on leaving AGAINST MEDICAL ADVICE today. HPI Initial Comments: Shannon jerry 54 y.o.female with past medical history of vitamin D deficiency, chronic marijuana abuse, chronic recurrent hypoglycemia, hypothyroidism, chronic headaches, gastroesophageal reflux disease, remote history of alcohol abuse, chronic steroid use, type 2 diabetes mellitus, depression, degenerative disc disease, chronic obstructive pulmonary disease, anxiety and Norton's disease who presents to ER with complaint of pain, redness, swelling to the left lower leg and ankle that began 3 days ago. Patient states she has had fever and chills for the last 3 days as well. Patient states she noticed a bug bite to the lower leg 3 days ago. Denies nausea, vomiting, diarrhea, chest pains, shortness of breath. she is admitted for Cellulitis. She has received IV fluids and Vancomycin in ER. Pt had blood culture done before the vancomycin dose. Diagnosis: Stroke: No - Discharge Data Discharge Date: 11/12/19 Discharge Disposition: Home, Self-Care 01 Condition: Stable - Referral to Home Health Primary Care Physician: PCP None - Discharge Plan Home Medications: Home Meds Sertraline [Zoloft] 50 mg PO BEDTIME 02/25/17 [History] Magnesium Oxide 400 mg PO BID 08/08/17 [History] Fludrocortisone [Florinef] 0.1 mg PO WITHBREAKFAST #30 tablet 10/23/17 [Rx] Hydrocortisone [Cortef] 20 mg PO BID #60 tablet 10/23/17 [Rx] Levothyroxine 125 mcg PO ACBREAKFAST #30 tablet 10/23/17 [Rx] Gabapentin [Neurontin] 300 mg PO TID 11/09/19 [History] Forms: ED Department Discharge - Discharge Summary/Plan Comment DC Time >30 min.: Yes - General Info Date of Service: 11/12/19 Admission Dx/Problem (Free Text: Admission Diagnosis/Problem Admission Diagnosis/Problem Cellulitis Subjective Update: No acute events overnight. Patient reports that she is doing better. Still needing IV hydrocortisone due to low blood pressures. She denies chest pain, shortness of breath, fevers, chills, nausea, vomiting, diarrhea, constipation, dysuria, hematuria, or any new symptoms. Reports that redness of the lower extremities improved. She insists on going home today. It was explained to her extensively that she needs to have her steroids tapered and monitored for hemodynamic stability. Patient insisted on leaving AGAINST MEDICAL ADVICE. - Patient Data Vitals - Most Recent: Last Vital Signs Temp 98.7 F 11/12/19 08:00 Pulse 82 11/12/19 08:00 Resp 16 11/12/19 08:00 BP 119/77 11/12/19 08:00 Pulse Ox 98 11/12/19 08:00 Weight - Most Recent: 158 lb I&O - Last 24 hours: Intake & Output 11/11/19 11/12/19 11/12/19 22:59 06:59 14:59 Intake Total 900 750 500 Output Total 600 700 Balance 300 50 500 Lab Results - Last 24 hrs: Laboratory Results - last 24 hr 11/11/19 11/11/19 11/11/19 Range/Units 11:34 16:44 17:05 WBC (5.0-10.0) 10^3/uL RBC (4.2-5.4) 10^6/uL Hgb (12.0-16.0) g/dL Hct (37.0-47.0) % MCV (80-100) fL MCH (27.0-34.0) pg MCHC (33.0-35.0) g/dL Plt Count (150-450) 10^3/uL Sodium (136-145) mmol/L Potassium (3.5-5.1) mmol/L Chloride (98-107) mmol/L Carbon Dioxide (21-32) mmol/L Anion Gap (7-13) mEq/L BUN (7-18) mg/dL Creatinine (0.55-1.02) mg/dL Est Cr Clr Drug Dosing mL/min Estimated GFR (MDRD) Glucose (74-99) mg/dL POC Glucose 179 H 147 H (70-105) mg/dl Calcium (8.5-10.1) mg/dL Vancomycin Trough 12.9 (10.0-20.0) ug/mL 11/11/19 11/12/19 11/12/19 Range/Units 20:59 06:12 07:35 WBC 14.0 H (5.0-10.0) 10^3/uL RBC 3.07 L (4.2-5.4) 10^6/uL Hgb 9.7 L (12.0-16.0) g/dL Hct 28.6 L (37.0-47.0) % MCV 93.2 (80-100) fL MCH 31.6 (27.0-34.0) pg MCHC 33.9 (33.0-35.0) g/dL Plt Count 159 (150-450) 10^3/uL Sodium 143 (136-145) mmol/L Potassium 4.0 (3.5-5.1) mmol/L Chloride 108 H (98-107) mmol/L Carbon Dioxide 25 (21-32) mmol/L Anion Gap 14.0 H (7-13) mEq/L BUN 16 (7-18) mg/dL Creatinine 0.89 (0.55-1.02) mg/dL Est Cr Clr Drug Dosing 55.16 mL/min Estimated GFR (MDRD) > 60 Glucose 150 H (74-99) mg/dL POC Glucose 183 H (70-105) mg/dl Calcium 6.6 L (8.5-10.1) mg/dL Vancomycin Trough (10.0-20.0) ug/mL 11/12/19 Range/Units 07:40 WBC (5.0-10.0) 10^3/uL RBC (4.2-5.4) 10^6/uL Hgb (12.0-16.0) g/dL Hct (37.0-47.0) % MCV (80-100) fL MCH (27.0-34.0) pg MCHC (33.0-35.0) g/dL Plt Count (150-450) 10^3/uL Sodium (136-145) mmol/L Potassium (3.5-5.1) mmol/L Chloride (98-107) mmol/L Carbon Dioxide (21-32) mmol/L Anion Gap (7-13) mEq/L BUN (7-18) mg/dL Creatinine (0.55-1.02) mg/dL Est Cr Clr Drug Dosing mL/min Estimated GFR (MDRD) Glucose (74-99) mg/dL POC Glucose 146 H (70-105) mg/dl Calcium (8.5-10.1) mg/dL Vancomycin Trough (10.0-20.0) ug/mL [facility] Results - Last 24 hrs: Microbiology 11/09/19 22:10 Urine Culture - Final Urine, Voided 11/09/19 17:56 Aerobic Blood Culture - Preliminary Blood - Venous NO GROWTH AFTER 2 DAYS Anaerobic Blood Culture - Preliminary NO GROWTH AFTER 2 DAYS 11/09/19 18:09 Aerobic Blood Culture - Preliminary Blood - Venous - Lab Draw NO GROWTH AFTER 2 DAYS Anaerobic Blood Culture - Final Med Orders - Current: Current Medications Acetaminophen (Tylenol) 650 mg PO Q4H PRN PRN Reason: Pain (mild 1-3 )/fever Last Admin: 11/12/19 06:09 Dose: 650 mg Docusate Sodium (Colace) 100 mg PO DAILY PRN PRN Reason: Constipation Enoxaparin Sodium (Lovenox) 40 mg SUBCUT DAILY [facility] Last Admin: 11/12/19 08:45 Dose: 40 mg Fludrocortisone Acetate (Florinef) 0.1 mg PO WITHBREAKFAST [facility] Last Admin: 11/12/19 08:45 Dose: 0.1 mg Gabapentin (Neurontin) 300 mg PO TID [facility] Last Admin: 11/12/19 08:45 Dose: 300 mg Hydrocortisone Sodium Succinate (Solu-Cortef) 100 mg IV Q8H [facility] Last Admin: 11/12/19 08:42 Dose: 100 mg Vancomycin HCl 750 mg/ Sodium (Chloride) 250 mls @ 166.667 mls/hr IV Q12H [facility] Last Admin: 11/12/19 05:48 Dose: 167 mls/hr Doxycycline Hyclate 100 mg/ (Sodium Chloride) 100 mls @ 100 mls/hr IV Q12HR [facility] Last Infusion: 11/12/19 09:59 Dose: Infused Insulin Human Lispro (Humalog) 0 unit SUBCUT WITHMEALSANDBED [facility]; Protocol Last Admin: 11/12/19 08:13 Dose: Not Given Levothyroxine Sodium (Levothyroxine) 125 mcg PO ACBREAKFAST [facility] Last Admin: 11/12/19 05:48 Dose: 125 mcg Magnesium Oxide (Magnesium Oxide) 400 mg PO BID [facility] Last Admin: 11/12/19 08:44 Dose: 400 mg Midodrine (Midodrine) 10 mg PO TID [facility] Last Admin: 11/12/19 08:43 Dose: 10 mg Sertraline HCl (Zoloft) 50 mg PO BEDTIME [facility] Last Admin: 11/11/19 20:44 Dose: 50 mg Sodium Chloride (Saline Flush) 10 ml FLUSH ASDIRECTED PRN PRN Reason: Keep Vein Open Last Admin: 11/12/19 08:50 Dose: 10 ml Vancomycin HCl (Pharmacy To Dose - Vancomycin) 1 dose .XX ASDIRECTED [facility] Discontinued Medications Hydrocortisone Sodium Succinate (Solu-Cortef) 100 mg IV Q8H [facility] Last Admin: 11/10/19 05:06 Dose: 100 mg Hydrocortisone Sodium Succinate (Solu-Cortef) Confirm Administered Dose 250 mg .ROUTE .STK-MED ONE Stop: 11/10/19 02:28 Hydrocortisone Sodium Succinate (Solu-Cortef) Confirm Administered Dose 100 mg .ROUTE .STK-MED ONE Stop: 11/10/19 09:10 Last Admin: 11/10/19 10:40 Dose: 100 mg Sodium Chloride (Normal Saline) 1,000 mls @ 999 mls/hr IV .BOLUS ONE Stop: 11/09/19 18:49 Last Admin: 11/09/19 18:07 Dose: 999 mls/hr Vancomycin HCl 1 gm/ Sodium (Chloride) 250 mls @ 167 mls/hr IV ONETIME ONE Stop: 11/09/19 19:19 Last Admin: 11/09/19 18:07 Dose: 167 mls/hr Piperacillin Sod/Tazobactam (Sod 3.375 gm/ Sodium Chloride) 100 mls @ 200 mls/ hr IV Q6H [facility] Last Admin: 11/09/19 21:14 Dose: Not Given Sodium Chloride (Normal Saline) 1,000 mls @ 75 mls/hr IV ASDIRECTED [facility] Last Infusion: 11/12/19 07:50 Dose: Infused Ketorolac Tromethamine (Toradol) 30 mg IVPUSH ONETIME ONE Stop: 11/09/19 18:46 Last Admin: 11/09/19 18:56 Dose: 30 mg Midodrine (Midodrine) 5 mg PO BID [facility] Midodrine (Midodrine) 5 mg PO BID [facility] Last Admin: 11/11/19 20:44 Dose: 5 mg - Exam General: Reports: Alert, Oriented, No Acute Distress HEENT: Reports: Pupils Equal, Pupils Reactive, Mucous Membr. Moist/[place] Neck: Reports: Supple Lungs: Reports: Clear to Auscultation, Normal Respiratory Effort Cardiovascular: Reports: Regular Rate, Regular Rhythm GI/Abdominal Exam: Normal Bowel Sounds, Soft, No Organomegaly Extremities: Pedal Edema (Edema of left lower extremity. ) Skin: Reports: Warm, Dry, Rash (Cellulitis of left lower leg) Neurological: Reports: No New Focal Deficit Psy/Mental Status: Reports: Alert, Normal Affect, Normal Mood
[2019-11-15] MEDS: Hydrocortisone Sodium Succinate 100 MG/2 ML SDV ONE (08:23)
== END 2019-11-12 10:17 | disposition left against medical advice (07) | DRG 638 ==
LOC: DL.ED 17:15 → DL.MS 19:44 → DL.ED 19:51
PROVIDERS: ADMIT Internal Medicine Nephrology; ATTEND Internal Medicine Nephrology
DX: E11.628 Type 2 diabetes mellitus with other skin complications (principal); E86.0 Dehydration; H54.7 Unspecified visual loss; L03.116 Cellulitis of left lower limb; R32 Unspecified urinary incontinence; G89.29 Other chronic pain; M54.9 Dorsalgia, unspecified; E27.1 Primary adrenocortical insufficiency; E66.9 Obesity, unspecified; E03.9 Hypothyroidism, unspecified; D72.829 Elevated white blood cell count, unspecified; K21.9 Gastro-esophageal reflux disease without esophagitis; E55.9 Vitamin D deficiency, unspecified; J44.9 Chronic obstructive pulmonary disease, unspecified; F41.9 Anxiety disorder, unspecified; Z28.82 Immunization not carried out because of caregiver refusal; Z88.0 Allergy status to penicillin; Z79.890 Hormone replacement therapy; Z79.899 Other long term (current) drug therapy; Z90.49 Acquired absence of other specified parts of digestive tract
CPT/HCPCS: 36415; 80053; 83605; 85025; 86140; 87040 ×2; 96365; 96366; 96375; 99284; J1885; J3370; J7030; J7050; 80048; 80202; 80305-QW; 81001; 82962; 85027; 87086; A9270-GY; J1650; J1720; J1815-GY; J3490

== ENCOUNTER 2019-11-14 18:23 | Emergency (ER) | payer MEDICAID ==
[2019-11-14] MEDS ORDERED: Potassium Chloride 10 MEQ Tab.ER PO ONE ×3 (18:24→19:57)
[2019-11-14] MEDS ORDERED: Doxycycline 100 MG Cap PO ONE ×2 (18:24→20:01)
[2019-11-14 19:40] LABS: ANION GAP 9.7 mEq/L (7-13)
[2019-11-14] MEDS ORDERED: Potassium Chloride 20 MEQ in Premix Bag 1 BAG IV ONE (19:46)
[2019-11-14] MEDS ORDERED: Doxycycline 100 MG Cap ONE (20:08)
[2019-11-14] MEDS ORDERED: Potassium Chloride 10 MEQ Tab.ER ONE (20:08)
--- NOTE | 2019-11-14 20:09 | EDM.PDOC ---
ED HPI GENERAL MEDICAL PROBLEM - General Chief Complaint: Skin Complaint Stated Complaint: amb Time Seen by Provider: 11/14/19 19:45 Source of Information: Reports: Patient History Limitations: Reports: No Limitations - History of Present Illness INITIAL COMMENTS - FREE TEXT/NARRATIVE: Ed with c/o left fooot and ankle pain, Previous bug bite to ankle 11/08 , hospitalized with cellulitis through 11/11 when left ama. Stated she needed to get home to [place]. Redness gone to lower extremity when left hospital per patient. Noticed starting to come back last karoline. Today felt fever and chills. States unwilling to stay in hospital. No nausea or vomiting. Full weight bearing on extremity. Left Ankle Pain Score (Numeric/FACES): 9 - Related Data Allergies Allergy/AdvReac Type Severity Reaction Status Date / Time Penicillins Allergy Hives Verified 11/14/19 18:31 Home Meds: Home Meds Sertraline [Zoloft] 50 mg PO BEDTIME 02/25/17 [History] Magnesium Oxide 400 mg PO BID 08/08/17 [History] Fludrocortisone [Florinef] 0.1 mg PO WITHBREAKFAST #30 tablet 10/23/17 [Rx] Hydrocortisone [Cortef] 20 mg PO BID #60 tablet 10/23/17 [Rx] Levothyroxine 125 mcg PO ACBREAKFAST #30 tablet 10/23/17 [Rx] Gabapentin [Neurontin] 300 mg PO TID 11/09/19 [History] Past Medical History HEENT History: Reports: Cataract, Impaired Vision Cardiovascular History: Reports: Arrhythmia Respiratory History: Reports: COPD, SOB Gastrointestinal History: Reports: Gastritis Other Gastrointestinal History: Here because of vomiting. Genitourinary History: Reports: Urinary Incontinence Other Genitourinary History: Became incontinent of urine two weeks ago. 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, Diabetes, Type II, Hypothyroidism Hematologic History: Reports: Anemia Immunologic History: Reports: None Oncologic (Cancer) History: Reports: None Dermatologic History: Reports: Eczema Other Dermatologic History: bilateral arms - Infectious Disease History Infectious Disease History: Reports: Other (See Below) Other Infectious Disease History: pt unsure of ID history - Past Surgical History Head Surgeries/Procedures: Reports: None GI Surgical History: Reports: Appendectomy, Cholecystectomy, Colonoscopy Female Surgical History: Reports: Section Social & Family History - Family History Family Medical History: Noncontributory - Tobacco Use Smoking Status *Q: Current Every Day Smoker Years of Tobacco use: 8 Packs/Tins Daily: 0.7 - Caffeine Use Caffeine Use: Reports: None - Recreational Drug Use Recreational Drug Use: Yes Drug Use in Last 12 Months: No - Living Situation & Occupation Living situation: Reports: Single, with Family Occupation: Disabled ED ROS GENERAL - Review of Systems Review Of Systems: Comprehensive ROS is negative, except as noted in HPI. ED EXAM, SKIN/RASH Exam: Not Obtained Exam Limited By: No Limitations General Appearance: Alert, Mild Distress Eye Exam: Bilateral Eye: EOMI, PERRL Ears: Normal External Exam, Hearing Grossly Normal Nose: Normal Inspection Throat/Mouth: Normal Inspection Head: Atraumatic, Normocephalic Neck: Normal Inspection Respiratory/Chest: No Respiratory Distress, Lungs Clear, Normal Breath Sounds Cardiovascular: Regular Rate, Rhythm GI/Abdominal: Normal Bowel Sounds, Soft Back Exam: Full Range of Motion Extremities: Normal Range of Motion, Redness (left lower staton and ankle and forefoot red warm mild induration to inner ankle. tender to touch) Neurological: Alert, Oriented, Normal Cognition Skin: Warm, Dry, Intact, Erythema, Increased Warmth. No: Normal Color Course - Vital Signs Last Recorded V/S: Last Vital Signs Temp 98.5 F 11/14/19 18:29 Pulse 73 11/14/19 18:29 Resp 18 11/14/19 18:29 BP 113/70 11/14/19 18:29 Pulse Ox 100 11/14/19 18:29 - Orders/Labs/Meds Orders: Active Orders 24 hr Category Date Time Status CULTURE BLOOD [BC] Stat Lab 11/14/19 19:00 Received CULTURE BLOOD [BC] Stat Lab 11/14/19 19:08 Results Blood Culture x2 Reflex Set [OM.PC] Stat Oth 11/14/19 18:41 Ordered Labs: Laboratory Tests 05/27/20 05/27/20 05/27/20 Range/Units 19:00 19:00 19:08 WBC 11.2 H (5.0-10.0) 10^3/uL RBC 3.67 L (4.2-5.4) 10^6/uL Hgb 11.6 L D (12.0-16.0) g/dL Hct 34.9 L (37.0-47.0) % MCV 95.1 (80-100) fL MCH 31.6 (27.0-34.0) pg MCHC 33.2 (33.0-35.0) g/dL Plt Count 158 (150-450) 10^3/uL Neut % (Auto) 58.1 (42.2-75.2) % Lymph % (Auto) 34.1 (20.5-50.1) % Cocke % (Auto) 5.3 (2-8) % Eos % (Auto) 2.4 (1.0-3.0) % Baso % (Auto) 0.1 (0.0-1.0) % Add Manual Diff Yes Neutrophils % (Manual) 48 (42-75) % Band Neutrophils % 3 % Lymphocytes % (Manual) 43 (20-50) % Monocytes % (Manual) 4 (2-8) % Eosinophils % (Manual) 2 (1-3) % Sodium 141 (136-145) mmol/L Potassium 2.7 L (3.5-5.1) mmol/L Chloride 102 (98-107) mmol/L Carbon Dioxide 32 (21-32) mmol/L Anion Gap 9.7 (7-13) mEq/L BUN 10 (7-18) mg/dL Creatinine 1.00 (0.55-1.02) mg/dL Est Cr Clr Drug Dosing 49.09 mL/min Estimated GFR (MDRD) 58 BUN/Creatinine Ratio 10.0 (No establ ref range) Glucose 129 H (74-99) mg/dL Lactic Acid 1.8 (0.4-2.0) mmol/L Calcium 6.8 L (8.5-10.1) mg/dL Total Bilirubin 0.4 (0.2-1.0) mg/dL AST 67 H (15-37) U/L ALT 71 H (14-59) U/L Alkaline Phosphatase 71 (46-116) U/L Total Protein 6.4 (6.4-8.2) g/dL Albumin 2.9 L (3.4-5.0) g/dL Globulin 3.5 Albumin/Globulin Ratio 0.83 Urine Color (YELLOW) Urine Appearance (CLEAR) Urine pH (5.0-9.0) Ur Specific [place] (1.005-1.030) Urine Protein (NEGATIVE) Urine Glucose (UA) (NEGATIVE) Urine Ketones (NEGATIVE) Urine Occult Blood (NEGATIVE) Urine Nitrite (NEGATIVE) Urine Bilirubin (NEGATIVE) Urine Urobilinogen (0.2-1.0) mg/dL Ur Leukocyte Esterase (NEGATIVE) Urine Opiates Screen (NEGATIVE) Ur Oxycodone Screen (NEGATIVE) Urine Methadone Screen (NEGATIVE) Ur Barbiturates Screen (NEGATIVE) U Tricyclic Antidepress (NEGATIVE) Ur Phencyclidine Scrn (NEGATIVE) Ur Amphetamine Screen (NEGATIVE) U Methamphetamines Scrn (NEGATIVE) Urine MDMA Screen (NEGATIVE) U Benzodiazepines Scrn (NEGATIVE) Urine Cocaine Screen (NEGATIVE) U Marijuana (THC) Screen (NEGATIVE) 11/14/19 11/14/19 Range/Units 19:16 19:16 WBC (5.0-10.0) 10^3/uL RBC (4.2-5.4) 10^6/uL Hgb (12.0-16.0) g/dL Hct (37.0-47.0) % MCV (80-100) fL MCH (27.0-34.0) pg MCHC (33.0-35.0) g/dL Plt Count (150-450) 10^3/uL Neut % (Auto) (42.2-75.2) % Lymph % (Auto) (20.5-50.1) % Cocke % (Auto) (2-8) % Eos % (Auto) (1.0-3.0) % Baso % (Auto) (0.0-1.0) % Add Manual Diff Neutrophils % (Manual) (42-75) % Band Neutrophils % % Lymphocytes % (Manual) (20-50) % Monocytes % (Manual) (2-8) % Eosinophils % (Manual) (1-3) % Sodium (136-145) mmol/L Potassium (3.5-5.1) mmol/L Chloride (98-107) mmol/L Carbon Dioxide (21-32) mmol/L Anion Gap (7-13) mEq/L BUN (7-18) mg/dL Creatinine (0.55-1.02) mg/dL Est Cr Clr Drug Dosing mL/min Estimated GFR (MDRD) BUN/Creatinine Ratio (No establ ref range) Glucose (74-99) mg/dL Lactic Acid (0.4-2.0) mmol/L Calcium (8.5-10.1) mg/dL Total Bilirubin (0.2-1.0) mg/dL AST (15-37) U/L ALT (14-59) U/L Alkaline Phosphatase (46-116) U/L Total Protein (6.4-8.2) g/dL Albumin (3.4-5.0) g/dL Globulin Albumin/Globulin Ratio Urine Color Yellow (YELLOW) Urine Appearance Clear (CLEAR) Urine pH 6.5 (5.0-9.0) Ur Specific [place] 1.025 (1.005-1.030) Urine Protein Negative (NEGATIVE) Urine Glucose (UA) Negative (NEGATIVE) Urine Ketones Negative (NEGATIVE) Urine Occult Blood Negative (NEGATIVE) Urine Nitrite Negative (NEGATIVE) Urine Bilirubin Negative (NEGATIVE) Urine Urobilinogen 0.2 (0.2-1.0) mg/dL Ur Leukocyte Esterase Negative (NEGATIVE) Urine Opiates Screen Negative (NEGATIVE) Ur Oxycodone Screen Negative (NEGATIVE) Urine Methadone Screen Negative (NEGATIVE) Ur Barbiturates Screen Negative (NEGATIVE) U Tricyclic Antidepress Negative (NEGATIVE) Ur Phencyclidine Scrn Negative (NEGATIVE) Ur Amphetamine Screen Negative (NEGATIVE) U Methamphetamines Scrn Negative (NEGATIVE) Urine MDMA Screen Negative (NEGATIVE) U Benzodiazepines Scrn Negative (NEGATIVE) Urine Cocaine Screen Negative (NEGATIVE) U Marijuana (THC) Screen Negative (NEGATIVE) Meds: Medications Discontinued Medications Generic Name Dose Route Start Last Admin Trade Name Freq PRN Reason Stop Dose Admin Doxycycline Hyclate 100 mg 11/14/19 20:01 Vibramycin PO 11/14/19 20:02 ONETIME ONE Potassium Chloride 20 meq/ 100 mls @ 50 mls/hr 11/14/19 19:46 Premix IV 11/14/19 21:45 ONETIME ONE Potassium Chloride 20 meq 11/14/19 19:51 Klor-Con 10 PO 11/14/19 19:52 ONETIME ONE Potassium Chloride 20 meq 11/14/19 19:57 Klor-Con 10 PO 11/14/19 19:58 ONETIME ONE - Re-Assessments/Exams Free Text/Narrative Re-Assessment/Exam: 11/14/19 20:17 Recommended patient be admitted with cellulitis and hypokalemia and hx of Addisons. Patient refuses. Departure - Departure Time of Disposition: 20:05 Disposition: Home, Self-Care 01 Condition: Good Clinical Impression: Hypokalemia Cellulitis Qualifiers: Site of cellulitis: extremity Site of cellulitis of extremity: lower extremity Laterality: left Qualified Code(s): L03.116 - Cellulitis of left lower limb - Discharge Information *PRESCRIPTION DRUG MONITORING PROGRAM REVIEWED*: No *COPY OF PRESCRIPTION DRUG MONITORING REPORT IN PATIENT NELSY: No Instructions: Cellulitis, Adult, Hypokalemia Forms: ED Department Discharge Additional Instructions: potassium 20mEq in am then 10mEq twice daily for 3 days Recheck in clinic on Tuesday - follow up cellulitis and recheck potassium level sooner if symptoms worsen doxycycline 100mg twice daily for 10 days elevate extremity tylenol 650mg every 6 hours as needed for discomfort Sepsis Event Note - Evaluation Sepsis Screening Result: No Definite Risk - Focused Exam Vital Signs: Vital Signs Temp Pulse Resp BP Pulse Ox 11/14/19 18:29 98.5 F 73 18 113/70 100 Date Exam was Performed: 11/14/19 Time Exam was Performed: 20:09
[2019-11-14 23:21] VITALS: BP 106/65; PULSE 71
== END 2019-11-14 20:34 | disposition home or self-care (01) ==
LOC: DL.ED 18:23
DX: L03.116 Cellulitis of left lower limb (principal); E87.6 Hypokalemia; E11.9 Type 2 diabetes mellitus without complications; E03.9 Hypothyroidism, unspecified; F41.9 Anxiety disorder, unspecified; F17.210 Nicotine dependence, cigarettes, uncomplicated; Z88.0 Allergy status to penicillin; J44.9 Chronic obstructive pulmonary disease, unspecified; Z79.899 Other long term (current) drug therapy
CPT/HCPCS: 36415; 80053; 80305; 81003; 83605; 85025; 87040; 99283; A9270

== ENCOUNTER 2020-12-28 13:39 | Emergency (ER) | payer MEDICAID ==
[2020-12-28] MEDS ORDERED: Dexamethasone 4 MG/ML SDV IVPUSH ONE (13:44)
[2020-12-28 14:00] VITALS: BP 109/61; PULSE 70
[2020-12-28 14:34] LABS: ANION GAP 17.7 mEq/L (7-13); CHLORIDE,CL 103 mmol/L (98-107); SODIUM,NA 138 mmol/L (136-145)
[2020-12-28 14:35] LABS: PTT,PARTIAL THROMBOPLSTIN TIME 25.2 SEC (22.0-34.0)
--- NOTE | 2020-12-28 14:44 | EDM.PDOC ---
ED HPI GENERAL MEDICAL PROBLEM - General Chief Complaint: General Stated Complaint: IN BY AMBULANCE Time Seen by Provider: 12/28/20 14:15 Source of Information: Reports: Patient, EMS, Old Records, RN, RN Notes Reviewed History Limitations: Reports: No Limitations - History of Present Illness INITIAL COMMENTS - FREE TEXT/NARRATIVE: Acacia is a 55 y/o female with a history of Berks's Disease who presents to the ED via EMS with complaints of general malaise. The patient reports she has been out of her medications for five days and began to experience a overall unwell feeling yesterday. She denies fever, shaking chills, vision changes, cough, chest pain, palpitations, nausea, vomiting, abdominal pain, constipation, diarrhea, or dysuria. She notes she will be attempting to establish with a PCP at [facility] this coming week as she usually is just examined by whoever is available. She denies tobacco or alcohol use; she attest to using methamphetamines two days ago. Left Knee Pain Score (Numeric/FACES): 5 - Related Data Allergies Allergy/AdvReac Type Severity Reaction Status Date / Time Penicillins Allergy Hives Verified 12/28/20 14:16 Home Meds: Home Meds Sertraline [Zoloft] 50 mg PO BEDTIME 02/25/17 [History] Magnesium Oxide 400 mg PO BID 08/08/17 [History] Fludrocortisone [Florinef] 0.1 mg PO WITHBREAKFAST #30 tablet 10/23/17 [Rx] Hydrocortisone [Cortef] 20 mg PO BID #60 tablet 10/23/17 [Rx] Levothyroxine 125 mcg PO ACBREAKFAST #30 tablet 10/23/17 [Rx] Gabapentin [Neurontin] 300 mg PO TID 11/09/19 [History] Past Medical History HEENT History: Reports: Cataract, Impaired Vision Cardiovascular History: Reports: Arrhythmia Respiratory History: Reports: COPD, SOB Gastrointestinal History: Reports: Gastritis Other Gastrointestinal History: Here because of vomiting. Genitourinary History: Reports: Urinary Incontinence Other Genitourinary History: Became incontinent of urine two weeks ago. 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 History: Reports: , Other (See Below) Other 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 History: c-sect Musculoskeletal History: Reports: Back Pain, Chronic Neurological History: Reports: Other (See Below) Other Neuro History: forgetful at times Psychiatric History: Reports: Anxiety, Hallucinations Other Psychiatric History: family states has had at home Endocrine/Metabolic History: Reports: Berks's Disease, Diabetes, Type II, Hypothyroidism Hematologic History: Reports: Anemia Immunologic History: Reports: None Oncologic (Cancer) History: Reports: None Dermatologic History: Reports: Eczema Other Dermatologic History: bilateral arms - Infectious Disease History Infectious Disease History: Reports: Other (See Below) Other Infectious Disease History: pt unsure of ID history - Past Surgical History Head Surgeries/Procedures: Reports: None Cardiovascular Surgical History: Reports: None Respiratory Surgical History: Reports: None GI Surgical History: Reports: Appendectomy, Cholecystectomy, Colonoscopy Female Surgical History: Reports: Section Endocrine Surgical History: Reports: None Neurological Surgical History: Reports: None Musculoskeletal Surgical History: Reports: None Dermatological Surgical History: Reports: None Social & Family History - Family History Family Medical History: No Pertinent Family History - Tobacco Use Tobacco Use Status *Q: Current Every Day Tobacco User Years of Tobacco use: 9 Packs/Tins Daily: 1 - Caffeine Use Caffeine Use: Reports: Coffee, Soda - Recreational Drug Use Recreational Drug Use: Yes Recreational Drug Type: Reports: Methamphetamine - Living Situation & Occupation Living situation: Reports: Single, with Family Occupation: Disabled ED ROS GENERAL - Review of Systems Review Of Systems: Comprehensive ROS is negative, except as noted in HPI. ED EXAM, GENERAL - Physical Exam Exam: See Below Exam Limited By: No Limitations General Appearance: Alert, No Apparent Distress, Thin Eye Exam: Bilateral Eye: EOMI, Normal Inspection, PERRL (3mm) Ears: Normal External Exam, Hearing Grossly Normal Nose: Normal Inspection, Normal Mucosa, No Blood Throat/Mouth: Normal Voice, No Airway Compromise. No: Normal Lips (Dry, cracked), Normal Oropharynx (Dry mucous membranes) Head: Atraumatic, Normocephalic Neck: Normal Inspection, Supple, Non-Tender, Full Range of Motion. No: Lymphadenopathy (L), Lymphadenopathy (R) Respiratory/Chest: No Respiratory Distress, Lungs Clear, Normal Breath Sounds, No Accessory Muscle Use, Chest Non-Tender Cardiovascular: Normal Peripheral Pulses, Regular Rate, Rhythm, No Edema, No Gallop, No JVD, No Murmur, No Rub Peripheral Pulses: 2+: Radial (L), Radial (R), Dorsalis Pedis (L), Dorsalis Pedis (R) GI/Abdominal: Normal Bowel Sounds, Soft, Non-Tender, No Distention, No Abnormal Bruit, No Mass, Pelvis Stable (Female) Exam: Deferred Rectal (Female) Exam: Deferred Back Exam: Normal Inspection, Full Range of Motion Extremities: Normal Inspection, Normal Range of Motion, Non-Tender, Normal Capillary Refill, No Pedal Edema Neurological: Alert, Oriented, CN II-XII Intact, Normal Cognition, Normal Gait, No Motor/Sensory Deficits Psychiatric: Normal Affect, Normal Mood Skin Exam: Warm, Dry, Intact, Normal Color, No Rash. No: Cyanosis, Jaundice, Mottled, Pallor #1 Interpretation EKG Date: 12/28/20 Time: 14:04 Rhythm: NSR Rate (Beats/Min): 75 [place]: LAD-Left [place] Deviation P-Wave: Present QRS: Normal ST-T: Depressed (Mild V2, V3, V4) QT: Prolonged (.571) HI/PQ Interval: 0.159 Comparison: Change From Previous EKG ((10-22-18)) EKG Interpretation Comments: NSR; QT prolongation; Inverted [place] in V1-V4 Course - Vital Signs Last Recorded V/S: Last Vital Signs Temp 97.7 F 12/28/20 13:56 Pulse 70 12/28/20 13:56 Resp 14 12/28/20 13:56 BP 109/61 12/28/20 13:56 Pulse Ox 100 12/28/20 13:56 - Orders/Labs/Meds Labs: Laboratory Tests 12/28/20 12/28/20 12/28/20 Range/Units 13:57 13:57 13:57 WBC 6.5 (5.0-10.0) 10^3/uL RBC 5.19 (4.2-5.4) 10^6/uL Hgb 15.6 D (12.0-16.0) g/dL Hct 45.8 (37.0-47.0) % MCV 88.2 D (80-100) fL MCH 30.1 (27.0-34.0) pg MCHC 34.1 (33.0-35.0) g/dL Plt Count 32 L* D (150-450) 10^3/uL Neut % (Auto) 47.6 (42.2-75.2) % Lymph % (Auto) 42.5 (20.5-50.1) % [place] % (Auto) 4.4 (2-8) % Eos % (Auto) 4.9 H (1.0-3.0) % Baso % (Auto) 0.6 (0.0-1.0) % PT (9.0-12.0) SEC INR (0.9-1.2) APTT (22.0-34.0) SEC Sodium 138 (136-145) mmol/L Potassium 5.7 H D (3.5-5.1) mmol/L Chloride 103 (98-107) mmol/L Carbon Dioxide 23 (21-32) mmol/L Anion Gap 17.7 H (7-13) mEq/L BUN 19 H (7-18) mg/dL Creatinine 1.07 H (0.55-1.02) mg/dL Est Cr Clr Drug Dosing TNP Estimated GFR (MDRD) 53 BUN/Creatinine Ratio 17.8 (No establ ref range) Glucose 85 (70-99) mg/dL POC Glucose (70-99) mg/dL Lactic Acid 1.1 (0.4-2.0) mmol/L Calcium 8.5 D (8.5-10.1) mg/dL Magnesium 1.4 L (1.8-2.4) mg/dL Total Bilirubin 0.7 (0.2-1.0) mg/dL AST 191 H (15-37) U/L ALT 168 H (14-59) U/L Alkaline Phosphatase 96 (46-116) U/L Troponin I High Sens 20 (<=51) pg/mL C-Reactive Protein < 0.2 (0.0-0.9) mg/dL Total Protein 8.2 (6.4-8.2) g/dL Albumin 3.5 (3.4-5.0) g/dL Globulin 4.7 Albumin/Globulin Ratio 0.7 TSH, Ultra Sensitive (0.36-3.74) uIU/mL Urine Color (YELLOW) Urine Appearance (CLEAR) Urine pH (5.0-9.0) Ur Specific [place] (1.005-1.030) Urine Protein (NEGATIVE) Urine Glucose (UA) (NEGATIVE) Urine Ketones (NEGATIVE) Urine Occult Blood (NEGATIVE) Urine Nitrite (NEGATIVE) Urine Bilirubin (NEGATIVE) Urine Urobilinogen (0.2-1.0) mg/dL Ur Leukocyte Esterase (NEGATIVE) U Hyaline Cast (Auto) Urine RBC /HPF Urine WBC (0-5/HPF) /HPF Ur Epithelial Cells (NOT SEEN) /HPF Urine Bacteria (0-FEW/HPF) /HPF Urine Mucus (NOT SEEN) /LPF Urine Opiates Screen (NEGATIVE) Ur Oxycodone Screen (NEGATIVE) Urine Methadone Screen (NEGATIVE) Ur Barbiturates Screen (NEGATIVE) U Tricyclic Antidepress (NEGATIVE) Ur Phencyclidine Scrn (NEGATIVE) Ur Amphetamine Screen (NEGATIVE) U Methamphetamines Scrn (NEGATIVE) Urine MDMA Screen (NEGATIVE) U Benzodiazepines Scrn (NEGATIVE) Urine Cocaine Screen (NEGATIVE) U Marijuana (THC) Screen (NEGATIVE) Ethyl Alcohol < 3 (0) mg/dL 12/28/20 12/28/20 12/28/20 Range/Units 13:57 13:57 14:04 WBC (5.0-10.0) 10^3/uL RBC (4.2-5.4) 10^6/uL Hgb (12.0-16.0) g/dL Hct (37.0-47.0) % MCV (80-100) fL MCH (27.0-34.0) pg MCHC (33.0-35.0) g/dL Plt Count (150-450) 10^3/uL Neut % (Auto) (42.2-75.2) % Lymph % (Auto) (20.5-50.1) % [place] % (Auto) (2-8) % Eos % (Auto) (1.0-3.0) % Baso % (Auto) (0.0-1.0) % PT 11.9 (9.0-12.0) SEC INR 1.2 (0.9-1.2) APTT 25.2 (22.0-34.0) SEC Sodium (136-145) mmol/L Potassium (3.5-5.1) mmol/L Chloride (98-107) mmol/L Carbon Dioxide (21-32) mmol/L Anion Gap (7-13) mEq/L BUN (7-18) mg/dL Creatinine (0.55-1.02) mg/dL Est Cr Clr Drug Dosing Estimated GFR (MDRD) BUN/Creatinine Ratio (No establ ref range) Glucose (70-99) mg/dL POC Glucose 74 (70-99) mg/dL Lactic Acid (0.4-2.0) mmol/L Calcium (8.5-10.1) mg/dL Magnesium (1.8-2.4) mg/dL Total Bilirubin (0.2-1.0) mg/dL AST (15-37) U/L ALT (14-59) U/L Alkaline Phosphatase (46-116) U/L Troponin I High Sens (<=51) pg/mL C-Reactive Protein (0.0-0.9) mg/dL Total Protein (6.4-8.2) g/dL Albumin (3.4-5.0) g/dL Globulin Albumin/Globulin Ratio TSH, Ultra Sensitive 183.84 H (0.36-3.74) uIU/mL Urine Color (YELLOW) Urine Appearance (CLEAR) Urine pH (5.0-9.0) Ur Specific [place] (1.005-1.030) Urine Protein (NEGATIVE) Urine Glucose (UA) (NEGATIVE) Urine Ketones (NEGATIVE) Urine Occult Blood (NEGATIVE) Urine Nitrite (NEGATIVE) Urine Bilirubin (NEGATIVE) Urine Urobilinogen (0.2-1.0) mg/dL Ur Leukocyte Esterase (NEGATIVE) U Hyaline Cast (Auto) Urine RBC /HPF Urine WBC (0-5/HPF) /HPF Ur Epithelial Cells (NOT SEEN) /HPF Urine Bacteria (0-FEW/HPF) /HPF Urine Mucus (NOT SEEN) /LPF Urine Opiates Screen (NEGATIVE) Ur Oxycodone Screen (NEGATIVE) Urine Methadone Screen (NEGATIVE) Ur Barbiturates Screen (NEGATIVE) U Tricyclic Antidepress (NEGATIVE) Ur Phencyclidine Scrn (NEGATIVE) Ur Amphetamine Screen (NEGATIVE) U Methamphetamines Scrn (NEGATIVE) Urine MDMA Screen (NEGATIVE) U Benzodiazepines Scrn (NEGATIVE) Urine Cocaine Screen (NEGATIVE) U Marijuana (THC) Screen (NEGATIVE) Ethyl Alcohol (0) mg/dL 12/28/20 12/28/20 Range/Units 14:21 14:21 WBC (5.0-10.0) 10^3/uL RBC (4.2-5.4) 10^6/uL Hgb (12.0-16.0) g/dL Hct (37.0-47.0) % MCV (80-100) fL MCH (27.0-34.0) pg MCHC (33.0-35.0) g/dL Plt Count (150-450) 10^3/uL Neut % (Auto) (42.2-75.2) % Lymph % (Auto) (20.5-50.1) % [place] % (Auto) (2-8) % Eos % (Auto) (1.0-3.0) % Baso % (Auto) (0.0-1.0) % PT (9.0-12.0) SEC INR (0.9-1.2) APTT (22.0-34.0) SEC Sodium (136-145) mmol/L Potassium (3.5-5.1) mmol/L Chloride (98-107) mmol/L Carbon Dioxide (21-32) mmol/L Anion Gap (7-13) mEq/L BUN (7-18) mg/dL Creatinine (0.55-1.02) mg/dL Est Cr Clr Drug Dosing Estimated GFR (MDRD) BUN/Creatinine Ratio (No establ ref range) Glucose (70-99) mg/dL POC Glucose (70-99) mg/dL Lactic Acid (0.4-2.0) mmol/L Calcium (8.5-10.1) mg/dL Magnesium (1.8-2.4) mg/dL Total Bilirubin (0.2-1.0) mg/dL AST (15-37) U/L ALT (14-59) U/L Alkaline Phosphatase (46-116) U/L Troponin I High Sens (<=51) pg/mL C-Reactive Protein (0.0-0.9) mg/dL Total Protein (6.4-8.2) g/dL Albumin (3.4-5.0) g/dL Globulin Albumin/Globulin Ratio TSH, Ultra Sensitive (0.36-3.74) uIU/mL Urine Color Yellow (YELLOW) Urine Appearance Slightly cloudy (CLEAR) Urine pH 7.0 (5.0-9.0) Ur Specific [place] >= 1.030 (1.005-1.030) Urine Protein Negative (NEGATIVE) Urine Glucose (UA) Negative (NEGATIVE) Urine Ketones Negative (NEGATIVE) Urine Occult Blood Negative (NEGATIVE) Urine Nitrite Negative (NEGATIVE) Urine Bilirubin Negative (NEGATIVE) Urine Urobilinogen 4.0 H (0.2-1.0) mg/dL Ur Leukocyte Esterase Trace H (NEGATIVE) U Hyaline Cast (Auto) Moderate Urine RBC 0-5 /HPF Urine WBC 5-10 H (0-5/HPF) /HPF Ur Epithelial Cells Few (NOT SEEN) /HPF Urine Bacteria Moderate H (0-FEW/HPF) /HPF Urine Mucus Many H (NOT SEEN) /LPF Urine Opiates Screen Negative (NEGATIVE) Ur Oxycodone Screen Negative (NEGATIVE) Urine Methadone Screen Negative (NEGATIVE) Ur Barbiturates Screen Negative (NEGATIVE) U Tricyclic Antidepress Negative (NEGATIVE) Ur Phencyclidine Scrn Negative (NEGATIVE) Ur Amphetamine Screen Negative (NEGATIVE) U Methamphetamines Scrn Positive H (NEGATIVE) Urine MDMA Screen Negative (NEGATIVE) U Benzodiazepines Scrn Negative (NEGATIVE) Urine Cocaine Screen Negative (NEGATIVE) U Marijuana (THC) Screen Negative (NEGATIVE) Ethyl Alcohol (0) mg/dL Meds: Medications Discontinued Medications Generic Name Dose Route Start Last Admin Trade Name Azalea PRN Reason Stop Dose Admin Dexamethasone 4 mg 12/28/20 13:44 12/28/20 14:08 Dexamethasone 4 Mg/Ml Sdv IVPUSH 12/28/20 13:45 4 mg ONETIME ONE Administration Fludrocortisone Acetate 0.2 mg 12/28/20 15:04 12/28/20 15:17 Fludrocortisone 0.1 Mg Tab PO 12/28/20 15:05 0.2 mg ONETIME ONE Administration Hydrocortisone 20 mg 12/28/20 15:05 12/28/20 15:17 Hydrocortisone 20 Mg Tab PO 12/28/20 15:06 20 mg ONETIME ONE Administration Sodium Chloride 1,000 mls @ 999 mls/hr 12/28/20 15:00 12/28/20 15:16 Normal Saline IV 12/28/20 16:00 999 mls/hr .BOLUS ONE Administration Levothyroxine Sodium 125 mcg 12/28/20 15:07 12/28/20 15:17 Levothyroxine 112 Mcg Tab PO 12/28/20 15:08 125 mcg ONETIME ONE Administration Levothyroxine Sodium Confirm 12/28/20 15:14 12/28/20 15:18 Levothyroxine 125 Mcg Tab Administered 07/11/21 15:15 Not Given Dose 125 mcg .ROUTE .STK-MED ONE Nitrofurantoin Macrocrystals 100 mg 12/28/20 15:08 12/28/20 15:17 Nitrofurantoin Monohydrate/Macrocrystalline 100 Mg Cap PO 12/28/20 15:09 100 mg ONETIME ONE Administration - Re-Assessments/Exams Free Text/Narrative Re-Assessment/Exam: 12/28/20 Dexamethasone 4mg administered while labs pending. Will administer IVF should blood pressure decrease. Blood pressure currently 80s systolic; patient states she does not want to wait for IVF as she has "..things to do." Findings of examination and lab work reviewed with patient, including findings of UTI. Discussed risks of not receiving IVF for hypotension or monitoring for Manolo's crisis. Patient left AMA Departure - Departure Time of Disposition: 16:20 Disposition: Against Medical Advice 07 Condition: Poor Clinical Impression: Berks's disease, Hyperkalemia, Hypomagnesemia, Methamphetamine abuse, Noncompliance with medication regimen, Acute adrenal crisis Hypotension Qualifiers: Hypotension type: unspecified hypotension type Qualified Code(s): I95.9 - Hypotension, unspecified Urinary tract infection Qualifiers: Urinary tract infection type: site unspecified Hematuria presence: with hematuria Qualified Code(s): N39.0 - Urinary tract infection, site not specified; R31.9 - Hematuria, unspecified Hypothyroid Qualifiers: Hypothyroidism type: unspecified Qualified Code(s): E03.9 - Hypothyroidism, unspecified - Discharge Information Referrals: PCP,None [Primary Care Provider] - Forms: ED Department Discharge Sepsis Event Note (ED) - Evaluation Sepsis Screening Result: No Definite Risk
[2020-12-28] MEDS ORDERED: Sodium Chloride 0.9% 1,000 ML IV ONE (15:00)
[2020-12-28] MEDS ORDERED: Fludrocortisone 0.1 MG Tab PO ONE (15:04)
[2020-12-28] MEDS ORDERED: Hydrocortisone 20 MG Tab PO ONE (15:05)
[2020-12-28] MEDS ORDERED: Levothyroxine 112 MCG Tab PO ONE (15:07)
[2020-12-28] MEDS ORDERED: Nitrofurantoin Monohydrate/Macrocrystalline 100 MG Cap PO ONE (15:08)
[2020-12-28] MEDS ORDERED: Levothyroxine 125 MCG Tab ONE (15:14)
--- NOTE | 2020-12-28 16:25 | CR ---
PROCEDURE INFORMATION: Exam: XR Left Knee Exam date and time: 12/28/2020 3:44 PM Age: 55 years old Clinical indication: Pain; Knee; Left; Additional info: Fall two days ago; Progressive lateral pain TECHNIQUE: Imaging protocol: XR Left knee. Views: 3 views. COMPARISON: No relevant prior studies available. FINDINGS: Bones/joints: Normal. Soft tissues: Normal. Other findings: Small effusion. IMPRESSION: Small effusion. No fracture identified.
== END 2020-12-28 16:23 | disposition left against medical advice (07) ==
LOC: DL.ED 13:39
DX: E87.5 Hyperkalemia (principal); E83.42 Hypomagnesemia; I95.9 Hypotension, unspecified; E27.1 Primary adrenocortical insufficiency; F15.10 Other stimulant abuse, uncomplicated; E27.2 Addisonian crisis; N39.0 Urinary tract infection, site not specified; R31.9 Hematuria, unspecified; E03.9 Hypothyroidism, unspecified; J44.9 Chronic obstructive pulmonary disease, unspecified; E11.9 Type 2 diabetes mellitus without complications; Z72.0 Tobacco use; Z88.0 Allergy status to penicillin; Z79.899 Other long term (current) drug therapy
CPT/HCPCS: 36415; 73562; 80053; 80305; 80307; 81001; 82533; 82947; 83605; 83735; 84443; 84484; 85025; 85610; 85730; 86140; 87086; 93005; 96374; 99284; A9270; J1100; J7030

== ENCOUNTER 2021-02-26 10:39 | Emergency (ER) | payer MEDICAID ==
[2021-02-26] MEDS ORDERED: Dexamethasone 4 MG/ML SDV IVPUSH ONE (11:05)
[2021-02-26] MEDS ORDERED: Sodium Chloride 0.9% 10 ML Syringe FLUSH PRN (11:05)
[2021-02-26] MEDS ORDERED: Sodium Chloride 0.9% 1,000 ML IV ONE (11:07)
--- NOTE | 2021-02-26 11:07 | EDM.PDOC ---
ED HPI GENERAL MEDICAL PROBLEM - General Stated Complaint: AMBULANCE Time Seen by Provider: 02/26/21 11:01 Source of Information: Reports: Patient History Limitations: Reports: No Limitations - History of Present Illness INITIAL COMMENTS - FREE TEXT/NARRATIVE: 55 y/o F c/o ABd pn around the umbilicus that started 3 days ago. The pain is sharp, constant, 8/10 and radiates to her back. Last bowel movement 2 days ago and was normal. Normal urine output. She states she used meth 2 days ago. Does not drink alcohol. Denies mejia, vision prob, db, cp, extremity pn. Duration: Day(s): Location: Reports: Abdomen Quality: Reports: Sharp Severity: Severe Improves with: Reports: None Worsens with: Reports: None Middle Abdomen Pain Score (Numeric/FACES): 8 - Related Data Allergies Allergy/AdvReac Type Severity Reaction Status Date / Time Penicillins Allergy Hives Verified 02/26/21 11:18 Home Meds: Home Meds Sertraline [Zoloft] 50 mg PO BEDTIME 02/25/17 [History] Magnesium Oxide 400 mg PO BID 08/08/17 [History] Fludrocortisone [Florinef] 0.1 mg PO WITHBREAKFAST #30 tablet 10/23/17 [Rx] Hydrocortisone [Cortef] 20 mg PO BID #60 tablet 10/23/17 [Rx] Levothyroxine 125 mcg PO ACBREAKFAST #30 tablet 10/23/17 [Rx] Gabapentin [Neurontin] 300 mg PO TID 11/09/19 [History] Past Medical History HEENT History: Reports: Cataract, Impaired Vision Cardiovascular History: Reports: Arrhythmia Respiratory History: Reports: COPD, SOB Gastrointestinal History: Reports: Gastritis Other Gastrointestinal History: Here because of vomiting. Genitourinary History: Reports: Urinary Incontinence Other Genitourinary History: Became incontinent of urine two weeks ago. 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: Reports: , Other (See Below) Other 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: c-sect Musculoskeletal History: Reports: Back Pain, Chronic Neurological History: Reports: Other (See Below) Other Neuro History: forgetful at times Psychiatric History: Reports: Anxiety, Hallucinations Other Psychiatric History: family states has had at home Endocrine/Metabolic History: Reports: [place]'s Disease, Diabetes, Type II, Hypothyroidism Hematologic History: Reports: Anemia Immunologic History: Reports: None Oncologic (Cancer) History: Reports: None Dermatologic History: Reports: Eczema Other Dermatologic History: bilateral arms - Infectious Disease History Infectious Disease History: Reports: Other (See Below) Other Infectious Disease History: pt unsure of ID history - Past Surgical History Head Surgeries/Procedures: Reports: None Cardiovascular Surgical History: Reports: None Respiratory Surgical History: Reports: None GI Surgical History: Reports: Appendectomy, Cholecystectomy, Colonoscopy Female Surgical History: Reports: Section Endocrine Surgical History: Reports: None Neurological Surgical History: Reports: None Musculoskeletal Surgical History: Reports: None Dermatological Surgical History: Reports: None Social & Family History - Family History Family Medical History: No Pertinent Family History - Caffeine Use Caffeine Use: Reports: Coffee, Soda - Living Situation & Occupation Living situation: Reports: Single, with Family Occupation: Disabled ED ROS GENERAL - Review of Systems Review Of Systems: Comprehensive ROS is negative, except as noted in HPI. ED EXAM, GI/ABD - Physical Exam Exam: See Below Exam Limited By: No Limitations General Appearance: Alert Throat/Mouth: Other (dry shanel pharynx tongue dry and furrowed) Neck: Supple, Non-Tender Respiratory/Chest: No Respiratory Distress, Lungs Clear Cardiovascular: Regular Rate, Rhythm GI/Abdominal Exam: Soft, Tender (tender around the umbilicus) (Female) Exam: Deferred Rectal (Female) Exam: Deferred Back Exam: Normal Inspection, Full Range of Motion Extremities: Normal Inspection, Normal Range of Motion, Non-Tender, Normal Capillary Refill, No Pedal Edema Neurological: Alert Psychiatric: Normal Affect Skin Exam: Warm, Dry, Intact Course - Vital Signs Last Recorded V/S: Last Vital Signs Temp 98.4 F 02/26/21 11:49 Pulse 77 02/26/21 11:49 Resp 12 02/26/21 11:49 BP 132/96 H 02/26/21 11:49 Pulse Ox 99 02/26/21 11:49 - Orders/Labs/Meds Orders: Active Orders 24 hr Category Date Time Status Blood Glucose Check, Bedside [RC] ONETIME Care 02/26/21 11:08 Active Peripheral IV Care [RC] . DIRECTED Care 02/26/21 11:06 Active CULTURE BLOOD [BC] Stat Lab 02/26/21 11:12 Results CULTURE BLOOD [BC] Stat Lab 02/26/21 11:20 Received Glycerin [Adult Glycerin] Med 02/26/21 14:55 Once 1 supp RECTAL ONETIME ONE Lactulose [Cephulac] Med 02/26/21 14:55 Once 40 gm PO ONETIME ONE Sodium Chloride 0.9% [Saline Flush] Med 02/26/21 11:05 Active 10 ml FLUSH ASDIRECTED PRN Blood Culture x2 Reflex Set [OM.PC] Stat Ot 02/26/21 11:03 Ordered Peripheral IV Insertion Adult [OM.PC] Stat Ot 02/26/21 11:03 Ordered Medication Orders Sodium Chloride (Sodium Chloride 0.9% 10 Ml Syringe) 10 ml FLUSH ASDIRECTED PRN PRN Reason: Keep Vein Open Last Admin: 02/26/21 11:27 Dose: 10 ml Documented by: MARTHA Labs: Laboratory Tests 02/26/21 02/26/21 02/26/21 Range/Units 11:17 11:20 11:20 WBC 10.1 H (5.0-10.0) 10^3/uL RBC 4.46 (4.2-5.4) 10^6/uL Hgb 14.1 D (12.0-16.0) g/dL Hct 41.0 (37.0-47.0) % MCV 91.9 D (80-100) fL MCH 31.6 (27.0-34.0) pg MCHC 34.4 (33.0-35.0) g/dL Plt Count 215 D (150-450) 10^3/uL Neut % (Auto) 55.6 (42.2-75.2) % Lymph % (Auto) 32.1 (20.5-50.1) % [place] % (Auto) 7.8 (2-8) % Eos % (Auto) 4.2 H (1.0-3.0) % Baso % (Auto) 0.3 (0.0-1.0) % Sodium 142 (136-145) mmol/L Potassium 3.4 L D (3.5-5.1) mmol/L Chloride 106 (98-107) mmol/L Carbon Dioxide 24 (21-32) mmol/L Anion Gap 15.4 H (7-13) mEq/L BUN 18 (7-18) mg/dL Creatinine 0.70 (0.55-1.02) mg/dL Est Cr Clr Drug Dosing 69.33 mL/min Estimated GFR (MDRD) > 60 BUN/Creatinine Ratio 25.7 (No establ ref range) Glucose 93 (70-99) mg/dL POC Glucose 85 (70-99) mg/dL Lactic Acid (0.4-2.0) mmol/L Calcium 7.8 L (8.5-10.1) mg/dL Phosphorus (2.6-4.7) mg/dL Magnesium (1.8-2.4) mg/dL Total Bilirubin 0.6 (0.2-1.0) mg/dL AST 66 H (15-37) U/L ALT 86 H (14-59) U/L Alkaline Phosphatase 53 (46-116) U/L Total Protein 7.0 (6.4-8.2) g/dL Albumin 3.1 L (3.4-5.0) g/dL Globulin 3.9 Albumin/Globulin Ratio 0.79 Amylase 58 (25-115) U/L Lipase 49 L (73-393) U/L TSH, Ultra Sensitive (0.36-3.74) uIU/mL Urine Color (YELLOW) Urine Appearance (CLEAR) Urine pH (5.0-9.0) Ur Specific [place] (1.005-1.030) Urine Protein (NEGATIVE) Urine Glucose (UA) (NEGATIVE) Urine Ketones (NEGATIVE) Urine Occult Blood (NEGATIVE) Urine Nitrite (NEGATIVE) Urine Bilirubin (NEGATIVE) Urine Urobilinogen (0.2-1.0) mg/dL Ur Leukocyte Esterase (NEGATIVE) Urine Opiates Screen (NEGATIVE) Ur Oxycodone Screen (NEGATIVE) Urine Methadone Screen (NEGATIVE) Ur Barbiturates Screen (NEGATIVE) U Tricyclic Antidepress (NEGATIVE) Ur Phencyclidine Scrn (NEGATIVE) Ur Amphetamine Screen (NEGATIVE) U Methamphetamines Scrn (NEGATIVE) Urine MDMA Screen (NEGATIVE) U Benzodiazepines Scrn (NEGATIVE) Urine Cocaine Screen (NEGATIVE) U Marijuana (THC) Screen (NEGATIVE) Ethyl Alcohol < 3 (0) mg/dL 02/26/21 02/26/21 02/26/21 Range/Units 11:20 11:20 14:18 WBC (5.0-10.0) 10^3/uL RBC (4.2-5.4) 10^6/uL Hgb (12.0-16.0) g/dL Hct (37.0-47.0) % MCV (80-100) fL MCH (27.0-34.0) pg MCHC (33.0-35.0) g/dL Plt Count (150-450) 10^3/uL Neut % (Auto) (42.2-75.2) % Lymph % (Auto) (20.5-50.1) % [place] % (Auto) (2-8) % Eos % (Auto) (1.0-3.0) % Baso % (Auto) (0.0-1.0) % Sodium (136-145) mmol/L Potassium (3.5-5.1) mmol/L Chloride (98-107) mmol/L Carbon Dioxide (21-32) mmol/L Anion Gap (7-13) mEq/L BUN (7-18) mg/dL Creatinine (0.55-1.02) mg/dL Est Cr Clr Drug Dosing mL/min Estimated GFR (MDRD) BUN/Creatinine Ratio (No establ ref range) Glucose (70-99) mg/dL POC Glucose (70-99) mg/dL Lactic Acid 1.3 (0.4-2.0) mmol/L Calcium (8.5-10.1) mg/dL Phosphorus 3.0 (2.6-4.7) mg/dL Magnesium 1.1 L (1.8-2.4) mg/dL Total Bilirubin (0.2-1.0) mg/dL AST (15-37) U/L ALT (14-59) U/L Alkaline Phosphatase (46-116) U/L Total Protein (6.4-8.2) g/dL Albumin (3.4-5.0) g/dL Globulin Albumin/Globulin Ratio Amylase (25-115) U/L Lipase (73-393) U/L TSH, Ultra Sensitive 94.89 H (0.36-3.74) uIU/mL Urine Color Yellow (YELLOW) Urine Appearance Clear (CLEAR) Urine pH 6.0 (5.0-9.0) Ur Specific [place] 1.020 (1.005-1.030) Urine Protein Negative (NEGATIVE) Urine Glucose (UA) Negative (NEGATIVE) Urine Ketones Negative (NEGATIVE) Urine Occult Blood Negative (NEGATIVE) Urine Nitrite Negative (NEGATIVE) Urine Bilirubin Negative (NEGATIVE) Urine Urobilinogen 1.0 (0.2-1.0) mg/dL Ur Leukocyte Esterase Negative (NEGATIVE) Urine Opiates Screen (NEGATIVE) Ur Oxycodone Screen (NEGATIVE) Urine Methadone Screen (NEGATIVE) Ur Barbiturates Screen (NEGATIVE) U Tricyclic Antidepress (NEGATIVE) Ur Phencyclidine Scrn (NEGATIVE) Ur Amphetamine Screen (NEGATIVE) U Methamphetamines Scrn (NEGATIVE) Urine MDMA Screen (NEGATIVE) U Benzodiazepines Scrn (NEGATIVE) Urine Cocaine Screen (NEGATIVE) U Marijuana (THC) Screen (NEGATIVE) Ethyl Alcohol (0) mg/dL 02/26/21 Range/Units 14:18 WBC (5.0-10.0) 10^3/uL RBC (4.2-5.4) 10^6/uL Hgb (12.0-16.0) g/dL Hct (37.0-47.0) % MCV (80-100) fL MCH (27.0-34.0) pg MCHC (33.0-35.0) g/dL Plt Count (150-450) 10^3/uL Neut % (Auto) (42.2-75.2) % Lymph % (Auto) (20.5-50.1) % [place] % (Auto) (2-8) % Eos % (Auto) (1.0-3.0) % Baso % (Auto) (0.0-1.0) % Sodium (136-145) mmol/L Potassium (3.5-5.1) mmol/L Chloride (98-107) mmol/L Carbon Dioxide (21-32) mmol/L Anion Gap (7-13) mEq/L BUN (7-18) mg/dL Creatinine (0.55-1.02) mg/dL Est Cr Clr Drug Dosing mL/min Estimated GFR (MDRD) BUN/Creatinine Ratio (No establ ref range) Glucose (70-99) mg/dL POC Glucose (70-99) mg/dL Lactic Acid (0.4-2.0) mmol/L Calcium (8.5-10.1) mg/dL Phosphorus (2.6-4.7) mg/dL Magnesium (1.8-2.4) mg/dL Total Bilirubin (0.2-1.0) mg/dL AST (15-37) U/L ALT (14-59) U/L Alkaline Phosphatase (46-116) U/L Total Protein (6.4-8.2) g/dL Albumin (3.4-5.0) g/dL Globulin Albumin/Globulin Ratio Amylase (25-115) U/L Lipase (73-393) U/L TSH, Ultra Sensitive (0.36-3.74) uIU/mL Urine Color (YELLOW) Urine Appearance (CLEAR) Urine pH (5.0-9.0) Ur Specific [place] (1.005-1.030) Urine Protein (NEGATIVE) Urine Glucose (UA) (NEGATIVE) Urine Ketones (NEGATIVE) Urine Occult Blood (NEGATIVE) Urine Nitrite (NEGATIVE) Urine Bilirubin (NEGATIVE) Urine Urobilinogen (0.2-1.0) mg/dL Ur Leukocyte Esterase (NEGATIVE) Urine Opiates Screen Negative (NEGATIVE) Ur Oxycodone Screen Negative (NEGATIVE) Urine Methadone Screen Negative (NEGATIVE) Ur Barbiturates Screen Negative (NEGATIVE) U Tricyclic Antidepress Negative (NEGATIVE) Ur Phencyclidine Scrn Negative (NEGATIVE) Ur Amphetamine Screen Positive H (NEGATIVE) U Methamphetamines Scrn Positive H (NEGATIVE) Urine MDMA Screen Negative (NEGATIVE) U Benzodiazepines Scrn Negative (NEGATIVE) Urine Cocaine Screen Negative (NEGATIVE) U Marijuana (THC) Screen Negative (NEGATIVE) Ethyl Alcohol (0) mg/dL Meds: Medications Generic Name Dose Route Start Last Admin Trade Name Azalea PRN Reason Stop Dose Admin Sodium Chloride 10 ml 02/26/21 11:05 02/26/21 11:27 Sodium Chloride 0.9% 10 Ml Syringe FLUSH 10 ml ASDIRECTED PRN Administration Keep Vein Open Discontinued Medications Generic Name Dose Route Start Last Admin Trade Name Azalea PRN Reason Stop Dose Admin Dexamethasone 4 mg 02/26/21 11:05 02/26/21 11:27 Dexamethasone 4 Mg/Ml Sdv IVPUSH 02/26/21 11:06 4 mg ONETIME ONE Administration Sodium Chloride 1,000 mls @ 999 mls/hr 02/26/21 11:07 02/26/21 11:27 Normal Saline IV 02/26/21 12:07 999 mls/hr .BOLUS ONE Administration Magnesium Sulfate 2 gm/ Premix 50 mls @ 25 mls/hr 02/26/21 12:40 02/26/21 13:26 IV 02/26/21 14:39 25 mls/hr ONETIME ONE Administration Magnesium Sulfate 2 gm/ Premix 50 mls @ 25 mls/hr 02/26/21 12:41 IV 02/26/21 14:40 ONETIME ONE Iopamidol 100 ml 02/26/21 12:06 02/26/21 13:10 Iopamidol 612 Mg/Ml 100 Ml Bottle IVPUSH 02/26/21 12:07 75 ml ONETIME ONE Administration Levothyroxine Sodium 150 mcg 02/26/21 12:42 02/26/21 14:22 Levothyroxine 150 Mcg Tab PO 02/26/21 12:43 150 mcg ONETIME ONE Administration Ondansetron HCl 4 mg 02/26/21 11:08 02/26/21 11:27 Ondansetron 4 Mg/2 Ml Sdv IV 02/26/21 11:09 4 mg ONETIME ONE Administration - Re-Assessments/Exams Free Text/Narrative Re-Assessment/Exam: 02/26/21 14:56 Pt will be moved to extended stay until her magnesium is complete she will also be given lactulose and a glycerin suppository to treat her severe constipation. Departure - Departure Time of Disposition: 17:15 Disposition: Home, Self-Care 01 Condition: Good Clinical Impression: Hypomagnesemia, Obstipation Hypothyroid Qualifiers: Hypothyroidism type: unspecified Qualified Code(s): E03.9 - Hypothyroidism, unspecified - Discharge Information *PRESCRIPTION DRUG MONITORING PROGRAM REVIEWED*: Not Applicable *COPY OF PRESCRIPTION DRUG MONITORING REPORT IN PATIENT NELSY: Not Applicable Additional Instructions: Take you thyroid medication as prescribed. Stop using methamphetamines. If any new symptoms or concerns develop contact your primary care facility or return to the ER. Sepsis Event Note (ED) - Focused Exam Vital Signs: Vital Signs Temp Pulse Resp BP Pulse Ox 02/26/21 11:49 98.4 F 77 12 132/96 H 99
[2021-02-26] MEDS ORDERED: Ondansetron 4 MG/2 ML SDV IV ONE (11:08)
[2021-02-26 11:48] LABS: ANION GAP 15.4 mEq/L (7-13); CHLORIDE,CL 106 mmol/L (98-107); SODIUM,NA 142 mmol/L (136-145)
[2021-02-26] MEDS ORDERED: Iopamidol 612 MG/ML 100 ML Bottle IVPUSH ONE (12:06)
[2021-02-26] MEDS ORDERED: Magnesium Sulfate/Water 2 GM in Premix Bag 1 BAG IV ONE ×2 (12:40→12:41)
[2021-02-26] MEDS ORDERED: Levothyroxine 150 MCG Tab PO ONE (12:42)
--- NOTE | 2021-02-26 14:16 | CT ---
EXAMINATION: Abdomen Pelvis w Cont SEX: Female AGE: 55 years CLINICAL HISTORY: 55-year-old 148 pound female smoker with PERIUMBILICAL PAIN. Previous cholecystectomy and appendectomy. History recent drug abuse. Scan technique: Volume acquisition of data emergency CT scan abdomen and pelvis obtained without oral contrast but during the intravenous administration of 75 cc nonionic Isovue contrast 3 cc/s via injector while patient was lying supine on the Siemens multi slice scanner [place], [place]. All data archived in the PACS system for storage, reformatting axial/sagittal/coronal planes and study. Interpretation: 1. Ascites (small volume fluid located dependently pelvis, paracolic gutters and up over the lateral margin of liver). 2. Cholecystectomy. Liver normal size, anatomic configuration and homogeneously dense. No discrete intrahepatic cystic or solid mass lesion and no abnormal dilatation of intra or extrahepatic biliary ducts. 3. Stomach, spleen, and pancreas anatomically correct i.e. negative. No sign of adrenal mass. Kidneys unremarkable i.e. no cystic or solid renal cortical mass lesion, signs of urolithiasis or obstructive uropathy (no pyelocaliectasis or ureterectasis). Symmetrically distended normal appearing unenhanced urinary bladder. 4. Atheromatous calcification scattered along the course of normal caliber aortoiliac vessels. No aneurysm. 5. Midline uterus unremarkable. No adnexal ovarian mass. No suspicious pelvic or abdominal mass lesion, mesenteric or retroperitoneal lymphadenopathy, signs of mechanical bowel obstruction (mild obstipation), or free intraperitoneal air. 6. lung bases clear. Normal cardiac silhouette. No pericardial or pleural effusions. 7. Osteopenia. Old compression and hypertrophic reactive changes (spondylosis) T10 and T11 vertebral bodies. CONCLUSION: Obstipation. Ascites. No sign of abdominal mass lesion (malignancy), bowel obstruction or acute peritonitis.
[2021-02-26 14:33] LABS: BARBITURATES,URINE NEGATIVE (NEGATIVE); BENZODIAZEPINE,URINE NEGATIVE (NEGATIVE); METHADONE,URINE NEGATIVE (NEGATIVE); METHAMPHETAMINES,URINE POSITIVE (NEGATIVE); OPIATES,URINE NEGATIVE (NEGATIVE); PHENCYCLIDINE,URINE NEGATIVE (NEGATIVE); TCA,URINE NEGATIVE (NEGATIVE)
[2021-02-26 14:35] LABS: AMPHETAMINES,URINE POSITIVE (NEGATIVE); MDMA (ECSTASY), URINE NEGATIVE (NEGATIVE); OXYCODONE,URINE NEGATIVE (NEGATIVE)
[2021-02-26] MEDS ORDERED: Lactulose Soln 10 GM/15 ML 30 ML UD Cup PO ONE (14:55)
[2021-02-26] MEDS ORDERED: Glycerin Adult 2 GM Supp RECTAL ONE (14:55)
[2021-02-26 15:50] VITALS: BP 122/76; PULSE 80
== END 2021-02-26 18:15 | disposition home or self-care (01) ==
LOC: DL.ED 10:39
DX: K59.00 Constipation, unspecified (principal); E83.42 Hypomagnesemia; E03.9 Hypothyroidism, unspecified; J44.9 Chronic obstructive pulmonary disease, unspecified; E11.9 Type 2 diabetes mellitus without complications; Z88.0 Allergy status to penicillin; Z79.899 Other long term (current) drug therapy
CPT/HCPCS: 36415; 74177; 80053; 80305; 80307; 81003; 82150; 82947; 83605; 83690; 83735; 84100; 84443; 85025; 87040; 96365; 96366; 96375; 99285; A9270; J1100; J2405; J3475; J7030; Q9967

== ENCOUNTER 2021-06-12 13:01 | Inpatient (IN) | payer MEDICAID ==
[2021-06-12] MEDS ORDERED: 50% Dextrose in Water 50 ML Syringe IVPUSH ONE (13:04)
[2021-06-12] MEDS ORDERED: Dexamethasone 4 MG/ML SDV IVPUSH ONE (13:04)
--- NOTE | 2021-06-12 13:04 | EDM.PDOC ---
ED HPI GENERAL MEDICAL PROBLEM - General Chief Complaint: Diabetic Complaint Stated Complaint: AMBULANCE Time Seen by Provider: 06/12/21 13:03 Source of Information: Reports: Patient, EMS, Old Records, RN, RN Notes Reviewed History Limitations: Reports: Altered Mental Status - History of Present Illness INITIAL COMMENTS - FREE TEXT/NARRATIVE: Pt arrives to ER from home by [facility] with report that family could not wake the pt up this morning. EMS reports finding the pt with blood glucose of 29 upon initial contact. EMS gave Glucagon 1mg IM, as they were not able to establish IV access. The pt arrives to ER awake, and alert, but confused. Blood glucose on arrival to ER is 33. Pt denies pain. She is unable to provide any further Hx due to altered mental status/confusion. Pt is well known to the staff of this ER, and has Hx of Yancey's disease, polysubstance abuse, noncompliance with medications, hypothyroidism, hypokalemia, and hypoglycemia. Onset: Unknown/Unsure Location: Reports: Generalized Severity: Severe Improves with: Reports: None Worsens with: Reports: None Associated Symptoms: Reports: No Other Symptoms - Related Data Allergies Allergy/AdvReac Type Severity Reaction Status Date / Time Penicillins Allergy Hives Verified 02/26/21 11:18 Home Meds: Home Meds Sertraline [Zoloft] 50 mg PO BEDTIME 02/25/17 [History] Magnesium Oxide 400 mg PO BID 08/08/17 [History] Fludrocortisone [Florinef] 0.1 mg PO WITHBREAKFAST #30 tablet 10/23/17 [Rx] Hydrocortisone [Cortef] 20 mg PO BID #60 tablet 10/23/17 [Rx] Levothyroxine 125 mcg PO ACBREAKFAST #30 tablet 10/23/17 [Rx] Gabapentin [Neurontin] 300 mg PO TID 11/09/19 [History] Past Medical History HEENT History: Reports: Cataract, Impaired Vision Cardiovascular History: Reports: Arrhythmia Respiratory History: Reports: COPD, SOB Gastrointestinal History: Reports: Gastritis Other Gastrointestinal History: Here because of vomiting. Genitourinary History: Reports: Urinary Incontinence Other Genitourinary History: Became incontinent of urine two weeks ago. 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 INSTRUCTOR History: Reports: , Other (See Below) Other ABSEILING INSTRUCTOR History: c-sect Musculoskeletal History: Reports: Back Pain, Chronic Neurological History: Reports: Other (See Below) Other Neuro History: forgetful at times Psychiatric History: Reports: Anxiety, Hallucinations Other Psychiatric History: family states has had at home Endocrine/Metabolic History: Reports: Yancey's Disease, Diabetes, Type II, Hypothyroidism Hematologic History: Reports: Anemia Immunologic History: Reports: None Oncologic (Cancer) History: Reports: None Dermatologic History: Reports: Eczema Other Dermatologic History: bilateral arms - Infectious Disease History Infectious Disease History: Reports: Other (See Below) Other Infectious Disease History: pt unsure of ID history - Past Surgical History Head Surgeries/Procedures: Reports: None Cardiovascular Surgical History: Reports: None Respiratory Surgical History: Reports: None GI Surgical History: Reports: Appendectomy, Cholecystectomy, Colonoscopy Female Surgical History: Reports: Section Endocrine Surgical History: Reports: None Neurological Surgical History: Reports: None Musculoskeletal Surgical History: Reports: None Dermatological Surgical History: Reports: None Social & Family History - Family History Family Medical History: No Pertinent Family History - Caffeine Use Caffeine Use: Reports: Coffee, Soda - Living Situation & Occupation Living situation: Reports: Single, with Family Occupation: Disabled ED ROS GENERAL - Review of Systems Review Of Systems: Unable To Obtain Reason Not Obtained: Altered mental status due to hypoglycemia ED EXAM GENERAL NO PERIP PULSE - Physical Exam Exam: See Below Exam Limited By: Altered Mental Status General Appearance: Alert, No Apparent Distress, Lethargic, Other (Chronically ill, but non-toxic appearing) Eye Exam: Bilateral Eye: EOMI, Normal Inspection, PERRL Ears: Normal External Exam, Hearing Grossly Normal Nose: Normal Inspection Throat/Mouth: Normal Voice, No Airway Compromise, Other (No teeth) Head: Atraumatic, Normocephalic Neck: Normal Inspection, Supple, Non-Tender, Full Range of Motion Respiratory/Chest: No Respiratory Distress, No Accessory Muscle Use, Decreased Breath Sounds. No: Crackles, Rales, Rhonchi, Wheezing Cardiovascular: Regular Rate, Rhythm, No Edema GI/Abdominal: Normal Bowel Sounds, Soft, Non-Tender. No: Guarding, Rigid, Rebound Back Exam: Normal Inspection Extremities: Normal Inspection, Non-Tender Neurological: Alert, CN II-XII Intact, No Motor/Sensory Deficits, Confused, Other (Once blood glucose was >100 pt was awake, alert, and oriented x3.) Psychiatric: Depressed Mood, Flat Affect Skin Exam: Warm, Dry, Intact #1 Interpretation EKG Date: 06/12/21 Time: 13:40 Rhythm: Other (SR) Rate (Beats/Min): 59 [place]: LAD-Left [place] Deviation P-Wave: Present QRS: Wide (nonspecific IVCD) ST-T: Other (T-waves flat and/or inverted V2-V6) Comparison: No Change Course - Vital Signs Last Recorded V/S: Last Vital Signs Temp 95.5 F L 06/12/21 13:30 Pulse 60 06/12/21 13:30 Resp 20 06/12/21 13:30 BP 92/71 06/12/21 14:11 Pulse Ox 96 06/12/21 13:30 - Orders/Labs/Meds Orders: Active Orders 24 hr Category Date Time Status Blood Glucose Check, Bedside [RC] ONETIME Care 06/12/21 13:05 Active Insert Urinary Catheter [OM.PC] Stat Care 06/12/21 13:07 Ordered Peripheral IV Care [RC] . DIRECTED Care 06/12/21 13:06 Hold Urinary Catheter Assessment [RC] ASDIRECTED Care 06/12/21 13:08 Active Chest 1V Frontal [CR] Stat Exams 06/12/21 16:54 Ordered CULTURE URINE [RM] Stat Lab 06/12/21 13:53 Received LACTIC ACID [CHEM] Routine Lab 06/12/21 16:21 Ordered Dextrose 5%-0.45% NaCl [Dextrose 5%-1/2 NS] 1,000 ml Med 06/12/21 13:15 Active IV ASDIRECTED Sodium Chloride 0.9% [Saline Flush] Med 06/12/21 13:06 Active 10 ml FLUSH ASDIRECTED PRN IO Insertion [Intraosseous Insertion] [OM.PC] Routine Oth 06/12/21 13:15 Ordered Peripheral IV Insertion Adult [OM.PC] Stat Oth 06/12/21 13:06 Ordered Medication Orders Dextrose/Sodium Chloride (Dextrose 5%-1/2 Ns) 1,000 mls @ 150 mls/hr IV ASDIRECTED TERRI Last Admin: 06/12/21 13:34 Dose: 150 mls/hr Documented by: [id number] Sodium Chloride (Sodium Chloride 0.9% 10 Ml Syringe) 10 ml FLUSH ASDIRECTED PRN PRN Reason: Keep Vein Open Last Admin: 06/12/21 13:41 Dose: 10 ml Documented by: [id number] Labs: Laboratory Tests 06/12/21 06/12/21 06/12/21 Range/Units 13:26 13:38 13:38 WBC 6.2 (5.0-10.0) 10^3/uL RBC 5.01 (4.2-5.4) 10^6/uL Hgb 14.9 (12.0-16.0) g/dL Hct 42.9 (37.0-47.0) % MCV 85.6 D (80-100) fL MCH 29.7 (27.0-34.0) pg MCHC 34.7 (33.0-35.0) g/dL Plt Count 162 (150-450) 10^3/uL Neut % (Auto) 23.9 L (42.2-75.2) % Lymph % (Auto) 64.6 H (20.5-50.1) % Mcmullen % (Auto) 5.7 (2-8) % Eos % (Auto) 5.5 H (1.0-3.0) % Baso % (Auto) 0.3 (0.0-1.0) % Add Manual Diff Yes Neutrophils % (Manual) 22 L (42-75) % Band Neutrophils % 1 % Lymphocytes % (Manual) 68 H (20-50) % Monocytes % (Manual) 2 (2-8) % Eosinophils % (Manual) 7 H (1-3) % PT 12.5 H (9.0-12.0) SEC INR 1.3 H (0.9-1.2) APTT 32.6 (22.0-34.0) SEC Sodium (136-145) mmol/L Potassium (3.5-5.1) mmol/L Chloride (98-107) mmol/L Carbon Dioxide (21-32) mmol/L Anion Gap (7-13) mEq/L BUN (7-18) mg/dL Creatinine (0.55-1.02) mg/dL Est Cr Clr Drug Dosing Estimated GFR (MDRD) BUN/Creatinine Ratio (No establ ref range) Glucose (70-99) mg/dL POC Glucose 33 L* (70-99) mg/dL Lactic Acid (0.4-2.0) mmol/L Calcium (8.5-10.1) mg/dL Phosphorus (2.6-4.7) mg/dL Magnesium (1.8-2.4) mg/dL Total Bilirubin (0.2-1.0) mg/dL AST (15-37) U/L ALT (14-59) U/L Alkaline Phosphatase (46-116) U/L Ammonia (11-32) umol/L Troponin I High Sens (<=51) pg/mL Total Protein (6.4-8.2) g/dL Albumin (3.4-5.0) g/dL Globulin Albumin/Globulin Ratio TSH, Ultra Sensitive (0.36-3.74) uIU/mL Urine Color (YELLOW) Urine Appearance (CLEAR) Urine pH (5.0-9.0) Ur Specific [place] (1.005-1.030) Urine Protein (NEGATIVE) Urine Glucose (UA) (NEGATIVE) Urine Ketones (NEGATIVE) Urine Occult Blood (NEGATIVE) Urine Nitrite (NEGATIVE) Urine Bilirubin (NEGATIVE) Urine Urobilinogen (0.2-1.0) mg/dL Ur Leukocyte Esterase (NEGATIVE) U Hyaline Cast (Auto) Urine RBC (0-5) /HPF Urine WBC (0-5/HPF) /HPF Ur Epithelial Cells (NOT SEEN) /HPF Urine Bacteria (0-FEW/HPF) /HPF Urine Mucus (NOT SEEN) /LPF Urine Opiates Screen (NEGATIVE) Ur Oxycodone Screen (NEGATIVE) Urine Methadone Screen (NEGATIVE) Ur Barbiturates Screen (NEGATIVE) U Tricyclic Antidepress (NEGATIVE) Ur Phencyclidine Scrn (NEGATIVE) Ur Amphetamine Screen (NEGATIVE) U Methamphetamines Scrn (NEGATIVE) Urine MDMA Screen (NEGATIVE) U Benzodiazepines Scrn (NEGATIVE) Urine Cocaine Screen (NEGATIVE) U Marijuana (THC) Screen (NEGATIVE) Ethyl Alcohol (0) mg/dL Ketones Influenza Type A RNA (NEGATIVE) Influenza Type B RNA (NEGATIVE) SARS-CoV-2 RNA ([place]) (NEGATIVE) 06/12/21 06/12/21 06/12/21 Range/Units 13:38 13:38 13:38 WBC (5.0-10.0) 10^3/uL RBC (4.2-5.4) 10^6/uL Hgb (12.0-16.0) g/dL Hct (37.0-47.0) % MCV (80-100) fL MCH (27.0-34.0) pg MCHC (33.0-35.0) g/dL Plt Count (150-450) 10^3/uL Neut % (Auto) (42.2-75.2) % Lymph % (Auto) (20.5-50.1) % Mcmullen % (Auto) (2-8) % Eos % (Auto) (1.0-3.0) % Baso % (Auto) (0.0-1.0) % Add Manual Diff Neutrophils % (Manual) (42-75) % Band Neutrophils % % Lymphocytes % (Manual) (20-50) % Monocytes % (Manual) (2-8) % Eosinophils % (Manual) (1-3) % PT (9.0-12.0) SEC INR (0.9-1.2) APTT (22.0-34.0) SEC Sodium 125 L D (136-145) mmol/L Potassium 3.9 (3.5-5.1) mmol/L Chloride 90 L D (98-107) mmol/L Carbon Dioxide 21 (21-32) mmol/L Anion Gap 17.9 H (7-13) mEq/L BUN 30 H (7-18) mg/dL Creatinine 3.30 H D (0.55-1.02) mg/dL Est Cr Clr Drug Dosing TNP Estimated GFR (MDRD) 15 BUN/Creatinine Ratio 9.1 (No establ ref range) Glucose 186 H (70-99) mg/dL POC Glucose (70-99) mg/dL Lactic Acid 2.9 H* (0.4-2.0) mmol/L Calcium 8.7 (8.5-10.1) mg/dL Phosphorus (2.6-4.7) mg/dL Magnesium (1.8-2.4) mg/dL Total Bilirubin 1.2 H (0.2-1.0) mg/dL AST 109 H (15-37) U/L ALT 90 H (14-59) U/L Alkaline Phosphatase 48 (46-116) U/L Ammonia < 10 L (11-32) umol/L Troponin I High Sens 29 (<=51) pg/mL Total Protein 7.7 (6.4-8.2) g/dL Albumin 3.2 L (3.4-5.0) g/dL Globulin 4.5 Albumin/Globulin Ratio 0.71 TSH, Ultra Sensitive (0.36-3.74) uIU/mL Urine Color (YELLOW) Urine Appearance (CLEAR) Urine pH (5.0-9.0) Ur Specific [place] (1.005-1.030) Urine Protein (NEGATIVE) Urine Glucose (UA) (NEGATIVE) Urine Ketones (NEGATIVE) Urine Occult Blood (NEGATIVE) Urine Nitrite (NEGATIVE) Urine Bilirubin (NEGATIVE) Urine Urobilinogen (0.2-1.0) mg/dL Ur Leukocyte Esterase (NEGATIVE) U Hyaline Cast (Auto) Urine RBC (0-5) /HPF Urine WBC (0-5/HPF) /HPF Ur Epithelial Cells (NOT SEEN) /HPF Urine Bacteria (0-FEW/HPF) /HPF Urine Mucus (NOT SEEN) /LPF Urine Opiates Screen (NEGATIVE) Ur Oxycodone Screen (NEGATIVE) Urine Methadone Screen (NEGATIVE) Ur Barbiturates Screen (NEGATIVE) U Tricyclic Antidepress (NEGATIVE) Ur Phencyclidine Scrn (NEGATIVE) Ur Amphetamine Screen (NEGATIVE) U Methamphetamines Scrn (NEGATIVE) Urine MDMA Screen (NEGATIVE) U Benzodiazepines Scrn (NEGATIVE) Urine Cocaine Screen (NEGATIVE) U Marijuana (THC) Screen (NEGATIVE) Ethyl Alcohol < 3 (0) mg/dL Ketones Negative Influenza Type A RNA (NEGATIVE) Influenza Type B RNA (NEGATIVE) SARS-CoV-2 RNA ([place]) (NEGATIVE) 06/12/21 06/12/21 06/12/21 Range/Units 13:38 13:40 13:53 WBC (5.0-10.0) 10^3/uL RBC (4.2-5.4) 10^6/uL Hgb (12.0-16.0) g/dL Hct (37.0-47.0) % MCV (80-100) fL MCH (27.0-34.0) pg MCHC (33.0-35.0) g/dL Plt Count (150-450) 10^3/uL Neut % (Auto) (42.2-75.2) % Lymph % (Auto) (20.5-50.1) % Mcmullen % (Auto) (2-8) % Eos % (Auto) (1.0-3.0) % Baso % (Auto) (0.0-1.0) % Add Manual Diff Neutrophils % (Manual) (42-75) % Band Neutrophils % % Lymphocytes % (Manual) (20-50) % Monocytes % (Manual) (2-8) % Eosinophils % (Manual) (1-3) % PT (9.0-12.0) SEC INR (0.9-1.2) APTT (22.0-34.0) SEC Sodium (136-145) mmol/L Potassium (3.5-5.1) mmol/L Chloride (98-107) mmol/L Carbon Dioxide (21-32) mmol/L Anion Gap (7-13) mEq/L BUN (7-18) mg/dL Creatinine (0.55-1.02) mg/dL Est Cr Clr Drug Dosing Estimated GFR (MDRD) BUN/Creatinine Ratio (No establ ref range) Glucose (70-99) mg/dL POC Glucose (70-99) mg/dL Lactic Acid (0.4-2.0) mmol/L Calcium (8.5-10.1) mg/dL Phosphorus 5.9 H (2.6-4.7) mg/dL Magnesium 1.5 L (1.8-2.4) mg/dL Total Bilirubin (0.2-1.0) mg/dL AST (15-37) U/L ALT (14-59) U/L Alkaline Phosphatase (46-116) U/L Ammonia (11-32) umol/L Troponin I High Sens (<=51) pg/mL Total Protein (6.4-8.2) g/dL Albumin (3.4-5.0) g/dL Globulin Albumin/Globulin Ratio TSH, Ultra Sensitive 277.02 H (0.36-3.74) uIU/mL Urine Color Dark yellow (YELLOW) Urine Appearance Slightly cloudy (CLEAR) Urine pH 5.5 (5.0-9.0) Ur Specific [place] >= 1.030 (1.005-1.030) Urine Protein 30 H (NEGATIVE) Urine Glucose (UA) Negative (NEGATIVE) Urine Ketones Trace H (NEGATIVE) Urine Occult Blood Trace-intact H (NEGATIVE) Urine Nitrite Negative (NEGATIVE) Urine Bilirubin Moderate H (NEGATIVE) Urine Urobilinogen 2.0 H (0.2-1.0) mg/dL Ur Leukocyte Esterase Small H (NEGATIVE) U Hyaline Cast (Auto) Moderate Urine RBC 0-5 (0-5) /HPF Urine WBC 10-20 H (0-5/HPF) /HPF Ur Epithelial Cells Few (NOT SEEN) /HPF Urine Bacteria Few (0-FEW/HPF) /HPF Urine Mucus Few H (NOT SEEN) /LPF Urine Opiates Screen (NEGATIVE) Ur Oxycodone Screen (NEGATIVE) Urine Methadone Screen (NEGATIVE) Ur Barbiturates Screen (NEGATIVE) U Tricyclic Antidepress (NEGATIVE) Ur Phencyclidine Scrn (NEGATIVE) Ur Amphetamine Screen (NEGATIVE) U Methamphetamines Scrn (NEGATIVE) Urine MDMA Screen (NEGATIVE) U Benzodiazepines Scrn (NEGATIVE) Urine Cocaine Screen (NEGATIVE) U Marijuana (THC) Screen (NEGATIVE) Ethyl Alcohol (0) mg/dL Ketones Influenza Type A RNA Positive H (NEGATIVE) Influenza Type B RNA Negative (NEGATIVE) SARS-CoV-2 RNA ([place]) Negative (NEGATIVE) 06/12/21 06/12/21 06/12/21 Range/Units 13:53 14:04 16:19 WBC (5.0-10.0) 10^3/uL RBC (4.2-5.4) 10^6/uL Hgb (12.0-16.0) g/dL Hct (37.0-47.0) % MCV (80-100) fL MCH (27.0-34.0) pg MCHC (33.0-35.0) g/dL Plt Count (150-450) 10^3/uL Neut % (Auto) (42.2-75.2) % Lymph % (Auto) (20.5-50.1) % [place]mullen % (Auto) (2-8) % Eos % (Auto) (1.0-3.0) % Baso % (Auto) (0.0-1.0) % Add Manual Diff Neutrophils % (Manual) (42-75) % Band Neutrophils % % Lymphocytes % (Manual) (20-50) % Monocytes % (Manual) (2-8) % Eosinophils % (Manual) (1-3) % PT (9.0-12.0) SEC INR (0.9-1.2) APTT (22.0-34.0) SEC Sodium (136-145) mmol/L Potassium (3.5-5.1) mmol/L Chloride (98-107) mmol/L Carbon Dioxide (21-32) mmol/L Anion Gap (7-13) mEq/L BUN (7-18) mg/dL Creatinine (0.55-1.02) mg/dL Est Cr Clr Drug Dosing Estimated GFR (MDRD) BUN/Creatinine Ratio (No establ ref range) Glucose (70-99) mg/dL POC Glucose 189 H 349 H (70-99) mg/dL Lactic Acid (0.4-2.0) mmol/L Calcium (8.5-10.1) mg/dL Phosphorus (2.6-4.7) mg/dL Magnesium (1.8-2.4) mg/dL Total Bilirubin (0.2-1.0) mg/dL AST (15-37) U/L ALT (14-59) U/L Alkaline Phosphatase (46-116) U/L Ammonia (11-32) umol/L Troponin I High Sens (<=51) pg/mL Total Protein (6.4-8.2) g/dL Albumin (3.4-5.0) g/dL Globulin Albumin/Globulin Ratio TSH, Ultra Sensitive (0.36-3.74) uIU/mL Urine Color (YELLOW) Urine Appearance (CLEAR) Urine pH (5.0-9.0) Ur Specific [place] (1.005-1.030) Urine Protein (NEGATIVE) Urine Glucose (UA) (NEGATIVE) Urine Ketones (NEGATIVE) Urine Occult Blood (NEGATIVE) Urine Nitrite (NEGATIVE) Urine Bilirubin (NEGATIVE) Urine Urobilinogen (0.2-1.0) mg/dL Ur Leukocyte Esterase (NEGATIVE) U Hyaline Cast (Auto) Urine RBC (0-5) /HPF Urine WBC (0-5/HPF) /HPF Ur Epithelial Cells (NOT SEEN) /HPF Urine Bacteria (0-FEW/HPF) /HPF Urine Mucus (NOT SEEN) /LPF Urine Opiates Screen Negative (NEGATIVE) Ur Oxycodone Screen Negative (NEGATIVE) Urine Methadone Screen Negative (NEGATIVE) Ur Barbiturates Screen Negative (NEGATIVE) U Tricyclic Antidepress Negative (NEGATIVE) Ur Phencyclidine Scrn Negative (NEGATIVE) Ur Amphetamine Screen Positive H (NEGATIVE) U Methamphetamines Scrn Positive H (NEGATIVE) Urine MDMA Screen Positive H (NEGATIVE) U Benzodiazepines Scrn Negative (NEGATIVE) Urine Cocaine Screen Negative (NEGATIVE) U Marijuana (THC) Screen Negative (NEGATIVE) Ethyl Alcohol (0) mg/dL Ketones Influenza Type A RNA (NEGATIVE) Influenza Type B RNA (NEGATIVE) SARS-CoV-2 RNA ([place]) (NEGATIVE) Meds: Medications Generic Name Dose Route Start Last Admin Trade Name Freq PRN Reason Stop Dose Admin Dextrose/Sodium Chloride 1,000 mls @ 150 mls/hr 06/12/21 13:15 06/12/21 13:34 Dextrose 5%-1/2 Ns IV 150 mls/hr ASDIRECTED TERRI Administration Sodium Chloride 10 ml 06/12/21 13:06 06/12/21 13:41 Sodium Chloride 0.9% 10 Ml Syringe FLUSH 10 ml ASDIRECTED PRN Administration Keep Vein Open Discontinued Medications Generic Name Dose Route Start Last Admin Trade Name Freq PRN Reason Stop Dose Admin Dexamethasone 4 mg 06/12/21 13:04 06/12/21 13:14 Dexamethasone 4 Mg/Ml Sdv IVPUSH 06/12/21 13:05 4 mg ONETIME ONE Administration Dextrose Confirm 06/12/21 13:27 06/12/21 17:19 Glucose Gel 15 Gm In 37.5 Gm Tube Administered 06/12/21 13:28 Not Given Dose 15 gm .ROUTE .STK-MED ONE Dextrose/Water 50 ml 06/12/21 13:04 06/12/21 13:27 50% Dextrose In Water 50 Ml Syringe IVPUSH 06/12/21 13:05 50 ml ONETIME ONE Administration Sodium Chloride 1,000 mls @ 999 mls/hr 06/12/21 16:16 Normal Saline IV 06/12/21 17:16 .BOLUS ONE Lidocaine HCl 30 ml 06/12/21 13:18 06/12/21 13:27 Lidocaine 1% 30 Ml Sdv INJECT 06/12/21 13:19 30 ml ONETIME ONE Administration - Radiology Interpretation Free Text/Narrative:: XR Chest: no acute process, see Rad. report. Departure - Departure Time of Disposition: 17:23 (admitted to Dr. Manzanares) Disposition: Admitted As Inpatient 67 Condition: Fair Clinical Impression: Hypoglycemia, Hyponatremia, STEFANIE (acute kidney injury), Dehydration, Yancey disease, Noncompliance with medication regimen, Methamphetamine addiction, MDMA abuse, Influenza A Hypothyroidism Qualifiers: Hypothyroidism type: unspecified Qualified Code(s): E03.9 - Hypothyroidism, unspecified - Discharge Information *PRESCRIPTION DRUG MONITORING PROGRAM REVIEWED*: No *COPY OF PRESCRIPTION DRUG MONITORING REPORT IN PATIENT NELSY: No Forms: ED Department Discharge Sepsis Event Note (ED) - Focused Exam Vital Signs: Vital Signs Temp Pulse Resp BP Pulse Ox 06/12/21 14:11 92/71 06/12/21 13:30 95.5 F L 60 20 81/66 L 96 - My Orders Last 24 Hours: My Active Orders 06/12/21 13:05 Blood Glucose Check, Bedside [RC] ONETIME 06/12/21 13:06 Peripheral IV Care [RC] . DIRECTED Sodium Chloride 0.9% [Saline Flush] 10 ml FLUSH ASDIRECTED PRN Peripheral IV Insertion Adult [OM.PC] Stat 06/12/21 13:07 Insert Urinary Catheter [OM.PC] Stat 06/12/21 13:08 Urinary Catheter Assessment [RC] ASDIRECTED 06/12/21 13:15 Dextrose 5%-0.45% NaCl [Dextrose 5%-1/2 NS] 1,000 ml IV ASDIRECTED IO Insertion [Intraosseous Insertion] [OM.PC] Routine 06/12/21 13:53 CULTURE URINE [RM] Stat 06/12/21 16:21 LACTIC ACID [CHEM] Routine 06/12/21 16:54 Chest 1V Frontal [CR] Stat - Assessment/Plan Last 24 Hours: My Active Orders 06/12/21 13:05 Blood Glucose Check, Bedside [RC] ONETIME 06/12/21 13:06 Peripheral IV Care [RC] . DIRECTED Sodium Chloride 0.9% [Saline Flush] 10 ml FLUSH ASDIRECTED PRN Peripheral IV Insertion Adult [OM.PC] Stat 06/12/21 13:07 Insert Urinary Catheter [OM.PC] Stat 06/12/21 13:08 Urinary Catheter Assessment [RC] ASDIRECTED 06/12/21 13:15 Dextrose 5%-0.45% NaCl [Dextrose 5%-1/2 NS] 1,000 ml IV ASDIRECTED IO Insertion [Intraosseous Insertion] [OM.PC] Routine 06/12/21 13:53 CULTURE URINE [RM] Stat 06/12/21 16:21 LACTIC ACID [CHEM] Routine 06/12/21 16:54 Chest 1V Frontal [CR] Stat
[2021-06-12] MEDS ORDERED: Lidocaine 1% 30 ML SDV INJECT ONE (13:18)
[2021-06-12] MEDS ORDERED: Glucose Gel 15 GM in 37.5 GM Tube ONE (13:27)
[2021-06-12] MEDS: Dextrose 5%-0.45% NaCl 1,000 ML IV SCH (13:34)
[2021-06-12] MEDS: Sodium Chloride 0.9% 10 ML Syringe FLUSH PRN ×2 (13:41→23:19)
[2021-06-12 14:13] LABS: ANION GAP 17.9 mEq/L (7-13); CHLORIDE,CL 90 mmol/L (98-107); SODIUM,NA 125 mmol/L (136-145)
[2021-06-12 14:16] LABS: AMPHETAMINES,URINE POSITIVE (NEGATIVE); BARBITURATES,URINE NEGATIVE (NEGATIVE); BENZODIAZEPINE,URINE NEGATIVE (NEGATIVE); MDMA (ECSTASY), URINE POSITIVE (NEGATIVE); METHADONE,URINE NEGATIVE (NEGATIVE); METHAMPHETAMINES,URINE POSITIVE (NEGATIVE); OPIATES,URINE NEGATIVE (NEGATIVE); OXYCODONE,URINE NEGATIVE (NEGATIVE); PHENCYCLIDINE,URINE NEGATIVE (NEGATIVE); TCA,URINE NEGATIVE (NEGATIVE)
[2021-06-12 14:29] LABS: CORONAVIRUS COVID-19 NAA NEGATIVE (NEGATIVE)
[2021-06-12 14:44] LABS: PTT,PARTIAL THROMBOPLSTIN TIME 32.6 SEC (22.0-34.0)
[2021-06-12] MEDS ORDERED: Sodium Chloride 0.9% 1,000 ML IV ONE (16:16)
--- NOTE | 2021-06-12 17:31 | CR ---
PROCEDURE INFORMATION: Exam: XR Chest Exam date and time: 06/12/2021 5:00 PM Age: 56 years old Clinical indication: Cough; Additional info: Influenza, cough TECHNIQUE: Imaging protocol: XR of the chest. Views: 1 view. COMPARISON: CR Chest 1V Frontal 10/22/2018 2:19 PM FINDINGS: Lungs: No suspicious pulmonary nodules or areas of lung consolidation. Pleural spaces: Unremarkable. No pleural effusion. No pneumothorax. Heart/Mediastinum: The cardiac silhouette is not enlarged. Vasculature: There is intimal calcification of the aortic knob. Bones/joints: Age appropriate. IMPRESSION: 1. No active disease of the chest. 2. No significant interval change when compared to the CR Chest 1V Frontal 10/22/2018 2:19 PM.
[2021-06-12] MEDS ORDERED: Docusate Sodium 100 MG Cap PO PRN (18:34)
[2021-06-12] MEDS ORDERED: Albuterol 0.083% 2.5 MG/3 ML Neb Soln NEB PRN (18:34)
[2021-06-12] MEDS ORDERED: HYDROmorphone 0.5 MG/0.5 ML Syringe IVPUSH PRN (18:34)
[2021-06-12] MEDS ORDERED: Morphine 2 MG/ML SYRINGE IVPUSH PRN (18:34)
[2021-06-12] MEDS ORDERED: Hydrocortisone Sodium Succinate 100 MG/2 ML SDV IVPUSH ONE (18:42)
[2021-06-12] MEDS ORDERED: Dextrose 5%-0.9% NaCl 1,000 ML IV SCH ×2 (18:45)
[2021-06-12] MEDS ORDERED: Levothyroxine 100 MCG Vial IVPUSH ONE (19:52)
[2021-06-12] MEDS ORDERED: Levofloxacin/Dextrose 5%-Water 750 MG in Premix Bag 1 BAG IV ONE (19:52)
[2021-06-12] MEDS ORDERED: Levothyroxine 150 MCG Tab PO ONE (19:57)
[2021-06-12] MEDS: Oseltamivir 75 MG Cap PO SCH ×2 (20:12→21:00)
--- NOTE | 2021-06-12 20:14 | CT ---
PROCEDURE INFORMATION: Exam: CT Head Without Contrast Exam date and time: 06/12/2021 7:44 PM Age: 56 years old Clinical indication: Altered mental status/memory loss; Additional info: AMS TECHNIQUE: Imaging protocol: Computed tomography of the head without contrast. Radiation optimization: All CT scans at this facility use at least one of these dose optimization techniques: automated exposure control; mA and/or kV adjustment per patient size (includes targeted exams where dose is matched to clinical indication); or iterative reconstruction. COMPARISON: CT HEAD 04/24/2013 2:24 PM FINDINGS: Brain: No mass effect or midline shift. No abnormal densities are seen intracranially; no sign of acute intracranial hemorrhage or cerebral edema. Cerebral ventricles: No ventriculomegaly. Paranasal sinuses: Fluid layering in right maxillary sinus, possibly acute sinusitis. Mastoid air cells: Visualized mastoid air cells are well aerated. Bones/joints: Skull base and overlying calvarium are intact. No lytic or osteosclerotic lesions. Soft tissues: Unremarkable. IMPRESSION: 1. No acute intracranial abnormality. 2. Fluid layering in right maxillary sinus, possibly acute sinusitis. This was not present previously. 3. No significant interval change in appearance of the brain when compared to the CT HEAD 04/24/2013 2:24 PM.
[2021-06-12] MEDS: Heparin Sodium 5,000 Units/ML Vial SUBCUT SCH (21:01)
[2021-06-12] MEDS ORDERED: Glucagon,Human Recombinant 1 MG Vial IM PRN (21:21)
[2021-06-12] MEDS ORDERED: 50% Dextrose in Water 50 ML Syringe IVPUSH PRN (21:21)
[2021-06-12] MEDS ORDERED: Magnesium Sulfate/Water 2 GM in Premix Bag 1 BAG IV ONE (21:42)
[2021-06-12] MEDS: Insulin Lispro 100 Units/ML 3 ML Vial SUBCUT SCH (22:18)
[2021-06-13] MEDS ORDERED: Dextrose 5%-0.9% NaCl 1,000 ML IV SCH (00:30)
[2021-06-13] MEDS: oxyCODONE 5 MG Tab PO PRN ×3 (01:52→21:35)
[2021-06-13] MEDS: Hydrocortisone Sodium Succinate 100 MG/2 ML SDV IVPUSH SCH ×3 (01:55→14:21)
[2021-06-13] MEDS: Insulin Lispro 100 Units/ML 3 ML Vial SUBCUT SCH ×5 (03:35→21:14)
[2021-06-13] MEDS: Sodium Chloride 0.9% 1,000 ML IV SCH ×2 (05:43→14:20)
[2021-06-13 07:43] LABS: ANION GAP 18.9 mEq/L (7-13)
[2021-06-13] MEDS ORDERED: Potassium Chloride 10 MEQ Tab.ER PO ONE (08:05)
[2021-06-13] MEDS: Heparin Sodium 5,000 Units/ML Vial SUBCUT SCH ×2 (08:43→21:16)
--- NOTE | 2021-06-13 08:46 | HP ---
HISTORY OF PRESENT ILLNESS: The patient is a 56-year-old female, presented to emergency room from home brought by EMS because the patient's family could not wake her up in the morning. EMS report finding the patient with blood glucose of 29. EMS gave patient glucagon 1 mg intramuscular as they were not IV access. The patient arrived to emergency room, awake and alert, but confused. Blood glucose on arrival to emergency room was 33. The patient denied pain. She could not provide any further history due to altered mental status, confusion, also I was not able to get any history from the patient due to altered mental status and confusion. History is per my discussion with ER physician and as per ER note. Also, I spoke with the patient's sister. The patient is well known to the staff of ER and has history of [place] disease, polysubstance abuse, noncompliance with medication. She has history of hypothyroidism, hypokalemia, and hypoglycemia. REVIEW OF SYSTEMS: A 12-point review of systems unable to obtain due to the patient's altered mental status. MEDICATIONS AT HOME: Sertraline 50 mg p.o. at bedtime, magnesium oxide 400 mg b.i.d., fludrocortisone 0.1 p.o. with breakfast, hydrocortisone (Cortef) 20 mg p.o. b.i.d., levothyroxine 125 mcg p.o. with breakfast, and gabapentin 300 mg p.o. t.i.d. PAST MEDICAL HISTORY: The patient has history of cataract, impaired vision, history of arrhythmia, history of COPD, shortness of breath, history of gastritis, history of urinary incontinence, she became incontinent of urine 2 weeks ago, history of , back pain chronic. She has memory problems with being forgetful at times. Psychiatric, she has anxiety and hallucinations. Endocrine, she has history of [place] disease, diabetes type 2, and hypothyroidism. Hematologic, patient has history of anemia and also she has history of eczema. PAST SURGICAL HISTORY: She has history of appendicectomy, cholecystectomy, colonoscopy, and . Vital signs in the emergency room . FAMILY HISTORY: No pertinent family history. LIVING SITUATION: Patient lives with family. She is disabled. SOCIAL HISTORY: Unable to obtain. At admission, vital signs; 95.5, pulse 60, respiratory rate 20, blood pressure was 81/66 with a mean blood pressure of 71, respiratory rate 20, oxygen saturation by pulse oximetry 96. LABORATORY DATA: At admission, WBC 6.0, hemoglobin 14.9, hematocrit 42.9, platelets 162, neutrophils 23.9 low, lymphocytes 64.6 high, eosinophils 5.5. Coagulation study shows a PT of 12.5 high, INR 1.3, APTT 32.6. Chemistry shows sodium of 125, potassium 2.9, chloride 90, CO2 of 21, anion gap 17.9, BUN 30, creatinine 3.30, GFR 15, glucose 186, lactic acid 2.9, calcium 8.7, phosphorus 5.9 high, magnesium 1.5 low. Total bilirubin 1.2, AST 109, ALT 90, alkaline phosphatase 48. Ammonia less than 10. Troponin 29. Total protein 7.7, albumin 3.2, globulin 4.5. TSH ultrasensitive 277.02 high. Urinalysis show urine is dark yellow, slightly cloudy, urine pH 5.5, urine specific gravity more than 1.030, urine protein 30 high, urine glucose negative, urine ketone high, urine occult blood trace intact high, urine nitrite negative, urine bilirubin moderate, urine urobilinogen is 2, urine leukocyte esterase small, urine hyaline casts moderate, urine rbc's between 0 and 5, urine wbc's 10 to 20, urine epithelial cells few, urine bacteria few, urine mucus high. Urine toxicology is positive for amphetamine, methamphetamine, and MDMA screen positive. Influenza A and B; the patient is positive for influenza A. COVID test is negative. Chest x-ray shows lungs, no suspicious pulmonary nodules or area of consolidation, pleural spaces unremarkable. No pleural effusion. No pneumothorax. Heart; the cardiac silhouette is not enlarged. There is intimal calcification of the aortic knob. Bone and joint; age appropriate. Impression: No acute disease of the chest. No significant relevant changes when compared with chest x-ray on frontal view done on 10/22/2018. CT of the head was done with the following impression: Brain, no mass effect or midline shift. No abnormal densities are seen intracranially. No sign of acute intracranial hemorrhage or cerebral edema. Cerebral ventricles, no ventriculomegaly. Paranasal sinuses, fluid layering in the right maxillary sinus, possible acute sinusitis. Mastoid cells, visualized air cells are well aerated. Skull base and overlying are intact. No lytic or osteolytic lesions. Soft tissue unremarkable. Impression: No acute intracranial abnormalities. Fluid layering in the right maxillary sinus, possibly acute sinusitis previously. No significant interval change in appearance of the brain when compared with the CT head done on 04/24/2013. PHYSICAL EXAMINATION: General: The patient was seen, she has altered mental status. She is alert, oriented x0. She is unable to answer questions or follow commands. HEENT: Head is atraumatic, normocephalic. Pupils reactive to light. She has missing teeth. Neck: Supple. No thyromegaly. No lymphadenopathy. There is mild swelling of her lips and puffiness of her face. Heart: S1, S2. Regular rhythm and rate. No significant murmur noted. Lungs: Clear to auscultation bilaterally. Abdomen: No appreciable tenderness. Positive bowel sounds, soft. Extremities: No edema. Neurologic: The patient is alert, oriented x0. She does not follow commands. There are no gross focal neurological deficits. She moves all extremities. ASSESSMENT: 1. [place] crisis with hypoglycemia. 2. Myxedema coma. 3. Acute kidney failure, which seems to be chronic because her phosphorus is elevated. 4. Urinary tract infection. 5. Maxillary sinusitis, left. 6. Drug abuse; intoxication with amphetamine, methamphetamine, MDA. 7. Positive influenza A. 8. Hypomagnesemia. 9. Hyponatremia. 10.Hypothermia. PLAN: We will admit patient to telemetry and we will monitor her blood sugar every 6 hours. We will give the patient hydrocortisone 100 mg IV followed by 50 mg every 6 hours as per up to date recommendation. We will give patient D5 normal saline at 150 mL/hour and we will monitor electrolytes, we will supplement magnesium with 2 mg magnesium IV. Regarding hydrocortisone, we will give patient hydrocortisone 100 mg intravenous bolus followed by 50 mg intravenously every 6 hours or 200 mg per 24 hours as continuous intravenous infusion for the first 24 hours. We will give patient treatment for urinary tract infection with levofloxacin 750 mg IV and we will re-evaluate antibiotic dosage as per kidney function tomorrow and we will begin mineralocorticoid replacement with fludrocortisone 0.1 mg daily when saline infusion is stopped. For myxedema coma, we gave the patient levothyroxine IV 100 mcg and will try to give her levothyroxine 150 mcg p.o. and we will continue with 150 mcg p.o. daily as we do not have levothyroxine IV more than 1 dose of 100 mg, which will be given tonight. I have called state number to arrange transfer of the patient to a higher level of care. For maxillary sinusitis, the patient is being covered with levofloxacin and she is on treatment with hydrocortisone. We will also give patient a spray with nasal saline 3 times a day. For drug abuse, the patient will need counseling and detox referral. For kidney insufficiency, we will order renal bladder sonogram and urine electrolytes. DVT prophylaxis, patient will be given heparin 5000 units q.12 hours subcutaneous; and for GI prophylaxis, we will give patient Pepcid 20 mg IV daily. [facility] /[id number]
[2021-06-13] MEDS: Levothyroxine 150 MCG Tab PO SCH (08:51)
[2021-06-13] MEDS ORDERED: Oseltamivir 30 MG Cap PO SCH (09:00)
[2021-06-13] MEDS ORDERED: 50% Dextrose in Water 50 ML Syringe IVPUSH PRN (11:45)
[2021-06-13] MEDS ORDERED: Glucagon,Human Recombinant 1 MG Vial IM PRN (11:45)
[2021-06-13] MEDS ORDERED: Ondansetron 4 MG/2 ML SDV IVPUSH PRN (14:37)
[2021-06-13] MEDS: Dextrose 5%-0.9% NaCl 1,000 ML IV SCH ×2 (17:07→23:23)
[2021-06-13] MEDS ORDERED: Hydrocortisone Sodium Succinate 100 MG/2 ML SDV IVPUSH ONE (18:00)
[2021-06-13 18:37] LABS: ANION GAP 17.8 mEq/L (7-13)
[2021-06-13] MEDS ORDERED: Magnesium Sulfate/Water 2 GM in Premix Bag 1 BAG IV ONE (20:07)
[2021-06-13] MEDS ORDERED: Phosphorus #1 250 MG Tab PO ONE (20:08)
[2021-06-13] MEDS ORDERED: Sertraline 50 MG Tab PO SCH (21:00)
[2021-06-13] MEDS: Sodium Bicarbonate 650 MG Tab PO SCH (21:12)
[2021-06-13] MEDS: Sodium Chloride 0.9% 10 ML Syringe FLUSH PRN ×2 (21:18→23:30)
[2021-06-13] MEDS ORDERED: Sodium Chloride 0.9% 1,000 ML IV SCH ×2 (22:00)
[2021-06-13] MEDS ORDERED: DOPamine/Dextrose 5%-Water 400 MG/250 ML BAG IV SCH (22:15)
[2021-06-13] MEDS: Cefepime 1 GM in Sodium Chloride 0.9% 50 ML IV SCH (22:59)
[2021-06-13] MEDS: Oseltamivir 30 MG Cap PO SCH (23:19)
[2021-06-13] MEDS ORDERED: Midodrine 2.5 MG Tab PO ONE (23:45)
[2021-06-14] MEDS: Hydrocortisone Sodium Succinate 100 MG/2 ML SDV IVPUSH SCH ×4 (01:51→22:08)
[2021-06-14] MEDS: Levothyroxine 150 MCG Tab PO SCH (06:00)
[2021-06-14] MEDS: Dextrose 5%-0.9% NaCl 1,000 ML IV SCH ×2 (06:02→19:05)
[2021-06-14] MEDS: oxyCODONE 5 MG Tab PO PRN ×3 (06:14→22:37)
[2021-06-14 06:40] LABS: ANION GAP 19.3 mEq/L (7-13)
[2021-06-14] MEDS: Oseltamivir 30 MG Cap PO SCH ×2 (08:21→22:01)
[2021-06-14] MEDS: Sodium Bicarbonate 650 MG Tab PO SCH (08:21)
--- NOTE | 2021-06-14 08:21 | PN ---
DATE: 06/13/2021 SUBJECTIVE: Patient was seen today. She was alert, awake, and her sodium corrected in the morning to 129, potassium 3.9, chloride 95, 19, anion gap 23, creatinine decreased to 2.09, estimated creatinine clearance 22.95, glucose in the morning 290, calcium 7.6, phosphorus 3.1, magnesium 1.9. Bilirubin 0.7, AST 139, ALT 93, alkaline phosphatase 46, and total protein 7.9, albumin 3.1, vitamin B12 of 1112. The patient had an episode of vomiting today. She had a total intake of 2818 mL and output 625 with a balance of 2193 positive. Her fluids were changed during the day to normal saline due to elevated blood sugar, which was 268 in the morning. The patient stated that she did not take her thyroid medication for a long time and the medication for adrenal insufficiency. She did not take it for 3-4 days as per patient. PHYSICAL EXAMINATION: Vital Signs: Today, temperature 96.5 to 97.6, pulse 68, blood pressure 91/62, mean of 71, respiratory rate 18, oxygen saturation 99%. General: The patient is alert, awake. She has missing teeth and is difficult to communicate with the patient due to her dentition, otherwise she answers questions appropriately. HEENT: Head is atraumatic, normocephalic. Pupils reactive to light. Neck: Supple. No thyromegaly. No lymphadenopathy. Heart: S1, S2. Regular rhythm and rate. No murmurs. Lungs: Clear to auscultation bilaterally. Abdomen: No tenderness. Positive bowel sounds. Soft. Extremities: No edema. There are no gross focal neurological deficits noted. ASSESSMENT AND PLAN: 1. [place] crisis with hyperglycemia, myxedema, acute kidney failure. [place] crisis improving, myxedema improving, hypokalemia improving, hyponatremia improving, hypomagnesemia resolved. Positive influenza A. Drug abuse intoxication with methamphetamine and amphetamine and MDMA. Maxillary sinusitis, left urinary tract infection. 2. Vomiting. The patient continued to be in telemetry and will continue with hydrocortisone 50 mg every 6 hours and we will re-evaluate in the morning. The patient's fluids were changed to normal saline, and after few hours, patient had hypoglycemia at 33, so we will continue patient with D5 normal saline at 150 mL/h and we will monitor electrolytes and we will supplement magnesium and potassium as needed. 3. For urinary tract infection, the patient received yesterday a dose of levofloxacin 750 mg IV, and according to her creatinine clearance, she should get levofloxacin 750 mg IV q.48 hours. We will follow up her creatinine tomorrow and we will continue with levofloxacin tomorrow. 4. Hypothyroidism, patient received today levofloxacin 150 p.o. 1 dose and we will continue to monitor patient. 5. For maxillary sinusitis, patient is being covered with levofloxacin and she is on treatment with hydrocortisone. We will also give the patient saline nasal spray as needed 3 times a day. 6. For drug abuse, the patient will need counseling and detox referral. 7. For depression, we will continue patient with sertraline 50 mg p.o. daily. 8. For neuropathy, we will continue patient with gabapentin at 300 mg p.o. daily when patient is more stable. Currently, she does not have any complaints of neuropathy. 9. For kidney insufficiency, we will follow up renal bladder sonogram on Tuesday and urine electrolytes. 10.For deep venous thrombosis prophylaxis, patient is on heparin 5000 units q.12 hours. 11.For GI prophylaxis, she is on Pepcid 20 mg IV daily. 12.For nausea and vomiting, patient will receive Zofran 4 mg q.4 hours p.r.n. or Reglan 10 mg p.o. q.6 hours p.r.n. [facility] /[id number]
[2021-06-14] MEDS: Cefepime 1 GM in Sodium Chloride 0.9% 50 ML IV SCH ×2 (08:22→22:05)
[2021-06-14] MEDS: Heparin Sodium 5,000 Units/ML Vial SUBCUT SCH (08:22)
[2021-06-14] MEDS: Insulin Lispro 100 Units/ML 3 ML Vial SUBCUT SCH ×4 (08:26→22:03)
[2021-06-14] MEDS: Ondansetron 4 MG Tab.DIS PO PRN (08:57)
[2021-06-14] MEDS ORDERED: Oseltamivir 30 MG Cap PO SCH (09:00)
[2021-06-14] MEDS ORDERED: Cefepime 1 GM in Sodium Chloride 0.9% 50 ML IV SCH (09:00)
[2021-06-14] MEDS ORDERED: Oseltamivir 30 MG Cap PO ONE (09:00)
[2021-06-14] MEDS: Dextrose 5%-0.45% NaCl 1,000 ML IV SCH (12:59)
[2021-06-14] MEDS: Phosphorus #1 250 MG Tab PO SCH ×2 (13:09→22:02)
[2021-06-14] MEDS: Fludrocortisone 0.1 MG Tab PO SCH (13:12)
[2021-06-14] MEDS ORDERED: Levofloxacin/Dextrose 5%-Water 750 MG in Premix Bag 1 BAG IV ONE (14:41)
--- NOTE | 2021-06-14 21:36 | PN ---
DATE: 06/14/2021 SUBJECTIVE: The patient was seen today. She is alert, oriented x3. She is back to her baseline. The patient still had an episode of hypotension and her blood pressure is borderline low. She was continued today with hydrocortisone 50 mg IV q.6 hours and fludrocortisone was added to her medications. The patient does not have any acute complaints. LABORATORY DATA: Today, WBC 11.7, hemoglobin was 12.8, hematocrit 36.2, platelet count 105. Sodium 138, potassium 4.3, chloride 106, CO2 of 17, anion gap 19.3, creatinine 1.26 with creatinine clearance of 38.07, GFR of 44. Glucose 174; and drawn today, her glucose were 174 and 150. Calcium 7, phosphorus 2.2, AST 133, ALT 40, alkaline phosphatase 40, total protein 6.3, albumin 2.7. PHYSICAL EXAMINATION: Vital Signs: Her vital signs at 6 o'clock in the morning were temperature 98.3, pulse 76, blood pressure 95/62 with a mean of 73, respiratory rate 16, and oxygen saturation 98% at room air. HEENT: Head is atraumatic, normocephalic. Pupils equally reactive to light. The patient has missing teeth. Neck: Supple. No thyromegaly. No lymphadenopathy. Heart: S1, S2. Regular rhythm and rate. No murmur. Lungs: Clear to auscultation bilaterally. Abdomen: Soft, nontender. Positive bowel sounds. Extremities: No edema. Neurologic: No gross focal neurologic deficits. ASSESSMENT AND PLAN: [place] crisis. The patient was continued today with hydrocortisone succinate 50 mg q.6 hours and fludrocortisone 0.1 mg was added to her medication. Consider tapering tomorrow hydrocortisone succinate to 50 mg q.12 hours followed by hydrocortisone 50 mg a day and transition the patient to her home of Cortef 20 mg p.o. b.i.d. If the patient is hypotensive, consider increasing fludrocortisone to 0.2 mg daily. For hypothyroidism, decompensated myxedema, the patient currently is euthymic. We will continue the patient with levothyroxine 150 mcg p.o. daily. For drug abuse, the patient will need referral to a detox facility. Urinary tract infection, the patient will be continued with levofloxacin 750 mg IV daily and she also received cefepime 1 g q.12 hours in case that the patient is resistant to levofloxacin. Blood culture, no growth after 2 days and urine culture preliminary the patient has less than 50,000 colonies of gram-positive cocci, rule out Enterococcus species. Sensitivity to follow in 24 hours. Follow up sensitivity and adjust antibiotics according to the patient's sensitivity. For depression, the patient will be continued with sertraline 50 mg p.o. daily for neuropathy. For neuropathy, the patient will be continued with gabapentin 300 mg p.o. t.i.d. For deep venous thrombosis prophylaxis, we will change heparin to Lovenox 40 mg subcutaneous q.24 hours as her creatinine clearance improves. Hypophosphatemia, the patient will be continued with phosphorus 250 mg p.o. t.i.d. For acidosis, the patient is receiving sodium bicarbonate 650 mg p.o. daily. For influenza A, we will continue the patient with oseltamivir 30 mg p.o. q.12 hours. Gastrointestinal prophylaxis, Pepcid 20 mg p.o. daily. [facility] /[id number]
[2021-06-14] MEDS ORDERED: Fludrocortisone 0.1 MG Tab PO SCH (21:50)
[2021-06-14] MEDS: Famotidine 20 MG Tab PO SCH (22:01)
[2021-06-14] MEDS: Gabapentin 300 MG Cap PO SCH (22:02)
[2021-06-14] MEDS: Sertraline 50 MG Tab PO SCH (22:02)
[2021-06-14] MEDS: Sodium Chloride 0.9% 10 ML Syringe FLUSH PRN (22:09)
[2021-06-14] MEDS ORDERED: Fludrocortisone 0.1 MG Tab PO ONE (23:18)
[2021-06-15] MEDS: Sodium Chloride 0.9% 10 ML Syringe FLUSH PRN ×2 (03:07→21:51)
[2021-06-15] MEDS: Hydrocortisone Sodium Succinate 100 MG/2 ML SDV IVPUSH SCH ×4 (03:08→21:51)
[2021-06-15] MEDS: Levothyroxine 150 MCG Tab PO SCH ×2 (04:41→05:04)
[2021-06-15] MEDS: oxyCODONE 5 MG Tab PO PRN ×3 (04:41→22:09)
[2021-06-15] MEDS: Insulin Lispro 100 Units/ML 3 ML Vial SUBCUT SCH ×4 (08:56→21:56)
[2021-06-15] MEDS: Gabapentin 300 MG Cap PO SCH ×3 (08:57→21:55)
[2021-06-15] MEDS: Sodium Bicarbonate 650 MG Tab PO SCH (08:57)
[2021-06-15] MEDS: Phosphorus #1 250 MG Tab PO SCH (08:58)
[2021-06-15] MEDS: Oseltamivir 30 MG Cap PO SCH ×2 (08:58→21:55)
[2021-06-15] MEDS: Fludrocortisone 0.1 MG Tab PO SCH (08:59)
[2021-06-15] MEDS: Famotidine 20 MG Tab PO SCH (08:59)
[2021-06-15] MEDS: Cefepime 1 GM in Sodium Chloride 0.9% 50 ML IV SCH (09:02)
[2021-06-15] MEDS: Acetaminophen 325 MG Tab PO PRN (12:47)
[2021-06-15] MEDS: Ondansetron 4 MG Tab.DIS PO PRN (12:48)
--- NOTE | 2021-06-15 17:02 | PCM.PN ---
- General Info Date of Service: 06/15/21 Admission Dx/Problem (Free Text): admitted with Severe Hypoglycemia Subjective Update: Ms. Vera is a 56-year-old moderately obese pleasant female with past medical history significant for Manolo's disease, polysubstance substance abuse, noncompliance with medication, hypothyroidism, hypokalemia and recurrent hypoglycemia other history include arrhythmia COPD and urinary incontinence she also has memory problem and forgetful at times. The patient was admitted to the hospital after presenting to ER with severe hypoglycemia and as per family they could not wake her up in her own home, EMT gave 1 mg of intramuscular glucagon because of lack of IV access and after coming to ER blood glucose is still 33 the patient was in a state of confusion and further dextrose was given and eventually the patient become alert the patient was in Florinef and she says she has not taken Florinef for 3 4 days because [facility] pharmacy is closed because of holiday and she could not get her medications. Urine toxicology showed positive for amphetamine and serology study showed she is positive for influenza A. Functional Status: Reports: Pain Controlled, Tolerating Diet, Ambulating, Urinating - Review of Systems General: Reports: Appetite (good). Denies: Fever, Weakness, Malaise, Chills HEENT: Denies: Dysphasia, Headaches, Sinus Congestion, Sore Throat, Visual Changes Pulmonary: Denies: Shortness of Breath, Cough, Hemoptysis, Wheezing Cardiovascular: Denies: Chest Pain, Edema, Lightheadedness Gastrointestinal: Denies: Abdominal Pain, Difficulty Swallowing, Melena, Nausea, Vomiting Genitourinary: Denies: Dysuria, Burning, Urgency, Flank Pain Musculoskeletal: Denies: Neck Pain, Shoulder Pain, Leg Pain, Joint Pain Skin: Denies: Jaundice, Bruising, Pruritis, Rash Neurological: Reports: Tremors. Denies: Confusion, Headache Psychiatric: Reports: No Symptoms - Patient Data Vitals - Most Recent: Last Vital Signs Temp 36.6 C 06/15/21 16:00 Pulse 114 H 06/15/21 16:00 Resp 20 06/15/21 16:00 BP 114/80 06/15/21 16:00 Pulse Ox 96 06/15/21 16:00 Weight - Most Recent: 71.849 kg I&O - Last 24 Hours: Intake & Output 06/15/21 06/15/21 06/15/21 06:59 14:59 22:59 Intake Total 240 960 Output Total 250 275 Balance -10 685 Lab Results Last 24 Hours: Laboratory Results - last 24 hr 06/14/21 06/14/21 06/15/21 Range/Units 17:13 21:13 01:28 WBC (5.0-10.0) 10^3/uL RBC (4.2-5.4) 10^6/uL Hgb (12.0-16.0) g/dL Hct (37.0-47.0) % MCV (80-100) fL MCH (27.0-34.0) pg MCHC (33.0-35.0) g/dL Plt Count (150-450) 10^3/uL Neut % (Auto) (42.2-75.2) % Lymph % (Auto) (20.5-50.1) % Todd % (Auto) (2-8) % Eos % (Auto) (1.0-3.0) % Baso % (Auto) (0.0-1.0) % Sodium (136-145) mmol/L Potassium (3.5-5.1) mmol/L Chloride (98-107) mmol/L Carbon Dioxide (21-32) mmol/L Anion Gap (7-13) mEq/L BUN (7-18) mg/dL Creatinine (0.55-1.02) mg/dL Est Cr Clr Drug Dosing mL/min Estimated GFR (MDRD) BUN/Creatinine Ratio (No establ ref range) Glucose (70-99) mg/dL POC Glucose 150 H 140 H 120 H (70-99) mg/dL Calcium (8.5-10.1) mg/dL Phosphorus (2.6-4.7) mg/dL Total Bilirubin (0.2-1.0) mg/dL AST (15-37) U/L ALT (14-59) U/L Alkaline Phosphatase (46-116) U/L Total Protein (6.4-8.2) g/dL Albumin (3.4-5.0) g/dL Globulin Albumin/Globulin Ratio 06/15/21 06/15/21 06/15/21 Range/Units 04:33 06:30 06:30 WBC 9.6 (5.0-10.0) 10^3/uL RBC 3.83 L (4.2-5.4) 10^6/uL Hgb 11.4 L (12.0-16.0) g/dL Hct 33.6 L (37.0-47.0) % MCV 87.7 (80-100) fL MCH 29.8 (27.0-34.0) pg MCHC 33.9 (33.0-35.0) g/dL Plt Count 132 L (150-450) 10^3/uL Neut % (Auto) 90.3 H (42.2-75.2) % Lymph % (Auto) 7.3 L (20.5-50.1) % Todd % (Auto) 2.3 (2-8) % Eos % (Auto) 0.0 L (1.0-3.0) % Baso % (Auto) 0.1 (0.0-1.0) % Sodium 140 (136-145) mmol/L Potassium 4.0 (3.5-5.1) mmol/L Chloride 106 (98-107) mmol/L Carbon Dioxide 21 (21-32) mmol/L Anion Gap 17.0 H (7-13) mEq/L BUN 8 (7-18) mg/dL Creatinine 1.04 H (0.55-1.02) mg/dL Est Cr Clr Drug Dosing 46.12 mL/min Estimated GFR (MDRD) 55 BUN/Creatinine Ratio 7.7 (No establ ref range) Glucose 142 H (70-99) mg/dL POC Glucose 127 H (70-99) mg/dL Calcium 6.6 L (8.5-10.1) mg/dL Phosphorus 2.5 L (2.6-4.7) mg/dL Total Bilirubin 0.3 (0.2-1.0) mg/dL AST 122 H (15-37) U/L ALT 64 H (14-59) U/L Alkaline Phosphatase 44 L (46-116) U/L Total Protein 6.0 L (6.4-8.2) g/dL Albumin 2.7 L (3.4-5.0) g/dL Globulin 3.3 Albumin/Globulin Ratio 0.82 06/15/21 06/15/21 06/15/21 Range/Units 08:25 11:44 16:34 WBC (5.0-10.0) 10^3/uL RBC (4.2-5.4) 10^6/uL Hgb (12.0-16.0) g/dL Hct (37.0-47.0) % MCV (80-100) fL MCH (27.0-34.0) pg MCHC (33.0-35.0) g/dL Plt Count (150-450) 10^3/uL Neut % (Auto) (42.2-75.2) % Lymph % (Auto) (20.5-50.1) % Todd % (Auto) (2-8) % Eos % (Auto) (1.0-3.0) % Baso % (Auto) (0.0-1.0) % Sodium (136-145) mmol/L Potassium (3.5-5.1) mmol/L Chloride (98-107) mmol/L Carbon Dioxide (21-32) mmol/L Anion Gap (7-13) mEq/L BUN (7-18) mg/dL Creatinine (0.55-1.02) mg/dL Est Cr Clr Drug Dosing mL/min Estimated GFR (MDRD) BUN/Creatinine Ratio (No establ ref range) Glucose (70-99) mg/dL POC Glucose 129 H 144 H 124 H (70-99) mg/dL Calcium (8.5-10.1) mg/dL Phosphorus (2.6-4.7) mg/dL Total Bilirubin (0.2-1.0) mg/dL AST (15-37) U/L ALT (14-59) U/L Alkaline Phosphatase (46-116) U/L Total Protein (6.4-8.2) g/dL Albumin (3.4-5.0) g/dL Globulin Albumin/Globulin Ratio Merrill Results Last 24 Hours: Microbiology 06/12/21 13:53 Urine Culture - Final Urine, Quick Cath (In-Out) MIXED KOMAL SUGGESTIVE OF CONTAMINATION. 06/12/21 19:07 Aerobic Blood Culture - Preliminary Blood - Arm, Left NO GROWTH AFTER 2 DAYS Anaerobic Blood Culture - Final 06/12/21 19:00 Aerobic Blood Culture - Preliminary Blood - Arm, Right NO GROWTH AFTER 2 DAYS Anaerobic Blood Culture - Final Med Orders - Current: Current Medications Acetaminophen (Acetaminophen 325 Mg Tab) 650 mg PO Q4H PRN PRN Reason: Pain (Mild 1-3)/fever Last Admin: 06/15/21 12:47 Dose: 650 mg Documented by: Albuterol (Albuterol 0.083% 2.5 Mg/3 Ml Neb Soln) 2.5 mg NEB Q2H PRN PRN Reason: shortness of breath/wheezing Dextrose/Water (50% Dextrose In Water 50 Ml Syringe) 50 ml IVPUSH Q15M PRN PRN Reason: Hypoglycemia Last Admin: 06/13/21 17:02 Dose: 50 ml Documented by: Docusate Sodium (Docusate Sodium 100 Mg Cap) 100 mg PO BID PRN PRN Reason: Constipation Last Admin: 06/15/21 10:16 Dose: 100 mg Documented by: Famotidine (Famotidine 20 Mg Tab) 20 mg PO DAILY [facility] Last Admin: 06/15/21 08:59 Dose: 20 mg Documented by: Fludrocortisone Acetate (Fludrocortisone 0.1 Mg Tab) 0.1 mg PO WITHBREAKFAST [facility] Last Admin: 06/15/21 08:59 Dose: 0.1 mg Documented by: Gabapentin (Gabapentin 300 Mg Cap) 300 mg PO TID [facility] Last Admin: 06/15/21 14:15 Dose: 300 mg Documented by: Glucagon (Glucagon,Human Recombinant 1 Mg Vial) 1 mg IM Q15M PRN PRN Reason: Hypoglycemia Hydrocortisone Sodium Succinate (Hydrocortisone Sodium Succinate 100 Mg/2 Ml Sdv) 50 mg IVPUSH Q6H [facility] Last Admin: 06/15/21 14:15 Dose: 50 mg Documented by: Sodium Chloride (Normal Saline) 1,000 mls @ 999 mls/hr IV ASDIRECTED [facility] Stop: 06/17/21 21:52 Last Infusion: 06/13/21 23:22 Dose: Infused Documented by: Influenza Virus Vaccine (Pharmacy To Dose - Influenza Vaccine) 1 each IM DAILY [facility] Last Admin: 06/15/21 09:01 Dose: Not Given Documented by: Insulin Human Lispro (Insulin Lispro 100 Units/Ml 3 Ml Vial) 0 unit SUBCUT WI THMEALSANDBED [facility]; Protocol Last Admin: 06/15/21 12:05 Dose: Not Given Documented by: Levothyroxine Sodium (Levothyroxine 150 Mcg Tab) 150 mcg PO ACBREAKFAST [facility] Last Admin: 06/15/21 05:04 Dose: Not Given Documented by: Ondansetron HCl (Ondansetron 4 Mg Tab.Dis) 4 mg PO Q4H PRN PRN Reason: Nausea/Vomiting Last Admin: 06/15/21 12:48 Dose: 4 mg Documented by: Ondansetron HCl (Ondansetron 4 Mg/2 Ml Sdv) 4 mg IVPUSH Q6HR PRN PRN Reason: Nausea/Vomiting Last Admin: 06/13/21 17:18 Dose: 4 mg Documented by: Oseltamivir Phosphate (Oseltamivir 30 Mg Cap) 30 mg PO BID [facility] Stop: 06/17/21 21:01 Last Admin: 06/15/21 08:58 Dose: 30 mg Documented by: Oxycodone HCl (Oxycodone 5 Mg Tab) 5 mg PO Q4H PRN PRN Reason: Pain (moderate 4-6) Last Admin: 06/15/21 10:15 Dose: 5 mg Documented by: Sertraline HCl (Sertraline 50 Mg Tab) 50 mg PO BEDTIME [facility] Last Admin: 06/14/21 22:02 Dose: 50 mg Documented by: Sodium Bicarbonate (Sodium Bicarbonate 650 Mg Tab) 650 mg PO DAILY [facility] Last Admin: 06/15/21 08:57 Dose: 650 mg Documented by: Sodium Chloride (Sodium Chloride 0.9% 10 Ml Syringe) 10 ml FLUSH ASDIRECTED PRN PRN Reason: Keep Vein Open Discontinued Medications Dexamethasone (Dexamethasone 4 Mg/Ml Sdv) 4 mg IVPUSH ONETIME ONE Stop: 06/12/21 13:05 Last Admin: 06/12/21 13:14 Dose: 4 mg Documented by: Dextrose (Glucose Gel 15 Gm In 37.5 Gm Tube) Confirm Administered Dose 15 gm .ROUTE .STK-MED ONE Stop: 06/12/21 13:28 Last Admin: 06/12/21 17:19 Dose: Not Given Documented by: Dextrose/Water (50% Dextrose In Water 50 Ml Syringe) 50 ml IVPUSH ONETIME ONE Stop: 06/12/21 13:05 Last Admin: 06/12/21 13:27 Dose: 50 ml Documented by: Dextrose/Water (50% Dextrose In Water 50 Ml Syringe) 50 ml IVPUSH Q15M PRN PRN Reason: Hypoglycemia Fludrocortisone Acetate (Fludrocortisone 0.1 Mg Tab) 0.1 mg PO WITHBREAKFAST [facility] Fludrocortisone Acetate (Fludrocortisone 0.1 Mg Tab) 0.1 mg PO ONETIME ONE Stop: 06/14/21 23:19 Last Admin: 06/14/21 23:28 Dose: 0.1 mg Documented by: Glucagon (Glucagon,Human Recombinant 1 Mg Vial) 1 mg IM Q15M PRN PRN Reason: Hypoglycemia Heparin Sodium (Porcine) (Heparin Sodium 5,000 Units/Ml Vial) 5,000 units SUBCUT Q12HR [facility] Last Admin: 06/14/21 08:22 Dose: 5,000 units Documented by: Hydrocortisone Sodium Succinate (Hydrocortisone Sodium Succinate 100 Mg/2 Ml Sdv) 100 mg IVPUSH ONETIME ONE Stop: 06/12/21 18:43 Last Admin: 06/12/21 19:31 Dose: 100 mg Documented by: Hydrocortisone Sodium Succinate (Hydrocortisone Sodium Succinate 100 Mg/2 Ml Sdv) 50 mg IVPUSH Q6H [facility] Last Admin: 06/13/21 14:21 Dose: 50 mg Documented by: Hydrocortisone Sodium Succinate (Hydrocortisone Sodium Succinate 100 Mg/2 Ml Sdv) 50 mg IVPUSH Q12HR [facility] Last Admin: 06/14/21 08:17 Dose: 50 mg Documented by: Hydrocortisone Sodium Succinate (Hydrocortisone Sodium Succinate 100 Mg/2 Ml Sdv) 50 mg IVPUSH ONETIME ONE Stop: 06/13/21 18:01 Last Admin: 06/13/21 17:18 Dose: 50 mg Documented by: Hydromorphone HCl (Hydromorphone 0.5 Mg/0.5 Ml Syringe) 0.25 mg IVPUSH Q2H PRN PRN Reason: Pain (severe 7-10) Last Admin: 06/12/21 20:47 Dose: 0.25 mg Documented by: Dextrose/Sodium Chloride (Dextrose 5%-1/2 Ns) 1,000 mls @ 150 mls/hr IV ASDIRECTED [facility] Last Admin: 06/14/21 12:59 Dose: 150 mls/hr Documented by: Sodium Chloride (Normal Saline) 1,000 mls @ 999 mls/hr IV .BOLUS ONE Stop: 06/12/21 17:16 Last Admin: 06/12/21 17:35 Dose: 999 mls/hr Documented by: Dextrose/Sodium Chloride (Dextrose 5%-Normal Saline) 1,000 mls @ 999 mls/hr IV ASDIRECTED [facility] Dextrose/Sodium Chloride (Dextrose 5%-Normal Saline) 1,000 mls @ 999 mls/hr IV ASDIRECTED [facility] Last Infusion: 06/13/21 00:53 Dose: Infused Documented by: Levofloxacin/Dextrose 750 mg/ (Premix) 150 mls @ 100 mls/hr IV ONETIME ONE Stop: 06/12/21 21:21 Last Infusion: 06/13/21 00:20 Dose: Infused Documented by: Magnesium Sulfate 2 gm/ Premix 50 mls @ 25 mls/hr IV ONETIME ONE Stop: 06/12/21 23:41 Last Admin: 06/12/21 23:19 Dose: 25 mls/hr Documented by: Dextrose/Sodium Chloride (Dextrose 5%-Normal Saline) 1,000 mls @ 200 mls/hr IV ASDIRECTED [facility] Last Infusion: 06/13/21 05:43 Dose: 200 mls/hr Documented by: Sodium Chloride (Normal Saline) 1,000 mls @ 125 mls/hr IV ASDIRECTED [facility] Last Admin: 06/13/21 14:20 Dose: 1,256 mls/hr Documented by: Levofloxacin/Dextrose 750 mg/ (Premix) 150 mls @ 100 mls/hr IV ONETIME ONE Stop: 06/14/21 16:10 Last Infusion: 06/14/21 16:10 Dose: Infused Documented by: Dextrose/Sodium Chloride (Dextrose 5%-Normal Saline) 1,000 mls @ 150 mls/hr IV ASDIRECTED [facility] Last Admin: 06/14/21 19:05 Dose: 150 mls/hr Documented by: Magnesium Sulfate 2 gm/ Premix 50 mls @ 25 mls/hr IV ONETIME ONE Stop: 06/13/21 22:06 Last Admin: 06/13/21 21:21 Dose: 25 mls/hr Documented by: Sodium Chloride (Normal Saline) 1,000 mls @ 100 mls/hr IV ASDIRECTED [facility] Cefepime HCl 1 gm/ Sodium (Chloride) 50 mls @ 100 mls/hr IV Q12HR [facility] Dopamine HCl/Dextrose (Dopamine In D5w 400 Mg/250 Ml) 400 mg in 250 mls @ 4.804 mls/hr IV TITRATE [facility]; Protocol Cefepime HCl 1 gm/ Sodium (Chloride) 50 mls @ 100 mls/hr IV Q12HR [facility] Last Admin: 06/15/21 09:02 Dose: 100 mls/hr Documented by: Insulin Human Lispro (Insulin Lispro 100 Units/Ml 3 Ml Vial) 0 unit SUBCUT Q6H [facility]; Protocol Last Admin: 06/13/21 09:40 Dose: 6 units Documented by: Levothyroxine Sodium (Levothyroxine 100 Mcg Vial) 100 mcg IVPUSH ONETIME ONE Stop: 06/12/21 19:53 Last Admin: 06/12/21 20:52 Dose: 100 mcg Documented by: Levothyroxine Sodium (Levothyroxine 150 Mcg Tab) 150 mcg PO ONETIME ONE Stop: 06/12/21 19:58 Last Admin: 06/12/21 20:45 Dose: 150 mcg Documented by: Lidocaine HCl (Lidocaine 1% 30 Ml Sdv) 30 ml INJECT ONETIME ONE Stop: 06/12/21 13:19 Last Admin: 06/12/21 13:27 Dose: 30 ml Documented by: Midodrine (Midodrine 2.5 Mg Tab) 10 mg PO ONETIME ONE Stop: 06/13/21 23:46 Last Admin: 06/14/21 00:05 Dose: 10 mg Documented by: Morphine Sulfate (Morphine 2 Mg/Ml Syringe) 2 mg IVPUSH Q2H PRN PRN Reason: Pain (severe 7-10) Oseltamivir Phosphate (Oseltamivir 75 Mg Cap) 75 mg PO BID [facility] Last Admin: 06/12/21 21:00 Dose: Not Given Documented by: Oseltamivir Phosphate (Oseltamivir 30 Mg Cap) 30 mg PO DAILY [facility] Last Admin: 06/13/21 08:43 Dose: 30 mg Documented by: Oseltamivir Phosphate (Oseltamivir 30 Mg Cap) 30 mg PO ONETIME ONE Stop: 06/14/21 09:01 Oseltamivir Phosphate (Oseltamivir 30 Mg Cap) 30 mg PO BID [facility] Stop: 06/16/21 09:01 Potassium Chloride (Potassium Chloride 10 Meq Tab.Er) 40 meq PO ONETIME ONE Stop: 06/13/21 08:06 Last Admin: 06/13/21 08:51 Dose: 40 meq Documented by: Sertraline HCl (Sertraline 50 Mg Tab) 50 mg PO BEDTIME [facility] Last Admin: 06/13/21 21:12 Dose: 50 mg Documented by: Sodium Chloride (Sodium Chloride 0.9% 10 Ml Syringe) 10 ml FLUSH ASDIRECTED PRN PRN Reason: Keep Vein Open Last Admin: 06/15/21 03:07 Dose: 10 ml Documented by: Sodium Phosphate (Phosphorus #1 250 Mg Tab) 250 mg PO ONETIME ONE Stop: 06/13/21 20:09 Last Admin: 06/13/21 21:12 Dose: 250 mg Documented by: Sodium Phosphate (Phosphorus #1 250 Mg Tab) 250 mg PO TID [facility] Stop: 06/15/21 12:00 Last Admin: 06/15/21 08:58 Dose: 250 mg Documented by: - Exam Quality Assessment: DVT Prophylaxis. No: Supplemental Oxygen, Central Line/PICC, Urine Catheter General: Alert, Oriented, Cooperative, No Acute Distress HEENT: Pupils Equal, Pupils Reactive, EOMI, Mucous Membr. Moist/[place] Neck: Supple, No JVD, No Thyromegaly Lungs: Clear to Auscultation, Normal Respiratory Effort Cardiovascular: Irregular Rhythm, Murmurs GI/Abdominal Exam: Normal Bowel Sounds, Soft, Non-Tender, No Organomegaly (Female) Exam: Deferred Back Exam: Normal Inspection Extremities: Normal Inspection, No Pedal Edema Skin: Warm, Dry, Intact Neurological: No New Focal Deficit Psy/Mental Status: Alert, Normal Affect, Normal Mood - Patient Data Lab Results Last 24 hrs: Laboratory Results - last 24 hr 06/14/21 06/14/21 06/15/21 Range/Units 17:13 21:13 01:28 WBC (5.0-10.0) 10^3/uL RBC (4.2-5.4) 10^6/uL Hgb (12.0-16.0) g/dL Hct (37.0-47.0) % MCV (80-100) fL MCH (27.0-34.0) pg MCHC (33.0-35.0) g/dL Plt Count (150-450) 10^3/uL Neut % (Auto) (42.2-75.2) % Lymph % (Auto) (20.5-50.1) % Todd % (Auto) (2-8) % Eos % (Auto) (1.0-3.0) % Baso % (Auto) (0.0-1.0) % Sodium (136-145) mmol/L Potassium (3.5-5.1) mmol/L Chloride (98-107) mmol/L Carbon Dioxide (21-32) mmol/L Anion Gap (7-13) mEq/L BUN (7-18) mg/dL Creatinine (0.55-1.02) mg/dL Est Cr Clr Drug Dosing mL/min Estimated GFR (MDRD) BUN/Creatinine Ratio (No establ ref range) Glucose (70-99) mg/dL POC Glucose 150 H 140 H 120 H (70-99) mg/dL Calcium (8.5-10.1) mg/dL Phosphorus (2.6-4.7) mg/dL Total Bilirubin (0.2-1.0) mg/dL AST (15-37) U/L ALT (14-59) U/L Alkaline Phosphatase (46-116) U/L Total Protein (6.4-8.2) g/dL Albumin (3.4-5.0) g/dL Globulin Albumin/Globulin Ratio 06/15/21 06/15/21 06/15/21 Range/Units 04:33 06:30 06:30 WBC 9.6 (5.0-10.0) 10^3/uL RBC 3.83 L (4.2-5.4) 10^6/uL Hgb 11.4 L (12.0-16.0) g/dL Hct 33.6 L (37.0-47.0) % MCV 87.7 (80-100) fL MCH 29.8 (27.0-34.0) pg MCHC 33.9 (33.0-35.0) g/dL Plt Count 132 L (150-450) 10^3/uL Neut % (Auto) 90.3 H (42.2-75.2) % Lymph % (Auto) 7.3 L (20.5-50.1) % Todd % (Auto) 2.3 (2-8) % Eos % (Auto) 0.0 L (1.0-3.0) % Baso % (Auto) 0.1 (0.0-1.0) % Sodium 140 (136-145) mmol/L Potassium 4.0 (3.5-5.1) mmol/L Chloride 106 (98-107) mmol/L Carbon Dioxide 21 (21-32) mmol/L Anion Gap 17.0 H (7-13) mEq/L BUN 8 (7-18) mg/dL Creatinine 1.04 H (0.55-1.02) mg/dL Est Cr Clr Drug Dosing 46.12 mL/min Estimated GFR (MDRD) 55 BUN/Creatinine Ratio 7.7 (No establ ref range) Glucose 142 H (70-99) mg/dL POC Glucose 127 H (70-99) mg/dL Calcium 6.6 L (8.5-10.1) mg/dL Phosphorus 2.5 L (2.6-4.7) mg/dL Total Bilirubin 0.3 (0.2-1.0) mg/dL AST 122 H (15-37) U/L ALT 64 H (14-59) U/L Alkaline Phosphatase 44 L (46-116) U/L Total Protein 6.0 L (6.4-8.2) g/dL Albumin 2.7 L (3.4-5.0) g/dL Globulin 3.3 Albumin/Globulin Ratio 0.82 06/15/21 06/15/21 06/15/21 Range/Units 08:25 11:44 16:34 WBC (5.0-10.0) 10^3/uL RBC (4.2-5.4) 10^6/uL Hgb (12.0-16.0) g/dL Hct (37.0-47.0) % MCV (80-100) fL MCH (27.0-34.0) pg MCHC (33.0-35.0) g/dL Plt Count (150-450) 10^3/uL Neut % (Auto) (42.2-75.2) % Lymph % (Auto) (20.5-50.1) % Todd % (Auto) (2-8) % Eos % (Auto) (1.0-3.0) % Baso % (Auto) (0.0-1.0) % Sodium (136-145) mmol/L Potassium (3.5-5.1) mmol/L Chloride (98-107) mmol/L Carbon Dioxide (21-32) mmol/L Anion Gap (7-13) mEq/L BUN (7-18) mg/dL Creatinine (0.55-1.02) mg/dL Est Cr Clr Drug Dosing mL/min Estimated GFR (MDRD) BUN/Creatinine Ratio (No establ ref range) Glucose (70-99) mg/dL POC Glucose 129 H 144 H 124 H (70-99) mg/dL Calcium (8.5-10.1) mg/dL Phosphorus (2.6-4.7) mg/dL Total Bilirubin (0.2-1.0) mg/dL AST (15-37) U/L ALT (14-59) U/L Alkaline Phosphatase (46-116) U/L Total Protein (6.4-8.2) g/dL Albumin (3.4-5.0) g/dL Globulin Albumin/Globulin Ratio Result Diagrams: 06/15/21 06:30 06/15/21 06:30 Merrill Results Last 24 hrs: Microbiology 06/12/21 13:53 Urine Culture - Final Urine, Quick Cath (In-Out) MIXED KOMAL SUGGESTIVE OF CONTAMINATION. 06/12/21 19:07 Aerobic Blood Culture - Preliminary Blood - Arm, Left NO GROWTH AFTER 2 DAYS Anaerobic Blood Culture - Final 06/12/21 19:00 Aerobic Blood Culture - Preliminary Blood - Arm, Right NO GROWTH AFTER 2 DAYS Anaerobic Blood Culture - Final Sepsis Event Note - Evaluation Sepsis Screening Result: No Definite Risk - Focused Exam Vital Signs: Vital Signs Temp Pulse Resp BP Pulse Ox 06/15/21 16:00 36.6 C 114 H 20 114/80 96 06/15/21 13:00 36.8 C 87 16 103/60 94 L 06/15/21 09:00 37.0 C 86 16 99/64 96 - Problem List Review Problem List Initiated/Reviewed/Updated: Yes - My Orders Last 24 Hours: My Active Orders 06/15/21 12:25 Consult to Occupational Therapy [OT Evaluation and Treatment] [CONS] Routine Consult to Physical Therapy [PT Evaluation and Treatment] [CONS] Routine 06/15/21 15:28 Sodium Chloride 0.9% [Saline Flush] 10 ml FLUSH ASDIRECTED PRN 06/15/21 16:40 Anticoagulation Contraindications VTE [AST] Click to Edit 06/15/21 16:41 Antiembolic Devices [RC] PER UNIT ROUTINE SCD [Sequential Compression Device] [OM.PC] Routine - Plan Plan:: Ms. Vera is admitted with severe hypoglycemia and she also had additional addisonian crisis also noted to have very high elevated TSH and her urine positive for amphetamine, and serology positive for influenza type A. Impression and plan: 1. Severe hypoglycemia: This is secondary to likely from addisonian crisis and the patient was given hydrocortisone 100 mg IV then followed by 50 mg IV every 6 hour as per the up-to-date recommendation and will continue this for 24 hours and check her blood sugar. We will also start her on Florinef at 0.1 mg daily. Check blood sugar as per hypoglycemia protocol. Next line She is looking stable now and will be able to stop the hydrocortisone in the morning. 2. 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 3. Influenza A positive: The patient tested for influenza A and she is positive now and she is a started on Tamiflu and will continue that medication now. 4. Mild metabolic acidosis: we will continue her on sodium bicarbonate 650 mg daily. 5. Hypocalcemia: Her calcium is very low and we will give her calcium gluconate 2 g IV x1 dose today. 6. Hypoalbuminemia: Her albumin is also not on target advised the patient to e at foods with high protein content. GI prophylaxis: We will start her on Protonix 40 mg p.o. daily. DVT prophylaxis: We will start her on heparin 5000 units subq 3 times a day. This dictation is done using [employer] dictation system. He has
[2021-06-15] MEDS ORDERED: Calcium Gluconate 10% 1 GM/10 ML SDV IVPUSH ONE (17:53)
[2021-06-15] MEDS: Sertraline 50 MG Tab PO SCH (21:55)
[2021-06-15] MEDS: Heparin Sodium 5,000 Units/ML Vial SUBCUT SCH (21:58)
[2021-06-16] MEDS: Sodium Chloride 0.9% 10 ML Syringe FLUSH PRN (03:20)
[2021-06-16] MEDS: Hydrocortisone Sodium Succinate 100 MG/2 ML SDV IVPUSH SCH ×3 (03:21→14:53)
[2021-06-16] MEDS ORDERED: Pantoprazole 40 MG Tab.CR PO SCH (06:00)
[2021-06-16] MEDS: Levothyroxine 150 MCG Tab PO SCH (06:03)
[2021-06-16] MEDS: Heparin Sodium 5,000 Units/ML Vial SUBCUT SCH ×2 (06:03→14:53)
[2021-06-16] MEDS: Insulin Lispro 100 Units/ML 3 ML Vial SUBCUT SCH ×2 (09:32→12:35)
[2021-06-16] MEDS: Oseltamivir 30 MG Cap PO SCH (09:33)
[2021-06-16] MEDS: Famotidine 20 MG Tab PO SCH (09:33)
[2021-06-16] MEDS: Gabapentin 300 MG Cap PO SCH ×2 (09:33→14:53)
[2021-06-16] MEDS: Sodium Bicarbonate 650 MG Tab PO SCH (09:33)
[2021-06-16] MEDS: Fludrocortisone 0.1 MG Tab PO SCH (09:34)
[2021-06-16] MEDS: Acetaminophen 325 MG Tab PO PRN (10:21)
--- NOTE | 2021-06-16 12:59 | PCM.DCSUM1 ---
Discharge Summary - Hospital Course Free Text/Narrative:: Ms. Vera is a 56-year-old moderately obese pleasant female with past medical history significant for [place]'s disease, polysubstance substance abuse, noncompliance with medication, hypothyroidism, hypokalemia and recurrent hypoglycemia other history include arrhythmia COPD and urinary incontinence she also has memory problem and forgetful at times. The patient was admitted to the hospital after presenting to ER with severe hypoglycemia and as per family they could not wake her up in her own home, EMT gave 1 mg of intramuscular glucagon because of lack of IV access and after coming to ER blood glucose is still 33 the patient was in a state of confusion and further dextrose was given and eventually the patient become alert the patient was in Florinef and she says she has not taken Florinef for 3- 4 days because [facility] pharmacy was closed because of holiday and she could not get her medications. Her Urine toxicology showed positive for amphetamine and serology study showed she is positive for influenza A. after admission she was started on hydrocortisone as well as Florinef. The patient did very well and her blood sugar remained stable. Patient will go home on Florinef and advised the patient to have follow-up with primary care physician within a week time. Advised the patient not to miss her Florinef even for a single day. Patient will need 4 wheeled walker with the bench for gait instability and history of falls . Patient will need home health nursing to educate on sign and symptom of [place]'s crisis, and also discuss the importance of medication compliance. PT for endurance/strength ,training and education of 4-wheel walker with bench and OT for home safety evaluation on ADLs. Diagnosis: Stroke: No - Discharge Data Discharge Date: 06/16/21 Discharge Disposition: Home, Self-Care 01 Condition: Good - Referral to Home Health Primary Care Physician: PCP None - Patient Summary/Data Consults: Consultations 06/15/21 12:25 Consult to Occupational Therapy [OT Evaluation and Treatment] [CONS] Routine Consult to Physical Therapy [PT Evaluation and Treatment] [CONS] Routine - Patient Instructions Diet: Regular Diet as Tolerated Activity: As Tolerated Showering/Bathing: May Shower Other/Special Instructions: The patient was admitted to the hospital after presenting to ER with severe hypoglycemia and as per family they could not wake her up in her own home, EMT gave 1 mg of intramuscular glucagon because of lack of IV access and after coming to ER blood glucose is still 33 the patient was in a state of confusion and further dextrose was given and eventually the patient become alert the patient was in Florinef and she says she has not taken Florinef for 3- 4 days because [facility] pharmacy was closed because of holiday and she could not get her medications. Her Urine toxicology showed positive for amphetamine and serology study showed she is positive for influenza A. after admission she was started on hydrocortisone as well as Florinef. The patient did very well and her blood sugar remained stable. Patient will go home on Florinef and advised the patient to have follow-up with primary care physician within a week time and need to check her TSH for adjustment of Levothyroxine dose. Advised the patient not to miss her Florinef even for a single day. Patient will need 4 wheeled walker with the bench for gait instability and history of falls . Patient will need home health nursing to educate on sign and symptom of [place] crisis, and also discuss the importance of medication compliance. PT for endurance/strength ,training and education of 4-wheel walker with bench and OT for home safety evaluation on ADLs - Discharge Plan *PRESCRIPTION DRUG MONITORING PROGRAM REVIEWED*: No *COPY OF PRESCRIPTION DRUG MONITORING REPORT IN PATIENT NELYS: No Prescriptions/Med Rec: Levothyroxine 150 mcg PO ACBREAKFAST #30 tablet Oseltamivir [Tamiflu] 30 mg PO BID #10 cap Home Medications: Home Meds Sertraline [Zoloft] 50 mg PO BEDTIME 02/25/17 [History] Magnesium Oxide 400 mg PO BID 08/08/17 [History] Fludrocortisone [Florinef] 0.1 mg PO WITHBREAKFAST #30 tablet 10/23/17 [Rx] Hydrocortisone [Cortef] 20 mg PO BID #60 tablet 10/23/17 [Rx] Gabapentin [Neurontin] 300 mg PO TID 11/09/19 [History] Levothyroxine 150 mcg PO ACBREAKFAST #30 tablet 06/16/21 [Rx] Oseltamivir [Tamiflu] 30 mg PO BID #10 cap 06/16/21 [Rx] Oxygen Therapy Mode: Room Air Forms: ED Department Discharge Referrals: Master Howard MD [Ordering Only Provider] - - Discharge Summary/Plan Comment DC Time >30 min.: Yes Total # of Minutes for Discharge Time: Today I have spend >30 minutes in discharging this patient Discharge Summary/Plan Comment: Ms. Vera is admitted with severe hypoglycemia and she also had additional addisonian crisis also noted to have very high elevated TSH and her urine pos itive for amphetamine, and serology positive for influenza type A. Impression and plan: 1. Severe hypoglycemia: This is secondary to likely from addisonian crisis and the patient was given hydrocortisone 100 mg IV then followed by 50 mg IV every 6 hour as per the up-to-date recommendation and will continue this for 24 hours and check her blood sugar. We will continue her on Florinef at 0.1 mg daily. Check blood sugar as per hypoglycemia protocol. She is looking stable now and will go home on florinef 2. 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 3. Influenza A positive: The patient tested for influenza A and she is positive now and she is a started on Tamiflu and will continue that medication now. 4. Mild metabolic acidosis: we will continue her on sodium bicarbonate 650 mg daily. 5. Hypocalcemia: Her calcium is very low and we will give her calcium gluconate 2 g IV x1 dose today. 6. Hypoalbuminemia: Her albumin is also not on target advised the patient to eat foods with high protein content. Pt is advised to follow with PMD in a week and need to check her TSH for adjustment of Levothyroxine dose. - General Info Admission Dx/Problem (Free Text: admitted with Severe Hypoglycemia Subjective Update: Pt was seen in rounds today and she is doing well, does not have any confusion and appetite is good, No fever or chill and she is ready to go home today. advise her to follow with PMD in a week time and also advise never miss taking florinef and Levothyroxine. Functional Status: Reports: Pain Controlled, Tolerating Diet, Ambulating, Urinating - Review of Systems General: Reports: Weakness, Appetite (acceptable). Denies: Fever HEENT: Denies: Headaches, Sinus Congestion, Sore Throat, Visual Changes Pulmonary: Denies: Shortness of Breath, Cough, Wheezing Cardiovascular: Denies: Chest Pain, Edema, Lightheadedness Gastrointestinal: Denies: Abdominal Pain, Nausea, Vomiting Genitourinary: Denies: Dysuria, Burning, Urgency, Flank Pain Musculoskeletal: Denies: Neck Pain, Shoulder Pain, Hand Pain, Joint Swelling Skin: Denies: Cyanosis, Jaundice, Bruising, Pruritis, Rash Neurological: Reports: Weakness. Denies: Confusion, Seizure, Tremors Psychiatric: Reports: No Symptoms - Patient Data Vitals - Most Recent: Last Vital Signs Temp 36.9 C 06/16/21 08:00 Pulse 78 06/16/21 08:00 Resp 18 06/16/21 08:00 BP 106/64 06/16/21 08:00 Pulse Ox 96 06/16/21 08:00 Weight - Most Recent: 72.03 kg I&O - Last 24 hours: Intake & Output 06/15/21 06/16/21 06/16/21 22:59 06:59 14:59 Intake Total 170 Output Total 150 350 Balance 20 -350 Lab Results - Last 24 hrs: Laboratory Results - last 24 hr 06/15/21 06/15/21 06/16/21 Range/Units 16:34 21:15 06:25 Sodium 142 (136-145) mmol/L Potassium 4.0 (3.5-5.1) mmol/L Chloride 107 (98-107) mmol/L Carbon Dioxide 22 (21-32) mmol/L Anion Gap 17.0 H (7-13) mEq/L BUN 16 (7-18) mg/dL Creatinine 1.13 H (0.55-1.02) mg/dL Est Cr Clr Drug Dosing 42.45 mL/min Estimated GFR (MDRD) 50 Glucose 169 H (70-99) mg/dL POC Glucose 124 H 149 H (70-99) mg/dL Calcium 7.5 L (8.5-10.1) mg/dL 06/16/21 06/16/21 Range/Units 07:50 12:16 Sodium (136-145) mmol/L Potassium (3.5-5.1) mmol/L Chloride (98-107) mmol/L Carbon Dioxide (21-32) mmol/L Anion Gap (7-13) mEq/L BUN (7-18) mg/dL Creatinine (0.55-1.02) mg/dL Est Cr Clr Drug Dosing mL/min Estimated GFR (MDRD) Glucose (70-99) mg/dL POC Glucose 142 H 141 H (70-99) mg/dL Calcium (8.5-10.1) mg/dL BOLIVAR Results - Last 24 hrs: Microbiology 06/12/21 19:07 Aerobic Blood Culture - Preliminary Blood - Arm, Left NO GROWTH AFTER 3 DAYS Anaerobic Blood Culture - Final 06/12/21 19:00 Aerobic Blood Culture - Preliminary Blood - Arm, Right NO GROWTH AFTER 3 DAYS Anaerobic Blood Culture - Final 06/12/21 13:53 Urine Culture - Final Urine, Quick Cath (In-Out) MIXED KOMAL SUGGESTIVE OF CONTAMINATION. Med Orders - Current: Current Medications Acetaminophen (Acetaminophen 325 Mg Tab) 650 mg PO Q4H PRN PRN Reason: Pain (Mild 1-3)/fever Last Admin: 06/16/21 10:21 Dose: 650 mg Documented by: Albuterol (Albuterol 0.083% 2.5 Mg/3 Ml Neb Soln) 2.5 mg NEB Q2H PRN PRN Reason: shortness of breath/wheezing Dextrose/Water (50% Dextrose In Water 50 Ml Syringe) 50 ml IVPUSH Q15M PRN PRN Reason: Hypoglycemia Last Admin: 06/13/21 17:02 Dose: 50 ml Documented by: Docusate Sodium (Docusate Sodium 100 Mg Cap) 100 mg PO BID PRN PRN Reason: Constipation Last Admin: 06/15/21 10:16 Dose: 100 mg Documented by: Famotidine (Famotidine 20 Mg Tab) 20 mg PO DAILY [facility] Last Admin: 06/16/21 09:33 Dose: 20 mg Documented by: Fludrocortisone Acetate (Fludrocortisone 0.1 Mg Tab) 0.1 mg PO WITHBREAKFAST [facility] Last Admin: 06/16/21 09:34 Dose: 0.1 mg Documented by: Gabapentin (Gabapentin 300 Mg Cap) 300 mg PO TID [facility] Last Admin: 06/16/21 09:33 Dose: 300 mg Documented by: Glucagon (Glucagon,Human Recombinant 1 Mg Vial) 1 mg IM Q15M PRN PRN Reason: Hypoglycemia Heparin Sodium (Porcine) (Heparin Sodium 5,000 Units/Ml Vial) 5,000 units SUBCUT Q8HR [facility] Last Admin: 06/16/21 06:03 Dose: 5,000 units Documented by: Hydrocortisone Sodium Succinate (Hydrocortisone Sodium Succinate 100 Mg/2 Ml Sdv) 50 mg IVPUSH Q6H [facility] Last Admin: 06/16/21 09:34 Dose: 50 mg Documented by: Sodium Chloride (Normal Saline) 1,000 mls @ 999 mls/hr IV ASDIRECTED [facility] Stop: 06/17/21 21:52 Last Infusion: 06/13/21 23:22 Dose: Infused Documented by: Influenza Virus Vaccine (Pharmacy To Dose - Influenza Vaccine) 1 each IM DAILY [facility] Last Admin: 06/16/21 09:35 Dose: Not Given Documented by: Insulin Human Lispro (Insulin Lispro 100 Units/Ml 3 Ml Vial) 0 unit SUBCUT WITHMEALSANDBED [facility]; Protocol Last Admin: 06/16/21 12:35 Dose: Not Given Documented by: Levothyroxine Sodium (Levothyroxine 150 Mcg Tab) 150 mcg PO ACBREAKFAST [facility] Last Admin: 06/16/21 06:03 Dose: 150 mcg Documented by: Ondansetron HCl (Ondansetron 4 Mg Tab.Dis) 4 mg PO Q4H PRN PRN Reason: Nausea/Vomiting Last Admin: 06/15/21 12:48 Dose: 4 mg Documented by: Ondansetron HCl (Ondansetron 4 Mg/2 Ml Sdv) 4 mg IVPUSH Q6HR PRN PRN Reason: Nausea/Vomiting Last Admin: 06/13/21 17:18 Dose: 4 mg Documented by: Oseltamivir Phosphate (Oseltamivir 30 Mg Cap) 30 mg PO BID [facility] Stop: 06/17/21 21:01 Last Admin: 06/16/21 09:33 Dose: 30 mg Documented by: Oxycodone HCl (Oxycodone 5 Mg Tab) 5 mg PO Q4H PRN PRN Reason: Pain (moderate 4-6) Last Admin: 06/15/21 22:09 Dose: 5 mg Documented by: Pantoprazole Sodium (Pantoprazole 40 Mg Tab.Cr) 40 mg PO ACBREAKFAST [facility] Last Admin: 06/16/21 06:03 Dose: 40 mg Documented by: Sertraline HCl (Sertraline 50 Mg Tab) 50 mg PO BEDTIME [facility] Last Admin: 06/15/21 21:55 Dose: 50 mg Documented by: Sodium Bicarbonate (Sodium Bicarbonate 650 Mg Tab) 650 mg PO DAILY [facility] Last Admin: 06/16/21 09:33 Dose: 650 mg Documented by: Sodium Chloride (Sodium Chloride 0.9% 10 Ml Syringe) 10 ml FLUSH ASDIRECTED PRN PRN Reason: Keep Vein Open Last Admin: 06/16/21 03:20 Dose: 10 ml Documented by: Discontinued Medications Calcium Gluconate (Calcium Gluconate 10% 1 Gm/10 Ml Sdv) 2 gm IVPUSH ONETIME ONE Stop: 06/15/21 17:54 Last Admin: 06/15/21 18:02 Dose: 2 gm Documented by: Dexamethasone (Dexamethasone 4 Mg/Ml Sdv) 4 mg IVPUSH ONETIME ONE Stop: 06/12/21 13:05 Last Admin: 06/12/21 13:14 Dose: 4 mg Documented by: Dextrose (Glucose Gel 15 Gm In 37.5 Gm Tube) Confirm Administered Dose 15 gm .ROUTE .STK-MED ONE Stop: 06/12/21 13:28 Last Admin: 06/12/21 17:19 Dose: Not Given Documented by: Dextrose/Water (50% Dextrose In Water 50 Ml Syringe) 50 ml IVPUSH ONETIME ONE Stop: 06/12/21 13:05 Last Admin: 06/12/21 13:27 Dose: 50 ml Documented by: Dextrose/Water (50% Dextrose In Water 50 Ml Syringe) 50 ml IVPUSH Q15M PRN PRN Reason: Hypoglycemia Fludrocortisone Acetate (Fludrocortisone 0.1 Mg Tab) 0.1 mg PO WITHBREAKFAST TERRI Fludrocortisone Acetate (Fludrocortisone 0.1 Mg Tab) 0.1 mg PO ONETIME ONE Stop: 06/14/21 23:19 Last Admin: 06/14/21 23:28 Dose: 0.1 mg Documented by: Glucagon (Glucagon,Human Recombinant 1 Mg Vial) 1 mg IM Q15M PRN PRN Reason: Hypoglycemia Heparin Sodium (Porcine) (Heparin Sodium 5,000 Units/Ml Vial) 5,000 units SUBCUT Q12HR [facility] Last Admin: 06/14/21 08:22 Dose: 5,000 units Documented by: Hydrocortisone Sodium Succinate (Hydrocortisone Sodium Succinate 100 Mg/2 Ml Sdv) 100 mg IVPUSH ONETIME ONE Stop: 06/12/21 18:43 Last Admin: 06/12/21 19:31 Dose: 100 mg Documented by: Hydrocortisone Sodium Succinate (Hydrocortisone Sodium Succinate 100 Mg/2 Ml Sdv) 50 mg IVPUSH Q6H [facility] Last Admin: 06/13/21 14:21 Dose: 50 mg Documented by: Hydrocortisone Sodium Succinate (Hydrocortisone Sodium Succinate 100 Mg/2 Ml S dv) 50 mg IVPUSH Q12HR [facility] Last Admin: 06/14/21 08:17 Dose: 50 mg Documented by: Hydrocortisone Sodium Succinate (Hydrocortisone Sodium Succinate 100 Mg/2 Ml Sdv) 50 mg IVPUSH ONETIME ONE Stop: 06/13/21 18:01 Last Admin: 06/13/21 17:18 Dose: 50 mg Documented by: Hydromorphone HCl (Hydromorphone 0.5 Mg/0.5 Ml Syringe) 0.25 mg IVPUSH Q2H PRN PRN Reason: Pain (severe 7-10) Last Admin: 06/12/21 20:47 Dose: 0.25 mg Documented by: Dextrose/Sodium Chloride (Dextrose 5%-1/2 Ns) 1,000 mls @ 150 mls/hr IV ASDIRECTED [facility] Last Admin: 06/14/21 12:59 Dose: 150 mls/hr Documented by: Sodium Chloride (Normal Saline) 1,000 mls @ 999 mls/hr IV .BOLUS ONE Stop: 06/12/21 17:16 Last Admin: 06/12/21 17:35 Dose: 999 mls/hr Documented by: Dextrose/Sodium Chloride (Dextrose 5%-Normal Saline) 1,000 mls @ 999 mls/hr IV ASDIRECTED [facility] Dextrose/Sodium Chloride (Dextrose 5%-Normal Saline) 1,000 mls @ 999 mls/hr IV ASDIRECTED [facility] Last Infusion: 06/13/21 00:53 Dose: Infused Documented by: Levofloxacin/Dextrose 750 mg/ (Premix) 150 mls @ 100 mls/hr IV ONETIME ONE Stop: 06/12/21 21:21 Last Infusion: 06/13/21 00:20 Dose: Infused Documented by: Magnesium Sulfate 2 gm/ Premix 50 mls @ 25 mls/hr IV ONETIME ONE Stop: 06/12/21 23:41 Last Admin: 06/12/21 23:19 Dose: 25 mls/hr Documented by: Dextrose/Sodium Chloride (Dextrose 5%-Normal Saline) 1,000 mls @ 200 mls/hr IV ASDIRECTED [facility] Last Infusion: 06/13/21 05:43 Dose: 200 mls/hr Documented by: Sodium Chloride (Normal Saline) 1,000 mls @ 125 mls/hr IV ASDIRECTED [facility] Last Admin: 06/13/21 14:20 Dose: 1,256 mls/hr Documented by: Levofloxacin/Dextrose 750 mg/ (Premix) 150 mls @ 100 mls/hr IV ONETIME ONE Stop: 06/14/21 16:10 Last Infusion: 06/14/21 16:10 Dose: Infused Documented by: Dextrose/Sodium Chloride (Dextrose 5%-Normal Saline) 1,000 mls @ 150 mls/hr IV ASDIRECTED [facility] Last Admin: 06/14/21 19:05 Dose: 150 mls/hr Documented by: Magnesium Sulfate 2 gm/ Premix 50 mls @ 25 mls/hr IV ONETIME ONE Stop: 06/13/21 22:06 Last Admin: 06/13/21 21:21 Dose: 25 mls/hr Documented by: Sodium Chloride (Normal Saline) 1,000 mls @ 100 mls/hr IV ASDIRECTED [facility] Cefepime HCl 1 gm/ Sodium (Chloride) 50 mls @ 100 mls/hr IV Q12HR [facility] Dopamine HCl/Dextrose (Dopamine In D5w 400 Mg/250 Ml) 400 mg in 250 mls @ 4.804 mls/hr IV TITRATE [facility]; Protocol Cefepime HCl 1 gm/ Sodium (Chloride) 50 mls @ 100 mls/hr IV Q12HR [facility] Last Admin: 06/15/21 09:02 Dose: 100 mls/hr Documented by: Insulin Human Lispro (Insulin Lispro 100 Units/Ml 3 Ml Vial) 0 unit SUBCUT Q6H [facility]; Protocol Last Admin: 06/13/21 09:40 Dose: 6 units Documented by: Levothyroxine Sodium (Levothyroxine 100 Mcg Vial) 100 mcg IVPUSH ONETIME ONE Stop: 06/12/21 19:53 Last Admin: 06/12/21 20:52 Dose: 100 mcg Documented by: Levothyroxine Sodium (Levothyroxine 150 Mcg Tab) 150 mcg PO ONETIME ONE Stop: 06/12/21 19:58 Last Admin: 06/12/21 20:45 Dose: 150 mcg Documented by: Lidocaine HCl (Lidocaine 1% 30 Ml Sdv) 30 ml INJECT ONETIME ONE Stop: 06/12/21 13:19 Last Admin: 06/12/21 13:27 Dose: 30 ml Documented by: Midodrine (Midodrine 2.5 Mg Tab) 10 mg PO ONETIME ONE Stop: 06/13/21 23:46 Last Admin: 06/14/21 00:05 Dose: 10 mg Documented by: Morphine Sulfate (Morphine 2 Mg/Ml Syringe) 2 mg IVPUSH Q2H PRN PRN Reason: Pain (severe 7-10) Oseltamivir Phosphate (Oseltamivir 75 Mg Cap) 75 mg PO BID [facility] Last Admin: 06/12/21 21:00 Dose: Not Given Documented by: Oseltamivir Phosphate (Oseltamivir 30 Mg Cap) 30 mg PO DAILY [facility] Last Admin: 06/13/21 08:43 Dose: 30 mg Documented by: Oseltamivir Phosphate (Oseltamivir 30 Mg Cap) 30 mg PO ONETIME ONE Stop: 06/14/21 09:01 Oseltamivir Phosphate (Oseltamivir 30 Mg Cap) 30 mg PO BID [facility] Stop: 06/16/21 09:01 Potassium Chloride (Potassium Chloride 10 Meq Tab.Er) 40 meq PO ONETIME ONE Stop: 06/13/21 08:06 Last Admin: 06/13/21 08:51 Dose: 40 meq Documented by: Sertraline HCl (Sertraline 50 Mg Tab) 50 mg PO BEDTIME [facility] Last Admin: 06/13/21 21:12 Dose: 50 mg Documented by: Sodium Chloride (Sodium Chloride 0.9% 10 Ml Syringe) 10 ml FLUSH ASDIRECTED PRN PRN Reason: Keep Vein Open Last Admin: 06/15/21 03:07 Dose: 10 ml Documented by: Sodium Phosphate (Phosphorus #1 250 Mg Tab) 250 mg PO ONETIME ONE Stop: 06/13/21 20:09 Last Admin: 06/13/21 21:12 Dose: 250 mg Documented by: Sodium Phosphate (Phosphorus #1 250 Mg Tab) 250 mg PO TID [facility] Stop: 06/15/21 12:00 Last Admin: 06/15/21 08:58 Dose: 250 mg Documented by: - Exam Quality Assessment: Denies: Supplemental Oxygen, Central Line/PICC, Urine Catheter General: Reports: Alert, Oriented, Cooperative, No Acute Distress HEENT: Reports: Pupils Equal, Pupils Reactive, EOMI, Mucous Membr. Moist/[place] Neck: Reports: Supple, No JVD, No Thyromegaly Lungs: Reports: Clear to Auscultation, Normal Respiratory Effort Cardiovascular: Reports: Regular Rate, Regular Rhythm, Murmurs GI/Abdominal Exam: Normal Bowel Sounds, Soft, Non-Tender, No Distention. No: Guarding, Rigid (Female) Exam: Deferred Rectal (Female) Exam: Deferred Back Exam: Reports: Normal Inspection Extremities: Normal Inspection, Non-Tender, No Pedal Edema Skin: Reports: Warm, Dry, Intact Neurological: Reports: No New Focal Deficit Psy/Mental Status: Reports: Alert, Normal Affect, Normal Mood *Q Meaningful Use (DIS) - VTE *Q VTE Anticoagulation Contraindications: Med/TX Not Indicated/Need
[2021-06-16 16:55] VITALS: BP 116/81; PULSE 78
== END 2021-06-16 16:45 | disposition home or self-care (01) | DRG 643 ==
LOC: DL.ED 13:01 → DL.MS 18:00
PROVIDERS: ADMIT Internal Medicine; ATTEND Internal Medicine Nephrology
DX: E27.2 Addisonian crisis (principal); E86.0 Dehydration; E03.5 Myxedema coma; N17.9 Acute kidney failure, unspecified; F15.90 Other stimulant use, unspecified, uncomplicated; N39.0 Urinary tract infection, site not specified; E03.9 Hypothyroidism, unspecified; F16.10 Hallucinogen abuse, uncomplicated; H54.7 Unspecified visual loss; I49.9 Cardiac arrhythmia, unspecified; E87.1 Hypo-osmolality and hyponatremia; R32 Unspecified urinary incontinence; G89.29 Other chronic pain; E16.2 Hypoglycemia, unspecified; E11.649 Type 2 diabetes mellitus with hypoglycemia without coma; E27.1 Primary adrenocortical insufficiency; Z88.0 Allergy status to penicillin; Z79.1 Long term (current) use of non-steroidal anti-inflammatories (NSAID); Z79.890 Hormone replacement therapy; Z79.899 Other long term (current) drug therapy; J44.9 Chronic obstructive pulmonary disease, unspecified; E83.51 Hypocalcemia; F41.9 Anxiety disorder, unspecified; D64.9 Anemia, unspecified; F32.A Depression, unspecified; E11.40 Type 2 diabetes mellitus with diabetic neuropathy, unspecified; Z20.822 Contact with and (suspected) exposure to COVID-19; E88.09 Other disorders of plasma-protein metabolism, not elsewhere classified; E66.9 Obesity, unspecified; J32.0 Chronic maxillary sinusitis; F15.129 Other stimulant abuse with intoxication, unspecified; E83.42 Hypomagnesemia; X58.XXXA Exposure to other specified factors, initial encounter; T68.XXXA Hypothermia, initial encounter; J10.1 Influenza due to other identified influenza virus with other respiratory manifestations; Z68.30 Body mass index [BMI] 30.0-30.9, adult; Z91.14 Patient's other noncompliance with medication regimen; Z90.49 Acquired absence of other specified parts of digestive tract; Z90.89 Acquired absence of other organs; Z98.890 Other specified postprocedural states; Z79.4 Long term (current) use of insulin; Y92.89 Other specified places as the place of occurrence of the external cause
CPT/HCPCS: 0240U; 36415; 70450; 71045; 80048; 80053; 80305; 80307; 81001; 82009; 82140; 82306; 82607; 82947; 83605; 83735; 84100; 84133; 84300; 84443; 84484; 85025; 85027; 85610; 85730; 87040; 87086; 93005; 97165; 97530; 51702; 96372; 96374; 99285-25; A9270-GY; J0610; J0692; J1100; J1170; J1644; J1720; J1815-GY; J1956; J2405; J3475; J7030; J7042

== ENCOUNTER 2021-11-05 13:52 | Emergency (ER) | payer MEDICAID ==
[2021-11-05] MEDS ORDERED: 50% Dextrose in Water 50 ML Syringe IVPUSH ONE ×2 (14:06→17:01)
[2021-11-05] MEDS: 50% Dextrose in Water 50 ML Syringe ONE (14:15)
[2021-11-05] MEDS ORDERED: LORazepam 2 MG/ML SDV IVPUSH ONE (14:19)
[2021-11-05] MEDS ORDERED: Sodium Chloride 0.9% 10 ML Syringe FLUSH PRN (14:22)
[2021-11-05 14:52] LABS: ANION GAP 18.6 mEq/L (7-13); CHLORIDE,CL 96 mmol/L (98-107); SODIUM,NA 132 mmol/L (136-145)
[2021-11-05] MEDS ORDERED: Sodium Chloride 0.9% 1,000 ML IV ONE ×4 (14:52→17:17)
[2021-11-05] MEDS ORDERED: Hydrocortisone Sodium Succinate 250 MG/2 ML SDV IV ONE (15:15)
[2021-11-05] MEDS: Hydrocortisone Sodium Succinate 100 MG/2 ML SDV ONE ×3 (15:24→15:28)
[2021-11-05 16:33] LABS: AMPHETAMINES,URINE POSITIVE (NEGATIVE); BARBITURATES,URINE NEGATIVE (NEGATIVE); BENZODIAZEPINE,URINE NEGATIVE (NEGATIVE); MDMA (ECSTASY), URINE POSITIVE (NEGATIVE); METHADONE,URINE NEGATIVE (NEGATIVE); METHAMPHETAMINES,URINE POSITIVE (NEGATIVE); OPIATES,URINE NEGATIVE (NEGATIVE); OXYCODONE,URINE NEGATIVE (NEGATIVE); PHENCYCLIDINE,URINE NEGATIVE (NEGATIVE); TCA,URINE NEGATIVE (NEGATIVE)
[2021-11-05] MEDS ORDERED: Norepinephrine 4 MG in Dextrose 5% in Water 246 ML IV SCH ×2 (17:15)
[2021-11-05 17:28] LABS: CORONAVIRUS COVID-19 NAA NEGATIVE (NEGATIVE)
[2021-11-05 19:17] VITALS: PULSE 93
[2021-11-05 19:18] VITALS: BP 94/65
[2021-11-05] MEDS ORDERED: Dextrose 5%-0.45% NaCl 1,000 ML IV SCH (19:45)
[2021-11-09] MEDS: 50% Dextrose in Water 50 ML Syringe ONE (13:47)
== END 2021-11-05 19:54 ==
LOC: DL.ED 13:52
DX: R41.82 Altered mental status, unspecified (principal); I95.9 Hypotension, unspecified; E27.2 Addisonian crisis; J44.9 Chronic obstructive pulmonary disease, unspecified; E11.9 Type 2 diabetes mellitus without complications; E03.9 Hypothyroidism, unspecified; Z79.899 Other long term (current) drug therapy; Z20.822 Contact with and (suspected) exposure to COVID-19; Z88.0 Allergy status to penicillin
CPT/HCPCS: 0240U; 36415; 36569; 51702; 80053; 80305; 80307; 81001; 82140; 82947; 83605; 83690; 84443; 85025; 85610; 86140; 87086; 96365; 96375; 96376; 99285; J1720; J2060; J7030; J7060

== ENCOUNTER 2022-07-07 12:56 | Inpatient (IN) | payer MEDICAID ==
[~2022-07-07 12:56] MED LIST: Fludrocortisone 0.1 MG Tab PO ONE; Hydrocortisone Sodium Succinate 100 MG/2 ML SDV IVPUSH ONE; Sodium Chloride 0.9% 1,000 ML IV ONE
[2022-07-07] MEDS ORDERED: Hydrocortisone 20 MG Tab PO ONE (13:56)
[2022-07-07 14:05] LABS: ANION GAP 16.1 mEq/L (7-13); CHLORIDE,CL 100 mmol/L (98-107); SODIUM,NA 135 mmol/L (136-145)
[2022-07-07 14:08] LABS: ESTIMATED GFR 60 mL/min (>=60)
[2022-07-07] MEDS ORDERED: Ondansetron 4 MG/2 ML SDV IVPUSH PRN (16:45)
[2022-07-07] MEDS ORDERED: HYDROmorphone 0.5 MG/0.5 ML Syringe IVPUSH PRN (16:45)
[2022-07-07] MEDS ORDERED: Albuterol/Ipratropium 3.0-0.5 MG/3 ML Neb Soln NEB PRN (16:45)
[2022-07-07] MEDS ORDERED: Magnesium Hydroxide 400 MG/5 ML Susp 30 ML Cup PO PRN (16:45)
[2022-07-07] MEDS ORDERED: Polyethylene Glycol 3350 Powder 17 GM Packet PO PRN (16:45)
[2022-07-07] MEDS ORDERED: Glucagon,Human Recombinant 1 MG Vial IM PRN (16:49)
[2022-07-07] MEDS ORDERED: 50% Dextrose in Water 50 ML Syringe IVPUSH PRN (16:49)
[2022-07-07] MEDS ORDERED: cefTRIAXone 1 GM Vial IVPUSH ONE (16:52)
[2022-07-07] MEDS ORDERED: Norepinephrine 4 MG in Dextrose 5% in Water 246 ML IV SCH ×2 (17:15)
[2022-07-07] MEDS: Sodium Chloride 0.9% 1,000 ML IV SCH (18:00)
[2022-07-07] MEDS: Hydrocortisone Sodium Succinate 100 MG/2 ML SDV IVPUSH SCH ×2 (18:03→23:51)
[2022-07-07] MEDS: Nicotine 21 MG/24 Hr Patch TRDERM SCH (18:03)
[2022-07-07] MEDS: Insulin Lispro 100 Units/ML 3 ML Vial SUBCUT SCH ×2 (18:04→23:49)
[2022-07-07] MEDS: cefTRIAXone 1 GM Vial IVPUSH SCH (18:10)
[2022-07-07] MEDS ORDERED: Midodrine 2.5 MG Tab PO ONE (19:30)
[2022-07-07] MEDS: Acetaminophen 325 MG Tab PO PRN (19:42)
[2022-07-07] MEDS: Gabapentin 100 MG Cap PO SCH (20:54)
[2022-07-07] MEDS ORDERED: Melatonin 3 MG Tab PO ONE (22:56)
[2022-07-07] MEDS ORDERED: LORazepam 2 MG/ML SDV IVPUSH ONE (22:57)
[2022-07-08] MEDS: Sodium Chloride 0.9% 1,000 ML IV SCH (01:13)
[2022-07-08] MEDS: Insulin Lispro 100 Units/ML 3 ML Vial SUBCUT SCH ×4 (04:51→22:11)
[2022-07-08] MEDS: Hydrocortisone Sodium Succinate 100 MG/2 ML SDV IVPUSH SCH ×3 (05:09→18:06)
[2022-07-08] MEDS: Midodrine 2.5 MG Tab PO SCH ×3 (05:09→18:05)
[2022-07-08 07:42] LABS: ANION GAP 15.2 mEq/L (7-13)
[2022-07-08] MEDS ORDERED: Sodium Chloride 0.9% 1,000 ML IV SCH (08:00)
[2022-07-08] MEDS ORDERED: Magnesium Sulfate/Water 2 GM in Premix Bag 1 BAG IV ONE ×2 (08:00→15:00)
[2022-07-08] MEDS: Fludrocortisone 0.1 MG Tab PO SCH (08:02)
[2022-07-08] MEDS: Gabapentin 100 MG Cap PO SCH ×2 (08:02→20:59)
[2022-07-08] MEDS: Nicotine 21 MG/24 Hr Patch TRDERM SCH (08:03)
[2022-07-08] MEDS: Acetaminophen 325 MG Tab PO PRN (10:29)
[2022-07-08] MEDS: Levothyroxine 150 MCG Tab PO SCH (10:29)
[2022-07-08] MEDS ORDERED: Midodrine 2.5 MG Tab PO ONE (12:50)
[2022-07-08] MEDS ORDERED: Midodrine 2.5 MG Tab PO SCH (16:00)
[2022-07-08] MEDS: Acetaminophen/HYDROcodone 325-10 MG Tab PO PRN (18:06)
[2022-07-08] MEDS: cefTRIAXone 1 GM Vial IVPUSH SCH (18:07)
[2022-07-08] MEDS ORDERED: traZODone 50 MG Tab PO PRN (21:33)
[2022-07-08] MEDS ORDERED: Metoclopramide 10 MG/2 ML SDV IVPUSH PRN (21:40)
[2022-07-08] MEDS ORDERED: LORazepam 2 MG/ML SDV IVPUSH ONE (21:40)
[2022-07-08] MEDS ORDERED: Flumazenil 0.1 MG/ML 5 ML MDV IVPUSH PRN (21:40)
[2022-07-08] MEDS: Lactated Ringers 1,000 ML IV SCH (22:09)
[2022-07-09] MEDS: Lactated Ringers 1,000 ML IV SCH (00:27)
[2022-07-09] MEDS: Hydrocortisone Sodium Succinate 100 MG/2 ML SDV IVPUSH SCH ×3 (06:20→12:19)
[2022-07-09] MEDS: Insulin Lispro 100 Units/ML 3 ML Vial SUBCUT SCH ×2 (06:20→12:15)
[2022-07-09] MEDS: Midodrine 2.5 MG Tab PO SCH ×2 (06:20→12:21)
[2022-07-09] MEDS: Levothyroxine 150 MCG Tab PO SCH (06:20)
[2022-07-09 08:01] VITALS: BP 94/70; PULSE 76
[2022-07-09] MEDS: Gabapentin 100 MG Cap PO SCH (08:56)
[2022-07-09] MEDS: Fludrocortisone 0.1 MG Tab PO SCH (08:56)
[2022-07-09] MEDS: Nicotine 21 MG/24 Hr Patch TRDERM SCH (08:56)
[2022-07-09] MEDS: Acetaminophen/HYDROcodone 325-10 MG Tab PO PRN (12:24)
== END 2022-07-09 12:35 | disposition home or self-care (01) | DRG 644 ==
LOC: DL.ED 12:56 → DL.MS 15:18 → DL.ED 15:30
PROVIDERS: ADMIT Internal Medicine; ATTEND Internal Medicine
DX: E27.1 Primary adrenocortical insufficiency (principal); E87.1 Hypo-osmolality and hyponatremia; F11.20 Opioid dependence, uncomplicated; N17.9 Acute kidney failure, unspecified; N39.0 Urinary tract infection, site not specified; E83.42 Hypomagnesemia; K21.9 Gastro-esophageal reflux disease without esophagitis; M54.9 Dorsalgia, unspecified; G89.29 Other chronic pain; G25.81 Restless legs syndrome; E86.0 Dehydration; E55.9 Vitamin D deficiency, unspecified; F17.210 Nicotine dependence, cigarettes, uncomplicated; I95.9 Hypotension, unspecified; H54.7 Unspecified visual loss; D64.9 Anemia, unspecified; J44.9 Chronic obstructive pulmonary disease, unspecified; E03.9 Hypothyroidism, unspecified; E11.649 Type 2 diabetes mellitus with hypoglycemia without coma; F41.9 Anxiety disorder, unspecified; B96.20 Unspecified Escherichia coli [E. coli] as the cause of diseases classified elsewhere; Z20.822 Contact with and (suspected) exposure to COVID-19; Z88.0 Allergy status to penicillin; Z79.890 Hormone replacement therapy; E11.9 Type 2 diabetes mellitus without complications; Z90.49 Acquired absence of other specified parts of digestive tract; Z79.899 Other long term (current) drug therapy
CPT/HCPCS: 36415; 80053; 81001; 82533; 82947 ×4; 83605; 83735; 84439; 84443; 85025; 86140; 87086; 87088; 87186; 87635; 96360; 99284; 99285; A9270 ×2; J7030; 71045; 97161-GP; 97165-GO; 99233; 99238; J0696; J1720; J1815-GY; J2060; J2405; J2765; J3475; J7120; U0002

== ENCOUNTER 2024-06-12 15:46 | Emergency (ER) | payer SELFPAY ==
[2024-06-12 16:04] VITALS: BP 97/67; PULSE 78
[2024-06-12 16:07] LABS: BASOPHILS PERCENT AUTO 0.4 % (0.0-1.0); EOSINOPHILS PERCENT AUTO 2.1 % (1.0-3.0); HEMATOCRIT 38.4 % (37.0-47.0); HEMOGLOBIN 13.4 g/dL (12.0-16.0); LYMPHOCYTES PERCENT AUTO 18.5 % (20.5-50.1); MEAN CORPUSCULAR HEMOGLOBIN 29.7 pg (27.0-34.0); MEAN CORPUSCULAR HGB CONC 34.9 g/dL (33.0-35.0); MEAN CORPUSCULAR VOLUME 85.1 fL (80-100); MONOCYTES PERCENT AUTO 2.4 % (2-8); NEUTROPHILS PERCENT AUTO 76.6 % (42.2-75.2); PLATELET COUNT,PLT 179 10^3/uL (150-450); RED BLOOD CELL COUNT 4.51 10^6/uL (4.2-5.4)
[2024-06-12 16:29] LABS: ALBUMIN 3.2 g/dL (3.4-5.0); ANION GAP 16.1 mEq/L (7-13); BILIRUBIN TOTAL 0.6 mg/dL (0.2-1.0); BUN/CREATININE RATIO 39.3 (No establ ref range); CALCIUM 8.7 mg/dL (8.5-10.1); CREATININE 1.07 mg/dL (0.55-1.02); EST CRCL DRUG DOSING (CG) 43.25 mL/min; MAGNESIUM 1.6 mg/dL (1.8-2.4); POTASSIUM,K 5.1 mmol/L (3.5-5.1); PROTEIN TOTAL,TP 7.5 g/dL (6.4-8.2)
[2024-06-12 16:33] LABS: PROTHROMBIN TIME 10.4 SEC (9.0-12.0); PTT,PARTIAL THROMBOPLSTIN TIME 24.9 SEC (22.0-34.0)
[2024-06-12 16:34] LABS: A/G RATIO 0.74
== END 2024-06-12 17:22 | disposition home or self-care (01) ==
LOC: DL.ED 15:46
DX: E27.1 Primary adrenocortical insufficiency (principal); J44.9 Chronic obstructive pulmonary disease, unspecified; E11.9 Type 2 diabetes mellitus without complications; E03.9 Hypothyroidism, unspecified; Z63.4 Disappearance and death of family member; Z90.49 Acquired absence of other specified parts of digestive tract; Z88.0 Allergy status to penicillin; Z79.890 Hormone replacement therapy; Z79.899 Other long term (current) drug therapy
CPT/HCPCS: 36415; 71045; 80053; 82947; 83735; 84484; 85025; 85610; 85730; 93005; 99285

== ENCOUNTER 2024-12-23 15:31 | Inpatient (IN) | payer MEDICAID ==
[2024-12-23] MEDS ORDERED: Sodium Chloride 0.9% 10 ML Syringe FLUSH PRN ×2 (15:40→19:45)
[2024-12-23] MEDS: methylPREDNISolone Sodium Succinate 125 MG/2 ML SDV IVPUSH ONE (16:10)
[2024-12-23 16:12] LABS: BASOPHILS PERCENT AUTO 0.5 % (0.0-1.0); EOSINOPHILS PERCENT AUTO 6.6 % (1.0-3.0); LYMPHOCYTES PERCENT AUTO 39.4 % (20.5-50.1); MONOCYTES PERCENT AUTO 7.9 % (2-8); NEUTROPHILS PERCENT AUTO 45.6 % (42.2-75.2); PLATELET COUNT,PLT 61 10^3/uL (150-450); RED BLOOD CELL COUNT 4.62 10^6/uL (4.2-5.4); WHITE BLOOD CELL COUNT,WBC 8.4 10^3/uL (5.0-10.0)
[2024-12-23 16:18] LABS: BLOOD UREA NITROGEN,BUN 17 mg/dL (7-18); CARBON DIOXIDE,CO2 26 mmol/L (21-32); CHLORIDE,CL 103 mmol/L (98-107); CREATININE 0.91 mg/dL (0.55-1.02); GLUCOSE RANDOM 83 mg/dL (70-99); POTASSIUM,K 4.0 mmol/L (3.5-5.1); SODIUM,NA 139 mmol/L (136-145)
[2024-12-23 16:19] LABS: ESTIMATED GFR 73 mL/min (>=60)
[2024-12-23 16:39] LABS: TSH ULTRASENSITIVE 24.24 uIU/mL (0.36-3.74)
[2024-12-23] MEDS: Magnesium Sulfate 2 GM/50 mL 2 GM in Premix Bag 1 BAG IV ONE ×2 (16:52→20:33)
[2024-12-23 18:38] LABS: O2 DELIVERY DEVICE ROOM AIR
[2024-12-23 18:43] LABS: BICARBONATE,ARTERIAL 19 mmol/L (21-28); O2 SATURATION ARTERIAL 97 % (94-98); PCO2 ARTERIAL 29 mmHg (35-48); PH,ARTERIAL 7.42 pH (7.35-7.45); PO2 ARTERIAL 83 mmHg (83-108)
[2024-12-23 18:44] LABS: BASE EXCESS ARTERIAL -6 mmol/L ((-2)-(+3))
[2024-12-23] MEDS ORDERED: Albuterol 0.083% 2.5 MG/3 ML Neb Soln NEB PRN (19:55)
[2024-12-23] MEDS ORDERED: 50% Dextrose in Water 50 ML Syringe IVPUSH PRN (20:02)
[2024-12-23] MEDS: Sodium Chloride 0.9% 10 ML Syringe FLUSH SCH (20:09)
[2024-12-23 21:10] LABS: T4 FREE 1.24 ng/dL (0.76-1.46)
[2024-12-23 21:11] LABS: B-TYPE NATRIURETIC PEPTIDE,BNP 29.0 pg/ml (0-100)
[2024-12-23] MEDS: Hydrocortisone Sodium Succinate 100 MG/2 ML SDV IVPUSH ONE (21:18)
[2024-12-23 21:31] LABS: FOLIC ACID 16.7 ng/mL (8.6-58.9)
[2024-12-23 21:39] LABS: IRON,FE 27.0 ug/dL (50-170); PERCENT FE SATURATION 9.9 % (20.0-50.0)
[2024-12-23 22:14] LABS: BASOPHILS PERCENT AUTO 0.2 % (0.0-1.0); EOSINOPHILS PERCENT AUTO 0.3 % (1.0-3.0); LYMPHOCYTES PERCENT AUTO 6.2 % (20.5-50.1); MONOCYTES PERCENT AUTO 1.4 % (2-8); NEUTROPHILS PERCENT AUTO 91.9 % (42.2-75.2); PLATELET COUNT,PLT 162 10^3/uL (150-450); RED BLOOD CELL COUNT 4.01 10^6/uL (4.2-5.4); WHITE BLOOD CELL COUNT,WBC 10.6 10^3/uL (5.0-10.0)
[2024-12-24] MEDS: Heparin Sodium 5,000 Units/ML Vial SUBCUT SCH (00:13)
[2024-12-24 01:06] LABS: CORONAVIRUS COVID-19 NAA NEGATIVE (NEGATIVE); INFLUENZA A NAA NEGATIVE (NEGATIVE); INFLUENZA B NAA NEGATIVE (NEGATIVE)
[2024-12-24] MEDS ORDERED: Hydrocortisone Sodium Succinate 100 MG/2 ML SDV IVPUSH SCH (01:30)
[2024-12-24] MEDS: Hydrocortisone Sodium Succinate 100 MG/2 ML SDV IVPUSH SCH (03:22)
[2024-12-24 05:02] LABS: BASOPHILS PERCENT AUTO 0.1 % (0.0-1.0); EOSINOPHILS PERCENT AUTO 0.1 % (1.0-3.0); LYMPHOCYTES PERCENT AUTO 7.6 % (20.5-50.1); MONOCYTES PERCENT AUTO 2.6 % (2-8); NEUTROPHILS PERCENT AUTO 89.6 % (42.2-75.2); PLATELET COUNT,PLT 170 10^3/uL (150-450); RED BLOOD CELL COUNT 3.74 10^6/uL (4.2-5.4); WHITE BLOOD CELL COUNT,WBC 10.6 10^3/uL (5.0-10.0)
[2024-12-24 05:24] LABS: ALANINE AMINOTRANSFERASE,ALT 47.0 U/L (14-59); ASPARTATE AMNIOTRANSFERASE,AST 27.0 U/L (15-37); BILIRUBIN TOTAL 0.5 mg/dL (0.2-1.0); BLOOD UREA NITROGEN,BUN 19.0 mg/dL (7-18); CARBON DIOXIDE,CO2 18.0 mmol/L (21-32); CHLORIDE,CL 105.0 mmol/L (98-107); CREATININE 1.3 mg/dL (0.55-1.02); EST CRCL DRUG DOSING (CG) 35.59 mL/min; GLUCOSE RANDOM 174.0 mg/dL (70-99); PHOSPHORUS 4.3 mg/dL (2.6-4.7); POTASSIUM,K 4.0 mmol/L (3.5-5.1); PROTEIN TOTAL,TP 7.5 g/dL (6.4-8.2); SODIUM,NA 138.0 mmol/L (136-145)
[2024-12-24 05:36] LABS: A/G RATIO 0.7; ESTIMATED GFR 48.0 mL/min (>=60)
[2024-12-24 08:37] LABS: LACTIC ACID 1.7 mmol/L (0.4-2.0)
[2024-12-24 08:43] LABS: KETONES,BLOOD NEGATIVE
[2024-12-24] MEDS: Menthol 10%/Methyl Salicylate 15% 85 GM Tube TOP SCH (09:30)
[2024-12-24 10:37] LABS: APPEARANCE,URINE CLEAR (CLEAR); GLUCOSE,URINE NEGATIVE (NEGATIVE); OCCULT BLOOD,URINE NEGATIVE (NEGATIVE)
[2024-12-24 10:57] LABS: BASOPHILS PERCENT AUTO 0.2 % (0.0-1.0); EOSINOPHILS PERCENT AUTO 0.0 % (1.0-3.0); LYMPHOCYTES PERCENT AUTO 7.5 % (20.5-50.1); MONOCYTES PERCENT AUTO 3.6 % (2-8); NEUTROPHILS PERCENT AUTO 88.7 % (42.2-75.2); PLATELET COUNT,PLT 171 10^3/uL (150-450); RED BLOOD CELL COUNT 3.70 10^6/uL (4.2-5.4); WHITE BLOOD CELL COUNT,WBC 17.3 10^3/uL (5.0-10.0)
[2024-12-24 14:19] LABS: BASOPHILS PERCENT AUTO 0.2 % (0.0-1.0); EOSINOPHILS PERCENT AUTO 0.0 % (1.0-3.0); LYMPHOCYTES PERCENT AUTO 7.0 % (20.5-50.1); MONOCYTES PERCENT AUTO 4.2 % (2-8); NEUTROPHILS PERCENT AUTO 88.6 % (42.2-75.2); PLATELET COUNT,PLT 166 10^3/uL (150-450); RED BLOOD CELL COUNT 3.79 10^6/uL (4.2-5.4); WHITE BLOOD CELL COUNT,WBC 18.2 10^3/uL (5.0-10.0)
[2024-12-24] MEDS ORDERED: 50% Dextrose in Water 50 ML Syringe IVPUSH PRN (19:50)
[2024-12-25 06:13] LABS: BASOPHILS PERCENT AUTO 0.0 % (0.0-1.0); EOSINOPHILS PERCENT AUTO 0.0 % (1.0-3.0); LYMPHOCYTES PERCENT AUTO 6.5 % (20.5-50.1); MONOCYTES PERCENT AUTO 4.6 % (2-8); NEUTROPHILS PERCENT AUTO 88.9 % (42.2-75.2); PLATELET COUNT,PLT 151 10^3/uL (150-450); RED BLOOD CELL COUNT 3.44 10^6/uL (4.2-5.4); WHITE BLOOD CELL COUNT,WBC 14.9 10^3/uL (5.0-10.0)
[2024-12-25 06:28] LABS: BLOOD UREA NITROGEN,BUN 18.0 mg/dL (7-18); CARBON DIOXIDE,CO2 23.0 mmol/L (21-32); CHLORIDE,CL 113.0 mmol/L (98-107); CREATININE 0.8 mg/dL (0.55-1.02); EST CRCL DRUG DOSING (CG) 57.84 mL/min; GLUCOSE RANDOM 146.0 mg/dL (70-99); POTASSIUM,K 3.7 mmol/L (3.5-5.1); SODIUM,NA 141.0 mmol/L (136-145)
[2024-12-25 06:30] LABS: ESTIMATED GFR 85.0 mL/min (>=60)
[2024-12-25 11:18] VITALS: BP 127/78; PULSE 73
== END 2024-12-25 11:45 | disposition home or self-care (01) | DRG 644 ==
LOC: DL.ED 15:31 → DL.MS 18:53 → OBSVTOIN 12-24 10:18
PROVIDERS: ADMIT Internal Medicine; ATTEND Internal Medicine
PROC: 4A033R1 Measurement of Arterial Saturation, Peripheral, Percutaneous Approach (ICD-10-PCS; principal; 2024-12-23)
DX: R06.02 Shortness of breath (principal); R06.89 Other abnormalities of breathing; E27.2 Addisonian crisis; E87.20 Acidosis, unspecified; K92.1 Melena; N17.9 Acute kidney failure, unspecified; J44.9 Chronic obstructive pulmonary disease, unspecified; Z79.890 Hormone replacement therapy; J45.909 Unspecified asthma, uncomplicated; H54.7 Unspecified visual loss; K29.70 Gastritis, unspecified, without bleeding; G89.29 Other chronic pain; M54.9 Dorsalgia, unspecified; F41.9 Anxiety disorder, unspecified; E11.9 Type 2 diabetes mellitus without complications; E03.9 Hypothyroidism, unspecified; D64.9 Anemia, unspecified; I95.9 Hypotension, unspecified; E86.0 Dehydration; D50.9 Iron deficiency anemia, unspecified; E83.42 Hypomagnesemia; Z79.899 Other long term (current) drug therapy; Z88.0 Allergy status to penicillin; Z90.49 Acquired absence of other specified parts of digestive tract; Z98.49 Cataract extraction status, unspecified eye; Z98.891 History of uterine scar from previous surgery; Z98.890 Other specified postprocedural states
CPT/HCPCS: 36415 ×2; 36600; 71045; 80048; 80053; 80179; 81003; 82009; 82272; 82533; 82607; 82746; 82803; 82947 ×3; 83540; 83550; 83605; 83735 ×2; 83880; 84100; 84145; 84439; 84443; 84484 ×2; 85025 ×3; 85730; 86850; 86900; 86901; 87636; 93005 ×2; 94640 ×4; 96365; 96375; 99285; A9270 ×8; J0650; J1644 ×2; J1720 ×3; J1815; J2470; J2919; J3475 ×2; J3535; J7030 ×3; J7620 ×2; 96366; 96372; 96376; 99232; 99239; G0378; Q0138